=== PATIENT | female | born 1965 | race Caucasian/White ===

== ENCOUNTER 2017-03-28 13:00 | Inpatient (IN) | payer MEDICAID ==
[~2017-03-28] VITALS: Ht 172.7 cm; Wt 63.2 kg
[2017-03-28 13:20] VITALS: BP 146/96
[2017-03-28] MEDS ORDERED: OXYC-302 PO (13:57)
[2017-03-28] MEDS ORDERED: LIDOCAINE/PF 1%, 30ML ONE (14:53)
[2017-03-28] MEDS ORDERED: BUPIVACAINE/PF 0.5% ONE (14:53)
[2017-03-28] MEDS ORDERED: HYDROmorphone 2 MG/ML, 1ML ONE (15:11)
[2017-03-28] MEDS ORDERED: FENTANYL PF 250 MCG/5ML ONE (15:11)
[2017-03-28] MEDS ORDERED: MIDAZOLAM 1 MG/ML, 2ML ONE (15:12)
[2017-03-28] MEDS ORDERED: ONDANSETRON 2MG/ML, 2ML IVPush PRN ×2 (15:30→22:00)
[2017-03-28] MEDS ORDERED: MEPERIDINE/PF 25MG/0.5ML IVPush PRN (15:30)
[2017-03-28] MEDS ORDERED: METOCLOPRAMIDE 5 MG/ML, 2ML IV PRN (15:30)
[2017-03-28] MEDS ORDERED: MIDAZOLAM 1 MG/ML, 2ML IV PRN (15:30)
[2017-03-28] MEDS ORDERED: OXYcodone 5 MG/5 ML ORAL.SOL UDC PO PRN (15:30)
[2017-03-28] MEDS ORDERED: PROMETHAZINE 25 MG/ML, 1ML IV PRN (15:30)
[2017-03-28] MEDS ORDERED: hydrALAzine 20 MG/ML, 1ML IV PRN (15:30)
[2017-03-28] MEDS ORDERED: FENTANYL PF 100 MCG/2ML IV PRN (15:30)
[2017-03-28] MEDS ORDERED: ACETAMINOPHEN 325 MG TABLET PO PRN (15:30)
[2017-03-28] MEDS ORDERED: LABETALOL 5MG/ML, 20ML IV PRN ×2 (15:30→19:30)
[2017-03-28] MEDS ORDERED: HYDROmorphone 1 MG/ML, 1ML IV PRN ×2 (15:30→22:00)
[2017-03-28] MEDS ORDERED: ONDANSETRON 2MG/ML, 2ML ONE (15:31)
[2017-03-28] MEDS ORDERED: CEFAZOLIN 1,000 MG ONE (15:31)
[2017-03-28] MEDS ORDERED: DEXAMETHASONE 4 MG/ML, 1ML ONE (15:31)
[2017-03-28] MEDS ORDERED: PHENYLEPHRINE 10 MG/ML ONE (15:31)
[2017-03-28] MEDS ORDERED: PROPOFOL 10 MG/ML, 20ML ONE (15:31)
[2017-03-28] MEDS ORDERED: ACETAMINOPHEN 650 MG/20.3 ML UDC ONE (19:21)
[2017-03-28] MEDS ORDERED: ACETAMINOPHEN 325 MG TABLET ONE (19:21)
[2017-03-28] MEDS ORDERED: OXYcodone 5 MG/5 ML ORAL.SOL UDC ONE (19:21)
[2017-03-28] MEDS ORDERED: FENTANYL PF 100 MCG/2ML ONE (19:21)
[2017-03-28] MEDS ORDERED: DOCUSATE 100 MG CAPSULE PO PRN (19:30)
[2017-03-28] MEDS ORDERED: BISACODYL 10 MG SUPP PR PRN (19:30)
[2017-03-28] MEDS ORDERED: MORPHINE SULFATE 4 MG/ML, 1ML IVPush PRN (19:30)
[2017-03-28] MEDS ORDERED: TRAZODONE 50MG TABLET PO PRN (19:30)
[2017-03-28] MEDS ORDERED: POLYETHYLENE GLYCOL 17 GM PACKET PO PRN (19:30)
[2017-03-28 20:48] LABS: ASPARTATE AMINO TRANSFERASE 17 U/L (15-37); BLOOD UREA NITROGEN 5 mg/dL (7-18)
[2017-03-28] MEDS ORDERED: MAGNESIUM SULFATE PMX 2GM/50ML 50 ML IV ONE (21:00)
[2017-03-28] MEDS ORDERED: CEFAZOLIN 1,000 MG IM SCH (22:00)
[2017-03-28] MEDS: INSULIN ASPART 100 UNITS/ML, PEN SQ-INSULIN SCH (22:15)
[2017-03-28] MEDS: ENOXAPARIN 40 MG/0.4 ML SQ SCH (22:15)
[2017-03-28] MEDS: SODIUM CHLORIDE 0.9% 1,000 ML IV SCH (22:16)
[2017-03-28] MEDS: OXYcodone IR 5MG TABLET PO PRN (22:17)
[2017-03-28] MEDS: CEFAZOLIN PMX 1GM/50ML 50 ML IV SCH (22:34)
[2017-03-29] VITALS: BP 103/76
[2017-03-29] MEDS: OXYcodone IR 5MG TABLET PO PRN ×6 (02:43→23:43)
[2017-03-29] MEDS: CEFAZOLIN PMX 1GM/50ML 50 ML IV SCH ×2 (06:14→14:53)
[2017-03-29 06:49] VITALS: BP 121/84
[2017-03-29] MEDS: SODIUM CHLORIDE 0.9% 1,000 ML IV SCH ×4 (08:00→23:43)
[2017-03-29] MEDS: metFORMIN 500 MG TABLET PO SCH ×2 (08:14→16:53)
[2017-03-29] MEDS: INSULIN ASPART 100 UNITS/ML, PEN SQ-INSULIN SCH ×4 (08:15→21:26)
[2017-03-29 13:40] VITALS: BP 123/86
[2017-03-29 18:18] VITALS: BP 108/73
[2017-03-29] MEDS: ENOXAPARIN 40 MG/0.4 ML SQ SCH (19:54)
[2017-03-30 03:24] VITALS: BP 123/83
[2017-03-30] MEDS: OXYcodone IR 5MG TABLET PO PRN ×3 (03:42→12:00)
[2017-03-30 07:00] VITALS: BP 133/91
[2017-03-30] MEDS: INSULIN ASPART 100 UNITS/ML, PEN SQ-INSULIN SCH ×2 (07:56→11:59)
[2017-03-30] MEDS: metFORMIN 500 MG TABLET PO SCH (07:57)
[2017-03-30] MEDS ORDERED: METF500T PO (10:15)
[2017-03-30] MEDS: SODIUM CHLORIDE 0.9% 1,000 ML IV SCH (10:40)
[2017-03-30 13:30] VITALS: BP 112/53
== END 2017-03-30 14:25 | disposition home or self-care (01) | DRG 494 ==
LOC: OUT 13:00 → 4NOR 19:20
PROVIDERS: ADMIT Orthopaedic Surgery Foot and Ankle Surgery; ATTEND Orthopaedic Surgery Foot and Ankle Surgery
PROC: 0QS Lower Bones, Reposition (ICD-10-PCS; 2017-03-28)
PROC: 0QSJ04Z Reposition Right Fibula with Internal Fixation Device, Open Approach (ICD-10-PCS; principal; 2017-03-28 15:30)
DX: S82.401A Unspecified fracture of shaft of right fibula, initial encounter for closed fracture (principal); S82.871A Displaced pilon fracture of right tibia, initial encounter for closed fracture; Y99.8 Other external cause status; Y92.89 Other specified places as the place of occurrence of the external cause; Y93.89 Activity, other specified; X58.XXXA Exposure to other specified factors, initial encounter; E11.65 Type 2 diabetes mellitus with hyperglycemia; Z87.891 Personal history of nicotine dependence; Z83.3 Family history of diabetes mellitus; Z82.49 Family history of ischemic heart disease and other diseases of the circulatory system; E83.42 Hypomagnesemia; E88.09 Other disorders of plasma-protein metabolism, not elsewhere classified; E05.90 Thyrotoxicosis, unspecified without thyrotoxic crisis or storm; E04.1 Nontoxic single thyroid nodule; Z79.84 Long term (current) use of oral hypoglycemic drugs; E11.40 Type 2 diabetes mellitus with diabetic neuropathy, unspecified; M81.0 Age-related osteoporosis without current pathological fracture
CPT/HCPCS: 36415; 76001; 76536; 80053; 80061; 82306; 82962; 83036; 83735; 84439; 84443; 84481; 85025; 85610; C1713; J0690; J1100; J1170; J1650; J1815; J2250; J2405; J2704; J3010; J3490; J2370; J3475; J7030

== ENCOUNTER → 2017-05-24 | Outpatient (CLI) | payer MEDICAID ==
[~2017-05-24] MED LIST: ASPI-650 PO; METF500T PO; METF500T4 PO; OXYC-302 PO; OXYC5CAP4 PO
== END | disposition home or self-care (01) ==
LOC: WOUND 09:14
PROVIDERS: ATTEND Physician Assistant
DX: T81.31XA Disruption of external operation (surgical) wound, not elsewhere classified, initial encounter (principal); E11.65 Type 2 diabetes mellitus with hyperglycemia; Z87.891 Personal history of nicotine dependence; Y83.8 Other surgical procedures as the cause of abnormal reaction of the patient, or of later complication, without mention of misadventure at the time of the procedure; Y92.89 Other specified places as the place of occurrence of the external cause
CPT/HCPCS: 97597; 99215

== ENCOUNTER → 2017-06-04 | Outpatient (CLI) | payer MEDICAID | END | disposition home or self-care (01) | LOC: WOUND 10:58 | PROVIDERS: ATTEND Internal Medicine | DX: T81.31XD Disruption of external operation (surgical) wound, not elsewhere classified, subsequent encounter (principal); E11.65 Type 2 diabetes mellitus with hyperglycemia; Z87.891 Personal history of nicotine dependence; Y83.8 Other surgical procedures as the cause of abnormal reaction of the patient, or of later complication, without mention of misadventure at the time of the procedure | CPT/HCPCS: 97597 ==

== ENCOUNTER → 2017-06-11 | Outpatient (CLI) | payer MEDICAID | END | disposition home or self-care (01) | LOC: WOUND 11:00 | PROVIDERS: ATTEND Internal Medicine | DX: T81.31XD Disruption of external operation (surgical) wound, not elsewhere classified, subsequent encounter (principal); E11.65 Type 2 diabetes mellitus with hyperglycemia; Z87.891 Personal history of nicotine dependence; Y83.8 Other surgical procedures as the cause of abnormal reaction of the patient, or of later complication, without mention of misadventure at the time of the procedure | CPT/HCPCS: 97597 ==

== ENCOUNTER → 2017-06-25 | Outpatient (CLI) | payer MEDICAID | END | disposition home or self-care (01) | LOC: WOUND 10:52 | PROVIDERS: ATTEND Internal Medicine | DX: T81.31XD Disruption of external operation (surgical) wound, not elsewhere classified, subsequent encounter (principal); E11.65 Type 2 diabetes mellitus with hyperglycemia; Z87.891 Personal history of nicotine dependence; Y83.8 Other surgical procedures as the cause of abnormal reaction of the patient, or of later complication, without mention of misadventure at the time of the procedure | CPT/HCPCS: 97597 ==

== ENCOUNTER → 2018-09-09 | Outpatient (CLI) | payer MEDICAID ==
[~2018-09-09] MED LIST changes: +METF500T17 PO; -METF500T4 PO; +OXYC5CAP2 PO; -OXYC5CAP4 PO
== END | disposition home or self-care (01) ==
LOC: CFH 10:48
PROVIDERS: ATTEND Family Medicine
DX: Z13.820 Encounter for screening for osteoporosis (principal); M81.0 Age-related osteoporosis without current pathological fracture; S52.002A Unspecified fracture of upper end of left ulna, initial encounter for closed fracture; Z78.0 Asymptomatic menopausal state; X58.XXXA Exposure to other specified factors, initial encounter; Y93.89 Activity, other specified; Y92.89 Other specified places as the place of occurrence of the external cause; Y99.8 Other external cause status
CPT/HCPCS: 77080

== ENCOUNTER → 2018-10-02 | Outpatient (CLI) | payer MEDICAID | END | disposition home or self-care (01) | LOC: CFH 12:23 | PROVIDERS: ATTEND Family Medicine | DX: R92.2 Inconclusive mammogram (principal) | CPT/HCPCS: G0279; 77066 ==

== ENCOUNTER 2019-10-20 11:31 | Inpatient (IN) | payer MEDICAID, OTHER ==
[~2019-10-20] VITALS: Ht 172.7 cm; Wt 56.3 kg
[2019-10-20] MEDS ORDERED: SODIUM CHLORIDE 0.9% 1,000ML IVBOLUS ONE ×2 (12:00)
[2019-10-20] MEDS ORDERED: PLEASE ENTER HEIGHT AND WEIGHT MC SCH (12:00)
[2019-10-20] MEDS ORDERED: PIPERACILLIN/TAZO/PMX 3.375GM 50 ML IV ONE (12:00)
[2019-10-20] MEDS ORDERED: SODIUM CHLORIDE FLUSH 10ML SYR IVF ONE (12:00)
[2019-10-20] MEDS ORDERED: VANCOMYCIN PER PHARMACY MC PRN ×2 (12:00→13:00)
--- NOTE | 2019-10-20 12:00 | NUR ---
THIS IS A 54 YO FEMALE WHO PRESENTS TO THE ER VIA AMUBLANCE C/O INCREASED WEAKNESS AND CONFUSION PER FAMILY WITH A WOUND TO LEFT MIDDLE FINGER AND BURN TO RIGHT THUMB. WOUND TO LEFT MIDDLE FINGER APPEARS TO BE BROWN TISSUE, MACERATED AND POSSIBLE MUSCLE/BONE SHOWING. PT AO X 3, CANNOT SAY DATE OR TIME. SKIN COOL, PALE AND DRY. RESP EVEN, SHALLOW AND UNLABORED. UPON CHANGING PT INTO GOWN, SOAKED BRIEF NOTED WITH MACERATED SKIN ON LABIA AND YEAST NOTED. PT HAS REDDNED SKIN ON COCCYX WITH A SMALL WOUND APPROX 1.5 CM X 1.5 CM. RING CUT OFF BY DIRECTION OF BENTLEY VOGEL. SECOND IV LINE ESTABLISED. BEAR HUGGER IN PLACE. PT PUT ON WARM BLANKETS. DISCUSSED INSERTING BENJAMIN WITH BENTLEY VOGEL FOR STRICT CORE TEMP MONITORING. PT ON CONT BP, CARDIAC AND O2 MONITORS. CALL LIGHT WITHIN REACH.
--- NOTE | 2019-10-20 12:03 | NUR ---
GLUCOMETER READ "HI". BENTLEY VOGEL NOTIFIED. CMP ALREADY IN LAB. AWAITING GLUCOSE RESULTS.
[2019-10-20] MEDS ORDERED: PIPERACILLIN/TAZO/PMX 3.375GM 50 ML ONE (12:11)
[2019-10-20 12:18] LABS: ALANINE AMINOTRANSFERASE 17 U/L (12-78); ALBUMIN 2.2 g/dL (3.4-5.0); ANION GAP 30 mmol/L (5-15); CALCIUM 7.2 mg/dL (8.5-10.1); CHLORIDE 85 mmol/L (98-107); CREATININE 2.83 mg/dL (0.55-1.02)
[2019-10-20 12:25] LABS: ALKALINE PHOSPHATASE 219 U/L (45-117); BILIRUBIN,TOTAL 0.5 mg/dL (0.2-1.0); TOTAL PROTEIN 6.6 g/dL (6.4-8.2)
[2019-10-20 12:26] LABS: C-REACTIVE PROTEIN, QUANT > 19.00 mg/dL (0.02-0.49)
[2019-10-20] MEDS ORDERED: VANCOMYCIN PMX 1GM/200ML 200 ML IV ONE (12:30)
[2019-10-20 12:39] LABS: MEAN CORPUSCULAR HEMOGLOBIN 28.5 pg (27.0-34.8); MEAN CORPUSCULAR HGB CONC 31.3 g/dL (32.4-35.8); MEAN CORPUSCULAR VOLUME 90.8 fL (80-100); MEAN PLATELET VOLUME 7.2 fL (7.4-10.4); PLATELET COUNT 319 x10^3/uL (130-400); RED CELL DISTRIBUTION WIDTH 15.5 % (9.6-15.2)
[2019-10-20 12:43] LABS: MD YES
[2019-10-20 12:47] LABS: ANISOCYTOSIS 1+; BAND#(MANUAL) 10.29 x10^3/uL; BANDS%(MANUAL) 21 % (0-7); ECHINOCYTES 1+; LYMPH#(MANUAL) 2.94 x10^3/uL (1-3.4); LYMPHS% (MANUAL) 6 % (22-44); MONOS#(MANUAL) 0.49 x10^3/uL (0.3-2.7); MONOS% (MANUAL) 1 % (2-9); SEG#(MANUAL) 35.28 x10^3/uL (1.8-6.8); SEGS% (MANUAL) 72 % (42-75)
[2019-10-20] MEDS: D5%-0.45NACL+KCL 20MEQ 1,000 ML IV SCH (12:48)
[2019-10-20 12:49] LABS: ACANTHOCYTES 1+
[2019-10-20 12:50] LABS: <PLATELET ESTIMATE> ADEQUATE; <PLT MORPHOLOGY> NORMAL PLT MORPH; TOXIC GRAN 1+
[2019-10-20 12:53] LABS: FIO2 ROOM AIR %
[2019-10-20] MEDS ORDERED: BISACODYL 10 MG SUPP PR PRN (13:00)
[2019-10-20] MEDS ORDERED: ONDANSETRON 2MG/ML, 2ML IVPush PRN (13:00)
[2019-10-20] MEDS ORDERED: POLYETHYLENE GLYCOL 17 GM PACKET PO PRN (13:00)
[2019-10-20] MEDS ORDERED: NOREPINEPHRINE 4 MG in SODIUM CHLORIDE 0.9% 246 ML IV PRN (13:00)
[2019-10-20] MEDS ORDERED: LORazepam 2 MG/ML, 1ML IVPush PRN (13:00)
[2019-10-20] MEDS: PIPERACILLIN/TAZO/PMX 3.375GM 50 ML IV SCH ×3 (13:00→18:31)
--- NOTE | 2019-10-20 13:10 | NUR ---
CENTRAL LINE PLACED BY BENTLEY VOGEL FOR PT'S CONT HYPOTENSION. PT AO X 3. SKIN PALE, COOL AND DRY. PT ON CONT BP, CARDIAC AND O2 MONITORS. CALL LIGHT WITHIN REACH. WILL CONT TO MONITOR PT.
[2019-10-20 13:22] LABS: HCT (SEDRATE) 36.4 % (34.6-47.8)
[2019-10-20 13:28] LABS: TROPONIN I < 0.015 ng/mL (0.000-0.045)
[2019-10-20 13:29] LABS: ACETONE, SERUM Large (80mg/dL) mg/dL (Negative)
[2019-10-20] MEDS ORDERED: NS + 20MEQ KCL 1,000 ML IV ONE (13:29)
[2019-10-20] MEDS: NS + 20MEQ KCL 1,000 ML IV SCH ×2 (13:33→22:17)
[2019-10-20] MEDS: REGULAR INSULIN 62.5 UNITS in SODIUM CHLORIDE 0.9% 249.375 ML IV PRN ×3 (13:51→23:30)
[2019-10-20 13:54] LABS: FREE T4 (FREE THYROXINE) 0.92 ng/dL (0.76-1.46)
[2019-10-20 14:16] LABS: MICROSCOPIC INDICATED
[2019-10-20 14:17] LABS: CULTURE INDICATED? YES
--- NOTE | 2019-10-20 14:20 | NUR ---
PT CURRENTLY RESTING ON [place]. SKIN PALE, TIGHT, DRY AND COOL TO TOUCH. PT AO X 3, ANSWERING ALL QUESTIONS APPROPRIATELY BUT UNABLE TO RECALL DATE/YEAR. PT ON CONT BP, CARDIAC AND O2 MONITORS.
--- NOTE | 2019-10-20 14:27 | NUR ---
REPORT TO MADHU MUKHERJEE ON CICU.
[2019-10-20] MEDS ORDERED: PHARMACOKINETIC MONITORING MC PRN (15:30)
[2019-10-20] MEDS: ENOXAPARIN 40 MG/0.4 ML SQ SCH (16:06)
[2019-10-20 18:51] LABS: ANION GAP 24 mmol/L (5-15); CALCIUM 6.9 mg/dL (8.5-10.1); CHLORIDE 97 mmol/L (98-107); CREATININE 2.81 mg/dL (0.55-1.02)
[2019-10-20 18:54] LABS: TROPONIN I < 0.015 ng/mL (0.000-0.045)
[2019-10-20 22:43] LABS: ANION GAP 15 mmol/L (5-15); CALCIUM 7.1 mg/dL (8.5-10.1); CHLORIDE 103 mmol/L (98-107); CREATININE 2.85 mg/dL (0.55-1.02)
[2019-10-21] MEDS ORDERED: SODIUM CHLORIDE 0.9% 1,000ML IVBOLUS ONE
[2019-10-21] MEDS: PIPERACILLIN/TAZO/PMX 3.375GM 50 ML IV SCH ×4 (01:28→19:39)
[2019-10-21] MEDS: NS + 20MEQ KCL 1,000 ML IV SCH (02:08)
[2019-10-21] MEDS: REGULAR INSULIN 62.5 UNITS in SODIUM CHLORIDE 0.9% 249.375 ML IV PRN ×3 (02:21→20:37)
[2019-10-21 02:40] LABS: ANION GAP 10 mmol/L (5-15); CALCIUM 6.8 mg/dL (8.5-10.1); CHLORIDE 110 mmol/L (98-107)
[2019-10-21] MEDS: D5%-0.45NACL+KCL 20MEQ 1,000 ML IV SCH ×3 (02:50→20:38)
[2019-10-21 06:08] LABS: ALANINE AMINOTRANSFERASE 16 U/L (12-78); ALBUMIN 1.7 g/dL (3.4-5.0); ANION GAP 11 mmol/L (5-15); CALCIUM 6.8 mg/dL (8.5-10.1); CHLORIDE 111 mmol/L (98-107); CREATININE 2.83 mg/dL (0.55-1.02)
[2019-10-21 06:11] LABS: ALKALINE PHOSPHATASE 172 U/L (45-117); BILIRUBIN,TOTAL 0.3 mg/dL (0.2-1.0); TOTAL PROTEIN 5.3 g/dL (6.4-8.2)
[2019-10-21] MEDS ORDERED: SODIUM PHOSPHATE 40 MMOL in SODIUM CHLORIDE 0.9% 500 ML IV ONE (06:30)
[2019-10-21] MEDS ORDERED: MAGNESIUM SULFATE 4 GM in SODIUM CHLORIDE 0.9% 100 ML IV ONE (06:30)
[2019-10-21 06:59] LABS: MEAN CORPUSCULAR HEMOGLOBIN 28.4 pg (27.0-34.8); MEAN CORPUSCULAR HGB CONC 32.3 g/dL (32.4-35.8); MEAN CORPUSCULAR VOLUME 87.8 fL (80-100); MEAN PLATELET VOLUME 6.8 fL (7.4-10.4); PLATELET COUNT 240 x10^3/uL (130-400); RED BLOOD COUNT 3.83 x10^6/uL (3.82-5.3); RED CELL DISTRIBUTION WIDTH 14.2 % (9.6-15.2)
[2019-10-21 07:12] LABS: MD YES
[2019-10-21 07:14] LABS: BAND#(MANUAL) 8.42 x10^3/uL; BANDS%(MANUAL) 20 % (0-7); LYMPH#(MANUAL) 0.42 x10^3/uL (1-3.4); LYMPHS% (MANUAL) 1 % (22-44); MONOS#(MANUAL) 0.42 x10^3/uL (0.3-2.7); MONOS% (MANUAL) 1 % (2-9); PMNS WITH VACUOLES 1+; SEG#(MANUAL) 32.84 x10^3/uL (1.8-6.8); SEGS% (MANUAL) 78 % (42-75); TOXIC GRAN 1+
[2019-10-21 07:15] LABS: <PLATELET ESTIMATE> ADEQUATE; <PLT MORPHOLOGY> NORMAL PLT MORPH; ANISOCYTOSIS 1+; ECHINOCYTES 1+
[2019-10-21] MEDS: SENNA/DOCUSATE TABLET PO SCH (09:00)
[2019-10-21] MEDS: FAMOTIDINE 20 MG/2 ML IVPush SCH (09:15)
[2019-10-21] MEDS: SILVER SULF. CRM 1% , 25GM TP SCH (09:48)
[2019-10-21 10:06] LABS: ANION GAP 12 mmol/L (5-15); CALCIUM 6.8 mg/dL (8.5-10.1); CHLORIDE 109 mmol/L (98-107); CREATININE 2.64 mg/dL (0.55-1.02)
[2019-10-21 10:15] LABS: VANCOMYCIN,RANDOM 13.5 mcg/mL
[2019-10-21] MEDS: FLUCONAZOLE 200 MG/100 ML 100 ML IV SCH (11:40)
[2019-10-21] MEDS ORDERED: VANCOMYCIN PMX 1GM/200ML 200 ML IVPB ONE (12:00)
[2019-10-21] MEDS: THIAMINE 100 MG in SODIUM CHLORIDE 0.9% 50 ML IV SCH (16:25)
[2019-10-21] MEDS: ENOXAPARIN 40 MG/0.4 ML SQ SCH (16:26)
[2019-10-21 16:42] LABS: ANION GAP 11 mmol/L (5-15); CALCIUM 6.6 mg/dL (8.5-10.1); CHLORIDE 110 mmol/L (98-107); CREATININE 2.73 mg/dL (0.55-1.02)
[2019-10-21 20:57] LABS: ANION GAP 12 mmol/L (5-15); CALCIUM 6.6 mg/dL (8.5-10.1); CHLORIDE 111 mmol/L (98-107); CREATININE 2.65 mg/dL (0.55-1.02)
[2019-10-22 01:00] LABS: ANION GAP 12 mmol/L (5-15); CALCIUM 6.5 mg/dL (8.5-10.1); CHLORIDE 109 mmol/L (98-107); CREATININE 2.64 mg/dL (0.55-1.02)
[2019-10-22] MEDS: PIPERACILLIN/TAZO/PMX 3.375GM 50 ML IV SCH ×4 (01:36→18:26)
[2019-10-22] MEDS: D5%-0.45NACL+KCL 20MEQ 1,000 ML IV SCH ×3 (04:44→21:24)
[2019-10-22 05:09] LABS: ANION GAP 11 mmol/L (5-15); CALCIUM 6.5 mg/dL (8.5-10.1); CHLORIDE 110 mmol/L (98-107); CREATININE 2.84 mg/dL (0.55-1.02)
[2019-10-22 05:15] LABS: VANCOMYCIN,RANDOM 24.8 mcg/mL
[2019-10-22 05:43] LABS: MEAN CORPUSCULAR HEMOGLOBIN 28.3 pg (27.0-34.8); MEAN CORPUSCULAR HGB CONC 32.7 g/dL (32.4-35.8); MEAN CORPUSCULAR VOLUME 86.5 fL (80-100); MEAN PLATELET VOLUME 7.1 fL (7.4-10.4); PLATELET COUNT 100 x10^3/uL (130-400); RED BLOOD COUNT 3.32 x10^6/uL (3.82-5.3); RED CELL DISTRIBUTION WIDTH 15.1 % (9.6-15.2)
[2019-10-22 05:45] LABS: MD YES
[2019-10-22 05:46] LABS: BAND#(MANUAL) 3.58 x10^3/uL; BANDS%(MANUAL) 14 % (0-7); LYMPH#(MANUAL) 1.02 x10^3/uL (1-3.4); LYMPHS% (MANUAL) 4 % (22-44); MONOS#(MANUAL) 0.26 x10^3/uL (0.3-2.7); MONOS% (MANUAL) 1 % (2-9); SEG#(MANUAL) 20.74 x10^3/uL (1.8-6.8); SEGS% (MANUAL) 81 % (42-75)
[2019-10-22 05:47] LABS: ECHINOCYTES 1+
[2019-10-22 05:48] LABS: <PLATELET ESTIMATE> DECREASED; <PLT MORPHOLOGY> NORMAL PLT MORPH; ANISOCYTOSIS 1+; PMNS WITH VACUOLES 1+
[2019-10-22] MEDS: SENNA/DOCUSATE TABLET PO SCH (08:31)
[2019-10-22] MEDS: FAMOTIDINE 20 MG/2 ML IVPush SCH (09:00)
[2019-10-22 09:49] LABS: ANION GAP 12 mmol/L (5-15); CALCIUM 6.4 mg/dL (8.5-10.1); CHLORIDE 110 mmol/L (98-107)
[2019-10-22] MEDS: SILVER SULF. CRM 1% , 25GM TP SCH (11:31)
[2019-10-22] MEDS: FLUCONAZOLE 200 MG/100 ML 100 ML IV SCH (11:31)
[2019-10-22 14:54] LABS: ANION GAP 11 mmol/L (5-15); CHLORIDE 114 mmol/L (98-107); CREATININE 2.54 mg/dL (0.55-1.02)
[2019-10-22] MEDS ORDERED: ENOXAPARIN 30 MG/0.3 ML SQ SCH (16:00)
[2019-10-22] MEDS: THIAMINE 100 MG in SODIUM CHLORIDE 0.9% 50 ML IV SCH (17:28)
[2019-10-22 18:53] LABS: ANION GAP 10 mmol/L (5-15); CHLORIDE 110 mmol/L (98-107); CREATININE 2.93 mg/dL (0.55-1.02)
[2019-10-23] MEDS: PIPERACILLIN/TAZO/PMX 3.375GM 50 ML IV SCH ×2 (00:45→06:44)
[2019-10-23 00:57] LABS: ANION GAP 11 mmol/L (5-15); CALCIUM 6.5 mg/dL (8.5-10.1); CHLORIDE 114 mmol/L (98-107); CREATININE 2.77 mg/dL (0.55-1.02)
[2019-10-23] MEDS: REGULAR INSULIN 62.5 UNITS in SODIUM CHLORIDE 0.9% 249.375 ML IV PRN (03:45)
[2019-10-23 05:02] LABS: MEAN CORPUSCULAR HEMOGLOBIN 27.6 pg (27.0-34.8); MEAN CORPUSCULAR HGB CONC 32.4 g/dL (32.4-35.8); MEAN CORPUSCULAR VOLUME 85.3 fL (80-100); MEAN PLATELET VOLUME 7.4 fL (7.4-10.4); PLATELET COUNT 83 x10^3/uL (130-400); RED BLOOD COUNT 3.21 x10^6/uL (3.82-5.3); RED CELL DISTRIBUTION WIDTH 15.2 % (9.6-15.2)
[2019-10-23] MEDS: D5%-0.45NACL+KCL 20MEQ 1,000 ML IV SCH (05:08)
[2019-10-23 05:10] LABS: ALBUMIN 1.3 g/dL (3.4-5.0); ANION GAP 11 mmol/L (5-15); CALCIUM 6.9 mg/dL (8.5-10.1); CHLORIDE 111 mmol/L (98-107)
[2019-10-23 05:14] LABS: ALANINE AMINOTRANSFERASE 24 U/L (12-78); ALKALINE PHOSPHATASE 253 U/L (45-117); BILIRUBIN,TOTAL 0.5 mg/dL (0.2-1.0); CREATININE 2.91 mg/dL (0.55-1.02); TOTAL PROTEIN 4.7 g/dL (6.4-8.2)
[2019-10-23 05:37] LABS: MD YES
[2019-10-23 05:42] LABS: ANISOCYTOSIS 1+; BAND#(MANUAL) 2.06 x10^3/uL; BANDS%(MANUAL) 8 % (0-7); LYMPH#(MANUAL) 1.81 x10^3/uL (1-3.4); LYMPHS% (MANUAL) 7 % (22-44); METAMYELOCYTES# (MANUAL) 0.26 x10^3/uL (0-0); METAMYELOCYTES% (MANUAL) 1 % (0-1); SEG#(MANUAL) 21.67 x10^3/uL (1.8-6.8); SEGS% (MANUAL) 84 % (42-75)
[2019-10-23 05:43] LABS: <PLATELET ESTIMATE> DECREASED; <PLT MORPHOLOGY> NORMAL PLT MORPH; ECHINOCYTES 1+
[2019-10-23] MEDS: SODIUM BICARBONATE 8.4% 150 MEQ in DEXTROSE 5% 1,000 ML IV SCH ×2 (08:57→20:31)
[2019-10-23] MEDS: SENNA/DOCUSATE TABLET PO SCH (08:57)
[2019-10-23 09:00] LABS: ANION GAP 10 mmol/L (5-15); CALCIUM 7.1 mg/dL (8.5-10.1); CHLORIDE 112 mmol/L (98-107); CREATININE 2.99 mg/dL (0.55-1.02)
[2019-10-23] MEDS: FONDAPARINUX 2.5 MG/0.5 ML SQ SCH (10:51)
[2019-10-23] MEDS: SILVER SULF. CRM 1% , 25GM TP SCH (10:51)
[2019-10-23] MEDS: FLUCONAZOLE 200 MG/100 ML 100 ML IV SCH (10:51)
[2019-10-23] MEDS: CEFTRIAXONE PMX 2GM/50ML 50 ML IV SCH (13:43)
[2019-10-23 15:13] LABS: ANION GAP 11 mmol/L (5-15); CALCIUM 7.1 mg/dL (8.5-10.1); CHLORIDE 110 mmol/L (98-107); CREATININE 3.11 mg/dL (0.55-1.02)
[2019-10-23 16:01] LABS: HIT RESULT NEGATIVE (NEGATIVE)
[2019-10-23] MEDS: THIAMINE 100 MG in SODIUM CHLORIDE 0.9% 50 ML IV SCH (17:03)
[2019-10-24 05:05] LABS: ALBUMIN 1.2 g/dL (3.4-5.0); ANION GAP 10 mmol/L (5-15); CALCIUM 6.9 mg/dL (8.5-10.1); CHLORIDE 109 mmol/L (98-107)
[2019-10-24 05:09] LABS: ALANINE AMINOTRANSFERASE 44 U/L (12-78); ALKALINE PHOSPHATASE 351 U/L (45-117); BILIRUBIN,TOTAL 0.5 mg/dL (0.2-1.0); CREATININE 3.05 mg/dL (0.55-1.02); TOTAL PROTEIN 4.8 g/dL (6.4-8.2)
[2019-10-24 05:18] LABS: MEAN CORPUSCULAR HEMOGLOBIN 27.7 pg (27.0-34.8); MEAN CORPUSCULAR HGB CONC 32.6 g/dL (32.4-35.8); MEAN CORPUSCULAR VOLUME 84.8 fL (80-100); RED BLOOD COUNT 3.38 x10^6/uL (3.82-5.3)
[2019-10-24 05:49] LABS: MD YES
[2019-10-24 05:52] LABS: ANISOCYTOSIS 1+; BANDS%(MANUAL) 2 % (0-7); EOS#(MANUAL) 0.25 x10^3/uL (0.0-0.4); EOS% (MANUAL) 1 % (1-7); LYMPH#(MANUAL) 2.24 x10^3/uL (1-3.4); LYMPHS% (MANUAL) 9 % (22-44); METAMYELOCYTES# (MANUAL) 0.25 x10^3/uL (0-0); METAMYELOCYTES% (MANUAL) 1 % (0-1); MONOS#(MANUAL) 0.25 x10^3/uL (0.3-2.7); MONOS% (MANUAL) 1 % (2-9); SEG#(MANUAL) 21.41 x10^3/uL (1.8-6.8); SEGS% (MANUAL) 86 % (42-75)
[2019-10-24 05:53] LABS: <PLATELET ESTIMATE> DECREASED; <PLT MORPHOLOGY> NORMAL PLT MORPH; ECHINOCYTES 1+; MEAN PLATELET VOLUME 7.6 fL (7.4-10.4); PLATELET COUNT 74 x10^3/uL (130-400)
[2019-10-24 05:54] LABS: PMNS WITH VACUOLES 1+
[2019-10-24] MEDS: SODIUM BICARBONATE 8.4% 150 MEQ in DEXTROSE 5% 1,000 ML IV SCH ×2 (06:28→19:43)
[2019-10-24] MEDS ORDERED: POTASSIUM CHLORIDE 20 MEQ TAB.ER.PRT PO ONE (07:00)
[2019-10-24] MEDS ORDERED: INSULIN LISPRO 100 UNITS/ML, PEN SQ-INSULIN SCH (07:30)
[2019-10-24] MEDS: ALBUMIN HUMAN 25% 100 ML IV SCH ×2 (08:33→19:43)
[2019-10-24] MEDS: FONDAPARINUX 2.5 MG/0.5 ML SQ SCH (08:50)
[2019-10-24] MEDS: INSULIN GLARGINE 100 UNITS/ML, PEN SQ-INSULIN SCH ×2 (08:50→21:39)
[2019-10-24] MEDS: SENNA/DOCUSATE TABLET PO SCH (09:00)
[2019-10-24 09:50] LABS: CLOSTRIDIUM DIFFICILE ANTIGEN POSITIVE; CLOSTRIDIUM DIFFICILE TOXIN NEGATIVE (Negative)
[2019-10-24] MEDS: VANCOMYCIN 50 MG/ML ORAL SUSP PO SCH ×3 (10:48→21:38)
[2019-10-24] MEDS: FLUCONAZOLE 200 MG/100 ML 100 ML IV SCH (11:42)
[2019-10-24] MEDS: INSULIN LISPRO 100 UNITS/ML, PEN SQ-INSULIN SCH ×3 (11:55→21:39)
[2019-10-24] MEDS: CEFTRIAXONE PMX 2GM/50ML 50 ML IV SCH (13:12)
[2019-10-24] MEDS: SILVER SULF. CRM 1% , 25GM TP SCH (13:30)
[2019-10-24] MEDS: THIAMINE 100 MG in SODIUM CHLORIDE 0.9% 50 ML IV SCH (16:54)
[2019-10-25 04:52] LABS: MEAN CORPUSCULAR HEMOGLOBIN 28.2 pg (27.0-34.8); MEAN CORPUSCULAR HGB CONC 32.9 g/dL (32.4-35.8); MEAN CORPUSCULAR VOLUME 85.7 fL (80-100); MEAN PLATELET VOLUME 7.7 fL (7.4-10.4); PLATELET COUNT 64 x10^3/uL (130-400); RED BLOOD COUNT 3.04 x10^6/uL (3.82-5.3); RED CELL DISTRIBUTION WIDTH 14.5 % (9.6-15.2)
[2019-10-25] MEDS: VANCOMYCIN 50 MG/ML ORAL SUSP PO SCH ×4 (04:52→21:58)
[2019-10-25 04:58] LABS: CHLORIDE 107 mmol/L (98-107)
[2019-10-25 05:07] LABS: ALANINE AMINOTRANSFERASE 28 U/L (12-78); ALBUMIN 1.8 g/dL (3.4-5.0); ALKALINE PHOSPHATASE 248 U/L (45-117); ANION GAP 8 mmol/L (5-15); BILIRUBIN,TOTAL 1.1 mg/dL (0.2-1.0); CALCIUM 6.9 mg/dL (8.5-10.1); CREATININE 2.77 mg/dL (0.55-1.02); TOTAL PROTEIN 4.9 g/dL (6.4-8.2)
[2019-10-25 05:36] LABS: MD YES
[2019-10-25 05:39] LABS: <PLATELET ESTIMATE> DECREASED; BAND#(MANUAL) 1.06 x10^3/uL; BANDS%(MANUAL) 6 % (0-7); LYMPH#(MANUAL) 1.24 x10^3/uL (1-3.4); LYMPHS% (MANUAL) 7 % (22-44); MONOS#(MANUAL) 0.35 x10^3/uL (0.3-2.7); MONOS% (MANUAL) 2 % (2-9); OVALOCYTES 1+; SEG#(MANUAL) 15.05 x10^3/uL (1.8-6.8); SEGS% (MANUAL) 85 % (42-75)
[2019-10-25 05:40] LABS: <PLT MORPHOLOGY> NORMAL PLT MORPH
[2019-10-25] MEDS: SILVER SULF. CRM 1% , 25GM TP SCH (06:33)
[2019-10-25] MEDS: ALBUMIN HUMAN 25% 100 ML IV SCH (06:48)
[2019-10-25] MEDS: SODIUM BICARBONATE 8.4% 150 MEQ in DEXTROSE 5% 1,000 ML IV SCH (06:49)
[2019-10-25] MEDS: INSULIN LISPRO 100 UNITS/ML, PEN SQ-INSULIN SCH ×4 (06:49→21:18)
[2019-10-25] MEDS ORDERED: MAGNESIUM SULFATE PMX 2GM/50ML 50 ML IV ONE (07:30)
[2019-10-25] MEDS: SODIUM CHLORIDE 0.9% 1,000 ML IV SCH ×2 (08:13→18:54)
[2019-10-25] MEDS: SENNA/DOCUSATE TABLET PO SCH (08:13)
[2019-10-25] MEDS: INSULIN GLARGINE 100 UNITS/ML, PEN SQ-INSULIN SCH ×2 (09:41→21:18)
[2019-10-25] MEDS: FLUCONAZOLE 200 MG/100 ML 100 ML IV SCH (12:01)
[2019-10-25] MEDS: CEFTRIAXONE PMX 2GM/50ML 50 ML IV SCH (13:56)
[2019-10-25 14:17] VITALS: BP 170/103
[2019-10-25 20:00] VITALS: BP 169/91
[2019-10-26] MEDS: hydrALAzine 20 MG/ML, 1ML IVPush PRN ×2 (01:40→15:03)
[2019-10-26 01:46] VITALS: BP 172/106
[2019-10-26 02:23] VITALS: BP 137/81
[2019-10-26] MEDS: VANCOMYCIN 50 MG/ML ORAL SUSP PO SCH ×4 (04:30→21:00)
[2019-10-26 04:58] LABS: MEAN CORPUSCULAR HEMOGLOBIN 27.9 pg (27.0-34.8); MEAN CORPUSCULAR HGB CONC 32.6 g/dL (32.4-35.8); MEAN CORPUSCULAR VOLUME 85.5 fL (80-100); MEAN PLATELET VOLUME 8.3 fL (7.4-10.4); PLATELET COUNT 69 x10^3/uL (130-400); RED BLOOD COUNT 3.42 x10^6/uL (3.82-5.3); RED CELL DISTRIBUTION WIDTH 14.6 % (9.6-15.2)
[2019-10-26 05:03] LABS: ALANINE AMINOTRANSFERASE 25 U/L (12-78); ALBUMIN 1.8 g/dL (3.4-5.0); ANION GAP 9 mmol/L (5-15); CALCIUM 7.1 mg/dL (8.5-10.1); CHLORIDE 107 mmol/L (98-107)
[2019-10-26 05:05] LABS: ALKALINE PHOSPHATASE 259 U/L (45-117); BILIRUBIN,TOTAL 0.5 mg/dL (0.2-1.0); TOTAL PROTEIN 5.1 g/dL (6.4-8.2)
[2019-10-26 05:51] LABS: BASOPHILS # (AUTO) 0.04 x10^3/uL (0-0.1); BASOPHILS % (AUTO) 0 % (0-1); EOSINOPHILS # (AUTO) 0.33 x10^3/uL (0-0.4); EOSINOPHILS % (AUTO) 2 % (1-7); LYMPHOCYTES # (AUTO) 1.85 x10^3/uL (1-3.4); LYMPHOCYTES % (AUTO) 10 % (22-44); MD SCAN; MONOCYTES # (AUTO) 1.38 x10^3/uL (0.2-0.8); MONOCYTES % (AUTO) 8 % (2-9); NEUTROPHILS # (AUTO) 14.19 x10^3/uL (1.8-6.8); NEUTROPHILS % (AUTO) 80 % (42-75)
[2019-10-26] MEDS: SODIUM CHLORIDE 0.9% 1,000 ML IV SCH (08:58)
[2019-10-26] MEDS: ACETAMINOPHEN 325 MG TABLET PO PRN (08:58)
[2019-10-26] MEDS: INSULIN LISPRO 100 UNITS/ML, PEN SQ-INSULIN SCH ×4 (08:58→21:00)
[2019-10-26] MEDS: POTASSIUM CHLORIDE 20 MEQ TAB.ER.PRT PO SCH ×2 (08:58→16:53)
[2019-10-26] MEDS: SENNA/DOCUSATE TABLET PO SCH (08:59)
[2019-10-26] MEDS: SILVER SULF. CRM 1% , 25GM TP SCH (08:59)
[2019-10-26] MEDS: INSULIN GLARGINE 100 UNITS/ML, PEN SQ-INSULIN SCH ×2 (08:59→20:59)
[2019-10-26 09:05] VITALS: BP 146/89
[2019-10-26] MEDS: FLUCONAZOLE 200 MG/100 ML 100 ML IV SCH (12:00)
[2019-10-26] MEDS: CEFTRIAXONE PMX 2GM/50ML 50 ML IV SCH (12:00)
[2019-10-26 14:55] VITALS: BP 183/107
[2019-10-26 15:31] VITALS: BP 158/91
[2019-10-26 18:55] VITALS: BP 150/95
[2019-10-27] MEDS: SODIUM CHLORIDE 0.9% 1,000 ML IV SCH ×2 (00:06→16:15)
[2019-10-27 00:53] VITALS: BP 134/85
[2019-10-27] MEDS: VANCOMYCIN 50 MG/ML ORAL SUSP PO SCH ×4 (03:59→21:51)
[2019-10-27 07:15] VITALS: BP 151/93
[2019-10-27] MEDS: INSULIN LISPRO 100 UNITS/ML, PEN SQ-INSULIN SCH ×4 (07:55→21:01)
[2019-10-27] MEDS: SENNA/DOCUSATE TABLET PO SCH (09:50)
[2019-10-27] MEDS: INSULIN GLARGINE 100 UNITS/ML, PEN SQ-INSULIN SCH ×2 (09:51→21:02)
[2019-10-27 09:54] LABS: MEAN CORPUSCULAR HEMOGLOBIN 27.5 pg (27.0-34.8); MEAN CORPUSCULAR HGB CONC 32.8 g/dL (32.4-35.8); MEAN CORPUSCULAR VOLUME 84.1 fL (80-100); RED BLOOD COUNT 3.45 x10^6/uL (3.82-5.3); RED CELL DISTRIBUTION WIDTH 15.1 % (9.6-15.2)
[2019-10-27 10:12] LABS: ANION GAP 7 mmol/L (5-15); CALCIUM 7.2 mg/dL (8.5-10.1); CHLORIDE 110 mmol/L (98-107); CREATININE 1.95 mg/dL (0.55-1.02)
[2019-10-27] MEDS ORDERED: LORazepam 2 MG/ML, 1ML IVPush ONE (10:30)
[2019-10-27 10:58] LABS: MEAN PLATELET VOLUME 8.1 fL (7.4-10.4); PLATELET COUNT 101 x10^3/uL (130-400)
[2019-10-27 11:12] LABS: BASOPHILS # (AUTO) 0.04 x10^3/uL (0-0.1); BASOPHILS % (AUTO) 0 % (0-1); EOSINOPHILS # (AUTO) 0.29 x10^3/uL (0-0.4); EOSINOPHILS % (AUTO) 1 % (1-7); LYMPHOCYTES # (AUTO) 1.95 x10^3/uL (1-3.4); LYMPHOCYTES % (AUTO) 10 % (22-44); MD SCAN; MONOCYTES # (AUTO) 1.66 x10^3/uL (0.2-0.8); MONOCYTES % (AUTO) 8 % (2-9); NEUTROPHILS # (AUTO) 16.58 x10^3/uL (1.8-6.8); NEUTROPHILS % (AUTO) 81 % (42-75)
[2019-10-27] MEDS ORDERED: GADOTERATE 7.5 MMOL/15 ML SYR ONE (12:14)
[2019-10-27] MEDS: CEFTRIAXONE PMX 2GM/50ML 50 ML IV SCH (12:41)
[2019-10-27] MEDS: SILVER SULF. CRM 1% , 25GM TP SCH (12:43)
[2019-10-27 14:08] VITALS: BP 129/89
[2019-10-27 19:21] VITALS: BP 141/94
[2019-10-27] MEDS: OXYcodone IR 5MG TABLET PO PRN (21:01)
[2019-10-28 01:58] VITALS: BP 150/98
[2019-10-28] MEDS: VANCOMYCIN 50 MG/ML ORAL SUSP PO SCH ×4 (04:30→23:02)
[2019-10-28] MEDS: SILVER SULF. CRM 1% , 25GM TP SCH (04:50)
[2019-10-28] MEDS: OXYcodone IR 5MG TABLET PO PRN ×4 (04:58→20:23)
[2019-10-28] MEDS: SODIUM CHLORIDE 0.9% 1,000 ML IV SCH (04:59)
[2019-10-28 06:09] LABS: ANION GAP 6 mmol/L (5-15); CALCIUM 7.2 mg/dL (8.5-10.1); CHLORIDE 112 mmol/L (98-107)
[2019-10-28 06:35] VITALS: BP 150/94
[2019-10-28] MEDS ORDERED: GLUCAGON 1 MG IM PRN (07:30)
[2019-10-28] MEDS: INSULIN LISPRO 100 UNITS/ML, PEN SQ-INSULIN SCH ×4 (07:31→20:43)
[2019-10-28 07:47] LABS: MEAN CORPUSCULAR HEMOGLOBIN 27.6 pg (27.0-34.8); MEAN CORPUSCULAR HGB CONC 32.6 g/dL (32.4-35.8); MEAN CORPUSCULAR VOLUME 84.5 fL (80-100); MEAN PLATELET VOLUME 7.5 fL (7.4-10.4); PLATELET COUNT 114 x10^3/uL (130-400); RED BLOOD COUNT 3.14 x10^6/uL (3.82-5.3); RED CELL DISTRIBUTION WIDTH 15.1 % (9.6-15.2)
[2019-10-28 07:59] LABS: ALBUMIN 1.7 g/dL (3.4-5.0); ANION GAP 6 mmol/L (5-15); CALCIUM 7.3 mg/dL (8.5-10.1); CHLORIDE 112 mmol/L (98-107)
[2019-10-28 08:01] LABS: ALANINE AMINOTRANSFERASE 17 U/L (12-78); ALKALINE PHOSPHATASE 224 U/L (45-117); BILIRUBIN,TOTAL 0.2 mg/dL (0.2-1.0); TOTAL PROTEIN 5.5 g/dL (6.4-8.2)
[2019-10-28 08:39] LABS: BASOPHILS # (AUTO) 0.08 x10^3/uL (0-0.1); BASOPHILS % (AUTO) 0 % (0-1); EOSINOPHILS # (AUTO) 0.24 x10^3/uL (0-0.4); EOSINOPHILS % (AUTO) 1 % (1-7); LYMPHOCYTES # (AUTO) 3.13 x10^3/uL (1-3.4); LYMPHOCYTES % (AUTO) 14 % (22-44); MD SCAN; MONOCYTES # (AUTO) 0.96 x10^3/uL (0.2-0.8); MONOCYTES % (AUTO) 4 % (2-9); NEUTROPHILS # (AUTO) 18.15 x10^3/uL (1.8-6.8); NEUTROPHILS % (AUTO) 81 % (42-75)
[2019-10-28] MEDS: SENNA/DOCUSATE TABLET PO SCH (08:59)
[2019-10-28] MEDS: SODIUM CHLORIDE FLUSH 10ML SYR IVF SCH ×2 (09:10→20:23)
[2019-10-28 13:15] VITALS: BP 137/91
[2019-10-28] MEDS ORDERED: VANCOMYCIN PER PHARMACY MC PRN (13:30)
[2019-10-28] MEDS ORDERED: PHARMACY MAY ADJ FOR RENAL FX MC PRN (13:30)
[2019-10-28] MEDS: INSULIN GLARGINE 100 UNITS/ML, PEN SQ-INSULIN SCH ×2 (13:38→20:43)
[2019-10-28] MEDS: AMPICILLIN/SULBACTAM 3 GM in SODIUM CHLORIDE 0.9% 100 ML IV SCH ×2 (14:31→20:23)
[2019-10-28] MEDS ORDERED: VANCOMYCIN PMX 1GM/200ML 200 ML IVPB SCH (15:00)
[2019-10-28] MEDS ORDERED: PHARMACOKINETIC MONITORING MC PRN (15:00)
[2019-10-28 19:11] VITALS: BP 114/85
[2019-10-28 21:45] LABS: CREATININE,URINE RANDOM 26.1 mg/dL
[2019-10-29 00:53] VITALS: BP 145/91
[2019-10-29] MEDS: AMPICILLIN/SULBACTAM 3 GM in SODIUM CHLORIDE 0.9% 100 ML IV SCH ×2 (02:25→08:29)
[2019-10-29] MEDS: OXYcodone IR 5MG TABLET PO PRN ×3 (02:33→13:20)
[2019-10-29] MEDS: VANCOMYCIN 50 MG/ML ORAL SUSP PO SCH ×4 (05:01→21:41)
[2019-10-29] MEDS: INSULIN LISPRO 100 UNITS/ML, PEN SQ-INSULIN SCH ×4 (07:00→21:00)
[2019-10-29 07:36] LABS: MEAN CORPUSCULAR HEMOGLOBIN 27.3 pg (27.0-34.8); MEAN CORPUSCULAR HGB CONC 32.5 g/dL (32.4-35.8); MEAN CORPUSCULAR VOLUME 84.1 fL (80-100); MEAN PLATELET VOLUME 7.6 fL (7.4-10.4); PLATELET COUNT 108 x10^3/uL (130-400); RED BLOOD COUNT 2.93 x10^6/uL (3.82-5.3); RED CELL DISTRIBUTION WIDTH 15.4 % (9.6-15.2)
[2019-10-29 07:39] LABS: ALANINE AMINOTRANSFERASE 15 U/L (12-78); ALBUMIN 1.7 g/dL (3.4-5.0); ANION GAP 5 mmol/L (5-15); CALCIUM 7.4 mg/dL (8.5-10.1); CHLORIDE 112 mmol/L (98-107); CREATININE 1.87 mg/dL (0.55-1.02)
[2019-10-29 07:41] LABS: ALKALINE PHOSPHATASE 213 U/L (45-117); BILIRUBIN,TOTAL 0.2 mg/dL (0.2-1.0); TOTAL PROTEIN 5.5 g/dL (6.4-8.2)
[2019-10-29 07:56] LABS: MD YES
[2019-10-29 08:02] LABS: <PLATELET ESTIMATE> DECREASED; <PLT MORPHOLOGY> NORMAL PLT MORPH; ANISOCYTOSIS 1+; BAND#(MANUAL) 2.89 x10^3/uL; BANDS%(MANUAL) 12 % (0-7); EOS#(MANUAL) 0.24 x10^3/uL (0.0-0.4); EOS% (MANUAL) 1 % (1-7); LYMPH#(MANUAL) 3.37 x10^3/uL (1-3.4); LYMPHS% (MANUAL) 14 % (22-44); METAMYELOCYTES# (MANUAL) 0.72 x10^3/uL (0-0); METAMYELOCYTES% (MANUAL) 3 % (0-1); MONOS#(MANUAL) 1.45 x10^3/uL (0.3-2.7); MONOS% (MANUAL) 6 % (2-9); SEG#(MANUAL) 15.42 x10^3/uL (1.8-6.8); SEGS% (MANUAL) 64 % (42-75)
[2019-10-29] MEDS: INSULIN GLARGINE 100 UNITS/ML, PEN SQ-INSULIN SCH ×2 (08:14→21:44)
[2019-10-29] MEDS: SENNA/DOCUSATE TABLET PO SCH (08:15)
[2019-10-29] MEDS: SILVER SULF. CRM 1% , 25GM TP SCH (08:32)
[2019-10-29] MEDS: SODIUM CHLORIDE FLUSH 10ML SYR IVF SCH ×2 (09:00→21:00)
[2019-10-29 09:22] VITALS: BP 138/78
[2019-10-29] MEDS: CEFTRIAXONE PMX 2GM/50ML 50 ML IV SCH (10:57)
[2019-10-29] MEDS: D5%-LACTATED RINGERS 1,000 ML IV SCH ×2 (10:57→17:46)
[2019-10-29] MEDS ORDERED: VANCOMYCIN PMX 1GM/200ML 200 ML IVPB SCH ×2 (12:00→17:00)
[2019-10-29] MEDS ORDERED: BACITRACIN 50,000 UNIT ONE (14:36)
[2019-10-29] MEDS ORDERED: LABETALOL 5MG/ML, 20ML IV PRN (15:00)
[2019-10-29] MEDS ORDERED: MEPERIDINE/PF 25MG/ML,1ML IVPush PRN (15:00)
[2019-10-29] MEDS ORDERED: LORazepam 2 MG/ML, 1ML IVPush PRN (15:00)
[2019-10-29] MEDS ORDERED: HYDROmorphone 2 MG/ML, 1ML IVPush PRN (15:00)
[2019-10-29] MEDS ORDERED: ONDANSETRON 2MG/ML, 2ML IV PRN (15:00)
[2019-10-29] MEDS ORDERED: hydrALAzine 20 MG/ML, 1ML IV PRN (15:00)
[2019-10-29] MEDS ORDERED: OXYcodone 5 MG/5 ML ORAL.SOL UDC PO PRN (15:00)
[2019-10-29] MEDS ORDERED: FENTANYL PF 100 MCG/2ML IV PRN (15:00)
[2019-10-29] MEDS ORDERED: FENTANYL PF 250 MCG/5ML ONE (15:06)
[2019-10-29] MEDS ORDERED: MIDAZOLAM 1 MG/ML, 2ML ONE (15:06)
[2019-10-29] MEDS ORDERED: HYDROmorphone 1 MG/ML, 1ML VIAL ONE (16:34)
[2019-10-29] MEDS ORDERED: FENTANYL PF 100 MCG/2ML ONE (16:34)
[2019-10-29] MEDS ORDERED: OXYcodone 5 MG/5 ML ORAL.SOL UDC ONE (16:35)
[2019-10-29] MEDS ORDERED: DEXAMETHASONE 4 MG/ML, 1ML ONE (16:37)
[2019-10-29] MEDS ORDERED: PROPOFOL 10 MG/ML, 20ML ONE (16:37)
[2019-10-29] MEDS ORDERED: ONDANSETRON 2MG/ML, 2ML ONE (16:37)
[2019-10-29] MEDS ORDERED: GLYCOPYRROLATE 0.2MG/1ML, 5ML ONE (16:37)
[2019-10-29] MEDS ORDERED: CEFAZOLIN 1,000 MG ONE (16:37)
[2019-10-29] MEDS ORDERED: NEOSTIGMINE 1 MG/ML, 10ML ONE (16:37)
[2019-10-29] MEDS ORDERED: ROCURONIUM 10MG/ML,5ML ONE (16:53)
[2019-10-29] MEDS ORDERED: PHENYLEPHRINE 10 MG/ML ONE (16:53)
[2019-10-29 17:40] VITALS: BP 122/77
[2019-10-29 18:53] VITALS: BP 156/94
[2019-10-29 23:21] LABS: MEAN CORPUSCULAR HEMOGLOBIN 27.9 pg (27.0-34.8); MEAN CORPUSCULAR HGB CONC 32.1 g/dL (32.4-35.8); MEAN CORPUSCULAR VOLUME 86.8 fL (80-100); MEAN PLATELET VOLUME 8.1 fL (7.4-10.4); PLATELET COUNT 111 x10^3/uL (130-400); RED BLOOD COUNT 3.14 x10^6/uL (3.82-5.3); RED CELL DISTRIBUTION WIDTH 15.5 % (9.6-15.2)
[2019-10-29 23:23] LABS: MD YES
[2019-10-29 23:30] LABS: ALANINE AMINOTRANSFERASE 19 U/L (12-78); ALBUMIN 1.7 g/dL (3.4-5.0); ANION GAP 7 mmol/L (5-15); CALCIUM 7.4 mg/dL (8.5-10.1); CHLORIDE 107 mmol/L (98-107); CREATININE 1.76 mg/dL (0.55-1.02)
[2019-10-29 23:32] LABS: ALKALINE PHOSPHATASE 217 U/L (45-117); BILIRUBIN,TOTAL 0.2 mg/dL (0.2-1.0); TOTAL PROTEIN 6.1 g/dL (6.4-8.2)
[2019-10-29 23:37] LABS: ANISOCYTOSIS 1+; BAND#(MANUAL) 2.75 x10^3/uL; BANDS%(MANUAL) 9 % (0-7); LYMPH#(MANUAL) 2.45 x10^3/uL (1-3.4); LYMPHS% (MANUAL) 8 % (22-44); METAMYELOCYTES# (MANUAL) 0.61 x10^3/uL (0-0); METAMYELOCYTES% (MANUAL) 2 % (0-1)
[2019-10-29 23:38] LABS: ECHINOCYTES 1+; OVALOCYTES 1+
[2019-10-29 23:40] LABS: <PLATELET ESTIMATE> DECREASED; <PLT MORPHOLOGY> NORMAL PLT MORPH; TOXIC GRAN 1+
[2019-10-29 23:41] LABS: MONOS#(MANUAL) 0.31 x10^3/uL (0.3-2.7); MONOS% (MANUAL) 1 % (2-9); SEG#(MANUAL) 24.48 x10^3/uL (1.8-6.8); SEGS% (MANUAL) 80 % (42-75)
[2019-10-30] MEDS: D5%-LACTATED RINGERS 1,000 ML IV SCH (02:27)
[2019-10-30 02:40] VITALS: BP 117/72
[2019-10-30] MEDS: VANCOMYCIN 50 MG/ML ORAL SUSP PO SCH ×4 (03:32→22:22)
[2019-10-30] MEDS: OXYcodone IR 5MG TABLET PO PRN ×4 (03:33→17:00)
[2019-10-30] MEDS ORDERED: MAGNESIUM SULFATE PMX 2GM/50ML 50 ML IV ONE (06:30)
[2019-10-30] MEDS ORDERED: CALCIUM CHLORIDE 13.6 MEQ in SODIUM CHLORIDE 0.9% 100 ML IV ONE (06:30)
[2019-10-30] MEDS: INSULIN LISPRO 100 UNITS/ML, PEN SQ-INSULIN SCH ×4 (07:00→20:57)
[2019-10-30] MEDS ORDERED: INSULIN REGULAR 100 UNITS/ML, 3ML VIAL IVPush SCH (07:30)
[2019-10-30] MEDS ORDERED: DEXTROSE 50%, 50ML SYRINGE IVPush ONE (07:30)
[2019-10-30 08:00] VITALS: BP 129/83
[2019-10-30] MEDS: TAMSULOSIN 0.4 MG CAP.ER.24H PO SCH (09:00)
[2019-10-30] MEDS: SILVER SULF. CRM 1% , 25GM TP SCH (09:00)
[2019-10-30] MEDS: INSULIN GLARGINE 100 UNITS/ML, PEN SQ-INSULIN SCH ×2 (09:00→20:56)
[2019-10-30] MEDS: SENNA/DOCUSATE TABLET PO SCH (09:00)
[2019-10-30] MEDS: SODIUM CHLORIDE FLUSH 10ML SYR IVF SCH ×2 (09:00→20:57)
[2019-10-30] MEDS: CEFTRIAXONE PMX 2GM/50ML 50 ML IV SCH (12:30)
[2019-10-30 13:17] VITALS: BP 87/55
[2019-10-30 13:45] VITALS: BP 98/62
[2019-10-30 14:18] LABS: ANION GAP 10 mmol/L (5-15); CALCIUM 8.3 mg/dL (8.5-10.1); CHLORIDE 105 mmol/L (98-107); CREATININE 1.76 mg/dL (0.55-1.02)
[2019-10-30] MEDS ORDERED: SODIUM CHLORIDE 0.45% 1,000 ML IV SCH (15:30)
[2019-10-30] MEDS ORDERED: SODIUM POLYSTYRENE SULFONATE ORAL SUSP PO ONE (15:30)
[2019-10-30 19:26] VITALS: BP 105/71
[2019-10-30 20:20] LABS: ANION GAP 9 mmol/L (5-15); CALCIUM 7.8 mg/dL (8.5-10.1); CHLORIDE 104 mmol/L (98-107)
[2019-10-30 20:21] LABS: CREATININE 1.98 mg/dL (0.55-1.02)
[2019-10-30] MEDS: SODIUM CHLORIDE 0.9% 1,000 ML IV SCH (22:22)
[2019-10-31 01:10] VITALS: BP 86/61
[2019-10-31 01:45] VITALS: BP 93/65
[2019-10-31] MEDS: VANCOMYCIN 50 MG/ML ORAL SUSP PO SCH ×4 (04:16→22:35)
[2019-10-31] MEDS: SODIUM CHLORIDE 0.9% 1,000 ML IV SCH (06:03)
[2019-10-31 06:32] LABS: MEAN CORPUSCULAR HEMOGLOBIN 27.4 pg (27.0-34.8); MEAN CORPUSCULAR HGB CONC 31.7 g/dL (32.4-35.8); MEAN CORPUSCULAR VOLUME 86.4 fL (80-100); MEAN PLATELET VOLUME 7.9 fL (7.4-10.4); PLATELET COUNT 130 x10^3/uL (130-400); RED BLOOD COUNT 2.83 x10^6/uL (3.82-5.3); RED CELL DISTRIBUTION WIDTH 15.7 % (9.6-15.2)
[2019-10-31 06:43] LABS: ANION GAP 8 mmol/L (5-15); CALCIUM 7.5 mg/dL (8.5-10.1); CHLORIDE 104 mmol/L (98-107); CREATININE 1.77 mg/dL (0.55-1.02)
[2019-10-31 07:05] LABS: MD YES
[2019-10-31 07:21] LABS: BAND#(MANUAL) 0.92 x10^3/uL; BANDS%(MANUAL) 3 % (0-7); LYMPH#(MANUAL) 1.84 x10^3/uL (1-3.4); LYMPHS% (MANUAL) 6 % (22-44); METAMYELOCYTES# (MANUAL) 0.92 x10^3/uL (0-0); METAMYELOCYTES% (MANUAL) 3 % (0-1); MONOS#(MANUAL) 0.61 x10^3/uL (0.3-2.7); MONOS% (MANUAL) 2 % (2-9); MYELOCYTES# (MANUAL) 0.31 x10^3/uL (0-0); MYELOCYTES% (MANUAL) 1 % (0-0); SEG#(MANUAL) 26.01 x10^3/uL (1.8-6.8); SEGS% (MANUAL) 85 % (42-75)
[2019-10-31 07:22] LABS: ANISOCYTOSIS 1+; HYPOCHROMIA 1+; OVALOCYTES 1+
[2019-10-31 07:23] LABS: <PLATELET ESTIMATE> ADEQUATE; <PLT MORPHOLOGY> NORMAL PLT MORPH; CRENATED 1+
[2019-10-31 07:51] VITALS: BP 110/65
[2019-10-31] MEDS: INSULIN LISPRO 100 UNITS/ML, PEN SQ-INSULIN SCH ×4 (08:03→20:55)
[2019-10-31] MEDS: SENNA/DOCUSATE TABLET PO SCH (08:04)
[2019-10-31] MEDS: SODIUM CHLORIDE FLUSH 10ML SYR IVF SCH ×2 (08:04→20:55)
[2019-10-31] MEDS: TAMSULOSIN 0.4 MG CAP.ER.24H PO SCH (08:04)
[2019-10-31] MEDS: INSULIN GLARGINE 100 UNITS/ML, PEN SQ-INSULIN SCH (08:04)
[2019-10-31] MEDS: OXYcodone IR 5MG TABLET PO PRN ×2 (08:42→20:56)
[2019-10-31] MEDS: SILVER SULF. CRM 1% , 25GM TP SCH (09:00)
[2019-10-31] MEDS: MICAFUNGIN 100 MG in SODIUM CHLORIDE 0.9% 100 ML IV SCH (09:56)
[2019-10-31] MEDS: SODIUM BICARB 8.4%,50ML SYR. 100 MEQ in SODIUM CHLORIDE 0.45% 1,000 ML IV SCH (09:57)
[2019-10-31] MEDS: ERTAPENEM 1 GM in SODIUM CHLORIDE 0.9% 50 ML IV SCH (11:25)
[2019-10-31 12:45] VITALS: BP 110/64
[2019-10-31 15:50] LABS: ANION GAP 7 mmol/L (5-15); CALCIUM 7.1 mg/dL (8.5-10.1); CHLORIDE 105 mmol/L (98-107); CREATININE 1.75 mg/dL (0.55-1.02)
[2019-10-31 20:40] VITALS: BP 106/62
[2019-11-01] MEDS: SODIUM BICARB 8.4%,50ML SYR. 100 MEQ in SODIUM CHLORIDE 0.45% 1,000 ML IV SCH (01:13)
[2019-11-01 02:15] VITALS: BP 100/60
[2019-11-01] MEDS: VANCOMYCIN 50 MG/ML ORAL SUSP PO SCH ×4 (04:59→23:41)
[2019-11-01] MEDS: OXYcodone IR 5MG TABLET PO PRN ×3 (05:16→16:45)
[2019-11-01 06:30] LABS: MEAN CORPUSCULAR HEMOGLOBIN 27.9 pg (27.0-34.8); MEAN CORPUSCULAR HGB CONC 32.2 g/dL (32.4-35.8); MEAN CORPUSCULAR VOLUME 86.5 fL (80-100); MEAN PLATELET VOLUME 7.6 fL (7.4-10.4); PLATELET COUNT 111 x10^3/uL (130-400); RED BLOOD COUNT 2.57 x10^6/uL (3.82-5.3); RED CELL DISTRIBUTION WIDTH 15.9 % (9.6-15.2)
[2019-11-01 06:32] LABS: ANION GAP 5 mmol/L (5-15); CHLORIDE 107 mmol/L (98-107); CREATININE 1.69 mg/dL (0.55-1.02)
[2019-11-01 06:55] LABS: MD YES
[2019-11-01 07:22] LABS: BANDS%(MANUAL) 2 % (0-7); LYMPH#(MANUAL) 1.79 x10^3/uL (1-3.4); LYMPHS% (MANUAL) 12 % (22-44); METAMYELOCYTES# (MANUAL) 0.15 x10^3/uL (0-0); METAMYELOCYTES% (MANUAL) 1 % (0-1); MONOS#(MANUAL) 0.15 x10^3/uL (0.3-2.7); MONOS% (MANUAL) 1 % (2-9); SEG#(MANUAL) 12.52 x10^3/uL (1.8-6.8); SEGS% (MANUAL) 84 % (42-75)
[2019-11-01 07:24] LABS: ANISOCYTOSIS 1+; OVALOCYTES 1+
[2019-11-01 07:25] LABS: <PLATELET ESTIMATE> DECREASED; <PLT MORPHOLOGY> NORMAL PLT MORPH
[2019-11-01 07:51] VITALS: BP 117/61
[2019-11-01 08:38] LABS: % IRON SATURATION 39 % (20-55); IRON LEVEL 58 mcg/dL (50-170); TOTAL IRON BINDING CAPACITY 147 mcg/dL (250-450)
[2019-11-01] MEDS: SODIUM CHLORIDE FLUSH 10ML SYR IVF SCH ×2 (09:00→20:14)
[2019-11-01] MEDS: SILVER SULF. CRM 1% , 25GM TP SCH (09:00)
[2019-11-01] MEDS: SENNA/DOCUSATE TABLET PO SCH (09:00)
[2019-11-01] MEDS: INSULIN LISPRO 100 UNITS/ML, PEN SQ-INSULIN SCH ×4 (09:06→20:14)
[2019-11-01] MEDS: MICAFUNGIN 100 MG in SODIUM CHLORIDE 0.9% 100 ML IV SCH (09:07)
[2019-11-01] MEDS: INSULIN GLARGINE 100 UNITS/ML, PEN SQ-INSULIN SCH ×2 (09:07→20:14)
[2019-11-01] MEDS: TAMSULOSIN 0.4 MG CAP.ER.24H PO SCH (09:07)
[2019-11-01] MEDS: ERTAPENEM 1 GM in SODIUM CHLORIDE 0.9% 50 ML IV SCH (10:29)
[2019-11-01 13:33] LABS: CREATININE,URINE RANDOM 14.5 mg/dL
[2019-11-01 14:28] VITALS: BP 104/64
[2019-11-01 16:49] LABS: ANION GAP 3 mmol/L (5-15); CALCIUM 7.1 mg/dL (8.5-10.1); CHLORIDE 109 mmol/L (98-107); CREATININE 1.62 mg/dL (0.55-1.02)
[2019-11-01 19:05] VITALS: BP 129/80
[2019-11-02] VITALS (10 sets, daily range): BP systolic 109–157; BP diastolic 8–94
[2019-11-02] MEDS: OXYcodone IR 5MG TABLET PO PRN ×4 (00:05→21:43)
[2019-11-02] MEDS: VANCOMYCIN 50 MG/ML ORAL SUSP PO SCH ×4 (05:20→21:43)
[2019-11-02] MEDS: INSULIN LISPRO 100 UNITS/ML, PEN SQ-INSULIN SCH ×4 (07:00→21:00)
[2019-11-02] MEDS: SILVER SULF. CRM 1% , 25GM TP SCH (07:25)
[2019-11-02] MEDS: SENNA/DOCUSATE TABLET PO SCH (07:25)
[2019-11-02 07:55] LABS: MEAN CORPUSCULAR HEMOGLOBIN 27.4 pg (27.0-34.8); MEAN CORPUSCULAR HGB CONC 32.1 g/dL (32.4-35.8); MEAN CORPUSCULAR VOLUME 85.4 fL (80-100); MEAN PLATELET VOLUME 7.3 fL (7.4-10.4); PLATELET COUNT 100 x10^3/uL (130-400); RED BLOOD COUNT 2.62 x10^6/uL (3.82-5.3); RED CELL DISTRIBUTION WIDTH 15.1 % (9.6-15.2)
[2019-11-02 08:05] LABS: ALANINE AMINOTRANSFERASE 26 U/L (12-78); ALBUMIN 1.7 g/dL (3.4-5.0); ANION GAP 5 mmol/L (5-15); CALCIUM 7.4 mg/dL (8.5-10.1); CHLORIDE 110 mmol/L (98-107)
[2019-11-02 08:15] LABS: ALKALINE PHOSPHATASE 294 U/L (45-117); BILIRUBIN,TOTAL 0.4 mg/dL (0.2-1.0); TOTAL PROTEIN 5.4 g/dL (6.4-8.2)
[2019-11-02 08:21] LABS: HCT (SEDRATE) 22.3 % (34.6-47.8)
[2019-11-02 08:23] LABS: BASOPHILS # (AUTO) 0.07 x10^3/uL (0-0.1); BASOPHILS % (AUTO) 1 % (0-1); EOSINOPHILS # (AUTO) 0.07 x10^3/uL (0-0.4); EOSINOPHILS % (AUTO) 1 % (1-7); LYMPHOCYTES # (AUTO) 2.24 x10^3/uL (1-3.4); LYMPHOCYTES % (AUTO) 17 % (22-44); MD SCAN; MONOCYTES # (AUTO) 0.45 x10^3/uL (0.2-0.8); MONOCYTES % (AUTO) 4 % (2-9); NEUTROPHILS # (AUTO) 10.03 x10^3/uL (1.8-6.8); NEUTROPHILS % (AUTO) 78 % (42-75)
[2019-11-02] MEDS: MICAFUNGIN 100 MG in SODIUM CHLORIDE 0.9% 100 ML IV SCH (08:32)
[2019-11-02] MEDS: TAMSULOSIN 0.4 MG CAP.ER.24H PO SCH (08:32)
[2019-11-02] MEDS: SODIUM CHLORIDE FLUSH 10ML SYR IVF SCH ×2 (08:33→21:46)
[2019-11-02] MEDS: INSULIN GLARGINE 100 UNITS/ML, PEN SQ-INSULIN SCH ×2 (08:33→21:43)
[2019-11-02] MEDS: IRON SUCROSE COMPLEX 100MG/5ML IV SCH (09:56)
[2019-11-02] MEDS: ERTAPENEM 1 GM in SODIUM CHLORIDE 0.9% 50 ML IV SCH (10:05)
[2019-11-02] MEDS: SODIUM BICARB 8.4%,50ML SYR. 75 MEQ in SODIUM CHLORIDE 0.45% 1,000 ML IV SCH ×2 (16:23→21:46)
[2019-11-02 18:08] LABS: INTERNATIONAL NORMALIZED RATIO 1.03 (0.93-1.1); PARTIAL THROMBOPLASTIN TIME 40 Seconds (25-31); PROTHROMBIN TIME 10.8 Seconds (9.6-11.5)
[2019-11-02 18:30] LABS: HIT RESULT NEGATIVE (NEGATIVE)
[2019-11-03 00:27] VITALS: BP 136/73
[2019-11-03] MEDS: SODIUM BICARB 8.4%,50ML SYR. 75 MEQ in SODIUM CHLORIDE 0.45% 1,000 ML IV SCH (03:25)
[2019-11-03] MEDS: VANCOMYCIN 50 MG/ML ORAL SUSP PO SCH ×3 (04:07→21:51)
[2019-11-03] MEDS: OXYcodone IR 5MG TABLET PO PRN ×3 (04:10→16:47)
[2019-11-03 05:14] LABS: MEAN CORPUSCULAR HEMOGLOBIN 27.9 pg (27.0-34.8); MEAN CORPUSCULAR HGB CONC 31.7 g/dL (32.4-35.8); RED BLOOD COUNT 3.02 x10^6/uL (3.82-5.3); RED CELL DISTRIBUTION WIDTH 15.7 % (9.6-15.2)
[2019-11-03 05:18] LABS: CHLORIDE 110 mmol/L (98-107)
[2019-11-03 05:25] LABS: ALANINE AMINOTRANSFERASE 29 U/L (12-78); ALBUMIN 1.6 g/dL (3.4-5.0); ALKALINE PHOSPHATASE 265 U/L (45-117); ANION GAP 6 mmol/L (5-15); BILIRUBIN,TOTAL 0.3 mg/dL (0.2-1.0); CALCIUM 7.6 mg/dL (8.5-10.1); CREATININE 1.37 mg/dL (0.55-1.02); TOTAL PROTEIN 5.1 g/dL (6.4-8.2)
[2019-11-03 06:16] LABS: BASOPHILS # (AUTO) 0.03 x10^3/uL (0-0.1); BASOPHILS % (AUTO) 0 % (0-1); EOSINOPHILS # (AUTO) 0.34 x10^3/uL (0-0.4); EOSINOPHILS % (AUTO) 2 % (1-7); LYMPHOCYTES # (AUTO) 2.07 x10^3/uL (1-3.4); LYMPHOCYTES % (AUTO) 14 % (22-44); MD MORPH REVIEW ONLY; MEAN PLATELET VOLUME 7.6 fL (7.4-10.4); MONOCYTES # (AUTO) 0.55 x10^3/uL (0.2-0.8); MONOCYTES % (AUTO) 4 % (2-9); NEUTROPHILS # (AUTO) 11.31 x10^3/uL (1.8-6.8); NEUTROPHILS % (AUTO) 79 % (42-75); PLATELET COUNT 120 x10^3/uL (130-400)
[2019-11-03 06:17] LABS: <PLATELET ESTIMATE> DECREASED; ANISOCYTOSIS 1+; BASOPHILLIC STIPPLING 1+; CRENATED 1+; HYPOGRAN PLTS 1+
[2019-11-03 06:19] LABS: OVALOCYTES 1+
[2019-11-03 06:25] LABS: MICROSCOPIC INDICATED
[2019-11-03 06:43] VITALS: BP 154/94
[2019-11-03] MEDS: SENNA/DOCUSATE TABLET PO SCH (07:58)
[2019-11-03] MEDS: MICAFUNGIN 100 MG in SODIUM CHLORIDE 0.9% 100 ML IV SCH (08:38)
[2019-11-03] MEDS: TAMSULOSIN 0.4 MG CAP.ER.24H PO SCH (08:38)
[2019-11-03] MEDS: IRON SUCROSE COMPLEX 100MG/5ML IV SCH (08:38)
[2019-11-03] MEDS: INSULIN LISPRO 100 UNITS/ML, PEN SQ-INSULIN SCH ×4 (08:40→21:53)
[2019-11-03] MEDS: INSULIN GLARGINE 100 UNITS/ML, PEN SQ-INSULIN SCH ×2 (08:40→21:52)
[2019-11-03] MEDS: SILVER SULF. CRM 1% , 25GM TP SCH (09:00)
[2019-11-03] MEDS: SODIUM CHLORIDE FLUSH 10ML SYR IVF SCH ×2 (09:00→21:54)
[2019-11-03] MEDS: ERGOCALCIFEROL 50,000 UNIT CAPSULE PO SCH (11:40)
[2019-11-03] MEDS: ERTAPENEM 1 GM in SODIUM CHLORIDE 0.9% 50 ML IV SCH (11:41)
[2019-11-03 12:14] VITALS: BP 115/73
[2019-11-03 12:31] LABS: D-DIMER (DIC) 3.13 ug/mlFEU (0.00-0.52); PROTIME 11.6 Seconds (9.6-11.5)
[2019-11-03] MEDS ORDERED: SODIUM BICARB 8.4%,50ML SYR. 75 MEQ in SODIUM CHLORIDE 0.45% 1,000 ML IV SCH ×2 (13:00→21:38)
[2019-11-03] MEDS ORDERED: FLUCONAZOLE 200 MG TABLET PO SCH (14:30)
[2019-11-03] MEDS: FLUCONAZOLE 200 MG TABLET PO SCH (16:29)
[2019-11-03 19:02] VITALS: BP 139/83
[2019-11-04 00:30] VITALS: BP 133/84
[2019-11-04 06:18] LABS: CHLORIDE,URINE RANDOM 108 mmol/L; POTASSIUM,URINE RANDOM 26 mmol/L; SODIUM,URINE RANDOM 109 mmol/L
[2019-11-04 06:32] VITALS: BP 117/70
[2019-11-04] MEDS: INSULIN LISPRO 100 UNITS/ML, PEN SQ-INSULIN SCH ×4 (07:00→20:57)
[2019-11-04 08:12] LABS: MEAN CORPUSCULAR HGB CONC 32.7 g/dL (32.4-35.8); MEAN CORPUSCULAR VOLUME 85.7 fL (80-100); MEAN PLATELET VOLUME 7.5 fL (7.4-10.4); PLATELET COUNT 89 x10^3/uL (130-400); RED BLOOD COUNT 2.68 x10^6/uL (3.82-5.3); RED CELL DISTRIBUTION WIDTH 15.5 % (9.6-15.2)
[2019-11-04 08:14] LABS: ALANINE AMINOTRANSFERASE 27 U/L (12-78); ALBUMIN 1.6 g/dL (3.4-5.0); ANION GAP 4 mmol/L (5-15); CALCIUM 7.8 mg/dL (8.5-10.1); CHLORIDE 111 mmol/L (98-107); CREATININE 1.07 mg/dL (0.55-1.02)
[2019-11-04 08:17] LABS: ALKALINE PHOSPHATASE 236 U/L (45-117); BILIRUBIN,TOTAL 0.6 mg/dL (0.2-1.0); TOTAL PROTEIN 5.2 g/dL (6.4-8.2)
[2019-11-04 08:31] LABS: BASOPHILS # (AUTO) 0.15 x10^3/uL (0-0.1); BASOPHILS % (AUTO) 1 % (0-1); EOSINOPHILS # (AUTO) 0.16 x10^3/uL (0-0.4); EOSINOPHILS % (AUTO) 1 % (1-7); LYMPHOCYTES # (AUTO) 1.99 x10^3/uL (1-3.4); LYMPHOCYTES % (AUTO) 15 % (22-44); MD SCAN; MONOCYTES % (AUTO) 4 % (2-9); NEUTROPHILS % (AUTO) 80 % (42-75)
[2019-11-04] MEDS ORDERED: SODIUM BICARB 8.4%,50ML SYR. 75 MEQ in DEXTROSE 5% 1,000 ML IV SCH (08:33)
[2019-11-04] MEDS: SODIUM CHLORIDE FLUSH 10ML SYR IVF SCH ×2 (09:00→20:58)
[2019-11-04] MEDS: SENNA/DOCUSATE TABLET PO SCH (09:00)
[2019-11-04] MEDS ORDERED: FENTANYL PF 100 MCG/2ML ONE (09:53)
[2019-11-04] MEDS ORDERED: MIDAZOLAM 1 MG/ML, 5ML ONE (09:53)
[2019-11-04] MEDS ORDERED: FLUMAZENIL 0.1 MG/1 ML, 5ML ONE (09:53)
[2019-11-04] MEDS ORDERED: NALOXONE 1 MG/ML, 2ML ONE (09:53)
[2019-11-04] MEDS ORDERED: LIDOCAINE 1%, 20ML ONE (10:14)
[2019-11-04] MEDS: ERTAPENEM 1 GM in SODIUM CHLORIDE 0.9% 50 ML IV SCH (11:26)
[2019-11-04] MEDS: SODIUM BICARB 8.4%,50ML SYR. 50 MEQ in SODIUM CHLORIDE 0.45% 1,000 ML IV SCH (11:26)
[2019-11-04 12:00] VITALS: BP 110/68
[2019-11-04] MEDS: IRON SUCROSE COMPLEX 100MG/5ML IV SCH (12:46)
[2019-11-04] MEDS: TAMSULOSIN 0.4 MG CAP.ER.24H PO SCH (12:46)
[2019-11-04] MEDS: VANCOMYCIN 50 MG/ML ORAL SUSP PO SCH (12:46)
[2019-11-04] MEDS: INSULIN GLARGINE 100 UNITS/ML, PEN SQ-INSULIN SCH ×2 (13:18→20:58)
[2019-11-04] MEDS: FLUCONAZOLE 200 MG TABLET PO SCH (16:15)
[2019-11-04] MEDS: OXYcodone IR 5MG TABLET PO PRN (16:15)
[2019-11-04 19:14] VITALS: BP 117/72
[2019-11-04 22:47] VITALS: BP 135/87
[2019-11-05] MEDS: VANCOMYCIN 50 MG/ML ORAL SUSP PO SCH ×2 (00:48→12:32)
[2019-11-05 01:13] VITALS: BP 151/97
[2019-11-05 02:05] VITALS: BP 140/86
[2019-11-05] MEDS: OXYcodone IR 5MG TABLET PO PRN ×2 (02:10→11:14)
[2019-11-05] MEDS: SODIUM BICARB 8.4%,50ML SYR. 50 MEQ in SODIUM CHLORIDE 0.45% 1,000 ML IV SCH ×2 (04:51→23:27)
[2019-11-05 05:51] LABS: MEAN CORPUSCULAR HEMOGLOBIN 28.1 pg (27.0-34.8); MEAN CORPUSCULAR HGB CONC 32.3 g/dL (32.4-35.8); MEAN CORPUSCULAR VOLUME 87.2 fL (80-100); MEAN PLATELET VOLUME 8.1 fL (7.4-10.4); PLATELET COUNT 83 x10^3/uL (130-400); RED BLOOD COUNT 2.96 x10^6/uL (3.82-5.3); RED CELL DISTRIBUTION WIDTH 15.5 % (9.6-15.2)
[2019-11-05 06:05] LABS: ALBUMIN 1.6 g/dL (3.4-5.0); ANION GAP 2 mmol/L (5-15); CHLORIDE 113 mmol/L (98-107)
[2019-11-05 06:08] LABS: CREATININE 1.18 mg/dL (0.55-1.02)
[2019-11-05 06:49] LABS: BASOPHILS # (AUTO) 0.03 x10^3/uL (0-0.1); BASOPHILS % (AUTO) 0 % (0-1); EOSINOPHILS # (AUTO) 0.42 x10^3/uL (0-0.4); EOSINOPHILS % (AUTO) 3 % (1-7); LYMPHOCYTES # (AUTO) 1.93 x10^3/uL (1-3.4); LYMPHOCYTES % (AUTO) 13 % (22-44); MD SCAN; MONOCYTES # (AUTO) 0.69 x10^3/uL (0.2-0.8); MONOCYTES % (AUTO) 5 % (2-9); NEUTROPHILS # (AUTO) 11.72 x10^3/uL (1.8-6.8); NEUTROPHILS % (AUTO) 79 % (42-75)
[2019-11-05 06:55] VITALS: BP 144/89
[2019-11-05] MEDS ORDERED: SODIUM CHLORIDE 0.9%, 500ML IVBOLUS ONE (07:30)
[2019-11-05 07:43] LABS: FREE T4 (FREE THYROXINE) 0.93 ng/dL (0.76-1.46)
[2019-11-05] MEDS: IRON SUCROSE COMPLEX 100MG/5ML IV SCH (09:55)
[2019-11-05] MEDS: SENNA/DOCUSATE TABLET PO SCH (09:56)
[2019-11-05] MEDS: TAMSULOSIN 0.4 MG CAP.ER.24H PO SCH (09:57)
[2019-11-05] MEDS: SODIUM CHLORIDE FLUSH 10ML SYR IVF SCH ×2 (09:57→23:27)
[2019-11-05] MEDS: ERTAPENEM 1 GM in SODIUM CHLORIDE 0.9% 50 ML IV SCH (09:57)
[2019-11-05] MEDS: INSULIN GLARGINE 100 UNITS/ML, PEN SQ-INSULIN SCH ×2 (09:58→20:12)
[2019-11-05] MEDS ORDERED: LEVOTHYROXINE 100 MCG INJ IVPush ONE (11:00)
[2019-11-05] MEDS: INSULIN LISPRO 100 UNITS/ML, PEN SQ-INSULIN SCH ×3 (12:32→20:12)
[2019-11-05 13:09] VITALS: BP 123/73
[2019-11-05] MEDS: FLUCONAZOLE 200 MG TABLET PO SCH (15:55)
[2019-11-05 19:18] VITALS: BP 120/69
[2019-11-06 00:06] VITALS: BP 111/73
[2019-11-06] MEDS: VANCOMYCIN 50 MG/ML ORAL SUSP PO SCH ×2 (00:27→12:38)
[2019-11-06] MEDS: LEVOTHYROXINE 50 MCG TABLET PO SCH (05:49)
[2019-11-06] MEDS: OXYcodone IR 5MG TABLET PO PRN ×4 (05:50→20:24)
[2019-11-06 06:13] LABS: CHLORIDE 113 mmol/L (98-107)
[2019-11-06 06:23] LABS: ALANINE AMINOTRANSFERASE 22 U/L (12-78); ALBUMIN 1.5 g/dL (3.4-5.0); ALKALINE PHOSPHATASE 222 U/L (45-117); ANION GAP 4 mmol/L (5-15); BILIRUBIN,TOTAL 0.6 mg/dL (0.2-1.0); CALCIUM 7.7 mg/dL (8.5-10.1); CREATININE 1.17 mg/dL (0.55-1.02); TOTAL PROTEIN 4.7 g/dL (6.4-8.2)
[2019-11-06 07:38] VITALS: BP 143/82
[2019-11-06] MEDS: INSULIN LISPRO 100 UNITS/ML, PEN SQ-INSULIN SCH ×4 (07:50→20:14)
[2019-11-06 09:26] LABS: MEAN CORPUSCULAR HEMOGLOBIN 28.3 pg (27.0-34.8); MEAN CORPUSCULAR HGB CONC 32.9 g/dL (32.4-35.8); MEAN CORPUSCULAR VOLUME 85.9 fL (80-100); MEAN PLATELET VOLUME 7.9 fL (7.4-10.4); PLATELET COUNT 86 x10^3/uL (130-400); RED BLOOD COUNT 2.69 x10^6/uL (3.82-5.3); RED CELL DISTRIBUTION WIDTH 15.8 % (9.6-15.2)
[2019-11-06 09:33] LABS: BASOPHILS # (AUTO) 0.05 x10^3/uL (0-0.1); BASOPHILS % (AUTO) 0 % (0-1); EOSINOPHILS # (AUTO) 0.35 x10^3/uL (0-0.4); EOSINOPHILS % (AUTO) 3 % (1-7); LYMPHOCYTES % (AUTO) 18 % (22-44); MD SCAN; MONOCYTES # (AUTO) 0.88 x10^3/uL (0.2-0.8); MONOCYTES % (AUTO) 7 % (2-9); NEUTROPHILS # (AUTO) 9.09 x10^3/uL (1.8-6.8); NEUTROPHILS % (AUTO) 72 % (42-75)
[2019-11-06] MEDS: TAMSULOSIN 0.4 MG CAP.ER.24H PO SCH (09:48)
[2019-11-06] MEDS: IRON SUCROSE COMPLEX 100MG/5ML IV SCH (09:48)
[2019-11-06] MEDS: SENNA/DOCUSATE TABLET PO SCH (09:49)
[2019-11-06] MEDS: SODIUM CHLORIDE FLUSH 10ML SYR IVF SCH ×2 (09:50→20:15)
[2019-11-06] MEDS: INSULIN GLARGINE 100 UNITS/ML, PEN SQ-INSULIN SCH ×2 (10:07→20:13)
[2019-11-06] MEDS: ERTAPENEM 1 GM in SODIUM CHLORIDE 0.9% 50 ML IV SCH (10:16)
[2019-11-06] MEDS: SODIUM BICARB 8.4%,50ML SYR. 50 MEQ in SODIUM CHLORIDE 0.45% 1,000 ML IV SCH (12:38)
[2019-11-06] MEDS: FLUCONAZOLE 200 MG TABLET PO SCH (14:50)
[2019-11-06 14:52] VITALS: BP 132/84
[2019-11-06 19:53] VITALS: BP 110/65
[2019-11-07] MEDS: VANCOMYCIN 50 MG/ML ORAL SUSP PO SCH ×2 (00:42→13:33)
[2019-11-07 00:45] VITALS: BP 131/81
[2019-11-07] MEDS: SODIUM BICARB 8.4%,50ML SYR. 50 MEQ in SODIUM CHLORIDE 0.45% 1,000 ML IV SCH ×2 (03:41→18:33)
[2019-11-07] MEDS: OXYcodone IR 5MG TABLET PO PRN ×2 (03:42→18:22)
[2019-11-07 04:58] LABS: ALANINE AMINOTRANSFERASE 20 U/L (12-78); ALBUMIN 1.5 g/dL (3.4-5.0); ANION GAP 4 mmol/L (5-15); CALCIUM 7.4 mg/dL (8.5-10.1); CHLORIDE 112 mmol/L (98-107); CREATININE 1.19 mg/dL (0.55-1.02)
[2019-11-07 05:00] LABS: ALKALINE PHOSPHATASE 186 U/L (45-117); BILIRUBIN,TOTAL 0.3 mg/dL (0.2-1.0); MEAN CORPUSCULAR HEMOGLOBIN 28.5 pg (27.0-34.8); MEAN CORPUSCULAR HGB CONC 32.3 g/dL (32.4-35.8); MEAN CORPUSCULAR VOLUME 88.3 fL (80-100); MEAN PLATELET VOLUME 7.8 fL (7.4-10.4); PLATELET COUNT 72 x10^3/uL (130-400); RED BLOOD COUNT 2.75 x10^6/uL (3.82-5.3); RED CELL DISTRIBUTION WIDTH 16.4 % (9.6-15.2); TOTAL PROTEIN 4.7 g/dL (6.4-8.2)
[2019-11-07] MEDS: LEVOTHYROXINE 50 MCG TABLET PO SCH (05:59)
[2019-11-07 06:08] LABS: BASOPHILS # (AUTO) 0.04 x10^3/uL (0-0.1); BASOPHILS % (AUTO) 0 % (0-1); EOSINOPHILS # (AUTO) 0.38 x10^3/uL (0-0.4); EOSINOPHILS % (AUTO) 3 % (1-7); LYMPHOCYTES # (AUTO) 2.07 x10^3/uL (1-3.4); LYMPHOCYTES % (AUTO) 19 % (22-44); MD SCAN; MONOCYTES # (AUTO) 0.68 x10^3/uL (0.2-0.8); MONOCYTES % (AUTO) 6 % (2-9); NEUTROPHILS # (AUTO) 8.02 x10^3/uL (1.8-6.8); NEUTROPHILS % (AUTO) 72 % (42-75)
[2019-11-07] MEDS ORDERED: MAGNESIUM SULFATE PMX 2GM/50ML 50 ML IV ONE (06:30)
[2019-11-07] MEDS: INSULIN LISPRO 100 UNITS/ML, PEN SQ-INSULIN SCH ×4 (08:03→19:57)
[2019-11-07 09:11] VITALS: BP 103/66
[2019-11-07] MEDS: SENNA/DOCUSATE TABLET PO SCH (09:51)
[2019-11-07] MEDS: TAMSULOSIN 0.4 MG CAP.ER.24H PO SCH (10:01)
[2019-11-07] MEDS: IRON SUCROSE COMPLEX 100MG/5ML IV SCH (10:01)
[2019-11-07] MEDS: INSULIN GLARGINE 100 UNITS/ML, PEN SQ-INSULIN SCH ×2 (10:01→19:57)
[2019-11-07] MEDS: SODIUM CHLORIDE FLUSH 10ML SYR IVF SCH ×2 (10:02→19:57)
[2019-11-07] MEDS: ERTAPENEM 1 GM in SODIUM CHLORIDE 0.9% 50 ML IV SCH (10:13)
[2019-11-07] MEDS ORDERED: FUROSEMIDE 20 MG/2 ML ONE (12:41)
[2019-11-07] MEDS ORDERED: DIPHENHYDRAMINE 25 MG CAPSULE ONE (12:42)
[2019-11-07] MEDS: DIPHENHYDRAMINE 25 MG CAPSULE PO PRN (12:48)
[2019-11-07] MEDS ORDERED: FUROSEMIDE 20 MG/2 ML IVPush ONE (13:00)
[2019-11-07 14:35] VITALS: BP 130/76
[2019-11-07] MEDS: FLUCONAZOLE 200 MG TABLET PO SCH (15:49)
[2019-11-07 20:57] VITALS: BP 104/64
[2019-11-08] MEDS: VANCOMYCIN 50 MG/ML ORAL SUSP PO SCH ×2 (00:35→13:51)
[2019-11-08] MEDS: DIPHENHYDRAMINE 25 MG CAPSULE PO PRN ×3 (00:42→08:32)
[2019-11-08] MEDS: OXYcodone IR 5MG TABLET PO PRN ×3 (00:43→13:52)
[2019-11-08 00:46] VITALS: BP 99/61
[2019-11-08] MEDS: LEVOTHYROXINE 50 MCG TABLET PO SCH (05:09)
[2019-11-08 05:23] LABS: MEAN CORPUSCULAR HEMOGLOBIN 28.2 pg (27.0-34.8); MEAN CORPUSCULAR HGB CONC 31.9 g/dL (32.4-35.8); MEAN CORPUSCULAR VOLUME 88.3 fL (80-100); MEAN PLATELET VOLUME 7.8 fL (7.4-10.4); PLATELET COUNT 69 x10^3/uL (130-400); RED BLOOD COUNT 2.67 x10^6/uL (3.82-5.3); RED CELL DISTRIBUTION WIDTH 16.4 % (9.6-15.2)
[2019-11-08 05:34] LABS: CHLORIDE 111 mmol/L (98-107)
[2019-11-08 05:40] LABS: ALANINE AMINOTRANSFERASE 18 U/L (12-78); ALBUMIN 1.4 g/dL (3.4-5.0); ALKALINE PHOSPHATASE 158 U/L (45-117); ANION GAP 3 mmol/L (5-15); BILIRUBIN,TOTAL 0.2 mg/dL (0.2-1.0); CALCIUM 7.4 mg/dL (8.5-10.1); TOTAL PROTEIN 4.4 g/dL (6.4-8.2)
[2019-11-08 05:55] LABS: BASOPHILS # (AUTO) 0.03 x10^3/uL (0-0.1); BASOPHILS % (AUTO) 0 % (0-1); EOSINOPHILS # (AUTO) 0.52 x10^3/uL (0-0.4); EOSINOPHILS % (AUTO) 5 % (1-7); LYMPHOCYTES # (AUTO) 1.95 x10^3/uL (1-3.4); LYMPHOCYTES % (AUTO) 19 % (22-44); MD SCAN; MONOCYTES # (AUTO) 0.67 x10^3/uL (0.2-0.8); MONOCYTES % (AUTO) 7 % (2-9); NEUTROPHILS # (AUTO) 7.02 x10^3/uL (1.8-6.8); NEUTROPHILS % (AUTO) 69 % (42-75)
[2019-11-08] MEDS: DEXTROSE 4 GM TAB.CHEW PO PRN (06:27)
[2019-11-08] MEDS ORDERED: D5%-0.9% NACL 1,000 ML IV SCH (07:00)
[2019-11-08] MEDS ORDERED: MAGNESIUM SULFATE PMX 4GM/100M 100 ML IV ONE (07:00)
[2019-11-08] MEDS: SENNA/DOCUSATE TABLET PO SCH (08:18)
[2019-11-08] MEDS: TAMSULOSIN 0.4 MG CAP.ER.24H PO SCH (08:18)
[2019-11-08] MEDS: IRON SUCROSE COMPLEX 100MG/5ML IV SCH (08:18)
[2019-11-08] MEDS: SODIUM CHLORIDE FLUSH 10ML SYR IVF SCH ×2 (08:19→21:26)
[2019-11-08 08:30] VITALS: BP 106/68
[2019-11-08] MEDS: INSULIN GLARGINE 100 UNITS/ML, PEN SQ-INSULIN SCH ×2 (09:00→14:34)
[2019-11-08] MEDS ORDERED: FUROSEMIDE 40 MG/4 ML IV ONE (12:00)
[2019-11-08] MEDS ORDERED: ALBUMIN HUMAN 25% 100 ML IV ONE (12:00)
[2019-11-08 12:55] VITALS: BP 126/61
[2019-11-08] MEDS: FLUCONAZOLE 200 MG TABLET PO SCH (13:51)
[2019-11-08] MEDS: SODIUM BICARB 8.4%,50ML SYR. 50 MEQ in SODIUM CHLORIDE 0.45% 1,000 ML IV SCH (14:40)
[2019-11-08 14:41] VITALS: BP 101/55
[2019-11-08 19:04] VITALS: BP 103/65
[2019-11-09 00:35] VITALS: BP 96/60
[2019-11-09] MEDS: VANCOMYCIN 50 MG/ML ORAL SUSP PO SCH ×2 (01:32→11:36)
[2019-11-09] MEDS: SODIUM BICARB 8.4%,50ML SYR. 50 MEQ in SODIUM CHLORIDE 0.45% 1,000 ML IV SCH ×2 (05:19→23:25)
[2019-11-09] MEDS: LEVOTHYROXINE 50 MCG TABLET PO SCH (05:20)
[2019-11-09] MEDS: OXYcodone IR 5MG TABLET PO PRN ×5 (05:20→23:25)
[2019-11-09 06:01] LABS: CHLORIDE 107 mmol/L (98-107)
[2019-11-09 06:14] LABS: ALANINE AMINOTRANSFERASE 21 U/L (12-78); ALBUMIN 1.7 g/dL (3.4-5.0); ALKALINE PHOSPHATASE 170 U/L (45-117); ANION GAP 6 mmol/L (5-15); BILIRUBIN,TOTAL 0.3 mg/dL (0.2-1.0); CALCIUM 7.6 mg/dL (8.5-10.1); CREATININE 1.24 mg/dL (0.55-1.02); TOTAL PROTEIN 4.7 g/dL (6.4-8.2)
[2019-11-09 06:25] LABS: MEAN CORPUSCULAR HEMOGLOBIN 28.5 pg (27.0-34.8); MEAN CORPUSCULAR HGB CONC 32.1 g/dL (32.4-35.8); MEAN CORPUSCULAR VOLUME 88.7 fL (80-100); PLATELET COUNT 96 x10^3/uL (130-400); RED BLOOD COUNT 2.62 x10^6/uL (3.82-5.3); RED CELL DISTRIBUTION WIDTH 16.2 % (9.6-15.2)
[2019-11-09 06:26] LABS: HCT (SEDRATE) 23.2 % (34.6-47.8)
[2019-11-09 06:35] VITALS: BP 106/64
[2019-11-09 07:18] LABS: BASOPHILS # (AUTO) 0.03 x10^3/uL (0-0.1); BASOPHILS % (AUTO) 0 % (0-1); EOSINOPHILS # (AUTO) 0.55 x10^3/uL (0-0.4); EOSINOPHILS % (AUTO) 6 % (1-7); LYMPHOCYTES % (AUTO) 20 % (22-44); MD SCAN; MONOCYTES # (AUTO) 0.67 x10^3/uL (0.2-0.8); MONOCYTES % (AUTO) 7 % (2-9); NEUTROPHILS % (AUTO) 67 % (42-75)
[2019-11-09] MEDS: SENNA/DOCUSATE TABLET PO SCH (09:00)
[2019-11-09] MEDS ORDERED: ALBUMIN HUMAN 25% 100 ML IV PRN (09:00)
[2019-11-09] MEDS: IRON SUCROSE COMPLEX 100MG/5ML IV SCH (10:11)
[2019-11-09] MEDS: INSULIN LISPRO 100 UNITS/ML, PEN SQ-INSULIN SCH ×4 (10:11→21:57)
[2019-11-09] MEDS: INSULIN GLARGINE 100 UNITS/ML, PEN SQ-INSULIN SCH (10:12)
[2019-11-09] MEDS: SODIUM CHLORIDE FLUSH 10ML SYR IVF SCH ×2 (10:14→21:57)
[2019-11-09] MEDS: DIPHENHYDRAMINE 25 MG CAPSULE PO PRN ×3 (10:14→23:25)
[2019-11-09] MEDS: TAMSULOSIN 0.4 MG CAP.ER.24H PO SCH (10:14)
[2019-11-09 12:43] VITALS: BP 134/83
[2019-11-09] MEDS: FLUCONAZOLE 200 MG TABLET PO SCH (14:06)
[2019-11-09] MEDS: ERAVACYCLINE IV SCH (14:36)
[2019-11-09] MEDS: SODIUM CHLORIDE 0.9% IV SCH (14:36)
[2019-11-09] MEDS: ALBUMIN HUMAN 25% 100 ML IV SCH (18:01)
[2019-11-09 20:39] VITALS: BP 98/64
[2019-11-09 23:29] VITALS: BP 104/68
[2019-11-10] VITALS (8 sets, daily range): BP systolic 102–147; BP diastolic 56–91
[2019-11-10] MEDS: ALBUMIN HUMAN 25% 100 ML IV SCH ×3 (00:30→12:06)
[2019-11-10] MEDS: VANCOMYCIN 50 MG/ML ORAL SUSP PO SCH ×2 (00:31→12:14)
[2019-11-10] MEDS: ERAVACYCLINE IV SCH ×3 (02:46→16:05)
[2019-11-10] MEDS: SODIUM CHLORIDE 0.9% IV SCH ×3 (02:46→16:05)
[2019-11-10 05:40] LABS: ALBUMIN 2.4 g/dL (3.4-5.0); ANION GAP 2 mmol/L (5-15); CHLORIDE 109 mmol/L (98-107)
[2019-11-10 05:44] LABS: ALANINE AMINOTRANSFERASE 23 U/L (12-78); ALKALINE PHOSPHATASE 192 U/L (45-117); BILIRUBIN,TOTAL 0.4 mg/dL (0.2-1.0); CREATININE 1.21 mg/dL (0.55-1.02)
[2019-11-10 05:49] LABS: MEAN CORPUSCULAR HEMOGLOBIN 28.5 pg (27.0-34.8); MEAN CORPUSCULAR HGB CONC 32.4 g/dL (32.4-35.8); MEAN CORPUSCULAR VOLUME 87.9 fL (80-100); MEAN PLATELET VOLUME 7.6 fL (7.4-10.4); PLATELET COUNT 84 x10^3/uL (130-400); RED BLOOD COUNT 2.42 x10^6/uL (3.82-5.3); RED CELL DISTRIBUTION WIDTH 17.7 % (9.6-15.2)
[2019-11-10] MEDS: LEVOTHYROXINE 50 MCG TABLET PO SCH (06:29)
[2019-11-10 06:51] LABS: BASOPHILS # (AUTO) 0.05 x10^3/uL (0-0.1); BASOPHILS % (AUTO) 1 % (0-1); EOSINOPHILS # (AUTO) 0.55 x10^3/uL (0-0.4); EOSINOPHILS % (AUTO) 6 % (1-7); LYMPHOCYTES # (AUTO) 2.03 x10^3/uL (1-3.4); LYMPHOCYTES % (AUTO) 21 % (22-44); MD SCAN; MONOCYTES # (AUTO) 0.85 x10^3/uL (0.2-0.8); MONOCYTES % (AUTO) 9 % (2-9); NEUTROPHILS # (AUTO) 6.31 x10^3/uL (1.8-6.8); NEUTROPHILS % (AUTO) 65 % (42-75)
[2019-11-10] MEDS: INSULIN LISPRO 100 UNITS/ML, PEN SQ-INSULIN SCH ×4 (08:07→21:45)
[2019-11-10] MEDS: SODIUM CHLORIDE FLUSH 10ML SYR IVF SCH ×2 (09:19→21:46)
[2019-11-10] MEDS: IRON SUCROSE COMPLEX 100MG/5ML IV SCH (09:19)
[2019-11-10] MEDS: TAMSULOSIN 0.4 MG CAP.ER.24H PO SCH (09:19)
[2019-11-10] MEDS: SENNA/DOCUSATE TABLET PO SCH (09:19)
[2019-11-10] MEDS: OXYcodone IR 5MG TABLET PO PRN (09:28)
[2019-11-10] MEDS: ERGOCALCIFEROL 50,000 UNIT CAPSULE PO SCH (11:05)
[2019-11-10] MEDS: SODIUM BICARB 8.4%,50ML SYR. 50 MEQ in SODIUM CHLORIDE 0.45% 1,000 ML IV SCH (11:16)
[2019-11-10] MEDS: FLUCONAZOLE 200 MG TABLET PO SCH (14:17)
[2019-11-10 17:26] LABS: MICROSCOPIC AUTO
[2019-11-10 17:27] LABS: CULTURE INDICATED? YES
[2019-11-11 00:04] VITALS: BP 115/78
[2019-11-11] MEDS: OXYcodone IR 5MG TABLET PO PRN ×4 (00:15→21:39)
[2019-11-11] MEDS: SODIUM CHLORIDE 0.9% IV SCH ×2 (05:12→16:29)
[2019-11-11] MEDS: ACETAMINOPHEN 325 MG TABLET PO PRN (05:12)
[2019-11-11] MEDS: ERAVACYCLINE IV SCH ×2 (05:12→16:29)
[2019-11-11] MEDS: LEVOTHYROXINE 50 MCG TABLET PO SCH (05:14)
[2019-11-11 06:11] LABS: ANION GAP 6 mmol/L (5-15); CALCIUM 8.2 mg/dL (8.5-10.1); CHLORIDE 114 mmol/L (98-107); CREATININE 1.15 mg/dL (0.55-1.02)
[2019-11-11 06:17] LABS: BASOPHILS # (AUTO) 0.04 x10^3/uL (0-0.1); BASOPHILS % (AUTO) 0 % (0-1); EOSINOPHILS # (AUTO) 0.84 x10^3/uL (0-0.4); EOSINOPHILS % (AUTO) 7 % (1-7); LYMPHOCYTES # (AUTO) 2.32 x10^3/uL (1-3.4); LYMPHOCYTES % (AUTO) 19 % (22-44); MD NO; MEAN CORPUSCULAR HEMOGLOBIN 28.6 pg (27.0-34.8); MEAN CORPUSCULAR HGB CONC 32.5 g/dL (32.4-35.8); MEAN CORPUSCULAR VOLUME 88.1 fL (80-100); MEAN PLATELET VOLUME 7.3 fL (7.4-10.4); MONOCYTES # (AUTO) 1.03 x10^3/uL (0.2-0.8); MONOCYTES % (AUTO) 8 % (2-9); NEUTROPHILS # (AUTO) 8.23 x10^3/uL (1.8-6.8); NEUTROPHILS % (AUTO) 66 % (42-75); PLATELET COUNT 106 x10^3/uL (130-400); RED BLOOD COUNT 2.96 x10^6/uL (3.82-5.3)
[2019-11-11] MEDS: INSULIN LISPRO 100 UNITS/ML, PEN SQ-INSULIN SCH ×4 (07:00→21:38)
[2019-11-11] MEDS: SENNA/DOCUSATE TABLET PO SCH (07:42)
[2019-11-11] MEDS: TAMSULOSIN 0.4 MG CAP.ER.24H PO SCH (08:58)
[2019-11-11] MEDS: IRON SUCROSE COMPLEX 100MG/5ML IV SCH (08:58)
[2019-11-11] MEDS: SODIUM CHLORIDE FLUSH 10ML SYR IVF SCH ×2 (08:59→21:00)
[2019-11-11] MEDS: INSULIN GLARGINE 100 UNITS/ML, PEN SQ-INSULIN SCH (09:27)
[2019-11-11 10:23] VITALS: BP 116/75
[2019-11-11 13:14] VITALS: BP 122/72
[2019-11-11] MEDS: FLUCONAZOLE 200 MG TABLET PO SCH (14:39)
[2019-11-11 19:39] VITALS: BP 115/66
[2019-11-12] MEDS: ACETAMINOPHEN 325 MG TABLET PO PRN (00:48)
[2019-11-12 02:00] VITALS: BP 145/89
[2019-11-12] MEDS: OXYcodone IR 5MG TABLET PO PRN (03:34)
[2019-11-12] MEDS: ERAVACYCLINE IV SCH ×2 (04:50→16:38)
[2019-11-12] MEDS: SODIUM CHLORIDE 0.9% IV SCH ×2 (04:50→16:38)
[2019-11-12] MEDS ORDERED: CATHFLO-ALTEPLASE 2 MG/2 ML CATHFLUSH ONE (05:30)
[2019-11-12] MEDS: LEVOTHYROXINE 50 MCG TABLET PO SCH (05:52)
[2019-11-12 07:21] LABS: ANION GAP 5 mmol/L (5-15); CALCIUM 8.4 mg/dL (8.5-10.1); CHLORIDE 119 mmol/L (98-107)
[2019-11-12 07:23] LABS: CREATININE 1.34 mg/dL (0.55-1.02)
[2019-11-12 07:37] LABS: MEAN CORPUSCULAR HGB CONC 31.9 g/dL (32.4-35.8); MEAN CORPUSCULAR VOLUME 90.7 fL (80-100); MEAN PLATELET VOLUME 7.3 fL (7.4-10.4); PLATELET COUNT 98 x10^3/uL (130-400); RED BLOOD COUNT 3.19 x10^6/uL (3.82-5.3)
[2019-11-12] MEDS: INSULIN LISPRO 100 UNITS/ML, PEN SQ-INSULIN SCH ×4 (08:00→20:37)
[2019-11-12 08:37] LABS: BASOPHILS # (AUTO) 0.04 x10^3/uL (0-0.1); BASOPHILS % (AUTO) 0 % (0-1); EOSINOPHILS # (AUTO) 1.35 x10^3/uL (0-0.4); EOSINOPHILS % (AUTO) 11 % (1-7); LYMPHOCYTES # (AUTO) 2.39 x10^3/uL (1-3.4); LYMPHOCYTES % (AUTO) 19 % (22-44); MD SCAN; MONOCYTES # (AUTO) 0.71 x10^3/uL (0.2-0.8); MONOCYTES % (AUTO) 6 % (2-9); NEUTROPHILS # (AUTO) 8.18 x10^3/uL (1.8-6.8); NEUTROPHILS % (AUTO) 65 % (42-75)
[2019-11-12 09:18] VITALS: BP 133/75
[2019-11-12] MEDS: SENNA/DOCUSATE TABLET PO SCH (09:35)
[2019-11-12] MEDS: SODIUM CHLORIDE FLUSH 10ML SYR IVF SCH ×2 (09:35→20:37)
[2019-11-12] MEDS: TAMSULOSIN 0.4 MG CAP.ER.24H PO SCH (12:12)
[2019-11-12] MEDS ORDERED: VANCOMYCIN 50 MG/ML ORAL SUSP PO SCH (13:00)
[2019-11-12] MEDS ORDERED: DIPHENHYDRAMINE 25 MG CAPSULE PO PRN (14:00)
[2019-11-12] MEDS ORDERED: LORazepam 2 MG/ML, 1ML ONE (15:13)
[2019-11-12] MEDS ORDERED: LORazepam 2 MG/ML, 1ML IVPush ONE (15:30)
[2019-11-12 16:00] VITALS: BP 158/63
[2019-11-12] MEDS: FLUCONAZOLE 200 MG TABLET PO SCH (16:30)
[2019-11-12] MEDS: VANCOMYCIN 50 MG/ML ORAL SUSP PO SCH (20:37)
[2019-11-12 20:40] VITALS: BP 135/74
[2019-11-12] MEDS ORDERED: MELATONIN 5 MG TABLET ONE (22:32)
[2019-11-12] MEDS: MELATONIN 5 MG TABLET PO PRN (22:38)
[2019-11-13 01:45] VITALS: BP 144/78
[2019-11-13] MEDS: ERAVACYCLINE IV SCH (05:20)
[2019-11-13] MEDS: LEVOTHYROXINE 50 MCG TABLET PO SCH (05:20)
[2019-11-13] MEDS: SODIUM CHLORIDE 0.9% IV SCH (05:20)
[2019-11-13 05:54] LABS: ANION GAP 6 mmol/L (5-15); CALCIUM 8.1 mg/dL (8.5-10.1); CHLORIDE 121 mmol/L (98-107)
[2019-11-13 05:56] LABS: CREATININE 1.21 mg/dL (0.55-1.02)
[2019-11-13 05:58] LABS: BASOPHILS # (AUTO) 0.03 x10^3/uL (0-0.1); BASOPHILS % (AUTO) 0 % (0-1); EOSINOPHILS # (AUTO) 1.58 x10^3/uL (0-0.4); EOSINOPHILS % (AUTO) 13 % (1-7); LYMPHOCYTES # (AUTO) 2.22 x10^3/uL (1-3.4); LYMPHOCYTES % (AUTO) 18 % (22-44); MD NO; MEAN CORPUSCULAR HEMOGLOBIN 28.7 pg (27.0-34.8); MEAN CORPUSCULAR HGB CONC 31.9 g/dL (32.4-35.8); MONOCYTES # (AUTO) 0.62 x10^3/uL (0.2-0.8); MONOCYTES % (AUTO) 5 % (2-9); NEUTROPHILS # (AUTO) 7.66 x10^3/uL (1.8-6.8); NEUTROPHILS % (AUTO) 63 % (42-75); PLATELET COUNT 130 x10^3/uL (130-400); RED CELL DISTRIBUTION WIDTH 18.8 % (9.6-15.2)
[2019-11-13] MEDS: INSULIN LISPRO 100 UNITS/ML, PEN SQ-INSULIN SCH ×4 (07:27→21:11)
[2019-11-13 07:28] VITALS: BP 144/83
[2019-11-13] MEDS: VANCOMYCIN 50 MG/ML ORAL SUSP PO SCH ×2 (09:55→21:10)
[2019-11-13] MEDS: SODIUM CHLORIDE FLUSH 10ML SYR IVF SCH ×2 (09:56→21:11)
[2019-11-13] MEDS: TAMSULOSIN 0.4 MG CAP.ER.24H PO SCH (09:56)
[2019-11-13] MEDS: SENNA/DOCUSATE TABLET PO SCH (09:56)
[2019-11-13 12:28] LABS: T4 (THYROXINE) 6.3 mcg/dL (4.8-13.9)
[2019-11-13 14:03] VITALS: BP 139/86
[2019-11-13] MEDS: FLUCONAZOLE 200 MG TABLET PO SCH (14:53)
[2019-11-13] MEDS ORDERED: TIGECYCLINE 100 MG in DEXTROSE 5% 100 ML IV ONE (16:00)
[2019-11-13] MEDS ORDERED: TIGECYCLINE 50 MG in DEXTROSE 5% 100 ML IV SCH (16:00)
[2019-11-13 17:10] LABS: CLOSTRIDIUM DIFFICILE ANTIGEN NEGATIVE; CLOSTRIDIUM DIFFICILE TOXIN NEGATIVE (Negative)
[2019-11-13 21:09] VITALS: BP 136/86
[2019-11-13] MEDS: MELATONIN 5 MG TABLET PO PRN (21:10)
[2019-11-14 00:58] VITALS: BP 148/85
[2019-11-14] MEDS: ACETAMINOPHEN 325 MG TABLET PO PRN ×2 (03:46→20:24)
[2019-11-14] MEDS ORDERED: TIGECYCLINE 50 MG in DEXTROSE 5% 100 ML IV SCH (04:00)
[2019-11-14 04:06] LABS: ANION GAP 7 mmol/L (5-15); CHLORIDE 124 mmol/L (98-107); CREATININE 1.33 mg/dL (0.55-1.02)
[2019-11-14 04:33] LABS: MEAN CORPUSCULAR HEMOGLOBIN 28.6 pg (27.0-34.8); MEAN CORPUSCULAR HGB CONC 31.8 g/dL (32.4-35.8); MEAN CORPUSCULAR VOLUME 89.8 fL (80-100); MEAN PLATELET VOLUME 7.6 fL (7.4-10.4); PLATELET COUNT 143 x10^3/uL (130-400); RED BLOOD COUNT 3.07 x10^6/uL (3.82-5.3); RED CELL DISTRIBUTION WIDTH 18.8 % (9.6-15.2)
[2019-11-14 05:12] LABS: BASOPHILS # (AUTO) 0.06 x10^3/uL (0-0.1); BASOPHILS % (AUTO) 1 % (0-1); EOSINOPHILS # (AUTO) 1.38 x10^3/uL (0-0.4); EOSINOPHILS % (AUTO) 13 % (1-7); LYMPHOCYTES # (AUTO) 2.43 x10^3/uL (1-3.4); LYMPHOCYTES % (AUTO) 23 % (22-44); MD SCAN; MONOCYTES # (AUTO) 0.59 x10^3/uL (0.2-0.8); MONOCYTES % (AUTO) 6 % (2-9); NEUTROPHILS # (AUTO) 6.05 x10^3/uL (1.8-6.8); NEUTROPHILS % (AUTO) 58 % (42-75)
[2019-11-14] MEDS: LEVOTHYROXINE 50 MCG TABLET PO SCH (05:56)
[2019-11-14] MEDS: INSULIN LISPRO 100 UNITS/ML, PEN SQ-INSULIN SCH ×4 (07:00→20:25)
[2019-11-14] MEDS: SENNA/DOCUSATE TABLET PO SCH (07:29)
[2019-11-14] MEDS: VANCOMYCIN 50 MG/ML ORAL SUSP PO SCH ×2 (07:42→20:24)
[2019-11-14] MEDS: SODIUM CHLORIDE FLUSH 10ML SYR IVF SCH ×2 (07:42→20:25)
[2019-11-14] MEDS: TAMSULOSIN 0.4 MG CAP.ER.24H PO SCH (07:42)
[2019-11-14 07:47] VITALS: BP 127/60
[2019-11-14 12:27] LABS: AMPHETAMINE SCREEN, URINE Negative (Negative); BARBITURATE SCREEN, URINE Negative (Negative); BENZODIAZEPINE SCREEN, URINE Negative (Negative); CANNABINOID SCREEN, URINE Negative (Negative); COCAINE SCREEN, URINE Negative (Negative); METHADONE SCREEN, URINE Negative (Negative); OPIATE SCREEN, URINE Negative (Negative)
[2019-11-14 13:49] VITALS: BP 134/56
[2019-11-14] MEDS: FLUCONAZOLE 200 MG TABLET PO SCH (14:08)
[2019-11-14] MEDS: ERAVACYCLINE IV SCH (17:06)
[2019-11-14] MEDS: SODIUM CHLORIDE 0.9% IV SCH (17:06)
[2019-11-14 19:23] VITALS: BP 129/81
[2019-11-14] MEDS: MELATONIN 5 MG TABLET PO PRN (20:24)
[2019-11-15 00:25] VITALS: BP 135/84
[2019-11-15] MEDS: SODIUM CHLORIDE 0.9% IV SCH ×2 (04:57→16:57)
[2019-11-15] MEDS: ERAVACYCLINE IV SCH ×2 (04:57→16:57)
[2019-11-15 05:14] LABS: BASOPHILS # (AUTO) 0.04 x10^3/uL (0-0.1); BASOPHILS % (AUTO) 0 % (0-1); EOSINOPHILS # (AUTO) 1.65 x10^3/uL (0-0.4); EOSINOPHILS % (AUTO) 15 % (1-7); LYMPHOCYTES # (AUTO) 3.06 x10^3/uL (1-3.4); LYMPHOCYTES % (AUTO) 27 % (22-44); MD NO; MEAN CORPUSCULAR HEMOGLOBIN 28.8 pg (27.0-34.8); MEAN CORPUSCULAR HGB CONC 32.1 g/dL (32.4-35.8); MEAN CORPUSCULAR VOLUME 89.6 fL (80-100); MEAN PLATELET VOLUME 7.3 fL (7.4-10.4); MONOCYTES # (AUTO) 0.81 x10^3/uL (0.2-0.8); MONOCYTES % (AUTO) 7 % (2-9); NEUTROPHILS % (AUTO) 51 % (42-75); PLATELET COUNT 146 x10^3/uL (130-400); RED BLOOD COUNT 3.23 x10^6/uL (3.82-5.3); RED CELL DISTRIBUTION WIDTH 20.1 % (9.6-15.2)
[2019-11-15 05:18] LABS: ANION GAP 7 mmol/L (5-15); CHLORIDE 126 mmol/L (98-107); CREATININE 1.37 mg/dL (0.55-1.02)
[2019-11-15] MEDS: INSULIN LISPRO 100 UNITS/ML, PEN SQ-INSULIN SCH ×4 (07:00→20:02)
[2019-11-15] MEDS: SENNA/DOCUSATE TABLET PO SCH (07:26)
[2019-11-15 08:11] VITALS: BP 126/82
[2019-11-15] MEDS: SODIUM CHLORIDE FLUSH 10ML SYR IVF SCH ×2 (08:26→20:41)
[2019-11-15] MEDS: LEVOTHYROXINE 100 MCG INJ IVPush SCH (08:28)
[2019-11-15] MEDS: VANCOMYCIN 50 MG/ML ORAL SUSP PO SCH ×2 (08:28→20:41)
[2019-11-15] MEDS: TAMSULOSIN 0.4 MG CAP.ER.24H PO SCH (08:28)
[2019-11-15 12:11] VITALS: BP 135/81
[2019-11-15] MEDS ORDERED: SODIUM CHLORIDE 0.45% 1,000 ML IV SCH (12:30)
[2019-11-15] MEDS: FLUCONAZOLE 200 MG TABLET PO SCH (15:02)
[2019-11-15 19:47] VITALS: BP 126/63
[2019-11-15] MEDS: MELATONIN 5 MG TABLET PO PRN (20:40)
[2019-11-15] MEDS: OXYcodone IR 5MG TABLET PO PRN (20:40)
[2019-11-16 01:39] VITALS: BP 122/78
[2019-11-16] MEDS: OXYcodone IR 5MG TABLET PO PRN ×3 (04:43→20:09)
[2019-11-16] MEDS: SODIUM CHLORIDE 0.9% IV SCH ×2 (04:43→17:24)
[2019-11-16] MEDS: ERAVACYCLINE IV SCH ×2 (04:43→17:24)
[2019-11-16 05:06] LABS: MEAN CORPUSCULAR HEMOGLOBIN 28.8 pg (27.0-34.8); MEAN CORPUSCULAR HGB CONC 32.1 g/dL (32.4-35.8); MEAN CORPUSCULAR VOLUME 89.7 fL (80-100); MEAN PLATELET VOLUME 7.4 fL (7.4-10.4); PLATELET COUNT 122 x10^3/uL (130-400); RED BLOOD COUNT 3.16 x10^6/uL (3.82-5.3); RED CELL DISTRIBUTION WIDTH 20.5 % (9.6-15.2)
[2019-11-16 05:15] LABS: CHLORIDE 130 mmol/L (98-107)
[2019-11-16 05:27] LABS: ALANINE AMINOTRANSFERASE 26 U/L (12-78); ALBUMIN 2.2 g/dL (3.4-5.0); ALKALINE PHOSPHATASE 421 U/L (45-117); ANION GAP 7 mmol/L (5-15); BILIRUBIN,TOTAL 0.7 mg/dL (0.2-1.0); CALCIUM 8.2 mg/dL (8.5-10.1); CREATININE 1.38 mg/dL (0.55-1.02); TOTAL PROTEIN 5.3 g/dL (6.4-8.2)
[2019-11-16 05:30] LABS: HCT (SEDRATE) 28.4 % (34.6-47.8)
[2019-11-16 05:54] LABS: ANISOCYTOSIS 1+; BASOPHILS # (AUTO) 0.04 x10^3/uL (0-0.1); BASOPHILS % (AUTO) 0 % (0-1); ECHINOCYTES 1+; EOSINOPHILS # (AUTO) 1.71 x10^3/uL (0-0.4); EOSINOPHILS % (AUTO) 17 % (1-7); LYMPHOCYTES # (AUTO) 2.67 x10^3/uL (1-3.4); LYMPHOCYTES % (AUTO) 27 % (22-44); MD MORPH REVIEW ONLY; MONOCYTES # (AUTO) 0.62 x10^3/uL (0.2-0.8); MONOCYTES % (AUTO) 6 % (2-9); NEUTROPHILS # (AUTO) 4.79 x10^3/uL (1.8-6.8); NEUTROPHILS % (AUTO) 49 % (42-75)
[2019-11-16 05:55] LABS: <PLT MORPHOLOGY> NORMAL PLT MORPH; OVALOCYTES 1+
[2019-11-16 05:56] LABS: <PLATELET ESTIMATE> DECREASED
[2019-11-16] MEDS: DEXTROSE 50%, 50ML SYRINGE IVPush PRN (07:39)
[2019-11-16] MEDS: LEVOTHYROXINE 100 MCG INJ IVPush SCH (08:17)
[2019-11-16] MEDS: INSULIN LISPRO 100 UNITS/ML, PEN SQ-INSULIN SCH ×4 (08:18→20:01)
[2019-11-16] MEDS: SODIUM CHLORIDE FLUSH 10ML SYR IVF SCH ×2 (08:19→20:09)
[2019-11-16] MEDS: VANCOMYCIN 50 MG/ML ORAL SUSP PO SCH ×2 (08:21→20:09)
[2019-11-16] MEDS: TAMSULOSIN 0.4 MG CAP.ER.24H PO SCH (08:32)
[2019-11-16] MEDS: SENNA/DOCUSATE TABLET PO SCH (08:33)
[2019-11-16 08:34] VITALS: BP 115/75
[2019-11-16 11:14] VITALS: BP 122/75
[2019-11-16] MEDS: DIPHENOXYLATE/ATROPINE TABLET PO PRN (13:24)
[2019-11-16] MEDS: FLUCONAZOLE 200 MG TABLET PO SCH (14:41)
[2019-11-16 17:22] VITALS: BP 144/89
[2019-11-16] MEDS: MELATONIN 5 MG TABLET PO PRN (20:09)
[2019-11-16 20:35] VITALS: BP 123/78
[2019-11-17 01:46] VITALS: BP 117/84
[2019-11-17] MEDS: SODIUM CHLORIDE 0.9% IV SCH ×2 (05:33→17:17)
[2019-11-17] MEDS: ERAVACYCLINE IV SCH ×2 (05:33→17:17)
[2019-11-17] MEDS: LEVOTHYROXINE 50 MCG TABLET PO SCH (05:34)
[2019-11-17] MEDS: OXYcodone IR 5MG TABLET PO PRN ×2 (05:35→17:27)
[2019-11-17 05:59] LABS: ANION GAP 11 mmol/L (5-15); CALCIUM 8.4 mg/dL (8.5-10.1); CHLORIDE 129 mmol/L (98-107); CREATININE 1.32 mg/dL (0.55-1.02)
[2019-11-17 07:25] VITALS: BP 129/81
[2019-11-17] MEDS: INSULIN LISPRO 100 UNITS/ML, PEN SQ-INSULIN SCH ×4 (07:56→20:44)
[2019-11-17] MEDS: SENNA/DOCUSATE TABLET PO SCH (09:59)
[2019-11-17] MEDS: DIPHENOXYLATE/ATROPINE TABLET PO PRN (10:12)
[2019-11-17] MEDS: VANCOMYCIN 50 MG/ML ORAL SUSP PO SCH ×2 (10:12→20:42)
[2019-11-17] MEDS: TAMSULOSIN 0.4 MG CAP.ER.24H PO SCH (10:14)
[2019-11-17] MEDS: SODIUM CHLORIDE FLUSH 10ML SYR IVF SCH ×2 (10:14→20:42)
[2019-11-17] MEDS: ERGOCALCIFEROL 50,000 UNIT CAPSULE PO SCH (10:15)
[2019-11-17 12:20] VITALS: BP 118/79
[2019-11-17] MEDS: FLUCONAZOLE 200 MG TABLET PO SCH (15:10)
[2019-11-17] MEDS: D5%-0.45% NACL 1,000 ML IV SCH ×2 (15:11→23:09)
--- NOTE | 2019-11-17 15:34 | NUR ---
TF Recommendations: Osmolite 1.2 full goal 50 ml/hr Advance TF per protocol: begin at 15 ml/hr and advance Q12 hours as tolerated to goal.
[2019-11-17 16:36] LABS: ACETONE, SERUM Negative (Negative)
[2019-11-17 19:32] LABS: GASTRIC OCCULT BLD NEGATIVE (NEGATIVE); GASTRIC PH 2 (1-7)
[2019-11-17 20:31] VITALS: BP 127/78
[2019-11-17] MEDS: MELATONIN 5 MG TABLET PO PRN (20:42)
[2019-11-18 00:08] VITALS: BP 111/73
[2019-11-18 01:30] VITALS: BP 113/71
[2019-11-18 02:36] LABS: ALANINE AMINOTRANSFERASE 26 U/L (12-78); ALBUMIN 2.4 g/dL (3.4-5.0); ANION GAP 11 mmol/L (5-15); CALCIUM 8.2 mg/dL (8.5-10.1); CHLORIDE 130 mmol/L (98-107); CREATININE 1.35 mg/dL (0.55-1.02)
[2019-11-18 02:42] LABS: ALKALINE PHOSPHATASE 411 U/L (45-117); BILIRUBIN,TOTAL 0.6 mg/dL (0.2-1.0); PREALBUMIN 4.9 mg/dL (20.0-40.0); TOTAL PROTEIN 5.5 g/dL (6.4-8.2)
[2019-11-18 02:51] LABS: BASOPHILS # (AUTO) 0.03 x10^3/uL (0-0.1); BASOPHILS % (AUTO) 1 % (0-1); EOSINOPHILS # (AUTO) 1.19 x10^3/uL (0-0.4); EOSINOPHILS % (AUTO) 20 % (1-7); LYMPHOCYTES # (AUTO) 1.65 x10^3/uL (1-3.4); LYMPHOCYTES % (AUTO) 27 % (22-44); MD SCAN; MEAN CORPUSCULAR HEMOGLOBIN 28.8 pg (27.0-34.8); MEAN CORPUSCULAR HGB CONC 32.1 g/dL (32.4-35.8); MEAN CORPUSCULAR VOLUME 89.8 fL (80-100); MONOCYTES # (AUTO) 0.36 x10^3/uL (0.2-0.8); MONOCYTES % (AUTO) 6 % (2-9); NEUTROPHILS # (AUTO) 2.79 x10^3/uL (1.8-6.8); NEUTROPHILS % (AUTO) 46 % (42-75); RED BLOOD COUNT 2.97 x10^6/uL (3.82-5.3); RED CELL DISTRIBUTION WIDTH 19.9 % (9.6-15.2)
[2019-11-18 02:53] LABS: MEAN PLATELET VOLUME 7.8 fL (7.4-10.4); PLATELET COUNT 43 x10^3/uL (130-400)
[2019-11-18 03:11] VITALS: BP 129/76
[2019-11-18] MEDS: INSULIN LISPRO 100 UNITS/ML, PEN SQ-INSULIN SCH ×3 (05:30→20:52)
[2019-11-18] MEDS: LEVOTHYROXINE 50 MCG TABLET PO SCH (05:41)
[2019-11-18] MEDS: ERAVACYCLINE IV SCH ×2 (06:10→17:57)
[2019-11-18] MEDS: SODIUM CHLORIDE 0.9% IV SCH ×2 (06:10→17:57)
[2019-11-18] MEDS: SODIUM BICARBONATE 8.4% 100 MEQ in DEXTROSE 5% 1,000 ML IV SCH ×2 (07:39→17:57)
[2019-11-18] MEDS: SENNA/DOCUSATE TABLET PO SCH (07:58)
[2019-11-18] MEDS: TAMSULOSIN 0.4 MG CAP.ER.24H PO SCH (08:27)
[2019-11-18] MEDS: THIAMINE 200 MG in SODIUM CHLORIDE 0.9% 50 ML IV SCH (08:27)
[2019-11-18] MEDS: SODIUM CHLORIDE FLUSH 10ML SYR IVF SCH ×2 (08:27→20:51)
[2019-11-18] MEDS: VANCOMYCIN 50 MG/ML ORAL SUSP PO SCH ×2 (08:27→20:52)
[2019-11-18 08:44] LABS: FREE T4 (FREE THYROXINE) 1.37 ng/dL (0.76-1.46)
[2019-11-18] MEDS: HYDROCORTISONE 100 MG INJ. IVPush SCH ×2 (09:56→17:57)
[2019-11-18] MEDS: LIOTHYRONINE 5 MCG TABLET PO SCH ×3 (09:58→20:51)
[2019-11-18] MEDS: MULTIVITAMINS/MINERALS TABLET PO SCH ×2 (11:41→20:50)
[2019-11-18] MEDS: FLUCONAZOLE 200 MG TABLET PO SCH (15:21)
[2019-11-18] MEDS: OXYcodone IR 5MG TABLET PO PRN (19:57)
[2019-11-19] MEDS: HYDROCORTISONE 100 MG INJ. IVPush SCH (01:36)
[2019-11-19] MEDS: OXYcodone IR 5MG TABLET PO PRN (03:24)
[2019-11-19] MEDS: INSULIN LISPRO 100 UNITS/ML, PEN SQ-INSULIN SCH ×4 (03:44→21:42)
[2019-11-19 03:55] LABS: ALANINE AMINOTRANSFERASE 28 U/L (12-78); ALBUMIN 2.3 g/dL (3.4-5.0); ANION GAP 13 mmol/L (5-15); CALCIUM 7.3 mg/dL (8.5-10.1); CHLORIDE 124 mmol/L (98-107); CREATININE 1.52 mg/dL (0.55-1.02)
[2019-11-19 03:57] LABS: ALKALINE PHOSPHATASE 444 U/L (45-117); BILIRUBIN,TOTAL 0.8 mg/dL (0.2-1.0); TOTAL PROTEIN 5.4 g/dL (6.4-8.2)
[2019-11-19 04:15] LABS: BASOPHILS # (AUTO) 0.01 x10^3/uL (0-0.1); BASOPHILS % (AUTO) 0 % (0-1); EOSINOPHILS # (AUTO) 0.08 x10^3/uL (0-0.4); EOSINOPHILS % (AUTO) 2 % (1-7); LYMPHOCYTES # (AUTO) 1.32 x10^3/uL (1-3.4); LYMPHOCYTES % (AUTO) 26 % (22-44); MD MORPH REVIEW ONLY; MEAN CORPUSCULAR HEMOGLOBIN 28.7 pg (27.0-34.8); MEAN CORPUSCULAR HGB CONC 32.8 g/dL (32.4-35.8); MEAN CORPUSCULAR VOLUME 87.7 fL (80-100); MEAN PLATELET VOLUME 8.4 fL (7.4-10.4); MONOCYTES # (AUTO) 0.02 x10^3/uL (0.2-0.8); MONOCYTES % (AUTO) 0 % (2-9); NEUTROPHILS # (AUTO) 3.73 x10^3/uL (1.8-6.8); NEUTROPHILS % (AUTO) 72 % (42-75); PLATELET COUNT 73 x10^3/uL (130-400); RED BLOOD COUNT 3.19 x10^6/uL (3.82-5.3)
[2019-11-19 04:16] LABS: <PLATELET ESTIMATE> DECREASED; HYPOGRAN PLTS 1+; RED CELL DISTRIBUTION WIDTH 20.4 % (9.6-15.2); SMALL PLATELETS 1+
[2019-11-19 04:17] LABS: ANISOCYTOSIS 2+; ECHINOCYTES 1+; OVALOCYTES 1+
[2019-11-19] MEDS: LEVOTHYROXINE 100 MCG TABLET PO SCH (05:12)
[2019-11-19] MEDS: SODIUM BICARBONATE 8.4% 100 MEQ in DEXTROSE 5% 1,000 ML IV SCH ×2 (05:12→18:04)
[2019-11-19] MEDS: SODIUM CHLORIDE 0.9% IV SCH ×2 (06:46→18:39)
[2019-11-19] MEDS: ERAVACYCLINE IV SCH ×2 (06:46→18:39)
[2019-11-19] MEDS ORDERED: POTASSIUM CHLORIDE 10% 40 MEQ/30 ML UDC PO ONE (07:00)
[2019-11-19 08:00] VITALS: BP 101/57
[2019-11-19] MEDS: LIOTHYRONINE 5 MCG TABLET PO SCH ×3 (08:52→21:42)
[2019-11-19] MEDS: SODIUM CHLORIDE FLUSH 10ML SYR IVF SCH ×2 (08:52→21:00)
[2019-11-19] MEDS: MULTIVITAMINS/MINERALS TABLET PO SCH ×2 (08:52→21:42)
[2019-11-19] MEDS: TAMSULOSIN 0.4 MG CAP.ER.24H PO SCH (08:52)
[2019-11-19] MEDS: VANCOMYCIN 50 MG/ML ORAL SUSP PO SCH ×2 (08:52→21:42)
[2019-11-19] MEDS: SENNA/DOCUSATE TABLET PO SCH (08:53)
[2019-11-19] MEDS: THIAMINE 200 MG in SODIUM CHLORIDE 0.9% 50 ML IV SCH (09:35)
[2019-11-19 16:03] VITALS: BP 152/86
[2019-11-19] MEDS: FLUCONAZOLE 200 MG TABLET PO SCH (17:10)
[2019-11-19 20:27] VITALS: BP 148/88
[2019-11-20 00:36] VITALS: BP 158/83
[2019-11-20] MEDS: INSULIN LISPRO 100 UNITS/ML, PEN SQ-INSULIN SCH ×4 (02:57→20:18)
[2019-11-20] MEDS: SODIUM BICARBONATE 8.4% 100 MEQ in DEXTROSE 5% 1,000 ML IV SCH ×2 (03:21→15:12)
[2019-11-20 06:03] LABS: ANION GAP 11 mmol/L (5-15); CALCIUM 7.6 mg/dL (8.5-10.1); CHLORIDE 120 mmol/L (98-107); CREATININE 1.71 mg/dL (0.55-1.02)
[2019-11-20 06:12] LABS: FREE T4 (FREE THYROXINE) 0.96 ng/dL (0.76-1.46)
[2019-11-20] MEDS: LEVOTHYROXINE 100 MCG TABLET PO SCH (06:19)
[2019-11-20] MEDS: SODIUM CHLORIDE 0.9% IV SCH ×2 (06:19→18:46)
[2019-11-20] MEDS: ERAVACYCLINE IV SCH ×2 (06:19→18:46)
[2019-11-20] MEDS ORDERED: POTASSIUM CHLORIDE 40 MEQ in SODIUM CHLORIDE 0.9% 500 ML IV ONE (07:30)
[2019-11-20] MEDS: SENNA/DOCUSATE TABLET PO SCH (07:42)
[2019-11-20] MEDS: TAMSULOSIN 0.4 MG CAP.ER.24H PO SCH (07:53)
[2019-11-20] MEDS: SODIUM CHLORIDE FLUSH 10ML SYR IVF SCH ×2 (07:53→20:17)
[2019-11-20] MEDS: LIOTHYRONINE 5 MCG TABLET PO SCH ×3 (07:53→20:16)
[2019-11-20] MEDS: MULTIVITAMINS/MINERALS TABLET PO SCH ×2 (07:53→21:15)
[2019-11-20] MEDS: POTASSIUM CHLORIDE 20 MEQ TAB.ER.PRT PO SCH ×2 (07:53→09:54)
[2019-11-20 08:26] VITALS: BP 167/85
[2019-11-20] MEDS: VANCOMYCIN 50 MG/ML ORAL SUSP PO SCH ×2 (09:06→20:17)
[2019-11-20] MEDS: THIAMINE 200 MG in SODIUM CHLORIDE 0.9% 50 ML IV SCH (09:06)
[2019-11-20 13:55] VITALS: BP 166/83
[2019-11-20] MEDS: FLUCONAZOLE 200 MG TABLET PO SCH (15:12)
--- NOTE | 2019-11-20 15:31 | NUR ---
REC CHOPPED/THIN LIQUIDS; ORANGE SHEET WITH DIET RECOMMENDATIONS AND SWALLOW STRATEGIES POSTED AT BEDSIDE. Addendum: 11/20/19 at 1532 by Cristel FISH Amended: Links added.
[2019-11-20] MEDS: OXYcodone IR 5MG TABLET PO PRN ×2 (15:37→23:08)
[2019-11-20 16:22] LABS: ANION GAP 10 mmol/L (5-15); CALCIUM 7.5 mg/dL (8.5-10.1); CHLORIDE 119 mmol/L (98-107); CREATININE 1.58 mg/dL (0.55-1.02)
[2019-11-20] MEDS: DIPHENOXYLATE/ATROPINE TABLET PO PRN (18:10)
[2019-11-20 20:57] VITALS: BP 140/80
[2019-11-21 01:15] VITALS: BP 156/86
[2019-11-21] MEDS: SODIUM BICARBONATE 8.4% 100 MEQ in DEXTROSE 5% 1,000 ML IV SCH (02:25)
[2019-11-21] MEDS: INSULIN LISPRO 100 UNITS/ML, PEN SQ-INSULIN SCH ×5 (02:25→21:00)
[2019-11-21 05:43] LABS: CHLORIDE 119 mmol/L (98-107)
[2019-11-21 05:54] LABS: ANION GAP 8 mmol/L (5-15); CALCIUM 7.7 mg/dL (8.5-10.1); CREATININE 1.48 mg/dL (0.55-1.02)
[2019-11-21] MEDS: ERAVACYCLINE IV SCH ×3 (06:22→17:52)
[2019-11-21] MEDS: SODIUM CHLORIDE 0.9% IV SCH ×3 (06:22→17:52)
[2019-11-21] MEDS: LEVOTHYROXINE 100 MCG TABLET PO SCH (06:22)
[2019-11-21 06:30] LABS: MEAN CORPUSCULAR HEMOGLOBIN 28.5 pg (27.0-34.8); MEAN CORPUSCULAR HGB CONC 32.8 g/dL (32.4-35.8); MEAN CORPUSCULAR VOLUME 86.9 fL (80-100); MEAN PLATELET VOLUME 8.4 fL (7.4-10.4); RED CELL DISTRIBUTION WIDTH 20.2 % (9.6-15.2)
[2019-11-21 06:31] LABS: PLATELET COUNT 42 x10^3/uL (130-400)
[2019-11-21 06:34] LABS: BASOPHILS % (AUTO) 0 % (0-1); EOSINOPHILS # (AUTO) 0.36 x10^3/uL (0-0.4); EOSINOPHILS % (AUTO) 7 % (1-7); LYMPHOCYTES % (AUTO) 31 % (22-44); MD SCAN; MONOCYTES # (AUTO) 0.19 x10^3/uL (0.2-0.8); MONOCYTES % (AUTO) 3 % (2-9); NEUTROPHILS # (AUTO) 3.23 x10^3/uL (1.8-6.8); NEUTROPHILS % (AUTO) 59 % (42-75)
[2019-11-21 07:50] VITALS: BP 166/96
[2019-11-21] MEDS: SENNA/DOCUSATE TABLET PO SCH (08:07)
[2019-11-21] MEDS: LIOTHYRONINE 5 MCG TABLET PO SCH ×2 (08:19→16:04)
[2019-11-21] MEDS: POTASSIUM CHLORIDE 20 MEQ TAB.ER.PRT PO SCH ×3 (08:20→16:04)
[2019-11-21] MEDS: MULTIVITAMINS/MINERALS TABLET PO SCH ×2 (08:20→21:06)
[2019-11-21] MEDS: SODIUM CHLORIDE FLUSH 10ML SYR IVF SCH ×2 (08:20→21:00)
[2019-11-21] MEDS: TAMSULOSIN 0.4 MG CAP.ER.24H PO SCH (08:20)
[2019-11-21] MEDS: VANCOMYCIN 50 MG/ML ORAL SUSP PO SCH ×2 (08:20→21:06)
[2019-11-21] MEDS: THIAMINE 200 MG in SODIUM CHLORIDE 0.9% 50 ML IV SCH (09:24)
[2019-11-21] MEDS ORDERED: INSULIN LISPRO 100 UNIT/ML, 3ML VIAL SQ-INSULIN ONE (09:30)
[2019-11-21] MEDS ORDERED: INSULIN LISPRO 100 UNITS/ML, PEN SQ-INSULIN ONE (11:00)
[2019-11-21 13:00] VITALS: BP 155/89
[2019-11-21] MEDS: FLUCONAZOLE 200 MG TABLET PO SCH (16:03)
[2019-11-21] MEDS: DIPHENOXYLATE/ATROPINE TABLET PO PRN (16:04)
[2019-11-21] MEDS: DEXTROSE 50%, 50ML SYRINGE IVPush PRN (18:09)
[2019-11-21] MEDS: D5%-0.45% NACL 1,000 ML IV SCH (18:28)
[2019-11-21 19:32] VITALS: BP 149/86
[2019-11-21] MEDS ORDERED: DIPHENOXYLATE/ATROPINE TABLET PO SCH (21:00)
[2019-11-22] MEDS: OXYcodone IR 5MG TABLET PO PRN ×3 (00:55→18:12)
[2019-11-22 00:58] VITALS: BP 156/87
[2019-11-22 05:26] LABS: ANION GAP 7 mmol/L (5-15); CALCIUM 7.1 mg/dL (8.5-10.1); CHLORIDE 122 mmol/L (98-107)
[2019-11-22 05:40] LABS: ALANINE AMINOTRANSFERASE 40 U/L (12-78); ALKALINE PHOSPHATASE 497 U/L (45-117); BILIRUBIN,TOTAL 0.7 mg/dL (0.2-1.0); CREATININE 1.41 mg/dL (0.55-1.02); TOTAL PROTEIN 4.7 g/dL (6.4-8.2)
[2019-11-22 06:08] LABS: MD YES
[2019-11-22 06:11] LABS: MEAN CORPUSCULAR HEMOGLOBIN 28.5 pg (27.0-34.8); MEAN CORPUSCULAR HGB CONC 32.4 g/dL (32.4-35.8); MEAN PLATELET VOLUME 8.3 fL (7.4-10.4); RED CELL DISTRIBUTION WIDTH 20.5 % (9.6-15.2)
[2019-11-22 06:18] LABS: BAND#(MANUAL) 0.07 x10^3/uL; BANDS%(MANUAL) 1 % (0-7); BASOS#(MANUAL) 0.07 x10^3/uL (0-0.1); BASOS% (MANUAL) 1 % (0-1); EOS#(MANUAL) 0.72 x10^3/uL (0.0-0.4); EOS% (MANUAL) 10 % (1-7); LYMPH#(MANUAL) 2.16 x10^3/uL (1-3.4); LYMPHS% (MANUAL) 30 % (22-44); MONOS#(MANUAL) 0.14 x10^3/uL (0.3-2.7); MONOS% (MANUAL) 2 % (2-9); SEG#(MANUAL) 4.03 x10^3/uL (1.8-6.8); SEGS% (MANUAL) 56 % (42-75)
[2019-11-22 06:19] LABS: <PLATELET ESTIMATE> DECREASED; <PLT MORPHOLOGY> NORMAL PLT MORPH; ACANTHOCYTES 1+; ANISOCYTOSIS 2+; ECHINOCYTES 1+
[2019-11-22] MEDS: LEVOTHYROXINE 100 MCG TABLET PO SCH (06:20)
[2019-11-22] MEDS: ERAVACYCLINE IV SCH (06:21)
[2019-11-22] MEDS: SODIUM CHLORIDE 0.9% IV SCH (06:21)
[2019-11-22 07:05] LABS: PLATELET COUNT 36 x10^3/uL (130-400)
[2019-11-22 07:26] VITALS: BP 138/79
[2019-11-22] MEDS: INSULIN LISPRO 100 UNITS/ML, PEN SQ-INSULIN SCH ×4 (07:26→19:56)
[2019-11-22] MEDS: THIAMINE 200 MG in SODIUM CHLORIDE 0.9% 50 ML IV SCH (08:02)
[2019-11-22] MEDS: D5%-0.45% NACL 1,000 ML IV SCH (08:02)
[2019-11-22] MEDS: CHOLESTYRAMINE LIGHT 4GM PACKET PO SCH (08:02)
[2019-11-22] MEDS: SODIUM CHLORIDE FLUSH 10ML SYR IVF SCH ×2 (08:02→19:49)
[2019-11-22] MEDS: VANCOMYCIN 50 MG/ML ORAL SUSP PO SCH ×2 (08:03→19:48)
[2019-11-22] MEDS: MULTIVITAMINS/MINERALS TABLET PO SCH ×2 (08:03→19:49)
[2019-11-22] MEDS: TAMSULOSIN 0.4 MG CAP.ER.24H PO SCH (08:03)
[2019-11-22] MEDS: CLINDAMYCIN 300 MG CAPSULE PO SCH ×2 (11:56→18:12)
[2019-11-22] MEDS: POTASSIUM CHLORIDE 20 MEQ in DEXTROSE 5% 1,000 ML IV SCH ×2 (11:58→23:54)
[2019-11-22 12:34] VITALS: BP 100/64
[2019-11-22] MEDS ORDERED: LACTOBACILLUS CHEW TABLET PO SCH (16:00)
[2019-11-22] MEDS: FLUCONAZOLE 200 MG TABLET PO SCH (16:21)
[2019-11-22 20:30] VITALS: BP 144/81
[2019-11-23 02:30] VITALS: BP 129/77
[2019-11-23] MEDS: CLINDAMYCIN 300 MG CAPSULE PO SCH (02:34)
[2019-11-23] MEDS: LEVOTHYROXINE 100 MCG TABLET PO SCH (05:33)
[2019-11-23 07:23] VITALS: BP 144/88
[2019-11-23] MEDS: INSULIN LISPRO 100 UNITS/ML, PEN SQ-INSULIN SCH ×4 (08:29→22:22)
[2019-11-23] MEDS: TAMSULOSIN 0.4 MG CAP.ER.24H PO SCH (08:41)
[2019-11-23] MEDS: MULTIVITAMINS/MINERALS TABLET PO SCH ×2 (08:41→22:21)
[2019-11-23] MEDS: SODIUM CHLORIDE FLUSH 10ML SYR IVF SCH ×2 (08:41→22:20)
[2019-11-23] MEDS: VANCOMYCIN 50 MG/ML ORAL SUSP PO SCH ×2 (08:42→22:21)
[2019-11-23] MEDS: CHOLESTYRAMINE LIGHT 4GM PACKET PO SCH (08:42)
[2019-11-23] MEDS: OXYcodone IR 5MG TABLET PO PRN (08:53)
[2019-11-23 11:32] LABS: HCT (SEDRATE) 24.9 % (34.6-47.8)
[2019-11-23 12:33] VITALS: BP 154/90
[2019-11-23] MEDS: POTASSIUM CHLORIDE 20 MEQ in DEXTROSE 5% 1,000 ML IV SCH (13:05)
[2019-11-23] MEDS ORDERED: DEXTROSE 50%, 50ML SYRINGE IVPush ONE (17:00)
[2019-11-23 20:16] VITALS: BP 137/81
[2019-11-24 01:35] VITALS: BP 130/76
[2019-11-24] MEDS: LEVOTHYROXINE 100 MCG TABLET PO SCH (05:14)
[2019-11-24] MEDS: OXYcodone IR 5MG TABLET PO PRN ×2 (05:45→14:23)
[2019-11-24 06:05] LABS: ALANINE AMINOTRANSFERASE 39 U/L (12-78); ALBUMIN 2.1 g/dL (3.4-5.0); ANION GAP 5 mmol/L (5-15); CALCIUM 7.6 mg/dL (8.5-10.1); CHLORIDE 124 mmol/L (98-107); CREATININE 1.44 mg/dL (0.55-1.02)
[2019-11-24 06:16] LABS: ALKALINE PHOSPHATASE 605 U/L (45-117); BILIRUBIN,TOTAL 0.6 mg/dL (0.2-1.0); TOTAL PROTEIN 4.8 g/dL (6.4-8.2)
[2019-11-24 06:22] LABS: MEAN CORPUSCULAR HEMOGLOBIN 28.4 pg (27.0-34.8); MEAN CORPUSCULAR VOLUME 85.9 fL (80-100); RED BLOOD COUNT 2.98 x10^6/uL (3.82-5.3); RED CELL DISTRIBUTION WIDTH 20.6 % (9.6-15.2)
[2019-11-24] MEDS: DEXTROSE 4 GM TAB.CHEW PO PRN (06:46)
[2019-11-24 07:28] LABS: MEAN PLATELET VOLUME 10.1 fL (7.4-10.4)
[2019-11-24 07:31] LABS: PLATELET COUNT 20 x10^3/uL (130-400)
[2019-11-24 07:33] LABS: MD YES
[2019-11-24 07:35] LABS: EOS#(MANUAL) 0.98 x10^3/uL (0.0-0.4); EOS% (MANUAL) 16 % (1-7); LYMPH#(MANUAL) 1.95 x10^3/uL (1-3.4); LYMPHS% (MANUAL) 32 % (22-44); MONOS#(MANUAL) 0.43 x10^3/uL (0.3-2.7); MONOS% (MANUAL) 7 % (2-9)
[2019-11-24 07:36] LABS: METAMYELOCYTES# (MANUAL) 0.06 x10^3/uL (0-0); METAMYELOCYTES% (MANUAL) 1 % (0-1); SEG#(MANUAL) 2.68 x10^3/uL (1.8-6.8); SEGS% (MANUAL) 44 % (42-75)
[2019-11-24 07:37] LABS: <PLATELET ESTIMATE> DECREASED; <PLT MORPHOLOGY> NORMAL PLT MORPH; ACANTHOCYTES 1+; ANISOCYTOSIS 2+; ECHINOCYTES 1+
[2019-11-24] MEDS: INSULIN LISPRO 100 UNITS/ML, PEN SQ-INSULIN SCH ×4 (07:51→21:00)
[2019-11-24] MEDS: VANCOMYCIN 50 MG/ML ORAL SUSP PO SCH ×2 (07:53→20:54)
[2019-11-24] MEDS: TAMSULOSIN 0.4 MG CAP.ER.24H PO SCH (07:54)
[2019-11-24] MEDS: SODIUM CHLORIDE FLUSH 10ML SYR IVF SCH ×2 (07:54→20:54)
[2019-11-24] MEDS: MULTIVITAMINS/MINERALS TABLET PO SCH ×2 (07:54→20:54)
[2019-11-24 08:15] VITALS: BP 148/87
[2019-11-24] MEDS ORDERED: POTASSIUM CHLORIDE 20 MEQ in DEXTROSE 5% 1,000 ML IV SCH (10:00)
[2019-11-24] MEDS: CHOLESTYRAMINE LIGHT 4GM PACKET PO SCH (10:08)
[2019-11-24] MEDS: ERGOCALCIFEROL 50,000 UNIT CAPSULE PO SCH (12:00)
[2019-11-24 12:19] VITALS: BP 160/86
[2019-11-24 21:15] VITALS: BP 105/69
[2019-11-25 02:00] VITALS: BP 104/79
[2019-11-25] MEDS: LEVOTHYROXINE 100 MCG TABLET PO SCH (05:50)
[2019-11-25 06:09] LABS: ANION GAP 6 mmol/L (5-15); CALCIUM 7.7 mg/dL (8.5-10.1); CHLORIDE 126 mmol/L (98-107); CREATININE 1.49 mg/dL (0.55-1.02)
[2019-11-25] MEDS: OXYcodone IR 5MG TABLET PO PRN ×3 (06:21→22:28)
[2019-11-25 06:22] VITALS: BP 121/75
[2019-11-25 06:49] LABS: MEAN CORPUSCULAR HEMOGLOBIN 27.7 pg (27.0-34.8); MEAN CORPUSCULAR HGB CONC 32.4 g/dL (32.4-35.8); MEAN CORPUSCULAR VOLUME 85.6 fL (80-100); MEAN PLATELET VOLUME 9.1 fL (7.4-10.4); PLATELET COUNT 17 x10^3/uL (130-400); RED BLOOD COUNT 3.16 x10^6/uL (3.82-5.3); RED CELL DISTRIBUTION WIDTH 20.1 % (9.6-15.2)
[2019-11-25 06:50] LABS: BASOPHILS # (AUTO) 0.03 x10^3/uL (0-0.1); BASOPHILS % (AUTO) 0 % (0-1); EOSINOPHILS # (AUTO) 1.06 x10^3/uL (0-0.4); EOSINOPHILS % (AUTO) 14 % (1-7); LYMPHOCYTES % (AUTO) 30 % (22-44); MD MORPH REVIEW ONLY; MONOCYTES # (AUTO) 0.42 x10^3/uL (0.2-0.8); MONOCYTES % (AUTO) 6 % (2-9); NEUTROPHILS # (AUTO) 3.71 x10^3/uL (1.8-6.8); NEUTROPHILS % (AUTO) 50 % (42-75)
[2019-11-25 06:59] LABS: ACANTHOCYTES 1+; ANISOCYTOSIS 2+; ECHINOCYTES 1+; OVALOCYTES 1+
[2019-11-25 07:00] LABS: <PLATELET ESTIMATE> DECREASED; <PLT MORPHOLOGY> NORMAL PLT MORPH
[2019-11-25] MEDS: INSULIN LISPRO 100 UNITS/ML, PEN SQ-INSULIN SCH ×4 (07:00→21:00)
[2019-11-25] MEDS ORDERED: SODIUM POLYSTYRENE SULFONATE ORAL SUSP PO ONE (08:15)
[2019-11-25] MEDS ORDERED: CALCIUM GLUCONATE 4.6 MEQ in SODIUM CHLORIDE 0.9% 50 ML IV ONE (08:30)
[2019-11-25] MEDS ORDERED: DEXTROSE 50%, 50ML SYRINGE IVPush ONE (08:30)
[2019-11-25] MEDS ORDERED: INSULIN REGULAR 100 UNITS/ML, 3ML VIAL IVPush ONE (08:30)
[2019-11-25] MEDS: MULTIVITAMINS/MINERALS TABLET PO SCH ×2 (08:35→22:12)
[2019-11-25] MEDS: TAMSULOSIN 0.4 MG CAP.ER.24H PO SCH (08:35)
[2019-11-25] MEDS: CHOLESTYRAMINE LIGHT 4GM PACKET PO SCH ×4 (08:36→22:12)
[2019-11-25] MEDS: SODIUM CHLORIDE FLUSH 10ML SYR IVF SCH ×2 (08:45→22:13)
[2019-11-25] MEDS ORDERED: POTASSIUM CHLORIDE 20 MEQ in DEXTROSE 5% 1,000 ML IV SCH (10:00)
[2019-11-25] MEDS: DEXTROSE 50%, 50ML SYRINGE IVPush PRN (10:29)
[2019-11-25 12:46] LABS: ANION GAP 6 mmol/L (5-15); CALCIUM 7.4 mg/dL (8.5-10.1); CHLORIDE 125 mmol/L (98-107); CREATININE 1.49 mg/dL (0.55-1.02)
[2019-11-25 16:21] VITALS: BP 142/80
[2019-11-25 19:32] VITALS: BP 140/81
[2019-11-25] MEDS: SODIUM BICARBONATE 650 MG TABLET PO SCH (22:13)
[2019-11-26] VITALS (8 sets, daily range): BP systolic 99–163; BP diastolic 64–89
[2019-11-26] MEDS: LEVOTHYROXINE 100 MCG TABLET PO SCH (04:55)
[2019-11-26] MEDS: MULTIVITAMINS/MINERALS TABLET PO SCH ×2 (08:04→22:14)
[2019-11-26] MEDS: SODIUM CHLORIDE FLUSH 10ML SYR IVF SCH ×2 (08:04→22:14)
[2019-11-26] MEDS: TAMSULOSIN 0.4 MG CAP.ER.24H PO SCH (08:04)
[2019-11-26] MEDS: SODIUM BICARBONATE 650 MG TABLET PO SCH ×2 (08:04→22:14)
[2019-11-26 08:59] LABS: ANION GAP 6 mmol/L (5-15); CALCIUM 7.7 mg/dL (8.5-10.1); CHLORIDE 127 mmol/L (98-107)
[2019-11-26 09:09] LABS: CREATININE 1.55 mg/dL (0.55-1.02)
[2019-11-26 10:53] LABS: BASOPHILS # (AUTO) 0.03 x10^3/uL (0-0.1); BASOPHILS % (AUTO) 0 % (0-1); EOSINOPHILS # (AUTO) 1.13 x10^3/uL (0-0.4); EOSINOPHILS % (AUTO) 16 % (1-7); LYMPHOCYTES # (AUTO) 1.59 x10^3/uL (1-3.4); LYMPHOCYTES % (AUTO) 22 % (22-44); MD MORPH REVIEW ONLY; MEAN CORPUSCULAR HGB CONC 32.8 g/dL (32.4-35.8); MEAN CORPUSCULAR VOLUME 85.5 fL (80-100); MEAN PLATELET VOLUME 10.2 fL (7.4-10.4); MONOCYTES # (AUTO) 0.43 x10^3/uL (0.2-0.8); MONOCYTES % (AUTO) 6 % (2-9); NEUTROPHILS # (AUTO) 4.01 x10^3/uL (1.8-6.8); NEUTROPHILS % (AUTO) 56 % (42-75); RED BLOOD COUNT 3.06 x10^6/uL (3.82-5.3); RED CELL DISTRIBUTION WIDTH 20.3 % (9.6-15.2)
[2019-11-26 10:55] LABS: PLATELET COUNT 15 x10^3/uL (130-400)
[2019-11-26 10:56] LABS: ACANTHOCYTES 1+; ANISOCYTOSIS 2+; ECHINOCYTES 1+; OVALOCYTES 1+
[2019-11-26 10:57] LABS: <PLATELET ESTIMATE> DECREASED; <PLT MORPHOLOGY> QNS FOR PLT MORPH
[2019-11-26] MEDS: CHOLESTYRAMINE LIGHT 4GM PACKET PO SCH ×3 (12:17→23:39)
[2019-11-26] MEDS: OXYcodone IR 5MG TABLET PO PRN (22:13)
[2019-11-27 00:03] VITALS: BP 146/78
[2019-11-27] MEDS: LEVOTHYROXINE 100 MCG TABLET PO SCH (05:57)
[2019-11-27 06:40] LABS: ANION GAP 5 mmol/L (5-15); CALCIUM 7.9 mg/dL (8.5-10.1); CHLORIDE 129 mmol/L (98-107); CREATININE 1.11 mg/dL (0.55-1.02)
[2019-11-27 07:01] LABS: MEAN CORPUSCULAR HEMOGLOBIN 27.9 pg (27.0-34.8); MEAN CORPUSCULAR HGB CONC 32.8 g/dL (32.4-35.8); MEAN PLATELET VOLUME 10.1 fL (7.4-10.4); RED BLOOD COUNT 2.93 x10^6/uL (3.82-5.3); RED CELL DISTRIBUTION WIDTH 20.7 % (9.6-15.2)
[2019-11-27 07:04] LABS: PLATELET COUNT 16 x10^3/uL (130-400)
[2019-11-27 07:05] LABS: MD MORPH REVIEW ONLY
[2019-11-27 07:06] LABS: ACANTHOCYTES 1+; ANISOCYTOSIS 2+; BASOPHILS # (AUTO) 0.01 x10^3/uL (0-0.1); BASOPHILS % (AUTO) 0 % (0-1); ECHINOCYTES 1+; EOSINOPHILS # (AUTO) 1.32 x10^3/uL (0-0.4); EOSINOPHILS % (AUTO) 19 % (1-7); LYMPHOCYTES # (AUTO) 1.71 x10^3/uL (1-3.4); LYMPHOCYTES % (AUTO) 24 % (22-44); MONOCYTES # (AUTO) 0.52 x10^3/uL (0.2-0.8); MONOCYTES % (AUTO) 7 % (2-9); NEUTROPHILS # (AUTO) 3.53 x10^3/uL (1.8-6.8); NEUTROPHILS % (AUTO) 50 % (42-75); OVALOCYTES 1+
[2019-11-27 07:07] LABS: <PLATELET ESTIMATE> DECREASED; <PLT MORPHOLOGY> NORMAL PLT MORPH; SPHEROCYTES 1+
[2019-11-27 07:48] VITALS: BP 101/56
[2019-11-27] MEDS ORDERED: DEXTROSE 5% 1,000 ML IV SCH (08:00)
[2019-11-27] MEDS: MULTIVITAMINS/MINERALS TABLET PO SCH ×2 (09:41→22:06)
[2019-11-27] MEDS: CHOLESTYRAMINE LIGHT 4GM PACKET PO SCH ×3 (09:41→23:02)
[2019-11-27] MEDS: OXYcodone IR 5MG TABLET PO PRN ×2 (09:41→16:29)
[2019-11-27] MEDS: INSULIN LISPRO 100 UNITS/ML, PEN SQ-INSULIN SCH ×4 (09:42→22:07)
[2019-11-27] MEDS: SODIUM CHLORIDE FLUSH 10ML SYR IVF SCH ×2 (09:42→22:08)
[2019-11-27] MEDS ORDERED: LIDOCAINE 1%, 10ML INFIL ONE (10:00)
[2019-11-27] MEDS: SODIUM BICARBONATE 650 MG TABLET PO SCH ×2 (12:00→22:06)
[2019-11-27 15:52] VITALS: BP 84/52
[2019-11-27 16:45] VITALS: BP 111/58
[2019-11-27 21:18] VITALS: BP 115/70
[2019-11-28 00:11] VITALS: BP 103/65
[2019-11-28] MEDS: LEVOTHYROXINE 100 MCG TABLET PO SCH (05:46)
[2019-11-28 06:34] LABS: ANION GAP 6 mmol/L (5-15); CALCIUM 7.7 mg/dL (8.5-10.1); CHLORIDE 122 mmol/L (98-107); CREATININE 1.43 mg/dL (0.55-1.02)
[2019-11-28] MEDS: INSULIN LISPRO 100 UNITS/ML, PEN SQ-INSULIN SCH ×4 (07:00→19:56)
[2019-11-28 07:42] LABS: BASOPHILS # (AUTO) 0.03 x10^3/uL (0-0.1); BASOPHILS % (AUTO) 0 % (0-1); EOSINOPHILS # (AUTO) 1.24 x10^3/uL (0-0.4); EOSINOPHILS % (AUTO) 14 % (1-7); LYMPHOCYTES # (AUTO) 2.36 x10^3/uL (1-3.4); LYMPHOCYTES % (AUTO) 27 % (22-44); MD SCAN; MEAN CORPUSCULAR HEMOGLOBIN 28.5 pg (27.0-34.8); MEAN CORPUSCULAR HGB CONC 33.6 g/dL (32.4-35.8); MEAN CORPUSCULAR VOLUME 85.1 fL (80-100); MEAN PLATELET VOLUME 9.7 fL (7.4-10.4); MONOCYTES # (AUTO) 0.91 x10^3/uL (0.2-0.8); MONOCYTES % (AUTO) 11 % (2-9); NEUTROPHILS # (AUTO) 4.08 x10^3/uL (1.8-6.8); NEUTROPHILS % (AUTO) 47 % (42-75); RED BLOOD COUNT 2.77 x10^6/uL (3.82-5.3); RED CELL DISTRIBUTION WIDTH 20.4 % (9.6-15.2)
[2019-11-28 07:44] LABS: PLATELET COUNT 26 x10^3/uL (130-400)
[2019-11-28] MEDS ORDERED: SODIUM POLYSTYRENE SULFONATE ORAL SUSP PO ONE (08:00)
[2019-11-28 08:13] VITALS: BP 78/40
[2019-11-28] MEDS: MULTIVITAMINS/MINERALS TABLET PO SCH ×2 (08:42→19:56)
[2019-11-28] MEDS: SODIUM BICARBONATE 650 MG TABLET PO SCH ×2 (08:43→19:56)
[2019-11-28] MEDS: SODIUM CHLORIDE FLUSH 10ML SYR IVF SCH ×2 (08:44→19:56)
[2019-11-28] MEDS: CHOLESTYRAMINE LIGHT 4GM PACKET PO SCH ×3 (08:44→21:45)
[2019-11-28] MEDS: OXYcodone IR 5MG TABLET PO PRN ×2 (09:15→16:49)
[2019-11-28] MEDS ORDERED: SODIUM CHLORIDE 0.9%, 500ML IVBOLUS ONE (10:00)
[2019-11-28 11:01] VITALS: BP 124/70
[2019-11-28 14:20] VITALS: BP 137/83
[2019-11-28 19:41] VITALS: BP 150/80
[2019-11-29 01:13] VITALS: BP 146/70
[2019-11-29] MEDS: OXYcodone IR 5MG TABLET PO PRN ×3 (01:26→19:53)
[2019-11-29] MEDS: LEVOTHYROXINE 100 MCG TABLET PO SCH (05:32)
[2019-11-29 06:16] LABS: ANION GAP 6 mmol/L (5-15); CHLORIDE 117 mmol/L (98-107); CREATININE 1.81 mg/dL (0.55-1.02)
[2019-11-29 08:17] LABS: BASOPHILS # (AUTO) 0.03 x10^3/uL (0-0.1); BASOPHILS % (AUTO) 0 % (0-1); EOSINOPHILS # (AUTO) 0.02 x10^3/uL (0-0.4); EOSINOPHILS % (AUTO) 0 % (1-7); LYMPHOCYTES # (AUTO) 1.18 x10^3/uL (1-3.4); LYMPHOCYTES % (AUTO) 14 % (22-44); MD SCAN; MEAN CORPUSCULAR HEMOGLOBIN 27.8 pg (27.0-34.8); MEAN CORPUSCULAR HGB CONC 32.6 g/dL (32.4-35.8); MEAN CORPUSCULAR VOLUME 85.4 fL (80-100); MEAN PLATELET VOLUME 9.6 fL (7.4-10.4); MONOCYTES # (AUTO) 0.75 x10^3/uL (0.2-0.8); MONOCYTES % (AUTO) 9 % (2-9); NEUTROPHILS # (AUTO) 6.23 x10^3/uL (1.8-6.8); NEUTROPHILS % (AUTO) 76 % (42-75); PLATELET COUNT 59 x10^3/uL (130-400); RED BLOOD COUNT 2.86 x10^6/uL (3.82-5.3)
[2019-11-29] MEDS: SODIUM CHLORIDE FLUSH 10ML SYR IVF SCH ×2 (09:00→21:00)
[2019-11-29] MEDS: INSULIN GLARGINE 100 UNITS/ML, PEN SQ-INSULIN SCH ×2 (09:00→21:08)
[2019-11-29 09:16] VITALS: BP 90/58
[2019-11-29] MEDS ORDERED: FUROSEMIDE 20 MG/2 ML IV ONE (09:30)
[2019-11-29] MEDS: INSULIN REGULAR 100 UNITS/ML, 3ML VIAL SQ-INSULIN SCH ×2 (11:00→11:05)
[2019-11-29] MEDS: CHOLESTYRAMINE LIGHT 4GM PACKET PO SCH ×3 (11:05→21:00)
[2019-11-29] MEDS: SODIUM BICARBONATE 650 MG TABLET PO SCH ×2 (11:05→21:05)
[2019-11-29] MEDS: MULTIVITAMINS/MINERALS TABLET PO SCH ×2 (11:05→21:05)
[2019-11-29] MEDS ORDERED: INSULIN REGULAR 100 UNITS/ML, 3ML VIAL SQ-INSULIN SCH (11:30)
[2019-11-29] MEDS: INSULIN LISPRO 100 UNITS/ML, PEN SQ-INSULIN SCH ×3 (12:02→21:07)
[2019-11-29 12:38] LABS: ANION GAP 7 mmol/L (5-15); CALCIUM 8.1 mg/dL (8.5-10.1); CHLORIDE 114 mmol/L (98-107); CREATININE 1.69 mg/dL (0.55-1.02)
[2019-11-29 12:56] LABS: ACETONE, SERUM Negative (Negative)
[2019-11-29] MEDS ORDERED: INSULIN REGULAR 100 UNITS/ML, 3ML VIAL IVPush ONE (13:30)
[2019-11-29] MEDS ORDERED: SODIUM POLYSTYRENE SULFONATE ORAL SUSP PO ONE (13:30)
[2019-11-29] MEDS: SODIUM CHLORIDE 0.9% 1,000 ML IV SCH ×2 (14:20→21:06)
[2019-11-29 14:32] VITALS: BP 121/70
[2019-11-29 19:10] VITALS: BP 166/93
[2019-11-30 01:38] VITALS: BP 166/87
[2019-11-30] MEDS: OXYcodone IR 5MG TABLET PO PRN ×3 (02:41→21:11)
[2019-11-30] MEDS: INSULIN LISPRO 100 UNITS/ML, PEN SQ-INSULIN SCH ×4 (02:41→21:12)
[2019-11-30 03:25] LABS: MEAN CORPUSCULAR HEMOGLOBIN 27.8 pg (27.0-34.8); MEAN CORPUSCULAR HGB CONC 32.5 g/dL (32.4-35.8); MEAN CORPUSCULAR VOLUME 85.4 fL (80-100); MEAN PLATELET VOLUME 9.3 fL (7.4-10.4); PLATELET COUNT 99 x10^3/uL (130-400); RED BLOOD COUNT 2.94 x10^6/uL (3.82-5.3); RED CELL DISTRIBUTION WIDTH 19.7 % (9.6-15.2)
[2019-11-30 03:33] LABS: ALANINE AMINOTRANSFERASE 59 U/L (12-78); ALBUMIN 2.3 g/dL (3.4-5.0); ANION GAP 5 mmol/L (5-15); CALCIUM 7.8 mg/dL (8.5-10.1); CHLORIDE 114 mmol/L (98-107); CREATININE 1.38 mg/dL (0.55-1.02)
[2019-11-30 03:36] LABS: ALKALINE PHOSPHATASE 620 U/L (45-117); BILIRUBIN,TOTAL 0.3 mg/dL (0.2-1.0); TOTAL PROTEIN 5.8 g/dL (6.4-8.2)
[2019-11-30 03:46] LABS: BASOPHILS % (AUTO) 0 % (0-1); EOSINOPHILS # (AUTO) 0.02 x10^3/uL (0-0.4); EOSINOPHILS % (AUTO) 0 % (1-7); LYMPHOCYTES # (AUTO) 1.03 x10^3/uL (1-3.4); LYMPHOCYTES % (AUTO) 20 % (22-44); MD SCAN; MONOCYTES # (AUTO) 0.11 x10^3/uL (0.2-0.8); MONOCYTES % (AUTO) 2 % (2-9); NEUTROPHILS # (AUTO) 3.94 x10^3/uL (1.8-6.8); NEUTROPHILS % (AUTO) 77 % (42-75)
[2019-11-30] MEDS: SODIUM CHLORIDE 0.9% 1,000 ML IV SCH ×3 (04:30→16:26)
[2019-11-30] MEDS: LEVOTHYROXINE 100 MCG TABLET PO SCH (06:38)
[2019-11-30 08:00] VITALS: BP 172/97
[2019-11-30] MEDS ORDERED: SODIUM POLYSTYRENE SULFONATE ORAL SUSP PO ONE (08:30)
[2019-11-30 09:33] VITALS: BP 158/78
[2019-11-30] MEDS: SODIUM BICARBONATE 650 MG TABLET PO SCH ×2 (09:33→21:10)
[2019-11-30] MEDS: CHOLESTYRAMINE LIGHT 4GM PACKET PO SCH ×3 (09:33→21:11)
[2019-11-30] MEDS: MULTIVITAMINS/MINERALS TABLET PO SCH ×2 (09:33→21:11)
[2019-11-30] MEDS: SODIUM CHLORIDE FLUSH 10ML SYR IVF SCH ×2 (09:34→21:00)
[2019-11-30] MEDS: INSULIN GLARGINE 100 UNITS/ML, PEN SQ-INSULIN SCH ×2 (09:35→21:12)
[2019-11-30] MEDS ORDERED: INSULIN LISPRO 100 UNITS/ML, PEN SQ-INSULIN SCH (10:00)
[2019-11-30 12:57] VITALS: BP 107/69
[2019-11-30 19:06] VITALS: BP 186/95
[2019-12-01] MEDS: SODIUM CHLORIDE 0.9% 1,000 ML IV SCH
[2019-12-01 00:36] VITALS: BP 196/96
[2019-12-01] MEDS: hydrALAzine 20 MG/ML, 1ML IVPush PRN (00:48)
[2019-12-01 02:20] VITALS: BP 170/85
[2019-12-01] MEDS: OXYcodone IR 5MG TABLET PO PRN ×3 (04:12→16:52)
[2019-12-01 04:40] LABS: BASOPHILS # (AUTO) 0.05 x10^3/uL (0-0.1); BASOPHILS % (AUTO) 1 % (0-1); EOSINOPHILS # (AUTO) 0.04 x10^3/uL (0-0.4); EOSINOPHILS % (AUTO) 1 % (1-7); LYMPHOCYTES # (AUTO) 1.09 x10^3/uL (1-3.4); LYMPHOCYTES % (AUTO) 22 % (22-44); MD NO; MEAN CORPUSCULAR HEMOGLOBIN 27.7 pg (27.0-34.8); MEAN CORPUSCULAR HGB CONC 32.5 g/dL (32.4-35.8); MEAN CORPUSCULAR VOLUME 85.2 fL (80-100); MEAN PLATELET VOLUME 8.7 fL (7.4-10.4); MONOCYTES # (AUTO) 0.45 x10^3/uL (0.2-0.8); MONOCYTES % (AUTO) 9 % (2-9); NEUTROPHILS # (AUTO) 3.45 x10^3/uL (1.8-6.8); NEUTROPHILS % (AUTO) 68 % (42-75); PLATELET COUNT 165 x10^3/uL (130-400); RED BLOOD COUNT 2.78 x10^6/uL (3.82-5.3); RED CELL DISTRIBUTION WIDTH 19.9 % (9.6-15.2)
[2019-12-01 04:47] LABS: ALANINE AMINOTRANSFERASE 106 U/L (12-78); ALBUMIN 2.3 g/dL (3.4-5.0); ANION GAP 4 mmol/L (5-15); CALCIUM 7.9 mg/dL (8.5-10.1); CHLORIDE 125 mmol/L (98-107); CREATININE 1.23 mg/dL (0.55-1.02)
[2019-12-01 04:57] LABS: ALKALINE PHOSPHATASE 580 U/L (45-117); BILIRUBIN,TOTAL 0.3 mg/dL (0.2-1.0); TOTAL PROTEIN 5.5 g/dL (6.4-8.2)
[2019-12-01] MEDS: LEVOTHYROXINE 100 MCG TABLET PO SCH (06:39)
[2019-12-01 07:17] VITALS: BP 167/84
[2019-12-01] MEDS ORDERED: SODIUM BICARBONATE 8.4% 75 MEQ in SODIUM CHLORIDE 0.45% 1,000 ML IV SCH (08:00)
[2019-12-01] MEDS: SODIUM BICARBONATE 650 MG TABLET PO SCH ×2 (09:34→20:12)
[2019-12-01] MEDS: MULTIVITAMINS/MINERALS TABLET PO SCH ×2 (09:34→20:12)
[2019-12-01] MEDS: CHOLESTYRAMINE LIGHT 4GM PACKET PO SCH ×3 (09:34→20:12)
[2019-12-01] MEDS: SODIUM CHLORIDE FLUSH 10ML SYR IVF SCH ×2 (09:35→20:12)
[2019-12-01] MEDS: INSULIN GLARGINE 100 UNITS/ML, PEN SQ-INSULIN SCH ×2 (09:37→20:13)
[2019-12-01] MEDS: INSULIN LISPRO 100 UNITS/ML, PEN SQ-INSULIN SCH ×4 (09:37→20:14)
[2019-12-01] MEDS: ERGOCALCIFEROL 50,000 UNIT CAPSULE PO SCH (10:27)
[2019-12-01 13:49] VITALS: BP 152/78
[2019-12-01 16:55] LABS: ANA SCREEN NEGATIVE (Negative)
[2019-12-01 21:12] VITALS: BP 176/80
[2019-12-01] MEDS: MELATONIN 5 MG TABLET PO PRN (23:13)
[2019-12-01] MEDS: SODIUM CHLORIDE 0.45% 1,000 ML IV SCH (23:13)
[2019-12-02 01:29] VITALS: BP 181/90
[2019-12-02] MEDS: hydrALAzine 20 MG/ML, 1ML IVPush PRN (01:49)
[2019-12-02] MEDS: OXYcodone IR 5MG TABLET PO PRN ×3 (01:58→18:46)
[2019-12-02 03:18] VITALS: BP 175/78
[2019-12-02] MEDS: LEVOTHYROXINE 100 MCG TABLET PO SCH (05:39)
[2019-12-02] MEDS: INSULIN LISPRO 100 UNITS/ML, PEN SQ-INSULIN SCH ×4 (07:00→20:43)
[2019-12-02 07:58] VITALS: BP 180/94
[2019-12-02] MEDS: SODIUM CHLORIDE FLUSH 10ML SYR IVF SCH ×2 (08:56→20:43)
[2019-12-02] MEDS: MULTIVITAMINS/MINERALS TABLET PO SCH ×2 (09:00→20:43)
[2019-12-02] MEDS: SODIUM BICARBONATE 650 MG TABLET PO SCH ×2 (09:04→20:43)
[2019-12-02] MEDS: CHOLESTYRAMINE LIGHT 4GM PACKET PO SCH ×3 (09:04→20:43)
[2019-12-02] MEDS: INSULIN GLARGINE 100 UNITS/ML, PEN SQ-INSULIN SCH ×2 (09:05→20:42)
[2019-12-02] MEDS: SODIUM CHLORIDE 0.45% 1,000 ML IV SCH ×2 (11:50→20:50)
[2019-12-02 12:49] VITALS: BP 120/66
[2019-12-02 14:28] LABS: BASOPHILS # (AUTO) 0.01 x10^3/uL (0-0.1); BASOPHILS % (AUTO) 0 % (0-1); EOSINOPHILS # (AUTO) 0.18 x10^3/uL (0-0.4); EOSINOPHILS % (AUTO) 3 % (1-7); LYMPHOCYTES # (AUTO) 1.27 x10^3/uL (1-3.4); LYMPHOCYTES % (AUTO) 22 % (22-44); MD NO; MEAN CORPUSCULAR HGB CONC 32.4 g/dL (32.4-35.8); MEAN CORPUSCULAR VOLUME 86.3 fL (80-100); MEAN PLATELET VOLUME 8.1 fL (7.4-10.4); MONOCYTES # (AUTO) 0.29 x10^3/uL (0.2-0.8); MONOCYTES % (AUTO) 5 % (2-9); NEUTROPHILS # (AUTO) 3.98 x10^3/uL (1.8-6.8); NEUTROPHILS % (AUTO) 70 % (42-75); PLATELET COUNT 184 x10^3/uL (130-400); RED BLOOD COUNT 2.75 x10^6/uL (3.82-5.3); RED CELL DISTRIBUTION WIDTH 20.6 % (9.6-15.2)
[2019-12-02 14:39] LABS: ALANINE AMINOTRANSFERASE 106 U/L (12-78); ALBUMIN 2.2 g/dL (3.4-5.0); ANION GAP 5 mmol/L (5-15); CALCIUM 7.8 mg/dL (8.5-10.1); CHLORIDE 122 mmol/L (98-107)
[2019-12-02 14:41] LABS: ALKALINE PHOSPHATASE 423 U/L (45-117); BILIRUBIN,TOTAL 0.3 mg/dL (0.2-1.0); CREATININE 1.12 mg/dL (0.55-1.02); TOTAL PROTEIN 5.2 g/dL (6.4-8.2)
[2019-12-02 19:50] VITALS: BP 123/73
[2019-12-03 00:32] VITALS: BP 189/99
[2019-12-03] MEDS: hydrALAzine 20 MG/ML, 1ML IVPush PRN (00:46)
[2019-12-03] MEDS: OXYcodone IR 5MG TABLET PO PRN ×4 (00:57→22:33)
[2019-12-03 05:24] LABS: BASOPHILS # (AUTO) 0.02 x10^3/uL (0-0.1); BASOPHILS % (AUTO) 0 % (0-1); EOSINOPHILS # (AUTO) 0.22 x10^3/uL (0-0.4); EOSINOPHILS % (AUTO) 3 % (1-7); LYMPHOCYTES % (AUTO) 21 % (22-44); MD NO; MEAN CORPUSCULAR HEMOGLOBIN 27.7 pg (27.0-34.8); MEAN CORPUSCULAR HGB CONC 32.6 g/dL (32.4-35.8); MEAN CORPUSCULAR VOLUME 84.8 fL (80-100); MEAN PLATELET VOLUME 7.6 fL (7.4-10.4); MONOCYTES # (AUTO) 0.61 x10^3/uL (0.2-0.8); MONOCYTES % (AUTO) 9 % (2-9); NEUTROPHILS # (AUTO) 4.49 x10^3/uL (1.8-6.8); NEUTROPHILS % (AUTO) 67 % (42-75); PLATELET COUNT 195 x10^3/uL (130-400); RED BLOOD COUNT 2.74 x10^6/uL (3.82-5.3); RED CELL DISTRIBUTION WIDTH 20.4 % (9.6-15.2)
[2019-12-03] MEDS: LEVOTHYROXINE 100 MCG TABLET PO SCH (05:24)
[2019-12-03 05:35] LABS: ANION GAP 3 mmol/L (5-15); CALCIUM 7.8 mg/dL (8.5-10.1); CHLORIDE 125 mmol/L (98-107)
[2019-12-03 05:36] LABS: CREATININE 1.32 mg/dL (0.55-1.02)
[2019-12-03 06:36] VITALS: BP 136/71
[2019-12-03] MEDS ORDERED: FENTANYL PF 250 MCG/5ML ONE (06:39)
[2019-12-03] MEDS ORDERED: MIDAZOLAM 1 MG/ML, 2ML ONE (06:39)
[2019-12-03 07:25] VITALS: BP 152/77
[2019-12-03] MEDS ORDERED: PROPOFOL 10 MG/ML, 20ML ONE (07:29)
[2019-12-03] MEDS ORDERED: ONDANSETRON 2MG/ML, 2ML ONE (07:29)
[2019-12-03] MEDS ORDERED: DEXAMETHASONE 4 MG/ML, 1ML ONE (07:29)
[2019-12-03] MEDS ORDERED: ROCURONIUM 10MG/ML,5ML ONE (07:29)
[2019-12-03] MEDS ORDERED: CEFAZOLIN 1,000 MG ONE (07:29)
[2019-12-03] MEDS ORDERED: SUCCINYLCHOLINE 20 MG/ML, 10ML ONE (07:29)
[2019-12-03] MEDS ORDERED: GLYCOPYRROLATE 0.2MG/1ML, 5ML ONE (07:29)
[2019-12-03] MEDS ORDERED: NEOSTIGMINE 1 MG/ML, 10ML ONE (07:29)
[2019-12-03] MEDS: CHOLESTYRAMINE LIGHT 4GM PACKET PO SCH ×3 (08:42→21:19)
[2019-12-03] MEDS: SODIUM BICARBONATE 650 MG TABLET PO SCH (08:43)
[2019-12-03] MEDS: INSULIN LISPRO 100 UNITS/ML, PEN SQ-INSULIN SCH ×4 (08:45→21:43)
[2019-12-03] MEDS: INSULIN GLARGINE 100 UNITS/ML, PEN SQ-INSULIN SCH ×2 (08:45→20:58)
[2019-12-03] MEDS: MULTIVITAMINS/MINERALS TABLET PO SCH ×2 (08:45→21:38)
[2019-12-03] MEDS: SODIUM CHLORIDE FLUSH 10ML SYR IVF SCH ×2 (08:46→20:57)
[2019-12-03] MEDS: SODIUM CHLORIDE 0.45% 1,000 ML IV SCH (11:28)
[2019-12-03] MEDS: ACETAMINOPHEN 325 MG TABLET PO PRN ×2 (11:41→20:59)
[2019-12-03 13:19] VITALS: BP 91/51
[2019-12-03 19:37] VITALS: BP 122/82
[2019-12-03 19:55] LABS: CALCIUM 7.9 mg/dL (8.5-10.1); CHLORIDE 125 mmol/L (98-107); CREATININE 1.18 mg/dL (0.55-1.02)
[2019-12-03 20:03] LABS: ANION GAP 5 mmol/L (5-15)
[2019-12-03] MEDS ORDERED: INSULIN REGULAR 100 UNITS/ML, 3ML VIAL IVPush ONE (20:30)
[2019-12-03] MEDS ORDERED: DEXTROSE 50%, 50ML SYRINGE IVPush ONE (20:30)
[2019-12-03] MEDS ORDERED: CALCIUM GLUCONATE 4.6 MEQ/10 ML IVPush ONE ×2 (20:30→21:00)
[2019-12-03 20:55] LABS: ANION GAP 5 mmol/L (5-15); CALCIUM 7.8 mg/dL (8.5-10.1); CHLORIDE 126 mmol/L (98-107); CREATININE 1.11 mg/dL (0.55-1.02)
[2019-12-03] MEDS: DEXTROSE 50%, 50ML SYRINGE IVPush PRN (20:57)
[2019-12-03] MEDS: SODIUM POLYSTYRENE SULFONATE ORAL SUSP PO SCH (20:58)
[2019-12-03] MEDS ORDERED: CALCIUM GLUCONATE 4.6 MEQ in SODIUM CHLORIDE 0.9% 50 ML IV ONE (21:00)
[2019-12-03] MEDS ORDERED: MULTIVITAMIN 1 TABLET ONE (21:13)
[2019-12-03] MEDS: SODIUM BICARBONATE 8.4% 100 MEQ in DEXTROSE 5% 1,000 ML IV SCH (21:18)
[2019-12-03] MEDS ORDERED: MULTIVITAMINS/MINERALS TABLET PO ONE (21:31)
[2019-12-03 22:57] LABS: ALBUMIN 2.4 g/dL (3.4-5.0); ANION GAP 4 mmol/L (5-15); CALCIUM 8.3 mg/dL (8.5-10.1); CHLORIDE 125 mmol/L (98-107)
[2019-12-03 23:01] LABS: ALANINE AMINOTRANSFERASE 112 U/L (12-78); ALKALINE PHOSPHATASE 406 U/L (45-117); BILIRUBIN,TOTAL 0.3 mg/dL (0.2-1.0); CREATININE 1.17 mg/dL (0.55-1.02); TOTAL PROTEIN 5.8 g/dL (6.4-8.2)
[2019-12-04] MEDS ORDERED: CALCIUM GLUCONATE 0.46MEQ/1ML IVPush ONE
[2019-12-04] MEDS ORDERED: INSULIN REGULAR 100 UNITS/ML, 3ML VIAL IVPush ONE
[2019-12-04] MEDS ORDERED: CALCIUM GLUCONATE 4.6 MEQ in SODIUM CHLORIDE 0.9% 50 ML IV ONE (00:30)
[2019-12-04] MEDS: DEXTROSE 50%, 50ML SYRINGE IVPush PRN (00:39)
[2019-12-04 01:00] LABS: ANION GAP 4 mmol/L (5-15); CALCIUM 8.4 mg/dL (8.5-10.1); CHLORIDE 126 mmol/L (98-107); CREATININE 1.01 mg/dL (0.55-1.02)
[2019-12-04 02:52] VITALS: BP 182/89
[2019-12-04] MEDS: hydrALAzine 20 MG/ML, 1ML IVPush PRN (02:53)
[2019-12-04 03:11] VITALS: BP 154/80
[2019-12-04] MEDS: LEVOTHYROXINE 100 MCG TABLET PO SCH (05:27)
[2019-12-04] MEDS: SODIUM POLYSTYRENE SULFONATE ORAL SUSP PO SCH ×2 (05:27→10:11)
[2019-12-04 06:54] VITALS: BP 187/73
[2019-12-04 08:11] LABS: CHLORIDE 124 mmol/L (98-107)
[2019-12-04 08:19] LABS: ALANINE AMINOTRANSFERASE 100 U/L (12-78); ALBUMIN 2.4 g/dL (3.4-5.0); ALKALINE PHOSPHATASE 389 U/L (45-117); ANION GAP 6 mmol/L (5-15); BILIRUBIN,TOTAL 0.3 mg/dL (0.2-1.0); C-REACTIVE PROTEIN, QUANT 0.58 mg/dL (0.02-0.49); CREATININE 1.02 mg/dL (0.55-1.02); TOTAL PROTEIN 5.3 g/dL (6.4-8.2)
[2019-12-04 08:24] LABS: MEAN CORPUSCULAR HGB CONC 32.8 g/dL (32.4-35.8); MEAN CORPUSCULAR VOLUME 85.4 fL (80-100); MEAN PLATELET VOLUME 7.7 fL (7.4-10.4); PLATELET COUNT 181 x10^3/uL (130-400); RED BLOOD COUNT 2.84 x10^6/uL (3.82-5.3); RED CELL DISTRIBUTION WIDTH 21.3 % (9.6-15.2)
[2019-12-04] MEDS ORDERED: MULTIVITAMINS/MINERALS TABLET PO ONE (08:31)
[2019-12-04] MEDS: OXYcodone IR 5MG TABLET PO PRN ×2 (08:34→22:14)
[2019-12-04] MEDS: MULTIVITAMINS/MINERALS TABLET PO SCH ×2 (08:34→21:22)
[2019-12-04] MEDS: SODIUM CHLORIDE FLUSH 10ML SYR IVF SCH ×2 (08:35→21:24)
[2019-12-04] MEDS: INSULIN LISPRO 100 UNITS/ML, PEN SQ-INSULIN SCH ×4 (08:36→21:24)
[2019-12-04] MEDS: CHOLESTYRAMINE LIGHT 4GM PACKET PO SCH (08:36)
[2019-12-04] MEDS: INSULIN GLARGINE 100 UNITS/ML, PEN SQ-INSULIN SCH ×2 (08:36→21:24)
[2019-12-04 09:05] LABS: BASOPHILS # (AUTO) 0.02 x10^3/uL (0-0.1); BASOPHILS % (AUTO) 0 % (0-1); EOSINOPHILS # (AUTO) 0.12 x10^3/uL (0-0.4); EOSINOPHILS % (AUTO) 1 % (1-7); LYMPHOCYTES % (AUTO) 13 % (22-44); MD MORPH REVIEW ONLY; MONOCYTES # (AUTO) 0.45 x10^3/uL (0.2-0.8); MONOCYTES % (AUTO) 4 % (2-9); NEUTROPHILS # (AUTO) 10.41 x10^3/uL (1.8-6.8); NEUTROPHILS % (AUTO) 82 % (42-75)
[2019-12-04 09:14] LABS: <PLATELET ESTIMATE> ADEQUATE; <PLT MORPHOLOGY> NORMAL PLT MORPH; ANISOCYTOSIS 1+; ECHINOCYTES 1+; OVALOCYTES 1+; POLYCHROMASIA 1+
[2019-12-04 09:33] LABS: HCT (SEDRATE) 24.3 % (34.6-47.8)
[2019-12-04] MEDS: SODIUM BICARBONATE 8.4% 100 MEQ in DEXTROSE 5% 1,000 ML IV SCH (12:28)
[2019-12-04 13:52] VITALS: BP 144/85
[2019-12-04 16:40] LABS: ANION GAP 6 mmol/L (5-15); CALCIUM 8.4 mg/dL (8.5-10.1); CHLORIDE 128 mmol/L (98-107); CREATININE 0.91 mg/dL (0.55-1.02)
[2019-12-04] MEDS ORDERED: SODIUM BICARBONATE 8.4% 100 MEQ in DEXTROSE 5% 1,000 ML IV SCH (20:30)
[2019-12-04 21:00] VITALS: BP 155/77
[2019-12-05 01:52] VITALS: BP 175/89
[2019-12-05] MEDS: hydrALAzine 20 MG/ML, 1ML IVPush PRN (03:43)
[2019-12-05] MEDS: LEVOTHYROXINE 100 MCG TABLET PO SCH (05:52)
[2019-12-05] MEDS: OXYcodone IR 5MG TABLET PO PRN ×3 (05:52→21:20)
[2019-12-05 06:11] LABS: MEAN CORPUSCULAR HEMOGLOBIN 27.8 pg (27.0-34.8); MEAN CORPUSCULAR VOLUME 84.4 fL (80-100); MEAN PLATELET VOLUME 7.9 fL (7.4-10.4); PLATELET COUNT 159 x10^3/uL (130-400); RED BLOOD COUNT 2.67 x10^6/uL (3.82-5.3)
[2019-12-05 06:12] LABS: ALANINE AMINOTRANSFERASE 123 U/L (12-78); ALBUMIN 2.4 g/dL (3.4-5.0); ANION GAP 5 mmol/L (5-15); CALCIUM 8.2 mg/dL (8.5-10.1); CHLORIDE 128 mmol/L (98-107)
[2019-12-05 06:24] LABS: ALKALINE PHOSPHATASE 366 U/L (45-117); BILIRUBIN,TOTAL 0.3 mg/dL (0.2-1.0); CREATININE 0.92 mg/dL (0.55-1.02); TOTAL PROTEIN 5.4 g/dL (6.4-8.2)
[2019-12-05 06:48] LABS: MD YES
[2019-12-05 06:50] LABS: ANISOCYTOSIS 1+; BAND#(MANUAL) 0.26 x10^3/uL; BANDS%(MANUAL) 2 % (0-7); ECHINOCYTES 1+; LYMPH#(MANUAL) 2.11 x10^3/uL (1-3.4); LYMPHS% (MANUAL) 16 % (22-44); METAMYELOCYTES# (MANUAL) 0.53 x10^3/uL (0-0); METAMYELOCYTES% (MANUAL) 4 % (0-1); MONOS#(MANUAL) 0.66 x10^3/uL (0.3-2.7); MONOS% (MANUAL) 5 % (2-9); MYELOCYTES% (MANUAL) 3 % (0-0); OVALOCYTES 1+; POLYCHROMASIA 1+; SEG#(MANUAL) 9.24 x10^3/uL (1.8-6.8); SEGS% (MANUAL) 70 % (42-75)
[2019-12-05 06:51] LABS: <PLATELET ESTIMATE> ADEQUATE; <PLT MORPHOLOGY> NORMAL PLT MORPH
[2019-12-05 08:00] VITALS: BP 160/89
[2019-12-05] MEDS: INSULIN LISPRO 100 UNITS/ML, PEN SQ-INSULIN SCH ×4 (08:59→20:45)
[2019-12-05] MEDS ORDERED: MULTIVITAMIN 1 TABLET ONE (09:15)
[2019-12-05] MEDS: MULTIVITAMINS/MINERALS TABLET PO SCH (09:18)
[2019-12-05] MEDS: INSULIN GLARGINE 100 UNITS/ML, PEN SQ-INSULIN SCH ×2 (09:18→20:45)
[2019-12-05] MEDS: SODIUM CHLORIDE FLUSH 10ML SYR IVF SCH ×2 (09:19→20:46)
[2019-12-05 12:34] LABS: ANION GAP 7 mmol/L (5-15); CALCIUM 8.1 mg/dL (8.5-10.1); CHLORIDE 128 mmol/L (98-107)
[2019-12-05 12:35] LABS: CREATININE 0.89 mg/dL (0.55-1.02)
[2019-12-05 15:00] VITALS: BP 145/72
[2019-12-05 19:28] VITALS: BP 137/69
[2019-12-05] MEDS ORDERED: SODIUM BICARBONATE 8.4% 100 MEQ in DEXTROSE 5% 1,000 ML IV SCH (20:30)
[2019-12-05] MEDS: SODIUM BICARBONATE 8.4% 100 MEQ in DEXTROSE 5% 1,000 ML IV SCH (21:19)
[2019-12-05] MEDS: SODIUM POLYSTYRENE SULFONATE ORAL SUSP PO SCH (21:19)
[2019-12-05] MEDS: MELATONIN 5 MG TABLET PO PRN (21:20)
[2019-12-06 01:44] VITALS: BP 161/81
[2019-12-06] MEDS: SODIUM POLYSTYRENE SULFONATE ORAL SUSP PO SCH (06:00)
[2019-12-06] MEDS: SODIUM BICARBONATE 8.4% 100 MEQ in DEXTROSE 5% 1,000 ML IV SCH ×3 (06:00→23:30)
[2019-12-06 06:22] LABS: MEAN CORPUSCULAR HEMOGLOBIN 27.6 pg (27.0-34.8); MEAN CORPUSCULAR HGB CONC 32.2 g/dL (32.4-35.8); MEAN CORPUSCULAR VOLUME 85.5 fL (80-100); MEAN PLATELET VOLUME 7.9 fL (7.4-10.4); PLATELET COUNT 177 x10^3/uL (130-400); RED BLOOD COUNT 2.54 x10^6/uL (3.82-5.3); RED CELL DISTRIBUTION WIDTH 21.6 % (9.6-15.2)
[2019-12-06 06:27] LABS: CALCIUM 7.9 mg/dL (8.5-10.1); CHLORIDE 129 mmol/L (98-107)
[2019-12-06 06:33] LABS: ALANINE AMINOTRANSFERASE 118 U/L (12-78); ALBUMIN 2.3 g/dL (3.4-5.0); ALKALINE PHOSPHATASE 337 U/L (45-117); ANION GAP 6 mmol/L (5-15); BILIRUBIN,TOTAL 0.3 mg/dL (0.2-1.0); CREATININE 0.91 mg/dL (0.55-1.02); TOTAL PROTEIN 5.2 g/dL (6.4-8.2)
[2019-12-06 06:49] LABS: MD YES
[2019-12-06 06:55] LABS: BAND#(MANUAL) 0.19 x10^3/uL; BANDS%(MANUAL) 1 % (0-7); LYMPH#(MANUAL) 1.85 x10^3/uL (1-3.4); LYMPHS% (MANUAL) 10 % (22-44); METAMYELOCYTES# (MANUAL) 0.56 x10^3/uL (0-0); METAMYELOCYTES% (MANUAL) 3 % (0-1); MYELOCYTES# (MANUAL) 0.19 x10^3/uL (0-0); MYELOCYTES% (MANUAL) 1 % (0-0); SEG#(MANUAL) 15.54 x10^3/uL (1.8-6.8); SEGS% (MANUAL) 84 % (42-75)
[2019-12-06 06:56] LABS: ANISOCYTOSIS 2+; HYPOCHROMIA 1+
[2019-12-06 06:57] LABS: <PLATELET ESTIMATE> ADEQUATE; <PLT MORPHOLOGY> NORMAL PLT MORPH; OVALOCYTES 1+; POLYCHROMASIA 1+
[2019-12-06 07:19] VITALS: BP 168/72
[2019-12-06 07:55] LABS: % IRON SATURATION 46 % (20-55); IRON LEVEL 69 mcg/dL (50-170); TOTAL IRON BINDING CAPACITY 149 mcg/dL (250-450)
[2019-12-06] MEDS ORDERED: MAGNESIUM SULFATE PMX 2GM/50ML 50 ML IV ONE (08:00)
[2019-12-06] MEDS: INSULIN LISPRO 100 UNITS/ML, PEN SQ-INSULIN SCH ×4 (08:18→20:56)
[2019-12-06] MEDS: SODIUM CHLORIDE FLUSH 10ML SYR IVF SCH ×2 (09:00→21:08)
[2019-12-06] MEDS: FUROSEMIDE 20 MG/2 ML IV SCH ×2 (10:05→18:21)
[2019-12-06] MEDS: LEVOTHYROXINE 100 MCG INJ IVPush SCH (10:06)
[2019-12-06] MEDS: INSULIN GLARGINE 100 UNITS/ML, PEN SQ-INSULIN SCH ×2 (10:17→20:56)
[2019-12-06 13:10] LABS: ANION GAP 4 mmol/L (5-15); CALCIUM 7.6 mg/dL (8.5-10.1); CHLORIDE 130 mmol/L (98-107); CREATININE 0.95 mg/dL (0.55-1.02)
[2019-12-06 15:44] VITALS: BP 164/96
[2019-12-06 20:34] VITALS: BP 157/92
[2019-12-06] MEDS: MELATONIN 5 MG TABLET PO PRN (21:08)
[2019-12-06] MEDS: OXYcodone IR 5MG TABLET PO PRN (21:09)
[2019-12-07 01:00] VITALS: BP 166/101
[2019-12-07] MEDS: hydrALAzine 20 MG/ML, 1ML IVPush PRN (01:00)
[2019-12-07] MEDS: OXYcodone IR 5MG TABLET PO PRN (05:18)
[2019-12-07 05:41] LABS: MEAN CORPUSCULAR HEMOGLOBIN 27.5 pg (27.0-34.8); MEAN CORPUSCULAR HGB CONC 31.8 g/dL (32.4-35.8); MEAN CORPUSCULAR VOLUME 86.3 fL (80-100); MEAN PLATELET VOLUME 7.9 fL (7.4-10.4); PLATELET COUNT 148 x10^3/uL (130-400); RED BLOOD COUNT 2.54 x10^6/uL (3.82-5.3); RED CELL DISTRIBUTION WIDTH 21.8 % (9.6-15.2)
[2019-12-07 05:45] LABS: ALBUMIN 2.4 g/dL (3.4-5.0); ANION GAP 6 mmol/L (5-15); CALCIUM 7.6 mg/dL (8.5-10.1); CHLORIDE 117 mmol/L (98-107)
[2019-12-07 05:49] LABS: ALANINE AMINOTRANSFERASE 104 U/L (12-78); ALKALINE PHOSPHATASE 340 U/L (45-117); BILIRUBIN,TOTAL 0.4 mg/dL (0.2-1.0); CREATININE 0.82 mg/dL (0.55-1.02); TOTAL PROTEIN 5.5 g/dL (6.4-8.2)
[2019-12-07 06:28] LABS: MD YES
[2019-12-07 06:30] LABS: ANISOCYTOSIS 1+; BAND#(MANUAL) 0.88 x10^3/uL; BANDS%(MANUAL) 4 % (0-7); ECHINOCYTES 1+; HYPOCHROMIA 1+; LYMPH#(MANUAL) 2.65 x10^3/uL (1-3.4); LYMPHS% (MANUAL) 12 % (22-44); METAMYELOCYTES# (MANUAL) 0.44 x10^3/uL (0-0); METAMYELOCYTES% (MANUAL) 2 % (0-1); MONOS#(MANUAL) 0.22 x10^3/uL (0.3-2.7); MONOS% (MANUAL) 1 % (2-9); OVALOCYTES 1+; POLYCHROMASIA 1+; SEGS% (MANUAL) 81 % (42-75)
[2019-12-07 06:31] VITALS: BP 163/85
[2019-12-07 06:31] LABS: <PLATELET ESTIMATE> ADEQUATE; <PLT MORPHOLOGY> NORMAL PLT MORPH
[2019-12-07] MEDS: INSULIN LISPRO 100 UNITS/ML, PEN SQ-INSULIN SCH ×4 (07:00→21:26)
[2019-12-07] MEDS: SODIUM CHLORIDE FLUSH 10ML SYR IVF SCH ×2 (08:43→21:00)
[2019-12-07] MEDS: INSULIN GLARGINE 100 UNITS/ML, PEN SQ-INSULIN SCH ×2 (08:44→21:27)
[2019-12-07] MEDS: FUROSEMIDE 20 MG/2 ML IV SCH ×2 (08:57→17:41)
[2019-12-07] MEDS: LEVOTHYROXINE 100 MCG INJ IVPush SCH (08:59)
[2019-12-07] MEDS: SODIUM BICARBONATE 8.4% 100 MEQ in DEXTROSE 5% 1,000 ML IV SCH ×2 (09:09→17:41)
[2019-12-07 15:13] VITALS: BP 104/63
[2019-12-07 19:50] VITALS: BP 118/64
[2019-12-07] MEDS: MELATONIN 5 MG TABLET PO PRN (21:27)
[2019-12-08] MEDS ORDERED: INSULIN LISPRO 100 UNIT/ML, 3ML VIAL SQ-INSULIN ONE ×2 (02:30→05:30)
[2019-12-08] MEDS: SODIUM BICARBONATE 8.4% 100 MEQ in DEXTROSE 5% 1,000 ML IV SCH (02:43)
[2019-12-08 02:47] VITALS: BP 119/66
[2019-12-08] MEDS: INSULIN LISPRO 100 UNITS/ML, PEN SQ-INSULIN SCH ×5 (05:20→21:18)
[2019-12-08 06:17] LABS: MEAN CORPUSCULAR HEMOGLOBIN 27.7 pg (27.0-34.8); MEAN CORPUSCULAR HGB CONC 32.5 g/dL (32.4-35.8); MEAN CORPUSCULAR VOLUME 85.3 fL (80-100); PLATELET COUNT 117 x10^3/uL (130-400); RED CELL DISTRIBUTION WIDTH 20.7 % (9.6-15.2)
[2019-12-08 06:26] LABS: CHLORIDE 104 mmol/L (98-107)
[2019-12-08 06:34] LABS: ALBUMIN 2.3 g/dL (3.4-5.0); ANION GAP 6 mmol/L (5-15); CALCIUM 6.6 mg/dL (8.5-10.1)
[2019-12-08 06:37] LABS: CREATININE 1.28 mg/dL (0.55-1.02)
[2019-12-08 06:39] VITALS: BP 167/80
[2019-12-08 06:41] LABS: MD YES
[2019-12-08 06:43] LABS: ANISOCYTOSIS 1+; BAND#(MANUAL) 0.48 x10^3/uL; BANDS%(MANUAL) 3 % (0-7); HYPOCHROMIA 1+; LYMPH#(MANUAL) 2.08 x10^3/uL (1-3.4); LYMPHS% (MANUAL) 13 % (22-44); METAMYELOCYTES# (MANUAL) 0.16 x10^3/uL (0-0); METAMYELOCYTES% (MANUAL) 1 % (0-1); MONOS#(MANUAL) 0.48 x10^3/uL (0.3-2.7); MONOS% (MANUAL) 3 % (2-9); OVALOCYTES 1+; POLYCHROMASIA 1+; SEGS% (MANUAL) 80 % (42-75)
[2019-12-08 06:44] LABS: <PLATELET ESTIMATE> DECREASED; <PLT MORPHOLOGY> NORMAL PLT MORPH; ECHINOCYTES 1+
[2019-12-08] MEDS: SODIUM BICARBONATE 8.4% 100 MEQ in SODIUM CHLORIDE 0.45% 1,000 ML IV SCH (07:46)
[2019-12-08] MEDS: INSULIN GLARGINE 100 UNITS/ML, PEN SQ-INSULIN SCH ×2 (07:46→21:19)
[2019-12-08] MEDS: LEVOTHYROXINE 100 MCG INJ IVPush SCH (07:47)
[2019-12-08] MEDS: SODIUM CHLORIDE FLUSH 10ML SYR IVF SCH ×2 (07:47→21:18)
[2019-12-08] MEDS: FUROSEMIDE 20 MG/2 ML IV SCH ×2 (07:56→17:30)
[2019-12-08] MEDS: ERGOCALCIFEROL 50,000 UNIT CAPSULE PO SCH (10:58)
[2019-12-08 12:30] VITALS: BP 114/66
[2019-12-08] MEDS ORDERED: POTASSIUM PHOSPHATE 44 MEQ in SODIUM CHLORIDE 0.9% 500 ML IV ONE (14:00)
[2019-12-08] MEDS ORDERED: CALCIUM GLUCONATE 4.6 MEQ in SODIUM CHLORIDE 0.9% 50 ML IV ONE ×2 (14:00→16:00)
[2019-12-08 19:05] VITALS: BP 151/81
[2019-12-09 01:47] VITALS: BP 168/104
[2019-12-09] MEDS: hydrALAzine 20 MG/ML, 1ML IVPush PRN (02:01)
[2019-12-09] MEDS: SODIUM BICARBONATE 8.4% 100 MEQ in SODIUM CHLORIDE 0.45% 1,000 ML IV SCH ×2 (05:29→20:20)
[2019-12-09 05:59] LABS: MEAN CORPUSCULAR HEMOGLOBIN 27.9 pg (27.0-34.8); MEAN CORPUSCULAR HGB CONC 32.4 g/dL (32.4-35.8); MEAN CORPUSCULAR VOLUME 86.1 fL (80-100); RED BLOOD COUNT 2.64 x10^6/uL (3.82-5.3); RED CELL DISTRIBUTION WIDTH 21.6 % (9.6-15.2)
[2019-12-09 06:06] LABS: ALBUMIN 2.3 g/dL (3.4-5.0); CALCIUM 6.5 mg/dL (8.5-10.1); CHLORIDE 113 mmol/L (98-107)
[2019-12-09 06:07] LABS: ANION GAP 6 mmol/L (5-15); CREATININE 1.06 mg/dL (0.55-1.02)
[2019-12-09] MEDS: INSULIN LISPRO 100 UNITS/ML, PEN SQ-INSULIN SCH ×4 (07:00→21:24)
[2019-12-09 07:11] VITALS: BP 137/75
[2019-12-09 07:14] LABS: BASOPHILS # (AUTO) 0.06 x10^3/uL (0-0.1); BASOPHILS % (AUTO) 0 % (0-1); EOSINOPHILS # (AUTO) 0.45 x10^3/uL (0-0.4); EOSINOPHILS % (AUTO) 3 % (1-7); LYMPHOCYTES # (AUTO) 3.03 x10^3/uL (1-3.4); LYMPHOCYTES % (AUTO) 20 % (22-44); MD SCAN; MEAN PLATELET VOLUME 8.6 fL (7.4-10.4); MONOCYTES % (AUTO) 1 % (2-9); NEUTROPHILS # (AUTO) 11.67 x10^3/uL (1.8-6.8); NEUTROPHILS % (AUTO) 76 % (42-75); PLATELET COUNT 95 x10^3/uL (130-400)
[2019-12-09] MEDS: DEXTROSE 50%, 50ML SYRINGE IVPush PRN (07:30)
[2019-12-09 07:49] VITALS: BP 125/69
[2019-12-09] MEDS ORDERED: MAGNESIUM SULFATE PMX 2GM/50ML 50 ML IV ONE (08:00)
[2019-12-09] MEDS: INSULIN GLARGINE 100 UNITS/ML, PEN SQ-INSULIN SCH ×2 (09:00→21:23)
[2019-12-09] MEDS: OXYcodone IR 5MG TABLET PO PRN ×2 (10:15→17:43)
[2019-12-09] MEDS: SODIUM CHLORIDE FLUSH 10ML SYR IVF SCH ×2 (11:05→21:25)
[2019-12-09] MEDS: MULTIVITS,STRESS FORMULA 1 TABLET PO SCH (11:06)
[2019-12-09] MEDS: ASCORBIC ACID 500 MG TABLET PO SCH ×2 (11:06→17:35)
[2019-12-09] MEDS: FUROSEMIDE 20 MG/2 ML IV SCH ×2 (11:06→17:35)
[2019-12-09] MEDS: LEVOTHYROXINE 100 MCG INJ IVPush SCH (11:07)
[2019-12-09 12:13] VITALS: BP 105/65
[2019-12-09 20:46] VITALS: BP 100/86
[2019-12-10] VITALS (9 sets, daily range): BP systolic 88–137; BP diastolic 53–88
[2019-12-10] MEDS: MELATONIN 5 MG TABLET PO PRN ×2 (00:17→22:38)
[2019-12-10] MEDS: OXYcodone IR 5MG TABLET PO PRN ×3 (00:35→22:22)
[2019-12-10] MEDS: SODIUM BICARBONATE 8.4% 100 MEQ in SODIUM CHLORIDE 0.45% 1,000 ML IV SCH ×3 (04:23→22:38)
[2019-12-10 04:53] LABS: MEAN CORPUSCULAR HEMOGLOBIN 28.1 pg (27.0-34.8); MEAN CORPUSCULAR HGB CONC 32.6 g/dL (32.4-35.8); MEAN CORPUSCULAR VOLUME 86.1 fL (80-100); RED BLOOD COUNT 2.33 x10^6/uL (3.82-5.3); RED CELL DISTRIBUTION WIDTH 20.3 % (9.6-15.2)
[2019-12-10 04:57] LABS: ANION GAP 6 mmol/L (5-15); CALCIUM 6.3 mg/dL (8.5-10.1); CHLORIDE 113 mmol/L (98-107); CREATININE 1.16 mg/dL (0.55-1.02)
[2019-12-10 05:49] LABS: BASOPHILS # (AUTO) 0.03 x10^3/uL (0-0.1); BASOPHILS % (AUTO) 0 % (0-1); EOSINOPHILS % (AUTO) 2 % (1-7); LYMPHOCYTES # (AUTO) 2.07 x10^3/uL (1-3.4); LYMPHOCYTES % (AUTO) 18 % (22-44); MD SCAN; MEAN PLATELET VOLUME 8.3 fL (7.4-10.4); MONOCYTES # (AUTO) 0.33 x10^3/uL (0.2-0.8); MONOCYTES % (AUTO) 3 % (2-9); NEUTROPHILS # (AUTO) 9.11 x10^3/uL (1.8-6.8); NEUTROPHILS % (AUTO) 78 % (42-75); PLATELET COUNT 71 x10^3/uL (130-400)
[2019-12-10] MEDS: INSULIN LISPRO 100 UNITS/ML, PEN SQ-INSULIN SCH ×4 (07:00→21:41)
[2019-12-10] MEDS: FUROSEMIDE 20 MG/2 ML IV SCH ×2 (07:37→16:51)
[2019-12-10] MEDS: MULTIVITS,STRESS FORMULA 1 TABLET PO SCH (08:42)
[2019-12-10] MEDS: INSULIN GLARGINE 100 UNITS/ML, PEN SQ-INSULIN SCH ×2 (08:43→21:00)
[2019-12-10] MEDS: LEVOTHYROXINE 100 MCG INJ IVPush SCH (08:43)
[2019-12-10] MEDS: ASCORBIC ACID 500 MG TABLET PO SCH ×2 (08:43→16:51)
[2019-12-10] MEDS: SODIUM CHLORIDE FLUSH 10ML SYR IVF SCH ×2 (08:44→21:41)
[2019-12-10 14:06] LABS: MEAN CORPUSCULAR HEMOGLOBIN 28.7 pg (27.0-34.8); MEAN CORPUSCULAR HGB CONC 32.4 g/dL (32.4-35.8); MEAN CORPUSCULAR VOLUME 88.4 fL (80-100); PLATELET COUNT 74 x10^3/uL (130-400); RED BLOOD COUNT 3.03 x10^6/uL (3.82-5.3); RED CELL DISTRIBUTION WIDTH 20.4 % (9.6-15.2)
[2019-12-10 14:07] LABS: MD YES
[2019-12-10 14:09] LABS: <PLATELET ESTIMATE> DECREASED; <PLT MORPHOLOGY> NORMAL PLT MORPH; ANISOCYTOSIS 1+; EOS#(MANUAL) 0.31 x10^3/uL (0.0-0.4); EOS% (MANUAL) 2 % (1-7); LYMPH#(MANUAL) 2.31 x10^3/uL (1-3.4); LYMPHS% (MANUAL) 15 % (22-44); MONOS#(MANUAL) 0.31 x10^3/uL (0.3-2.7); MONOS% (MANUAL) 2 % (2-9); OVALOCYTES 1+; POLYCHROMASIA 1+; SEG#(MANUAL) 12.47 x10^3/uL (1.8-6.8); SEGS% (MANUAL) 81 % (42-75)
[2019-12-11 00:03] VITALS: BP 182/74
[2019-12-11] MEDS: hydrALAzine 20 MG/ML, 1ML IVPush PRN (00:13)
[2019-12-11] MEDS: SODIUM BICARBONATE 8.4% 100 MEQ in SODIUM CHLORIDE 0.45% 1,000 ML IV SCH ×2 (06:17→21:57)
[2019-12-11] MEDS: LEVOTHYROXINE 100 MCG INJ IVPush SCH (08:18)
[2019-12-11] MEDS: FUROSEMIDE 20 MG/2 ML IV SCH ×2 (08:18→17:55)
[2019-12-11] MEDS: ASCORBIC ACID 500 MG TABLET PO SCH ×2 (08:19→17:55)
[2019-12-11] MEDS: INSULIN LISPRO 100 UNITS/ML, PEN SQ-INSULIN SCH ×4 (08:19→22:39)
[2019-12-11] MEDS: MULTIVITS,STRESS FORMULA 1 TABLET PO SCH (08:19)
[2019-12-11] MEDS: INSULIN GLARGINE 100 UNITS/ML, PEN SQ-INSULIN SCH ×2 (08:20→21:00)
[2019-12-11] MEDS: SODIUM CHLORIDE FLUSH 10ML SYR IVF SCH ×2 (08:20→21:00)
[2019-12-11 08:40] VITALS: BP 155/75
[2019-12-11] MEDS: OXYcodone IR 5MG TABLET PO PRN ×2 (08:40→21:58)
[2019-12-11 08:55] LABS: ALBUMIN 2.1 g/dL (3.4-5.0); ANION GAP 5 mmol/L (5-15); CALCIUM 6.8 mg/dL (8.5-10.1); CHLORIDE 109 mmol/L (98-107); CREATININE 1.07 mg/dL (0.55-1.02)
[2019-12-11 09:43] LABS: BASOPHILS # (AUTO) 0.02 x10^3/uL (0-0.1); BASOPHILS % (AUTO) 0 % (0-1); EOSINOPHILS # (AUTO) 0.28 x10^3/uL (0-0.4); EOSINOPHILS % (AUTO) 3 % (1-7); LYMPHOCYTES # (AUTO) 2.01 x10^3/uL (1-3.4); LYMPHOCYTES % (AUTO) 20 % (22-44); MD SCAN; MEAN CORPUSCULAR HEMOGLOBIN 29.1 pg (27.0-34.8); MEAN CORPUSCULAR HGB CONC 32.7 g/dL (32.4-35.8); MEAN CORPUSCULAR VOLUME 88.9 fL (80-100); MEAN PLATELET VOLUME 8.9 fL (7.4-10.4); MONOCYTES # (AUTO) 0.19 x10^3/uL (0.2-0.8); MONOCYTES % (AUTO) 2 % (2-9); NEUTROPHILS # (AUTO) 7.85 x10^3/uL (1.8-6.8); NEUTROPHILS % (AUTO) 76 % (42-75); PLATELET COUNT 59 x10^3/uL (130-400); RED BLOOD COUNT 2.77 x10^6/uL (3.82-5.3); RED CELL DISTRIBUTION WIDTH 20.3 % (9.6-15.2)
[2019-12-11] MEDS ORDERED: MIDAZOLAM 1 MG/ML, 2ML ONE (12:20)
[2019-12-11] MEDS ORDERED: FENTANYL PF 250 MCG/5ML ONE (12:21)
[2019-12-11] MEDS ORDERED: CALCIUM CHLORIDE 10%, 10ML SYR ONE (12:55)
[2019-12-11] MEDS ORDERED: HYDROCORTISONE 100 MG INJ. ONE (12:55)
[2019-12-11] MEDS ORDERED: ALBUMIN HUMAN 25% 50 ML ONE (12:56)
[2019-12-11] MEDS ORDERED: ONDANSETRON 2MG/ML, 2ML ONE (13:53)
[2019-12-11] MEDS ORDERED: LIDOCAINE 2% 100MG/5ML SYRINGE ONE (13:53)
[2019-12-11] MEDS ORDERED: SUGAMMADEX 200 MG/2 ML IVPush ONE (13:53)
[2019-12-11] MEDS ORDERED: ROCURONIUM 10MG/ML,5ML ONE (13:53)
[2019-12-11] MEDS ORDERED: PROPOFOL 10 MG/ML, 20ML ONE (13:53)
[2019-12-11] MEDS ORDERED: CEFAZOLIN 1,000 MG ONE (13:53)
[2019-12-11] MEDS ORDERED: PHENYLEPHRINE 10 MG/ML ONE (13:53)
[2019-12-11] MEDS ORDERED: HYDROmorphone 2 MG/ML, 1ML IVPush PRN (14:30)
[2019-12-11] MEDS ORDERED: hydrALAzine 20 MG/ML, 1ML IV PRN (14:30)
[2019-12-11] MEDS ORDERED: PROMETHAZINE 25 MG/ML, 1ML IV PRN (14:30)
[2019-12-11] MEDS ORDERED: FENTANYL PF 100 MCG/2ML IV PRN (14:30)
[2019-12-11] MEDS ORDERED: MEPERIDINE/PF 25MG/ML,1ML IVPush PRN (14:30)
[2019-12-11] MEDS ORDERED: OXYcodone 5 MG/5 ML ORAL.SOL UDC PO PRN (14:30)
[2019-12-11] MEDS ORDERED: ALBUTEROL SULFATE 2.5 MG/3 ML NPPB PRN (14:30)
[2019-12-11] MEDS ORDERED: hydrALAzine 20 MG/ML, 1ML ONE (14:43)
[2019-12-11 20:05] VITALS: BP 90/50
[2019-12-11] MEDS: SODIUM CHLORIDE 0.9% IV SCH (21:57)
[2019-12-11] MEDS: ERAVACYCLINE IV SCH (21:57)
[2019-12-11] MEDS: MELATONIN 5 MG TABLET PO PRN (21:58)
[2019-12-11 22:40] VITALS: BP 101/72
[2019-12-11] MEDS: CEFAZOLIN PMX 2GM/50ML 50 ML IVPB SCH (23:36)
[2019-12-12 01:03] VITALS: BP 114/70
[2019-12-12 05:30] LABS: ALANINE AMINOTRANSFERASE 48 U/L (12-78); ALBUMIN 2.3 g/dL (3.4-5.0); ANION GAP 4 mmol/L (5-15); CALCIUM 7.4 mg/dL (8.5-10.1); CHLORIDE 108 mmol/L (98-107)
[2019-12-12 05:33] LABS: ALKALINE PHOSPHATASE 358 U/L (45-117); BILIRUBIN,TOTAL 0.6 mg/dL (0.2-1.0); CREATININE 1.36 mg/dL (0.55-1.02)
[2019-12-12] MEDS: CEFAZOLIN PMX 2GM/50ML 50 ML IVPB SCH (06:08)
[2019-12-12] MEDS: INSULIN LISPRO 100 UNITS/ML, PEN SQ-INSULIN SCH ×4 (08:03→22:27)
[2019-12-12] MEDS: ASCORBIC ACID 500 MG TABLET PO SCH ×2 (08:42→17:03)
[2019-12-12] MEDS: INSULIN GLARGINE 100 UNITS/ML, PEN SQ-INSULIN SCH ×2 (08:42→22:26)
[2019-12-12] MEDS: MULTIVITS,STRESS FORMULA 1 TABLET PO SCH (08:42)
[2019-12-12] MEDS: FUROSEMIDE 20 MG/2 ML IV SCH (08:43)
[2019-12-12] MEDS: LEVOTHYROXINE 100 MCG INJ IVPush SCH (08:43)
[2019-12-12] MEDS: SODIUM CHLORIDE FLUSH 10ML SYR IVF SCH ×2 (08:43→22:00)
[2019-12-12 08:58] VITALS: BP 92/56
[2019-12-12 10:15] VITALS: BP 113/54
[2019-12-12] MEDS: ERAVACYCLINE IV SCH ×2 (10:58→22:00)
[2019-12-12] MEDS: SODIUM CHLORIDE 0.9% IV SCH ×2 (10:58→22:00)
[2019-12-12] MEDS: OXYcodone IR 5MG TABLET PO PRN ×3 (10:58→22:25)
[2019-12-12] MEDS: SODIUM BICARBONATE 8.4% 100 MEQ in SODIUM CHLORIDE 0.45% 1,000 ML IV SCH ×2 (10:58→22:00)
[2019-12-12 11:24] LABS: MEAN CORPUSCULAR HEMOGLOBIN 29.1 pg (27.0-34.8); MEAN CORPUSCULAR HGB CONC 32.8 g/dL (32.4-35.8); MEAN CORPUSCULAR VOLUME 88.8 fL (80-100); MEAN PLATELET VOLUME 9.4 fL (7.4-10.4); PLATELET COUNT 53 x10^3/uL (130-400); RED BLOOD COUNT 2.53 x10^6/uL (3.82-5.3); RED CELL DISTRIBUTION WIDTH 21.3 % (9.6-15.2)
[2019-12-12 11:37] LABS: BASOPHILS # (AUTO) 0.04 x10^3/uL (0-0.1); BASOPHILS % (AUTO) 0 % (0-1); EOSINOPHILS # (AUTO) 0.06 x10^3/uL (0-0.4); EOSINOPHILS % (AUTO) 1 % (1-7); LYMPHOCYTES # (AUTO) 1.78 x10^3/uL (1-3.4); LYMPHOCYTES % (AUTO) 14 % (22-44); MD SCAN; MONOCYTES # (AUTO) 0.92 x10^3/uL (0.2-0.8); MONOCYTES % (AUTO) 7 % (2-9); NEUTROPHILS # (AUTO) 9.72 x10^3/uL (1.8-6.8); NEUTROPHILS % (AUTO) 78 % (42-75)
[2019-12-12 16:59] VITALS: BP 120/73
[2019-12-12 18:45] VITALS: BP 123/79
[2019-12-12] MEDS: MELATONIN 5 MG TABLET PO PRN (22:25)
[2019-12-13 02:00] VITALS: BP 129/82
[2019-12-13 03:25] LABS: MEAN CORPUSCULAR HEMOGLOBIN 29.1 pg (27.0-34.8); MEAN CORPUSCULAR HGB CONC 32.5 g/dL (32.4-35.8); MEAN CORPUSCULAR VOLUME 89.6 fL (80-100); MEAN PLATELET VOLUME 9.2 fL (7.4-10.4); RED BLOOD COUNT 2.43 x10^6/uL (3.82-5.3); RED CELL DISTRIBUTION WIDTH 22.3 % (9.6-15.2)
[2019-12-13 03:27] LABS: PLATELET COUNT 47 x10^3/uL (130-400)
[2019-12-13 03:33] LABS: ALANINE AMINOTRANSFERASE 9 U/L (12-78); ANION GAP 5 mmol/L (5-15); CALCIUM 7.1 mg/dL (8.5-10.1); CHLORIDE 109 mmol/L (98-107); CREATININE 1.27 mg/dL (0.55-1.02)
[2019-12-13 03:35] LABS: ALKALINE PHOSPHATASE 266 U/L (45-117); BILIRUBIN,TOTAL 0.3 mg/dL (0.2-1.0); TOTAL PROTEIN 4.6 g/dL (6.4-8.2)
[2019-12-13 03:41] LABS: BASOPHILS # (AUTO) 0.02 x10^3/uL (0-0.1); BASOPHILS % (AUTO) 0 % (0-1); EOSINOPHILS # (AUTO) 0.08 x10^3/uL (0-0.4); EOSINOPHILS % (AUTO) 1 % (1-7); LYMPHOCYTES # (AUTO) 1.87 x10^3/uL (1-3.4); LYMPHOCYTES % (AUTO) 14 % (22-44); MD SCAN; MONOCYTES # (AUTO) 0.85 x10^3/uL (0.2-0.8); MONOCYTES % (AUTO) 7 % (2-9); NEUTROPHILS # (AUTO) 10.24 x10^3/uL (1.8-6.8); NEUTROPHILS % (AUTO) 78 % (42-75)
[2019-12-13] MEDS: SODIUM BICARBONATE 8.4% 100 MEQ in SODIUM CHLORIDE 0.45% 1,000 ML IV SCH ×2 (06:28→16:53)
[2019-12-13 07:52] VITALS: BP 118/72
[2019-12-13] MEDS: MULTIVITAMIN 1 TABLET PO SCH (09:04)
[2019-12-13] MEDS: MULTIVITS,STRESS FORMULA 1 TABLET PO SCH (09:04)
[2019-12-13] MEDS: INSULIN GLARGINE 100 UNITS/ML, PEN SQ-INSULIN SCH ×2 (09:04→20:53)
[2019-12-13] MEDS: INSULIN LISPRO 100 UNITS/ML, PEN SQ-INSULIN SCH ×4 (09:05→20:53)
[2019-12-13] MEDS: SODIUM CHLORIDE FLUSH 10ML SYR IVF SCH ×2 (09:05→20:54)
[2019-12-13] MEDS: ASCORBIC ACID 500 MG TABLET PO SCH ×2 (09:05→16:54)
[2019-12-13] MEDS: LEVOTHYROXINE 100 MCG INJ IVPush SCH (09:06)
[2019-12-13] MEDS: SODIUM CHLORIDE 0.9% IV SCH (12:05)
[2019-12-13] MEDS: ERAVACYCLINE IV SCH (12:05)
[2019-12-13 13:27] VITALS: BP 96/73
[2019-12-13] MEDS: OXYcodone IR 5MG TABLET PO PRN (16:53)
[2019-12-13 19:50] VITALS: BP 111/69
[2019-12-14] VITALS (7 sets, daily range): BP systolic 86–120; BP diastolic 51–74
[2019-12-14] MEDS: ERAVACYCLINE IV SCH ×2 (00:38→13:09)
[2019-12-14] MEDS: SODIUM CHLORIDE 0.9% IV SCH ×2 (00:38→13:09)
[2019-12-14] MEDS: SODIUM BICARBONATE 8.4% 100 MEQ in SODIUM CHLORIDE 0.45% 1,000 ML IV SCH (00:39)
[2019-12-14] MEDS ORDERED: FENTANYL PF 100 MCG/2ML ONE (05:28)
[2019-12-14] MEDS ORDERED: HYDROCORTISONE 100 MG INJ. ONE (05:33)
[2019-12-14] MEDS ORDERED: FENTANYL PF 100 MCG/2ML IVPush ONE (06:00)
[2019-12-14] MEDS ORDERED: HYDROCORTISONE 100 MG INJ. IVPush ONE (06:00)
[2019-12-14] MEDS: INSULIN LISPRO 100 UNITS/ML, PEN SQ-INSULIN SCH ×4 (07:00→21:10)
[2019-12-14 07:40] LABS: ALBUMIN 1.9 g/dL (3.4-5.0); BILIRUBIN, DIRECT 0.1 mg/dL (0.1-0.2)
[2019-12-14 07:43] LABS: BILIRUBIN,INDIRECT 0.2 mg/dL (0.0-2.0); BILIRUBIN,TOTAL 0.3 mg/dL (0.2-1.0); TOTAL PROTEIN 4.5 g/dL (6.4-8.2)
[2019-12-14 07:47] LABS: ANION GAP 6 mmol/L (5-15); CALCIUM 7.4 mg/dL (8.5-10.1); CHLORIDE 113 mmol/L (98-107)
[2019-12-14 07:48] LABS: CREATININE 0.96 mg/dL (0.55-1.02)
[2019-12-14 08:17] LABS: MEAN CORPUSCULAR HEMOGLOBIN 31.3 pg (27.0-34.8); MEAN CORPUSCULAR VOLUME 89.5 fL (80-100); MEAN PLATELET VOLUME 10.3 fL (7.4-10.4); PLATELET COUNT 57 x10^3/uL (130-400); RED BLOOD COUNT 2.37 x10^6/uL (3.82-5.3); RED CELL DISTRIBUTION WIDTH 22.1 % (9.6-15.2)
[2019-12-14 08:19] LABS: BASOPHILS # (AUTO) 0.02 x10^3/uL (0-0.1); BASOPHILS % (AUTO) 0 % (0-1); EOSINOPHILS # (AUTO) 0.21 x10^3/uL (0-0.4); EOSINOPHILS % (AUTO) 2 % (1-7); LYMPHOCYTES # (AUTO) 1.46 x10^3/uL (1-3.4); LYMPHOCYTES % (AUTO) 15 % (22-44); MD SCAN; MONOCYTES # (AUTO) 0.71 x10^3/uL (0.2-0.8); MONOCYTES % (AUTO) 7 % (2-9); NEUTROPHILS # (AUTO) 7.39 x10^3/uL (1.8-6.8); NEUTROPHILS % (AUTO) 76 % (42-75)
[2019-12-14] MEDS ORDERED: SODIUM CHLORIDE 0.9% 1,000 ML IV SCH (09:30)
[2019-12-14] MEDS ORDERED: PROPOFOL 100 ML IV PRN (09:36)
[2019-12-14] MEDS ORDERED: NOREPINEPHRINE 4 MG in SODIUM CHLORIDE 0.9% 246 ML IV PRN (09:36)
[2019-12-14] MEDS ORDERED: SENNA/DOCUSATE TABLET NG PRN (10:00)
[2019-12-14] MEDS ORDERED: LACTULOSE 20 GM/30 ML UDC NG PRN (10:00)
[2019-12-14] MEDS ORDERED: PHARMACY MAY ADJ FOR RENAL FX MC SCH (10:00)
[2019-12-14] MEDS ORDERED: LIDOCAINE-MPF 1%, 2ML ENDO PRN (10:00)
[2019-12-14] MEDS ORDERED: BISACODYL 10 MG SUPP PR PRN (10:00)
[2019-12-14] MEDS ORDERED: SENNA 176 MG/5 ML ORAL SOL NG PRN (10:00)
[2019-12-14] MEDS ORDERED: FENTANYL PF 100 MCG/2ML IVPush PRN (10:00)
[2019-12-14] MEDS ORDERED: ETOMIDATE 20 MG/10 ML ONE (10:30)
[2019-12-14] MEDS ORDERED: PROPOFOL 10 MG/ML, 100ML IV ONE (10:30)
[2019-12-14] MEDS ORDERED: SUCCINYLCHOLINE 20 MG/ML, 10ML ONE (10:30)
[2019-12-14 10:38] LABS: TROPONIN I < 0.015 ng/mL (0.000-0.045)
[2019-12-14] MEDS: ASCORBIC ACID 500 MG TABLET PO SCH (10:47)
[2019-12-14] MEDS: MULTIVITS,STRESS FORMULA 1 TABLET PO SCH (10:47)
[2019-12-14] MEDS: SODIUM CHLORIDE FLUSH 10ML SYR IVF SCH ×2 (10:47→21:09)
[2019-12-14] MEDS: MULTIVITAMIN 1 TABLET PO SCH (10:47)
[2019-12-14] MEDS: LEVOTHYROXINE 100 MCG INJ IVPush SCH (10:48)
[2019-12-14] MEDS ORDERED: NOREPINEPHRINE 8 MG in SODIUM CHLORIDE 0.9% 242 ML IV PRN (10:49)
[2019-12-14] MEDS: HYDROCORTISONE 100 MG INJ. IVPush SCH ×2 (10:59→17:29)
[2019-12-14] MEDS: INSULIN GLARGINE 100 UNITS/ML, PEN SQ-INSULIN SCH (11:00)
[2019-12-14] MEDS ORDERED: DEXTROSE 50%, 50ML SYRINGE IVPush ONE (11:30)
[2019-12-14] MEDS ORDERED: POTASSIUM CHLORIDE 20 MEQ in DEXTROSE 5% 1,000 ML IV SCH (11:30)
[2019-12-14] MEDS: ALBUTEROL/IPRATROPIUM 2.5MG/0.5MG, 3 ML INLINE SCH ×4 (13:04→22:42)
[2019-12-14] MEDS ORDERED: TPN PER PHARMACY MC PRN (13:30)
[2019-12-14 16:39] LABS: TROPONIN I < 0.015 ng/mL (0.000-0.045)
[2019-12-14] MEDS ORDERED: [UNRECOGNIZED DRUG - OTHER] IV SCH (17:00)
[2019-12-14] MEDS ORDERED: SMOF TPN IV SCH (17:00)
[2019-12-14] MEDS ORDERED: FAT EMUL IV SCH (17:00)
[2019-12-14] MEDS ORDERED: AMINO ACID 10% IV SCH (17:00)
[2019-12-14] MEDS ORDERED: DEXTROSE 10% 500 ML IV PRN (17:00)
[2019-12-14] MEDS ORDERED: DEXTROSE 70% IV SCH (17:00)
[2019-12-14] MEDS: FILTER, DISP 1.2 MICRON FOR TPN/PVN IV PRN (17:21)
[2019-12-14] MEDS: SODIUM CHLORIDE 0.9% 1,000 ML IV SCH (18:30)
[2019-12-15] MEDS: SODIUM CHLORIDE 0.9% IV SCH ×2 (00:32→13:04)
[2019-12-15] MEDS: ERAVACYCLINE IV SCH ×2 (00:32→13:04)
[2019-12-15] MEDS: HYDROCORTISONE 100 MG INJ. IVPush SCH ×3 (02:43→17:42)
[2019-12-15] MEDS: ALBUTEROL/IPRATROPIUM 2.5MG/0.5MG, 3 ML INLINE SCH ×2 (02:53→06:00)
[2019-12-15 04:03] VITALS: BP 122/75
[2019-12-15 04:45] LABS: MEAN CORPUSCULAR HEMOGLOBIN 29.5 pg (27.0-34.8); MEAN CORPUSCULAR HGB CONC 33.3 g/dL (32.4-35.8); MEAN CORPUSCULAR VOLUME 88.8 fL (80-100); MEAN PLATELET VOLUME 10.1 fL (7.4-10.4); PLATELET COUNT 88 x10^3/uL (130-400); RED BLOOD COUNT 2.66 x10^6/uL (3.82-5.3); RED CELL DISTRIBUTION WIDTH 21.2 % (9.6-15.2)
[2019-12-15 04:53] LABS: ALANINE AMINOTRANSFERASE 7 U/L (12-78); ALBUMIN 1.9 g/dL (3.4-5.0); ANION GAP 11 mmol/L (5-15); CALCIUM 7.1 mg/dL (8.5-10.1); CHLORIDE 115 mmol/L (98-107); CREATININE 1.11 mg/dL (0.55-1.02)
[2019-12-15 04:58] LABS: ALKALINE PHOSPHATASE 269 U/L (45-117); BILIRUBIN,TOTAL 0.7 mg/dL (0.2-1.0); TOTAL PROTEIN 4.5 g/dL (6.4-8.2)
[2019-12-15 05:53] LABS: BASOPHILS # (AUTO) 0.01 x10^3/uL (0-0.1); BASOPHILS % (AUTO) 0 % (0-1); EOSINOPHILS # (AUTO) 0.04 x10^3/uL (0-0.4); EOSINOPHILS % (AUTO) 0 % (1-7); LYMPHOCYTES # (AUTO) 0.83 x10^3/uL (1-3.4); LYMPHOCYTES % (AUTO) 7 % (22-44); MD MORPH REVIEW ONLY; MONOCYTES % (AUTO) 4 % (2-9); NEUTROPHILS # (AUTO) 11.46 x10^3/uL (1.8-6.8); NEUTROPHILS % (AUTO) 89 % (42-75)
[2019-12-15 05:54] LABS: ANISOCYTOSIS 1+; BASOPHILLIC STIPPLING 1+
[2019-12-15 05:56] LABS: CRENATED 1+
[2019-12-15 05:57] LABS: <PLATELET ESTIMATE> DECREASED; SMALL PLATELETS 2+
[2019-12-15] MEDS: INSULIN LISPRO 100 UNITS/ML, PEN SQ-INSULIN SCH ×4 (06:41→21:08)
[2019-12-15] MEDS: LEVOTHYROXINE 100 MCG INJ IVPush SCH (08:07)
[2019-12-15] MEDS: SODIUM CHLORIDE FLUSH 10ML SYR IVF SCH ×2 (08:07→21:07)
[2019-12-15] MEDS: SODIUM CHLORIDE 0.9% 1,000 ML IV SCH (11:42)
[2019-12-15] MEDS ORDERED: DEXTROSE 70% IV SCH (17:00)
[2019-12-15] MEDS ORDERED: AMINO ACID 10% IV SCH (17:00)
[2019-12-15] MEDS ORDERED: [UNRECOGNIZED DRUG - OTHER] IV SCH (17:00)
[2019-12-15] MEDS ORDERED: SMOF TPN IV SCH (17:00)
[2019-12-15] MEDS ORDERED: FAT EMUL IV SCH (17:00)
[2019-12-15] MEDS: FILTER, DISP 1.2 MICRON FOR TPN/PVN IV PRN (17:41)
[2019-12-15] MEDS: OXYcodone IR 5MG TABLET PO PRN (18:27)
[2019-12-16] MEDS: ERAVACYCLINE IV SCH ×2 (01:21→13:31)
[2019-12-16] MEDS: SODIUM CHLORIDE 0.9% IV SCH ×2 (01:21→13:31)
[2019-12-16] MEDS: ACETAMINOPHEN 325 MG TABLET PO PRN (02:33)
[2019-12-16] MEDS: HYDROCORTISONE 100 MG INJ. IVPush SCH ×2 (02:33→09:09)
[2019-12-16] MEDS: INSULIN LISPRO 100 UNITS/ML, PEN SQ-INSULIN SCH ×4 (02:34→23:19)
[2019-12-16 04:00] VITALS: BP 158/86
[2019-12-16 04:37] LABS: BASOPHILS # (AUTO) 0.02 x10^3/uL (0-0.1); BASOPHILS % (AUTO) 0 % (0-1); EOSINOPHILS # (AUTO) 0.14 x10^3/uL (0-0.4); EOSINOPHILS % (AUTO) 1 % (1-7); LYMPHOCYTES # (AUTO) 1.22 x10^3/uL (1-3.4); LYMPHOCYTES % (AUTO) 7 % (22-44); MD NO; MEAN CORPUSCULAR VOLUME 90.4 fL (80-100); MEAN PLATELET VOLUME 7.9 fL (7.4-10.4); MONOCYTES # (AUTO) 0.63 x10^3/uL (0.2-0.8); MONOCYTES % (AUTO) 4 % (2-9); NEUTROPHILS % (AUTO) 88 % (42-75); PLATELET COUNT 179 x10^3/uL (130-400); RED BLOOD COUNT 2.69 x10^6/uL (3.82-5.3); RED CELL DISTRIBUTION WIDTH 21.8 % (9.6-15.2)
[2019-12-16 04:45] LABS: ANION GAP 9 mmol/L (5-15); CALCIUM 7.9 mg/dL (8.5-10.1); CHLORIDE 116 mmol/L (98-107)
[2019-12-16] MEDS: SODIUM CHLORIDE FLUSH 10ML SYR IVF SCH ×2 (09:09→23:19)
[2019-12-16] MEDS: LEVOTHYROXINE 100 MCG INJ IVPush SCH (09:09)
[2019-12-16] MEDS: OXYcodone IR 5MG TABLET PO PRN ×2 (09:10→20:13)
[2019-12-16] MEDS: PANCRELIPASE 5000 CAPSULE.DR PO SCH ×2 (12:05→17:00)
[2019-12-16] MEDS: SODIUM CHLORIDE 0.9% 1,000 ML IV SCH (12:05)
[2019-12-16] MEDS ORDERED: AMINO ACID 10% IV SCH (17:00)
[2019-12-16] MEDS ORDERED: FAT EMUL IV SCH (17:00)
[2019-12-16] MEDS ORDERED: [UNRECOGNIZED DRUG - OTHER] IV SCH (17:00)
[2019-12-16] MEDS ORDERED: SMOF TPN IV SCH (17:00)
[2019-12-16] MEDS ORDERED: DEXTROSE 70% IV SCH (17:00)
[2019-12-16 20:20] VITALS: BP 197/99
[2019-12-16 20:55] VITALS: BP 208/110
[2019-12-16 20:58] VITALS: BP 187/94
[2019-12-16] MEDS ORDERED: hydrALAzine 20 MG/ML, 1ML IV PRN (21:30)
[2019-12-16 21:31] VITALS: BP 187/98
[2019-12-16 22:07] VITALS: BP 111/70
[2019-12-17] MEDS: SODIUM CHLORIDE 0.9% IV SCH ×2 (00:20→13:19)
[2019-12-17] MEDS: ERAVACYCLINE IV SCH ×2 (00:20→13:19)
[2019-12-17 01:39] VITALS: BP 104/56
[2019-12-17] MEDS: INSULIN LISPRO 100 UNITS/ML, PEN SQ-INSULIN SCH ×4 (03:38→21:04)
[2019-12-17 08:18] VITALS: BP 145/82
[2019-12-17] MEDS: PANCRELIPASE 5000 CAPSULE.DR PO SCH ×3 (09:00→16:06)
[2019-12-17] MEDS: HYDROCORTISONE 100 MG INJ. IVPush SCH (09:00)
[2019-12-17] MEDS: SODIUM CHLORIDE 0.9% 1,000 ML IV SCH (09:00)
[2019-12-17] MEDS: LEVOTHYROXINE 100 MCG INJ IVPush SCH (09:00)
[2019-12-17] MEDS: SODIUM CHLORIDE FLUSH 10ML SYR IVF SCH ×2 (09:01→21:05)
[2019-12-17] MEDS: OXYcodone IR 5MG TABLET PO PRN ×2 (09:26→16:06)
[2019-12-17 10:41] LABS: ANION GAP 10 mmol/L (5-15); CALCIUM 7.9 mg/dL (8.5-10.1); CHLORIDE 111 mmol/L (98-107)
[2019-12-17 10:42] LABS: CREATININE 1.21 mg/dL (0.55-1.02)
[2019-12-17 13:28] VITALS: BP 103/67
[2019-12-17] MEDS ORDERED: INSULIN LISPRO 100 UNITS/ML, PEN SQ-INSULIN ONE (15:30)
[2019-12-17] MEDS ORDERED: SMOF TPN IV SCH (17:00)
[2019-12-17] MEDS ORDERED: DEXTROSE 70% IV SCH (17:00)
[2019-12-17] MEDS ORDERED: AMINO ACID 10% IV SCH (17:00)
[2019-12-17] MEDS ORDERED: [UNRECOGNIZED DRUG - OTHER] IV SCH (17:00)
[2019-12-17] MEDS ORDERED: FAT EMUL IV SCH (17:00)
[2019-12-17 18:46] VITALS: BP 139/78
[2019-12-18] MEDS: SODIUM CHLORIDE 0.9% IV SCH ×2 (01:28→14:05)
[2019-12-18] MEDS: ERAVACYCLINE IV SCH ×2 (01:28→14:05)
[2019-12-18 02:41] VITALS: BP 171/86
[2019-12-18] MEDS: OXYcodone IR 5MG TABLET PO PRN ×3 (03:31→22:31)
[2019-12-18] MEDS: INSULIN LISPRO 100 UNITS/ML, PEN SQ-INSULIN SCH ×4 (03:32→21:29)
[2019-12-18 04:26] VITALS: BP 142/72
[2019-12-18] MEDS: SODIUM CHLORIDE 0.9% 1,000 ML IV SCH (08:15)
[2019-12-18] MEDS: LEVOTHYROXINE 100 MCG INJ IVPush SCH (08:15)
[2019-12-18] MEDS: PANCRELIPASE 5000 CAPSULE.DR PO SCH ×3 (08:15→17:33)
[2019-12-18] MEDS: HYDROCORTISONE 100 MG INJ. IVPush SCH (08:15)
[2019-12-18] MEDS: SODIUM CHLORIDE FLUSH 10ML SYR IVF SCH ×2 (08:16→21:00)
[2019-12-18 11:30] LABS: ANION GAP 7 mmol/L (5-15); CALCIUM 7.6 mg/dL (8.5-10.1); CHLORIDE 110 mmol/L (98-107); CREATININE 0.94 mg/dL (0.55-1.02)
[2019-12-18 11:44] LABS: BASOPHILS # (AUTO) 0.02 x10^3/uL (0-0.1); BASOPHILS % (AUTO) 0 % (0-1); EOSINOPHILS % (AUTO) 3 % (1-7); LYMPHOCYTES # (AUTO) 0.83 x10^3/uL (1-3.4); LYMPHOCYTES % (AUTO) 8 % (22-44); MD NO; MEAN CORPUSCULAR HEMOGLOBIN 29.1 pg (27.0-34.8); MEAN CORPUSCULAR HGB CONC 32.4 g/dL (32.4-35.8); MEAN CORPUSCULAR VOLUME 89.6 fL (80-100); MEAN PLATELET VOLUME 7.8 fL (7.4-10.4); MONOCYTES # (AUTO) 0.36 x10^3/uL (0.2-0.8); MONOCYTES % (AUTO) 4 % (2-9); NEUTROPHILS # (AUTO) 8.55 x10^3/uL (1.8-6.8); NEUTROPHILS % (AUTO) 85 % (42-75); PLATELET COUNT 238 x10^3/uL (130-400); RED BLOOD COUNT 2.81 x10^6/uL (3.82-5.3); RED CELL DISTRIBUTION WIDTH 21.1 % (9.6-15.2)
[2019-12-18] MEDS ORDERED: INSULIN LISPRO 100 UNITS/ML, PEN SQ-INSULIN SCH (15:00)
[2019-12-18] MEDS ORDERED: INSULIN LISPRO 100 UNITS/ML, PEN SQ-INSULIN ONE (15:00)
[2019-12-18] MEDS ORDERED: AMINO ACID 10% IV SCH (17:00)
[2019-12-18] MEDS ORDERED: SMOF TPN IV SCH (17:00)
[2019-12-18] MEDS ORDERED: DEXTROSE 70% IV SCH (17:00)
[2019-12-18] MEDS ORDERED: [UNRECOGNIZED DRUG - OTHER] IV SCH (17:00)
[2019-12-18] MEDS ORDERED: FAT EMUL IV SCH (17:00)
[2019-12-18 17:10] VITALS: BP 104/68
[2019-12-18 20:07] VITALS: BP 104/59
[2019-12-19] MEDS: SODIUM CHLORIDE 0.9% IV SCH ×2 (02:38→12:54)
[2019-12-19] MEDS: ERAVACYCLINE IV SCH ×2 (02:38→12:54)
[2019-12-19] MEDS: INSULIN LISPRO 100 UNITS/ML, PEN SQ-INSULIN SCH ×4 (02:38→20:14)
[2019-12-19 03:02] VITALS: BP 125/67
[2019-12-19] MEDS: LEVOTHYROXINE 75 MCG TABLET PO SCH (05:53)
[2019-12-19 06:38] LABS: BASOPHILS # (AUTO) 0.03 x10^3/uL (0-0.1); BASOPHILS % (AUTO) 0 % (0-1); EOSINOPHILS # (AUTO) 0.45 x10^3/uL (0-0.4); EOSINOPHILS % (AUTO) 6 % (1-7); LYMPHOCYTES # (AUTO) 1.55 x10^3/uL (1-3.4); LYMPHOCYTES % (AUTO) 19 % (22-44); MD NO; MEAN CORPUSCULAR HEMOGLOBIN 29.3 pg (27.0-34.8); MEAN CORPUSCULAR HGB CONC 32.3 g/dL (32.4-35.8); MEAN CORPUSCULAR VOLUME 90.7 fL (80-100); MEAN PLATELET VOLUME 7.9 fL (7.4-10.4); MONOCYTES # (AUTO) 0.59 x10^3/uL (0.2-0.8); MONOCYTES % (AUTO) 7 % (2-9); NEUTROPHILS # (AUTO) 5.55 x10^3/uL (1.8-6.8); NEUTROPHILS % (AUTO) 68 % (42-75); PLATELET COUNT 225 x10^3/uL (130-400); RED BLOOD COUNT 2.68 x10^6/uL (3.82-5.3); RED CELL DISTRIBUTION WIDTH 20.8 % (9.6-15.2)
[2019-12-19 06:50] LABS: ANION GAP 6 mmol/L (5-15); CALCIUM 7.7 mg/dL (8.5-10.1); CHLORIDE 111 mmol/L (98-107); CREATININE 0.79 mg/dL (0.55-1.02)
[2019-12-19 08:32] VITALS: BP 140/88
[2019-12-19] MEDS: PANCRELIPASE 5000 CAPSULE.DR PO SCH ×3 (09:53→16:23)
[2019-12-19] MEDS: SODIUM CHLORIDE FLUSH 10ML SYR IVF SCH ×2 (09:53→21:00)
[2019-12-19] MEDS: OXYcodone IR 5MG TABLET PO PRN ×2 (10:28→16:23)
[2019-12-19 13:56] VITALS: BP 131/81
[2019-12-19] MEDS ORDERED: INSULIN GLARGINE 100 UNITS/ML, PEN SQ-INSULIN SCH (15:00)
[2019-12-19] MEDS ORDERED: AMINO ACID 10% IV SCH (17:00)
[2019-12-19] MEDS ORDERED: SMOF TPN IV SCH (17:00)
[2019-12-19] MEDS ORDERED: FAT EMUL IV SCH (17:00)
[2019-12-19] MEDS ORDERED: DEXTROSE 70% IV SCH (17:00)
[2019-12-19] MEDS ORDERED: [UNRECOGNIZED DRUG - OTHER] IV SCH (17:00)
[2019-12-19] MEDS: FILTER, DISP 1.2 MICRON FOR TPN/PVN IV PRN ×2 (17:14→17:15)
[2019-12-19 20:26] VITALS: BP 163/90
[2019-12-19] MEDS ORDERED: INSULIN LISPRO 100 UNITS/ML, PEN SQ-INSULIN ONE ×2 (20:30→22:30)
[2019-12-20 01:01] VITALS: BP 137/81
[2019-12-20] MEDS: SODIUM CHLORIDE 0.9% IV SCH ×2 (01:28→13:25)
[2019-12-20] MEDS: ERAVACYCLINE IV SCH ×2 (01:28→13:25)
[2019-12-20 03:59] LABS: MEAN CORPUSCULAR HEMOGLOBIN 28.8 pg (27.0-34.8); MEAN CORPUSCULAR VOLUME 90.2 fL (80-100); MEAN PLATELET VOLUME 7.5 fL (7.4-10.4); PLATELET COUNT 215 x10^3/uL (130-400); RED BLOOD COUNT 2.54 x10^6/uL (3.82-5.3); RED CELL DISTRIBUTION WIDTH 19.5 % (9.6-15.2)
[2019-12-20 04:05] LABS: ALANINE AMINOTRANSFERASE 16 U/L (12-78); ALBUMIN 1.7 g/dL (3.4-5.0); ANION GAP 10 mmol/L (5-15); CALCIUM 7.5 mg/dL (8.5-10.1); CHLORIDE 108 mmol/L (98-107); CREATININE 0.76 mg/dL (0.55-1.02)
[2019-12-20 04:07] LABS: ALKALINE PHOSPHATASE 324 U/L (45-117); BILIRUBIN,TOTAL 0.4 mg/dL (0.2-1.0); TOTAL PROTEIN 4.5 g/dL (6.4-8.2)
[2019-12-20 04:12] LABS: BASOPHILS # (AUTO) 0.04 x10^3/uL (0-0.1); BASOPHILS % (AUTO) 0 % (0-1); EOSINOPHILS # (AUTO) 0.61 x10^3/uL (0-0.4); EOSINOPHILS % (AUTO) 6 % (1-7); LYMPHOCYTES % (AUTO) 17 % (22-44); MD SCAN; MONOCYTES # (AUTO) 0.64 x10^3/uL (0.2-0.8); MONOCYTES % (AUTO) 7 % (2-9); NEUTROPHILS # (AUTO) 6.53 x10^3/uL (1.8-6.8); NEUTROPHILS % (AUTO) 69 % (42-75)
[2019-12-20] MEDS: LEVOTHYROXINE 75 MCG TABLET PO SCH (06:26)
[2019-12-20 06:59] VITALS: BP 128/71
[2019-12-20] MEDS: INSULIN LISPRO 100 UNITS/ML, PEN SQ-INSULIN SCH ×4 (07:00→21:00)
[2019-12-20] MEDS ORDERED: INSULIN GLARGINE 100 UNITS/ML, PEN SQ-INSULIN SCH (09:00)
[2019-12-20] MEDS: OXYcodone IR 5MG TABLET PO PRN ×2 (09:40→17:56)
[2019-12-20] MEDS: PANCRELIPASE 5000 CAPSULE.DR PO SCH ×3 (09:40→17:56)
[2019-12-20] MEDS: SODIUM CHLORIDE FLUSH 10ML SYR IVF SCH ×2 (09:41→21:47)
[2019-12-20] MEDS: PANTOPRAZOLE 40 MG IV IVPush SCH (09:41)
[2019-12-20 13:37] VITALS: BP 94/59
[2019-12-20] MEDS ORDERED: SMOF TPN IV SCH (17:00)
[2019-12-20] MEDS ORDERED: DEXTROSE 70% IV SCH (17:00)
[2019-12-20] MEDS ORDERED: FAT EMUL IV SCH (17:00)
[2019-12-20] MEDS ORDERED: AMINO ACID 10% IV SCH (17:00)
[2019-12-20] MEDS ORDERED: [UNRECOGNIZED DRUG - OTHER] IV SCH (17:00)
[2019-12-20] MEDS: FILTER, DISP 1.2 MICRON FOR TPN/PVN IV PRN (17:56)
[2019-12-20] MEDS ORDERED: INSULIN LISPRO 100 UNITS/ML, PEN SQ-INSULIN SCH (18:30)
[2019-12-20] MEDS ORDERED: INSULIN LISPRO 100 UNIT/ML, 3ML VIAL SQ-INSULIN SCH (18:30)
[2019-12-20 20:00] VITALS: BP 153/78
[2019-12-21] MEDS ORDERED: INSULIN LISPRO 100 UNITS/ML, PEN SQ-INSULIN SCH (01:00)
[2019-12-21] MEDS: SODIUM CHLORIDE 0.9% IV SCH ×2 (01:15→13:22)
[2019-12-21] MEDS: ERAVACYCLINE IV SCH ×2 (01:15→13:22)
[2019-12-21 01:24] VITALS: BP 101/62
[2019-12-21] MEDS: LEVOTHYROXINE 75 MCG TABLET PO SCH (05:35)
[2019-12-21 06:24] LABS: BASOPHILS # (AUTO) 0.04 x10^3/uL (0-0.1); BASOPHILS % (AUTO) 0 % (0-1); EOSINOPHILS # (AUTO) 0.64 x10^3/uL (0-0.4); EOSINOPHILS % (AUTO) 7 % (1-7); LYMPHOCYTES % (AUTO) 16 % (22-44); MD NO; MEAN CORPUSCULAR HEMOGLOBIN 29.6 pg (27.0-34.8); MEAN CORPUSCULAR HGB CONC 32.8 g/dL (32.4-35.8); MEAN CORPUSCULAR VOLUME 90.3 fL (80-100); MEAN PLATELET VOLUME 7.8 fL (7.4-10.4); MONOCYTES # (AUTO) 0.71 x10^3/uL (0.2-0.8); MONOCYTES % (AUTO) 8 % (2-9); NEUTROPHILS # (AUTO) 6.17 x10^3/uL (1.8-6.8); NEUTROPHILS % (AUTO) 69 % (42-75); PLATELET COUNT 201 x10^3/uL (130-400); RED BLOOD COUNT 2.55 x10^6/uL (3.82-5.3); RED CELL DISTRIBUTION WIDTH 20.5 % (9.6-15.2)
[2019-12-21 06:32] LABS: ALANINE AMINOTRANSFERASE 12 U/L (12-78); ALBUMIN 1.7 g/dL (3.4-5.0); ANION GAP 6 mmol/L (5-15); CALCIUM 7.7 mg/dL (8.5-10.1); CHLORIDE 115 mmol/L (98-107); CREATININE 0.88 mg/dL (0.55-1.02)
[2019-12-21 06:39] LABS: ALKALINE PHOSPHATASE 377 U/L (45-117); BILIRUBIN,TOTAL 0.5 mg/dL (0.2-1.0); PREALBUMIN 7.6 mg/dL (20.0-40.0); TOTAL PROTEIN 4.4 g/dL (6.4-8.2); TRIGLYCERIDES 56 mg/dL (50-200)
[2019-12-21] MEDS: INSULIN LISPRO 100 UNITS/ML, PEN SQ-INSULIN SCH ×4 (07:00→22:04)
[2019-12-21 08:14] VITALS: BP 133/82
[2019-12-21] MEDS ORDERED: INSULIN GLARGINE 100 UNITS/ML, PEN SQ-INSULIN SCH (09:00)
[2019-12-21] MEDS: PANCRELIPASE 5000 CAPSULE.DR PO SCH ×3 (10:21→17:38)
[2019-12-21] MEDS: PANTOPRAZOLE 40 MG IV IVPush SCH (10:21)
[2019-12-21] MEDS: SODIUM CHLORIDE FLUSH 10ML SYR IVF SCH ×2 (10:26→21:00)
[2019-12-21] MEDS: OXYcodone IR 5MG TABLET PO PRN (12:42)
[2019-12-21] MEDS ORDERED: INSULIN LISPRO 100 UNITS/ML, PEN SQ-INSULIN STA (12:53)
[2019-12-21 15:08] VITALS: BP 146/83
[2019-12-21] MEDS ORDERED: AMINO ACID 10% IV SCH (17:00)
[2019-12-21] MEDS ORDERED: [UNRECOGNIZED DRUG - OTHER] IV SCH (17:00)
[2019-12-21] MEDS ORDERED: SMOF TPN IV SCH (17:00)
[2019-12-21] MEDS ORDERED: DEXTROSE 70% IV SCH (17:00)
[2019-12-21] MEDS ORDERED: FAT EMUL IV SCH (17:00)
[2019-12-21 17:08] LABS: ANION GAP 8 mmol/L (5-15); CALCIUM 7.7 mg/dL (8.5-10.1); CHLORIDE 109 mmol/L (98-107); CREATININE 0.99 mg/dL (0.55-1.02)
[2019-12-21] MEDS ORDERED: INSULIN LISPRO 100 UNITS/ML, PEN SQ-INSULIN ONE (17:30)
[2019-12-21 19:43] VITALS: BP 123/73
[2019-12-21] MEDS ORDERED: SODIUM CHLORIDE 0.9%, 500ML IVBOLUS ONE (23:30)
[2019-12-21] MEDS ORDERED: INSULIN LISPRO 100 UNIT/ML, 3ML VIAL SQ ONE (23:30)
[2019-12-22] MEDS: OXYcodone IR 5MG TABLET PO PRN ×3 (00:04→16:24)
[2019-12-22 00:11] VITALS: BP 117/74
[2019-12-22] MEDS: ERAVACYCLINE IV SCH ×2 (02:23→15:00)
[2019-12-22] MEDS: SODIUM CHLORIDE 0.9% IV SCH ×2 (02:23→15:00)
[2019-12-22] MEDS ORDERED: INSULIN GLARGINE 100 UNITS/ML, PEN SQ-INSULIN ONE (02:30)
[2019-12-22] MEDS: LEVOTHYROXINE 75 MCG TABLET PO SCH (06:26)
[2019-12-22 07:57] LABS: MEAN CORPUSCULAR HEMOGLOBIN 29.5 pg (27.0-34.8); MEAN CORPUSCULAR HGB CONC 32.5 g/dL (32.4-35.8); MEAN CORPUSCULAR VOLUME 90.8 fL (80-100); MEAN PLATELET VOLUME 7.8 fL (7.4-10.4); PLATELET COUNT 163 x10^3/uL (130-400); RED BLOOD COUNT 2.51 x10^6/uL (3.82-5.3); RED CELL DISTRIBUTION WIDTH 20.4 % (9.6-15.2)
[2019-12-22 07:59] VITALS: BP 138/82
[2019-12-22 08:05] LABS: ANION GAP 9 mmol/L (5-15); CALCIUM 7.6 mg/dL (8.5-10.1); CHLORIDE 108 mmol/L (98-107); CREATININE 0.87 mg/dL (0.55-1.02)
[2019-12-22 08:19] LABS: MD MORPH REVIEW ONLY
[2019-12-22 08:20] LABS: BASOPHILS # (AUTO) 0.04 x10^3/uL (0-0.1); BASOPHILS % (AUTO) 1 % (0-1); EOSINOPHILS # (AUTO) 0.49 x10^3/uL (0-0.4); EOSINOPHILS % (AUTO) 7 % (1-7); LYMPHOCYTES # (AUTO) 1.09 x10^3/uL (1-3.4); LYMPHOCYTES % (AUTO) 16 % (22-44); MONOCYTES # (AUTO) 0.55 x10^3/uL (0.2-0.8); MONOCYTES % (AUTO) 8 % (2-9); NEUTROPHILS # (AUTO) 4.63 x10^3/uL (1.8-6.8); NEUTROPHILS % (AUTO) 68 % (42-75)
[2019-12-22 08:21] LABS: ACANTHOCYTES 1+; ECHINOCYTES 1+
[2019-12-22 08:22] LABS: OVALOCYTES 1+; POLYCHROMASIA 1+
[2019-12-22 08:23] LABS: <PLATELET ESTIMATE> ADEQUATE; <PLT MORPHOLOGY> NORMAL PLT MORPH; HYPOCHROMIA 1+
[2019-12-22] MEDS: PANTOPRAZOLE 40 MG IV IVPush SCH (08:39)
[2019-12-22] MEDS: PANCRELIPASE 5000 CAPSULE.DR PO SCH ×3 (08:39→17:00)
[2019-12-22] MEDS: SODIUM CHLORIDE FLUSH 10ML SYR IVF SCH ×2 (08:45→21:00)
[2019-12-22] MEDS: INSULIN LISPRO 100 UNITS/ML, PEN SQ-INSULIN SCH ×4 (08:46→22:19)
[2019-12-22] MEDS ORDERED: INSULIN GLARGINE 100 UNITS/ML, PEN SQ-INSULIN SCH ×3 (09:00→21:00)
[2019-12-22 09:15] LABS: ANISOCYTOSIS 1+
[2019-12-22 09:16] LABS: CRENATED 2+
[2019-12-22] MEDS: INSULIN GLARGINE 100 UNITS/ML, PEN SQ-INSULIN SCH (11:58)
[2019-12-22 15:03] VITALS: BP 90/56
[2019-12-22 16:32] LABS: FREE T4 (FREE THYROXINE) 1.28 ng/dL (0.76-1.46)
[2019-12-22] MEDS ORDERED: SMOF TPN IV SCH ×3 (17:00)
[2019-12-22] MEDS ORDERED: AMINO ACID 10% IV SCH ×3 (17:00)
[2019-12-22] MEDS: metroNIDAZOLE 500 MG TABLET PO SCH (17:00)
[2019-12-22] MEDS ORDERED: [UNRECOGNIZED DRUG - OTHER] IV SCH ×3 (17:00)
[2019-12-22] MEDS ORDERED: FAT EMUL IV SCH ×3 (17:00)
[2019-12-22] MEDS ORDERED: DEXTROSE 70% IV SCH ×3 (17:00)
[2019-12-22 21:02] VITALS: BP 81/41
[2019-12-22] MEDS ORDERED: SODIUM CHLORIDE 0.9%, 500ML IVBOLUS ONE (22:00)
[2019-12-22 23:49] VITALS: BP 96/62
[2019-12-23] VITALS (8 sets, daily range): BP systolic 84–133; BP diastolic 55–86
[2019-12-23] MEDS: metroNIDAZOLE 500 MG TABLET PO SCH ×3 (01:36→17:28)
[2019-12-23] MEDS: ERAVACYCLINE IV SCH ×2 (03:02→15:43)
[2019-12-23] MEDS: SODIUM CHLORIDE 0.9% IV SCH ×2 (03:02→15:43)
[2019-12-23] MEDS: LEVOTHYROXINE 75 MCG TABLET PO SCH (04:10)
[2019-12-23 04:37] LABS: ALANINE AMINOTRANSFERASE 14 U/L (12-78); ALBUMIN 1.6 g/dL (3.4-5.0); ANION GAP 8 mmol/L (5-15); CALCIUM 7.4 mg/dL (8.5-10.1); CHLORIDE 111 mmol/L (98-107); CREATININE 1.01 mg/dL (0.55-1.02)
[2019-12-23 04:39] LABS: ALKALINE PHOSPHATASE 418 U/L (45-117); BILIRUBIN,TOTAL 0.5 mg/dL (0.2-1.0); TOTAL PROTEIN 4.1 g/dL (6.4-8.2)
[2019-12-23 04:50] LABS: MEAN CORPUSCULAR HEMOGLOBIN 29.5 pg (27.0-34.8); MEAN CORPUSCULAR HGB CONC 32.6 g/dL (32.4-35.8); MEAN CORPUSCULAR VOLUME 90.4 fL (80-100); MEAN PLATELET VOLUME 8.3 fL (7.4-10.4); PLATELET COUNT 135 x10^3/uL (130-400); RED BLOOD COUNT 2.29 x10^6/uL (3.82-5.3); RED CELL DISTRIBUTION WIDTH 20.7 % (9.6-15.2)
[2019-12-23] MEDS: DEXTROSE 50%, 50ML SYRINGE IVPush PRN ×2 (05:49→10:13)
[2019-12-23 05:57] LABS: BASOPHILS # (AUTO) 0.06 x10^3/uL (0-0.1); BASOPHILS % (AUTO) 1 % (0-1); EOSINOPHILS # (AUTO) 0.56 x10^3/uL (0-0.4); EOSINOPHILS % (AUTO) 8 % (1-7); LYMPHOCYTES # (AUTO) 1.56 x10^3/uL (1-3.4); LYMPHOCYTES % (AUTO) 22 % (22-44); MD SCAN; MONOCYTES # (AUTO) 0.77 x10^3/uL (0.2-0.8); MONOCYTES % (AUTO) 11 % (2-9); NEUTROPHILS # (AUTO) 4.08 x10^3/uL (1.8-6.8); NEUTROPHILS % (AUTO) 58 % (42-75)
[2019-12-23] MEDS: INSULIN LISPRO 100 UNITS/ML, PEN SQ-INSULIN SCH (07:00)
[2019-12-23] MEDS: INSULIN GLARGINE 100 UNITS/ML, PEN SQ-INSULIN SCH (07:35)
[2019-12-23] MEDS: PANCRELIPASE 5000 CAPSULE.DR PO SCH ×3 (10:13→17:28)
[2019-12-23] MEDS: SODIUM CHLORIDE FLUSH 10ML SYR IVF SCH ×2 (10:13→20:45)
[2019-12-23] MEDS: PANTOPRAZOLE 40 MG IV IVPush SCH (10:13)
[2019-12-23] MEDS ORDERED: AMINO ACID 10% IV SCH ×2 (17:00)
[2019-12-23] MEDS ORDERED: FAT EMUL IV SCH ×2 (17:00)
[2019-12-23] MEDS ORDERED: [UNRECOGNIZED DRUG - OTHER] IV SCH ×2 (17:00)
[2019-12-23] MEDS ORDERED: DEXTROSE 70% IV SCH ×2 (17:00)
[2019-12-23] MEDS ORDERED: SMOF TPN IV SCH ×2 (17:00)
[2019-12-23] MEDS: FILTER, DISP 1.2 MICRON FOR TPN/PVN IV PRN (17:28)
[2019-12-23 18:37] LABS: ANION GAP 10 mmol/L (5-15); CALCIUM 7.1 mg/dL (8.5-10.1); CHLORIDE 114 mmol/L (98-107); CREATININE 1.19 mg/dL (0.55-1.02)
[2019-12-23] MEDS: OXYcodone IR 5MG TABLET PO PRN (21:27)
[2019-12-23] MEDS ORDERED: SODIUM BICARBONATE 8.4% 100 MEQ in DEXTROSE 5% 1,000 ML IV SCH (22:30)
[2019-12-24] MEDS: metroNIDAZOLE 500 MG TABLET PO SCH ×3 (01:01→17:30)
[2019-12-24 01:39] VITALS: BP 118/75
[2019-12-24] MEDS: ERAVACYCLINE IV SCH ×2 (03:18→16:14)
[2019-12-24] MEDS: SODIUM CHLORIDE 0.9% IV SCH ×2 (03:18→16:14)
[2019-12-24] MEDS: LEVOTHYROXINE 75 MCG TABLET PO SCH (04:36)
[2019-12-24 04:37] LABS: BASOPHILS # (AUTO) 0.04 x10^3/uL (0-0.1); BASOPHILS % (AUTO) 1 % (0-1); EOSINOPHILS # (AUTO) 0.41 x10^3/uL (0-0.4); EOSINOPHILS % (AUTO) 7 % (1-7); LYMPHOCYTES # (AUTO) 1.52 x10^3/uL (1-3.4); LYMPHOCYTES % (AUTO) 24 % (22-44); MD NO; MEAN CORPUSCULAR HEMOGLOBIN 29.2 pg (27.0-34.8); MEAN CORPUSCULAR HGB CONC 32.6 g/dL (32.4-35.8); MEAN CORPUSCULAR VOLUME 89.3 fL (80-100); MEAN PLATELET VOLUME 8.3 fL (7.4-10.4); MONOCYTES # (AUTO) 0.58 x10^3/uL (0.2-0.8); MONOCYTES % (AUTO) 9 % (2-9); NEUTROPHILS # (AUTO) 3.77 x10^3/uL (1.8-6.8); NEUTROPHILS % (AUTO) 60 % (42-75); PLATELET COUNT 119 x10^3/uL (130-400); RED BLOOD COUNT 2.73 x10^6/uL (3.82-5.3); RED CELL DISTRIBUTION WIDTH 20.3 % (9.6-15.2)
[2019-12-24 04:43] LABS: ALANINE AMINOTRANSFERASE 20 U/L (12-78); ALBUMIN 1.6 g/dL (3.4-5.0); ANION GAP 8 mmol/L (5-15); CALCIUM 7.2 mg/dL (8.5-10.1); CHLORIDE 114 mmol/L (98-107); CREATININE 1.12 mg/dL (0.55-1.02)
[2019-12-24 04:45] LABS: ALKALINE PHOSPHATASE 830 U/L (45-117); TOTAL PROTEIN 4.3 g/dL (6.4-8.2)
[2019-12-24 08:00] VITALS: BP 97/59
[2019-12-24] MEDS: PANTOPRAZOLE 40 MG IV IVPush SCH (08:17)
[2019-12-24] MEDS: SODIUM CHLORIDE FLUSH 10ML SYR IVF SCH ×2 (08:17→20:14)
[2019-12-24] MEDS: PANCRELIPASE 5000 CAPSULE.DR PO SCH ×3 (08:17→17:30)
[2019-12-24] MEDS: DIPHENOXYLATE/ATROPINE ORAL SOL PO PRN (10:43)
[2019-12-24] MEDS: ACYCLOVIR 700 MG in SODIUM CHLORIDE 0.9% 100 ML IV SCH ×2 (10:43→19:19)
[2019-12-24] MEDS: INSULIN LISPRO 100 UNITS/ML, PEN SQ-INSULIN SCH ×3 (12:24→20:41)
[2019-12-24] MEDS: OXYcodone IR 5MG TABLET PO PRN ×2 (12:37→21:30)
[2019-12-24 13:01] VITALS: BP 105/83
[2019-12-24 13:44] LABS: CLOSTRIDIUM DIFFICILE ANTIGEN NEGATIVE; CLOSTRIDIUM DIFFICILE TOXIN NEGATIVE (Negative)
[2019-12-24] MEDS ORDERED: FAT EMUL IV SCH (17:00)
[2019-12-24] MEDS ORDERED: [UNRECOGNIZED DRUG - OTHER] IV SCH (17:00)
[2019-12-24] MEDS ORDERED: DEXTROSE 70% IV SCH (17:00)
[2019-12-24] MEDS ORDERED: SMOF TPN IV SCH (17:00)
[2019-12-24] MEDS ORDERED: FILTER, DISP 1.2 MICRON FOR TPN/PVN IV PRN ×2 (17:00)
[2019-12-24] MEDS ORDERED: AMINO ACID 10% IV SCH (17:00)
[2019-12-24] MEDS: INSULIN GLARGINE 100 UNITS/ML, PEN SQ-INSULIN SCH (17:30)
[2019-12-24 20:30] VITALS: BP 103/82
[2019-12-25] MEDS: metroNIDAZOLE 500 MG TABLET PO SCH ×2 (00:55→08:02)
[2019-12-25 02:25] VITALS: BP 128/74
[2019-12-25] MEDS: INSULIN LISPRO 100 UNITS/ML, PEN SQ-INSULIN SCH ×5 (02:39→20:32)
[2019-12-25] MEDS: ACYCLOVIR 700 MG in SODIUM CHLORIDE 0.9% 100 ML IV SCH (02:40)
[2019-12-25] MEDS: SODIUM CHLORIDE 0.9% IV SCH ×2 (03:56→17:04)
[2019-12-25] MEDS: ERAVACYCLINE IV SCH ×2 (03:56→17:04)
[2019-12-25 05:02] LABS: BASOPHILS # (AUTO) 0.05 x10^3/uL (0-0.1); BASOPHILS % (AUTO) 1 % (0-1); EOSINOPHILS # (AUTO) 0.53 x10^3/uL (0-0.4); EOSINOPHILS % (AUTO) 10 % (1-7); LYMPHOCYTES # (AUTO) 1.82 x10^3/uL (1-3.4); LYMPHOCYTES % (AUTO) 33 % (22-44); MD NO; MEAN CORPUSCULAR HEMOGLOBIN 29.2 pg (27.0-34.8); MEAN CORPUSCULAR HGB CONC 32.5 g/dL (32.4-35.8); MEAN CORPUSCULAR VOLUME 89.8 fL (80-100); MEAN PLATELET VOLUME 8.4 fL (7.4-10.4); MONOCYTES # (AUTO) 0.51 x10^3/uL (0.2-0.8); MONOCYTES % (AUTO) 9 % (2-9); NEUTROPHILS # (AUTO) 2.59 x10^3/uL (1.8-6.8); NEUTROPHILS % (AUTO) 47 % (42-75); PLATELET COUNT 107 x10^3/uL (130-400); RED BLOOD COUNT 2.61 x10^6/uL (3.82-5.3)
[2019-12-25] MEDS: LEVOTHYROXINE 75 MCG TABLET PO SCH (05:15)
[2019-12-25 05:16] LABS: CHLORIDE 112 mmol/L (98-107)
[2019-12-25 05:20] LABS: ANION GAP 8 mmol/L (5-15)
[2019-12-25 07:28] VITALS: BP 120/74
[2019-12-25] MEDS: SODIUM CHLORIDE FLUSH 10ML SYR IVF SCH ×2 (08:02→20:31)
[2019-12-25] MEDS: PANTOPRAZOLE 40 MG IV IVPush SCH (08:02)
[2019-12-25] MEDS: PANCRELIPASE 5000 CAPSULE.DR PO SCH ×3 (08:02→17:08)
[2019-12-25] MEDS: OXYcodone IR 5MG TABLET PO PRN ×3 (08:03→20:33)
[2019-12-25] MEDS: DIPHENOXYLATE/ATROPINE ORAL SOL PO PRN (09:35)
[2019-12-25] MEDS ORDERED: TRIAMCINOLONE CRM 0.1%, 454GMS TP SCH (10:00)
[2019-12-25] MEDS ORDERED: CALCIUM GLUCONATE 9.2 MEQ in SODIUM CHLORIDE 0.9% 100 ML IV ONE (11:00)
[2019-12-25 13:41] VITALS: BP 104/62
[2019-12-25] MEDS: TRIAMCINOLONE CRM 0.1%, 15GM TP SCH ×2 (14:12→20:31)
[2019-12-25] MEDS ORDERED: DEXTROSE 70% IV SCH (17:00)
[2019-12-25] MEDS ORDERED: SMOF TPN IV SCH (17:00)
[2019-12-25] MEDS ORDERED: FAT EMUL IV SCH (17:00)
[2019-12-25] MEDS ORDERED: AMINO ACID 10% IV SCH (17:00)
[2019-12-25] MEDS ORDERED: [UNRECOGNIZED DRUG - OTHER] IV SCH (17:00)
[2019-12-25] MEDS: FILTER, DISP 1.2 MICRON FOR TPN/PVN IV PRN (17:04)
[2019-12-25 20:12] VITALS: BP 120/80
[2019-12-25] MEDS: INSULIN GLARGINE 100 UNITS/ML, PEN SQ-INSULIN SCH (20:32)
[2019-12-26 02:00] VITALS: BP 123/78
[2019-12-26] MEDS: SODIUM CHLORIDE 0.9% IV SCH ×2 (03:22→15:58)
[2019-12-26] MEDS: ERAVACYCLINE IV SCH ×2 (03:22→15:58)
[2019-12-26] MEDS: DEXTROSE 50%, 50ML SYRINGE IVPush PRN (04:11)
[2019-12-26] MEDS: LEVOTHYROXINE 75 MCG TABLET PO SCH (04:54)
[2019-12-26 05:20] LABS: ANION GAP 8 mmol/L (5-15); CHLORIDE 117 mmol/L (98-107)
[2019-12-26 05:24] LABS: CALCIUM 7.4 mg/dL (8.5-10.1); CREATININE 1.06 mg/dL (0.55-1.02)
[2019-12-26 05:30] LABS: MEAN CORPUSCULAR HEMOGLOBIN 29.2 pg (27.0-34.8); MEAN CORPUSCULAR HGB CONC 32.5 g/dL (32.4-35.8); MEAN CORPUSCULAR VOLUME 90.1 fL (80-100); RED BLOOD COUNT 2.72 x10^6/uL (3.82-5.3); RED CELL DISTRIBUTION WIDTH 19.6 % (9.6-15.2)
[2019-12-26 06:04] LABS: BASOPHILS # (AUTO) 0.06 x10^3/uL (0-0.1); BASOPHILS % (AUTO) 1 % (0-1); EOSINOPHILS # (AUTO) 0.68 x10^3/uL (0-0.4); EOSINOPHILS % (AUTO) 12 % (1-7); LYMPHOCYTES # (AUTO) 1.88 x10^3/uL (1-3.4); LYMPHOCYTES % (AUTO) 33 % (22-44); MD SCAN; MEAN PLATELET VOLUME 8.1 fL (7.4-10.4); MONOCYTES # (AUTO) 0.61 x10^3/uL (0.2-0.8); MONOCYTES % (AUTO) 11 % (2-9); NEUTROPHILS % (AUTO) 44 % (42-75); PLATELET COUNT 95 x10^3/uL (130-400)
[2019-12-26] MEDS: INSULIN LISPRO 100 UNITS/ML, PEN SQ-INSULIN SCH ×4 (07:00→21:00)
[2019-12-26 08:00] VITALS: BP 122/81
[2019-12-26] MEDS: SODIUM CHLORIDE FLUSH 10ML SYR IVF SCH ×2 (09:04→21:09)
[2019-12-26] MEDS: TRIAMCINOLONE CRM 0.1%, 15GM TP SCH ×2 (09:04→21:09)
[2019-12-26] MEDS: PANTOPRAZOLE 40 MG IV IVPush SCH (09:04)
[2019-12-26] MEDS: PANCRELIPASE 5000 CAPSULE.DR PO SCH ×3 (09:04→17:04)
[2019-12-26] MEDS: OXYcodone IR 5MG TABLET PO PRN ×2 (11:08→21:33)
[2019-12-26 13:48] VITALS: BP 148/93
[2019-12-26] MEDS ORDERED: DEXTROSE 70% IV SCH (17:00)
[2019-12-26] MEDS ORDERED: [UNRECOGNIZED DRUG - OTHER] IV SCH (17:00)
[2019-12-26] MEDS ORDERED: AMINO ACID 10% IV SCH (17:00)
[2019-12-26] MEDS ORDERED: SMOF TPN IV SCH (17:00)
[2019-12-26] MEDS ORDERED: FAT EMUL IV SCH (17:00)
[2019-12-26] MEDS: FILTER, DISP 1.2 MICRON FOR TPN/PVN IV PRN (17:03)
[2019-12-26 21:05] VITALS: BP 169/89
[2019-12-26] MEDS: INSULIN GLARGINE 100 UNITS/ML, PEN SQ-INSULIN SCH (21:33)
[2019-12-27 01:49] VITALS: BP 176/97
[2019-12-27] MEDS: ERAVACYCLINE IV SCH ×2 (03:52→16:20)
[2019-12-27] MEDS: SODIUM CHLORIDE 0.9% IV SCH ×2 (03:52→16:20)
[2019-12-27] MEDS: LEVOTHYROXINE 75 MCG TABLET PO SCH (05:46)
[2019-12-27 06:01] LABS: MEAN CORPUSCULAR HEMOGLOBIN 29.3 pg (27.0-34.8); MEAN CORPUSCULAR VOLUME 88.7 fL (80-100); PLATELET COUNT 91 x10^3/uL (130-400); RED BLOOD COUNT 2.87 x10^6/uL (3.82-5.3); RED CELL DISTRIBUTION WIDTH 19.3 % (9.6-15.2)
[2019-12-27 06:13] LABS: ANION GAP 9 mmol/L (5-15); CALCIUM 7.3 mg/dL (8.5-10.1); CHLORIDE 113 mmol/L (98-107)
[2019-12-27] MEDS: OXYcodone IR 5MG TABLET PO PRN ×2 (06:18→17:27)
[2019-12-27] MEDS: INSULIN LISPRO 100 UNITS/ML, PEN SQ-INSULIN SCH ×4 (06:19→20:40)
[2019-12-27 06:31] LABS: BASOPHILS # (AUTO) 0.05 x10^3/uL (0-0.1); BASOPHILS % (AUTO) 1 % (0-1); EOSINOPHILS # (AUTO) 0.64 x10^3/uL (0-0.4); EOSINOPHILS % (AUTO) 12 % (1-7); LYMPHOCYTES % (AUTO) 33 % (22-44); MD SCAN; MONOCYTES % (AUTO) 12 % (2-9); NEUTROPHILS # (AUTO) 2.21 x10^3/uL (1.8-6.8); NEUTROPHILS % (AUTO) 43 % (42-75)
[2019-12-27 07:06] VITALS: BP 169/90
[2019-12-27] MEDS: PANCRELIPASE 5000 CAPSULE.DR PO SCH ×3 (08:58→17:07)
[2019-12-27] MEDS: PANTOPRAZOLE 40 MG IV IVPush SCH (08:58)
[2019-12-27] MEDS: SODIUM CHLORIDE FLUSH 10ML SYR IVF SCH ×2 (08:59→20:41)
[2019-12-27] MEDS: TRIAMCINOLONE CRM 0.1%, 15GM TP SCH ×2 (09:04→20:41)
[2019-12-27] MEDS: DIPHENOXYLATE/ATROPINE ORAL SOL PO PRN (11:59)
[2019-12-27 13:46] VITALS: BP 167/100
[2019-12-27] MEDS ORDERED: DEXTROSE 70% IV SCH (17:00)
[2019-12-27] MEDS ORDERED: SMOF TPN IV SCH (17:00)
[2019-12-27] MEDS ORDERED: [UNRECOGNIZED DRUG - OTHER] IV SCH (17:00)
[2019-12-27] MEDS ORDERED: AMINO ACID 10% IV SCH (17:00)
[2019-12-27] MEDS ORDERED: FAT EMUL IV SCH (17:00)
[2019-12-27] MEDS: FILTER, DISP 1.2 MICRON FOR TPN/PVN IV PRN (17:10)
[2019-12-27 19:42] VITALS: BP 161/92
[2019-12-27] MEDS: INSULIN GLARGINE 100 UNITS/ML, PEN SQ-INSULIN SCH (20:42)
[2019-12-28 00:12] VITALS: BP 130/80
[2019-12-28] MEDS: OXYcodone IR 5MG TABLET PO PRN ×3 (00:40→16:46)
[2019-12-28] MEDS: SODIUM CHLORIDE 0.9% IV SCH ×2 (04:18→16:46)
[2019-12-28] MEDS: ERAVACYCLINE IV SCH ×2 (04:18→16:46)
[2019-12-28] MEDS: LEVOTHYROXINE 75 MCG TABLET PO SCH (05:16)
[2019-12-28 05:53] LABS: HCT (SEDRATE) 25.5 % (34.6-47.8)
[2019-12-28 05:56] LABS: ALANINE AMINOTRANSFERASE 20 U/L (12-78); ALBUMIN 1.6 g/dL (3.4-5.0); ANION GAP 7 mmol/L (5-15); CALCIUM 7.5 mg/dL (8.5-10.1); CHLORIDE 117 mmol/L (98-107); CREATININE 0.88 mg/dL (0.55-1.02)
[2019-12-28 06:10] LABS: ALKALINE PHOSPHATASE 2054 U/L (45-117); BILIRUBIN,TOTAL 0.7 mg/dL (0.2-1.0); PREALBUMIN 5.9 mg/dL (20.0-40.0); TOTAL PROTEIN 4.6 g/dL (6.4-8.2)
[2019-12-28 06:46] VITALS: BP 134/76
[2019-12-28] MEDS: INSULIN LISPRO 100 UNITS/ML, PEN SQ-INSULIN SCH ×4 (07:00→20:50)
[2019-12-28] MEDS: PANCRELIPASE 5000 CAPSULE.DR PO SCH ×3 (08:56→18:10)
[2019-12-28] MEDS: CIPROFLOXACIN 500 MG TABLET PO SCH ×2 (08:57→20:39)
[2019-12-28] MEDS: SODIUM CHLORIDE FLUSH 10ML SYR IVF SCH ×2 (08:57→20:39)
[2019-12-28] MEDS: PANTOPRAZOLE 40 MG IV IVPush SCH (08:57)
[2019-12-28] MEDS: TRIAMCINOLONE CRM 0.1%, 15GM TP SCH ×2 (08:58→20:40)
[2019-12-28 11:45] VITALS: BP 129/80
[2019-12-28 13:53] VITALS: BP 97/61
[2019-12-28] MEDS ORDERED: [UNRECOGNIZED DRUG - OTHER] IV SCH (17:00)
[2019-12-28] MEDS ORDERED: SMOF TPN IV SCH (17:00)
[2019-12-28] MEDS ORDERED: AMINO ACID 10% IV SCH (17:00)
[2019-12-28] MEDS ORDERED: DEXTROSE 70% IV SCH (17:00)
[2019-12-28] MEDS ORDERED: FAT EMUL IV SCH (17:00)
[2019-12-28 18:30] VITALS: BP 125/79
[2019-12-28] MEDS: INSULIN GLARGINE 100 UNITS/ML, PEN SQ-INSULIN SCH (20:50)
[2019-12-28] MEDS: DIPHENOXYLATE/ATROPINE ORAL SOL PO PRN (22:02)
[2019-12-29] MEDS: OXYcodone IR 5MG TABLET PO PRN ×3 (00:13→21:12)
[2019-12-29 01:56] VITALS: BP 150/87
[2019-12-29] MEDS: ERAVACYCLINE IV SCH ×2 (04:15→22:00)
[2019-12-29] MEDS: SODIUM CHLORIDE 0.9% IV SCH ×2 (04:15→22:00)
[2019-12-29] MEDS: LEVOTHYROXINE 75 MCG TABLET PO SCH (05:43)
[2019-12-29 06:04] LABS: ALBUMIN 1.6 g/dL (3.4-5.0); ANION GAP 5 mmol/L (5-15); CALCIUM 7.2 mg/dL (8.5-10.1); CHLORIDE 110 mmol/L (98-107); MEAN CORPUSCULAR HEMOGLOBIN 29.3 pg (27.0-34.8); MEAN CORPUSCULAR HGB CONC 32.2 g/dL (32.4-35.8); MEAN CORPUSCULAR VOLUME 90.8 fL (80-100); RED BLOOD COUNT 2.81 x10^6/uL (3.82-5.3); RED CELL DISTRIBUTION WIDTH 18.5 % (9.6-15.2)
[2019-12-29 06:22] LABS: ALANINE AMINOTRANSFERASE 30 U/L (12-78); BILIRUBIN,TOTAL 0.6 mg/dL (0.2-1.0); CREATININE 1.08 mg/dL (0.55-1.02); TOTAL PROTEIN 4.5 g/dL (6.4-8.2)
[2019-12-29 06:23] LABS: ANISOCYTOSIS 1+; BASOPHILS # (AUTO) 0.04 x10^3/uL (0-0.1); BASOPHILS % (AUTO) 1 % (0-1); ECHINOCYTES 1+; EOSINOPHILS # (AUTO) 0.56 x10^3/uL (0-0.4); EOSINOPHILS % (AUTO) 10 % (1-7); LYMPHOCYTES # (AUTO) 1.98 x10^3/uL (1-3.4); LYMPHOCYTES % (AUTO) 36 % (22-44); MD MORPH REVIEW ONLY; MEAN PLATELET VOLUME 8.6 fL (7.4-10.4); MONOCYTES # (AUTO) 0.67 x10^3/uL (0.2-0.8); MONOCYTES % (AUTO) 12 % (2-9); NEUTROPHILS # (AUTO) 2.29 x10^3/uL (1.8-6.8); NEUTROPHILS % (AUTO) 41 % (42-75); PLATELET COUNT 74 x10^3/uL (130-400)
[2019-12-29 06:24] LABS: ACANTHOCYTES 1+
[2019-12-29 06:27] LABS: <PLATELET ESTIMATE> DECREASED; <PLT MORPHOLOGY> NORMAL PLT MORPH
[2019-12-29 06:50] LABS: ALKALINE PHOSPHATASE > 2300 U/L (45-117)
[2019-12-29] MEDS: INSULIN LISPRO 100 UNITS/ML, PEN SQ-INSULIN SCH ×4 (07:00→20:59)
[2019-12-29 07:45] VITALS: BP 175/97
[2019-12-29] MEDS: PANCRELIPASE 5000 CAPSULE.DR PO SCH ×3 (08:00→17:54)
[2019-12-29] MEDS ORDERED: LORazepam 2 MG/ML, 1ML IVPush ONE (10:00)
[2019-12-29] MEDS: PANTOPRAZOLE 40 MG IV IVPush SCH (12:41)
[2019-12-29] MEDS: SODIUM CHLORIDE FLUSH 10ML SYR IVF SCH ×2 (12:41→20:58)
[2019-12-29] MEDS: CIPROFLOXACIN 500 MG TABLET PO SCH (12:42)
[2019-12-29] MEDS: TRIAMCINOLONE CRM 0.1%, 15GM TP SCH ×2 (12:43→21:00)
[2019-12-29 14:03] VITALS: BP 102/65
[2019-12-29 14:55] LABS: ANION GAP 8 mmol/L (5-15); CALCIUM 7.3 mg/dL (8.5-10.1); CHLORIDE 112 mmol/L (98-107); CREATININE 1.06 mg/dL (0.55-1.02)
[2019-12-29] MEDS ORDERED: SMOF TPN IV SCH (17:00)
[2019-12-29] MEDS ORDERED: AMINO ACID 10% IV SCH (17:00)
[2019-12-29] MEDS ORDERED: FAT EMUL IV SCH (17:00)
[2019-12-29] MEDS ORDERED: DEXTROSE 70% IV SCH (17:00)
[2019-12-29] MEDS ORDERED: [UNRECOGNIZED DRUG - OTHER] IV SCH (17:00)
[2019-12-29] MEDS: FILTER, DISP 1.2 MICRON FOR TPN/PVN IV PRN (17:54)
[2019-12-29] MEDS: INSULIN GLARGINE 100 UNITS/ML, PEN SQ-INSULIN SCH (20:59)
[2019-12-30] MEDS: CIPROFLOXACIN 500 MG TABLET PO SCH ×3 (00:30→21:37)
[2019-12-30 01:30] VITALS: BP 111/76
[2019-12-30] MEDS: LEVOTHYROXINE 75 MCG TABLET PO SCH (06:10)
[2019-12-30] MEDS: OXYcodone IR 5MG TABLET PO PRN ×2 (06:40→14:08)
[2019-12-30 06:57] LABS: MEAN CORPUSCULAR HEMOGLOBIN 29.4 pg (27.0-34.8); MEAN CORPUSCULAR VOLUME 88.9 fL (80-100); RED BLOOD COUNT 2.64 x10^6/uL (3.82-5.3); RED CELL DISTRIBUTION WIDTH 18.8 % (9.6-15.2)
[2019-12-30] MEDS: INSULIN LISPRO 100 UNITS/ML, PEN SQ-INSULIN SCH ×4 (07:00→21:37)
[2019-12-30 07:02] LABS: ALANINE AMINOTRANSFERASE 29 U/L (12-78); ALBUMIN 1.6 g/dL (3.4-5.0); ANION GAP 8 mmol/L (5-15); CALCIUM 7.4 mg/dL (8.5-10.1); CHLORIDE 111 mmol/L (98-107); CREATININE 0.98 mg/dL (0.55-1.02)
[2019-12-30 07:12] LABS: MEAN PLATELET VOLUME 8.5 fL (7.4-10.4); PLATELET COUNT 93 x10^3/uL (130-400)
[2019-12-30 07:13] LABS: BASOPHILS # (AUTO) 0.07 x10^3/uL (0-0.1); BASOPHILS % (AUTO) 1 % (0-1); EOSINOPHILS # (AUTO) 0.49 x10^3/uL (0-0.4); EOSINOPHILS % (AUTO) 6 % (1-7); LYMPHOCYTES # (AUTO) 1.72 x10^3/uL (1-3.4); LYMPHOCYTES % (AUTO) 22 % (22-44); MD SCAN; MONOCYTES # (AUTO) 0.67 x10^3/uL (0.2-0.8); MONOCYTES % (AUTO) 9 % (2-9); NEUTROPHILS # (AUTO) 4.83 x10^3/uL (1.8-6.8); NEUTROPHILS % (AUTO) 62 % (42-75)
[2019-12-30 07:20] LABS: BILIRUBIN,TOTAL 0.6 mg/dL (0.2-1.0); TOTAL PROTEIN 4.9 g/dL (6.4-8.2)
[2019-12-30 07:33] VITALS: BP 138/84
[2019-12-30 07:51] LABS: ALKALINE PHOSPHATASE > 2300 U/L (45-117)
[2019-12-30] MEDS: TRIAMCINOLONE CRM 0.1%, 15GM TP SCH ×2 (09:00→21:37)
[2019-12-30] MEDS: SODIUM CHLORIDE FLUSH 10ML SYR IVF SCH ×2 (09:00→21:38)
[2019-12-30] MEDS: PANCRELIPASE 5000 CAPSULE.DR PO SCH ×3 (09:03→18:06)
[2019-12-30] MEDS: PANTOPRAZOLE 40 MG IV IVPush SCH (09:04)
[2019-12-30] MEDS: SODIUM CHLORIDE 0.9% IV SCH ×2 (09:25→21:37)
[2019-12-30] MEDS: ERAVACYCLINE IV SCH ×2 (09:25→21:37)
[2019-12-30] MEDS ORDERED: DIPHENOXYLATE/ATROPINE TABLET ONE (11:32)
[2019-12-30] MEDS: DIPHENOXYLATE/ATROPINE ORAL SOL PO PRN ×2 (11:59→21:37)
[2019-12-30 12:56] VITALS: BP 104/65
[2019-12-30] MEDS ORDERED: [UNRECOGNIZED DRUG - OTHER] IV SCH (17:00)
[2019-12-30] MEDS ORDERED: FAT EMUL IV SCH (17:00)
[2019-12-30] MEDS ORDERED: AMINO ACID 10% IV SCH (17:00)
[2019-12-30] MEDS ORDERED: DEXTROSE 70% IV SCH (17:00)
[2019-12-30] MEDS ORDERED: SMOF TPN IV SCH (17:00)
[2019-12-30] MEDS: FILTER, DISP 1.2 MICRON FOR TPN/PVN IV PRN (18:08)
[2019-12-30 19:25] VITALS: BP 106/67
[2019-12-30] MEDS: INSULIN GLARGINE 100 UNITS/ML, PEN SQ-INSULIN SCH (21:36)
[2019-12-31 03:04] VITALS: BP 96/60
[2019-12-31 05:05] LABS: BASOPHILS # (AUTO) 0.06 x10^3/uL (0-0.1); BASOPHILS % (AUTO) 1 % (0-1); EOSINOPHILS # (AUTO) 0.48 x10^3/uL (0-0.4); EOSINOPHILS % (AUTO) 6 % (1-7); LYMPHOCYTES # (AUTO) 2.38 x10^3/uL (1-3.4); LYMPHOCYTES % (AUTO) 29 % (22-44); MD NO; MEAN CORPUSCULAR HEMOGLOBIN 29.7 pg (27.0-34.8); MEAN CORPUSCULAR HGB CONC 33.5 g/dL (32.4-35.8); MEAN CORPUSCULAR VOLUME 88.8 fL (80-100); MEAN PLATELET VOLUME 9.1 fL (7.4-10.4); MONOCYTES # (AUTO) 0.86 x10^3/uL (0.2-0.8); MONOCYTES % (AUTO) 11 % (2-9); NEUTROPHILS # (AUTO) 4.43 x10^3/uL (1.8-6.8); NEUTROPHILS % (AUTO) 54 % (42-75); PLATELET COUNT 108 x10^3/uL (130-400); RED BLOOD COUNT 2.85 x10^6/uL (3.82-5.3); RED CELL DISTRIBUTION WIDTH 18.8 % (9.6-15.2)
[2019-12-31 05:12] LABS: ALBUMIN 1.6 g/dL (3.4-5.0); ANION GAP 6 mmol/L (5-15); CALCIUM 7.6 mg/dL (8.5-10.1); CHLORIDE 110 mmol/L (98-107)
[2019-12-31 05:26] LABS: ALANINE AMINOTRANSFERASE 31 U/L (12-78); BILIRUBIN,TOTAL 0.6 mg/dL (0.2-1.0); CREATININE 0.88 mg/dL (0.55-1.02)
[2019-12-31] MEDS: LEVOTHYROXINE 75 MCG TABLET PO SCH (05:28)
[2019-12-31 05:30] LABS: ALKALINE PHOSPHATASE > 2300 U/L (45-117)
[2019-12-31] MEDS: INSULIN LISPRO 100 UNITS/ML, PEN SQ-INSULIN SCH ×4 (07:00→21:35)
[2019-12-31 08:07] VITALS: BP 107/67
[2019-12-31] MEDS: PANTOPRAZOLE 40 MG IV IVPush SCH (09:54)
[2019-12-31] MEDS: SODIUM CHLORIDE 0.9% IV SCH (09:54)
[2019-12-31] MEDS: CIPROFLOXACIN 500 MG TABLET PO SCH ×2 (09:54→21:33)
[2019-12-31] MEDS: PANCRELIPASE 5000 CAPSULE.DR PO SCH ×3 (09:54→16:33)
[2019-12-31] MEDS: ERAVACYCLINE IV SCH (09:54)
[2019-12-31] MEDS: OXYcodone IR 5MG TABLET PO PRN ×3 (09:55→23:11)
[2019-12-31] MEDS: TRIAMCINOLONE CRM 0.1%, 15GM TP SCH ×2 (09:55→21:44)
[2019-12-31] MEDS: SODIUM CHLORIDE FLUSH 10ML SYR IVF SCH ×2 (09:55→21:38)
[2019-12-31] MEDS: DAPTOMYCIN IVPB SCH (11:07)
[2019-12-31] MEDS: SODIUM CHLORIDE 0.9% IVPB SCH (11:07)
[2019-12-31 13:35] VITALS: BP 129/83
[2019-12-31] MEDS ORDERED: LORazepam 2 MG/ML, 1ML IVPush ONE (16:30)
[2019-12-31] MEDS ORDERED: AMINO ACID 10% IV SCH (17:00)
[2019-12-31] MEDS ORDERED: [UNRECOGNIZED DRUG - OTHER] IV SCH (17:00)
[2019-12-31] MEDS ORDERED: DEXTROSE 70% IV SCH (17:00)
[2019-12-31] MEDS ORDERED: FAT EMUL IV SCH (17:00)
[2019-12-31] MEDS ORDERED: SMOF TPN IV SCH (17:00)
[2019-12-31] MEDS ORDERED: OMNIPAQUE 350 MG/ML, 100ML BOTTLE ONE (17:44)
[2019-12-31] MEDS: FILTER, DISP 1.2 MICRON FOR TPN/PVN IV PRN (17:56)
[2019-12-31 20:04] VITALS: BP 130/82
[2019-12-31] MEDS: INSULIN GLARGINE 100 UNITS/ML, PEN SQ-INSULIN SCH (21:34)
[2020-01-01 02:39] VITALS: BP 150/88
[2020-01-01] MEDS: OXYcodone IR 5MG TABLET PO PRN ×3 (06:02→18:36)
[2020-01-01] MEDS: LEVOTHYROXINE 75 MCG TABLET PO SCH (06:03)
[2020-01-01 06:45] LABS: ALANINE AMINOTRANSFERASE 34 U/L (12-78); ALBUMIN 1.6 g/dL (3.4-5.0); ANION GAP 6 mmol/L (5-15); CALCIUM 7.7 mg/dL (8.5-10.1); CHLORIDE 111 mmol/L (98-107); CREATININE 0.84 mg/dL (0.55-1.02)
[2020-01-01 07:00] LABS: BILIRUBIN,TOTAL 0.4 mg/dL (0.2-1.0); TOTAL PROTEIN 4.9 g/dL (6.4-8.2)
[2020-01-01] MEDS: INSULIN LISPRO 100 UNITS/ML, PEN SQ-INSULIN SCH ×4 (07:00→21:21)
[2020-01-01 07:16] VITALS: BP 128/84
[2020-01-01 07:29] LABS: ALKALINE PHOSPHATASE > 2300 U/L (45-117)
[2020-01-01] MEDS: PANCRELIPASE 5000 CAPSULE.DR PO SCH ×3 (08:34→18:34)
[2020-01-01] MEDS: CIPROFLOXACIN 500 MG TABLET PO SCH ×2 (08:34→21:19)
[2020-01-01] MEDS: SODIUM CHLORIDE FLUSH 10ML SYR IVF SCH ×2 (08:35→21:22)
[2020-01-01] MEDS: PANTOPRAZOLE 40 MG IV IVPush SCH (08:35)
[2020-01-01] MEDS: TRIAMCINOLONE CRM 0.1%, 15GM TP SCH ×2 (08:35→21:00)
[2020-01-01] MEDS: SODIUM CHLORIDE 0.9% IVPB SCH (11:23)
[2020-01-01] MEDS: DAPTOMYCIN IVPB SCH (11:23)
[2020-01-01 15:18] VITALS: BP 114/78
[2020-01-01] MEDS ORDERED: FUROSEMIDE 20 MG/2 ML ONE ×2 (16:06→16:07)
[2020-01-01] MEDS ORDERED: [UNRECOGNIZED DRUG - OTHER] IV SCH (17:00)
[2020-01-01] MEDS ORDERED: FAT EMUL IV SCH (17:00)
[2020-01-01] MEDS ORDERED: AMINO ACID 10% IV SCH (17:00)
[2020-01-01] MEDS ORDERED: SMOF TPN IV SCH (17:00)
[2020-01-01] MEDS ORDERED: DEXTROSE 70% IV SCH (17:00)
[2020-01-01] MEDS: FILTER, DISP 1.2 MICRON FOR TPN/PVN IV PRN (18:17)
[2020-01-01 19:32] VITALS: BP 96/76
[2020-01-01] MEDS: INSULIN GLARGINE 100 UNITS/ML, PEN SQ-INSULIN SCH (21:20)
[2020-01-02 00:28] VITALS: BP 103/68
[2020-01-02] MEDS: OXYcodone IR 5MG TABLET PO PRN ×3 (00:41→16:40)
[2020-01-02 03:40] LABS: ALANINE AMINOTRANSFERASE 26 U/L (12-78); ALBUMIN 1.4 g/dL (3.4-5.0); ANION GAP 5 mmol/L (5-15); CHLORIDE 111 mmol/L (98-107); CREATININE 1.17 mg/dL (0.55-1.02)
[2020-01-02 03:54] LABS: BILIRUBIN,TOTAL 0.4 mg/dL (0.2-1.0); TOTAL PROTEIN 4.7 g/dL (6.4-8.2)
[2020-01-02 04:28] LABS: ALKALINE PHOSPHATASE > 2300 U/L (45-117)
[2020-01-02] MEDS: LEVOTHYROXINE 75 MCG TABLET PO SCH (05:46)
[2020-01-02 07:22] VITALS: BP 130/81
[2020-01-02] MEDS: PANTOPRAZOLE 40 MG IV IVPush SCH (08:13)
[2020-01-02] MEDS: INSULIN LISPRO 100 UNITS/ML, PEN SQ-INSULIN SCH ×4 (08:13→20:35)
[2020-01-02] MEDS: PANCRELIPASE 5000 CAPSULE.DR PO SCH ×3 (08:14→16:40)
[2020-01-02] MEDS: TRIAMCINOLONE CRM 0.1%, 15GM TP SCH ×2 (08:14→20:35)
[2020-01-02] MEDS: CIPROFLOXACIN 500 MG TABLET PO SCH ×2 (08:14→20:34)
[2020-01-02] MEDS: SODIUM CHLORIDE FLUSH 10ML SYR IVF SCH ×2 (08:15→20:34)
[2020-01-02] MEDS: DAPTOMYCIN IVPB SCH (13:19)
[2020-01-02] MEDS: SODIUM CHLORIDE 0.9% IVPB SCH (13:19)
[2020-01-02 13:52] VITALS: BP 118/77
[2020-01-02] MEDS: FILTER, DISP 1.2 MICRON FOR TPN/PVN IV PRN (16:40)
[2020-01-02] MEDS ORDERED: [UNRECOGNIZED DRUG - OTHER] IV SCH (17:00)
[2020-01-02] MEDS ORDERED: DEXTROSE 70% IV SCH (17:00)
[2020-01-02] MEDS ORDERED: SMOF TPN IV SCH (17:00)
[2020-01-02] MEDS ORDERED: FAT EMUL IV SCH (17:00)
[2020-01-02] MEDS ORDERED: AMINO ACID 10% IV SCH (17:00)
[2020-01-02 18:57] VITALS: BP 105/71
[2020-01-02] MEDS: OPIUM/BELLADONNA SUPP.RECT 16.2-60 MG PR PRN (20:19)
[2020-01-02] MEDS: INSULIN GLARGINE 100 UNITS/ML, PEN SQ-INSULIN SCH (20:35)
[2020-01-03] MEDS: OPIUM/BELLADONNA SUPP.RECT 16.2-60 MG PR PRN ×3 (00:26→21:09)
[2020-01-03] MEDS: ACETAMINOPHEN 325 MG TABLET PO PRN (00:26)
[2020-01-03] MEDS: OXYcodone IR 5MG TABLET PO PRN ×3 (00:27→17:48)
[2020-01-03 00:38] VITALS: BP 106/70
[2020-01-03] MEDS: LEVOTHYROXINE 75 MCG TABLET PO SCH (05:25)
[2020-01-03 05:39] LABS: CHLORIDE 105 mmol/L (98-107)
[2020-01-03 05:59] LABS: ALANINE AMINOTRANSFERASE 17 U/L (12-78); ALBUMIN 1.3 g/dL (3.4-5.0); ALKALINE PHOSPHATASE 2049 U/L (45-117); ANION GAP 6 mmol/L (5-15); BILIRUBIN,TOTAL 0.3 mg/dL (0.2-1.0); CALCIUM 6.8 mg/dL (8.5-10.1); CREATININE 1.23 mg/dL (0.55-1.02); TOTAL PROTEIN 4.4 g/dL (6.4-8.2)
[2020-01-03] MEDS: SODIUM CHLORIDE FLUSH 10ML SYR IVF SCH ×2 (09:00→21:08)
[2020-01-03 09:25] VITALS: BP 106/67
[2020-01-03] MEDS: TRIAMCINOLONE CRM 0.1%, 15GM TP SCH ×2 (09:54→21:00)
[2020-01-03] MEDS: INSULIN LISPRO 100 UNITS/ML, PEN SQ-INSULIN SCH ×4 (09:54→21:00)
[2020-01-03] MEDS: PANCRELIPASE 5000 CAPSULE.DR PO SCH ×3 (09:54→17:12)
[2020-01-03] MEDS: CIPROFLOXACIN 500 MG TABLET PO SCH ×2 (09:54→21:09)
[2020-01-03] MEDS: PANTOPRAZOLE 40 MG IV IVPush SCH (09:54)
[2020-01-03] MEDS: SODIUM CHLORIDE 0.9% IVPB SCH (12:00)
[2020-01-03] MEDS: DAPTOMYCIN IVPB SCH (12:00)
[2020-01-03 13:45] VITALS: BP 97/62
[2020-01-03] MEDS ORDERED: DEXTROSE 70% IV SCH (17:00)
[2020-01-03] MEDS ORDERED: SMOF TPN IV SCH (17:00)
[2020-01-03] MEDS ORDERED: FAT EMUL IV SCH (17:00)
[2020-01-03] MEDS ORDERED: AMINO ACID 10% IV SCH (17:00)
[2020-01-03] MEDS ORDERED: [UNRECOGNIZED DRUG - OTHER] IV SCH (17:00)
[2020-01-03] MEDS: FILTER, DISP 1.2 MICRON FOR TPN/PVN IV PRN (17:12)
[2020-01-03 19:27] VITALS: BP 99/68
[2020-01-03] MEDS: INSULIN GLARGINE 100 UNITS/ML, PEN SQ-INSULIN SCH (21:58)
[2020-01-04 00:10] VITALS: BP 113/76
[2020-01-04] MEDS: OXYcodone IR 5MG TABLET PO PRN ×3 (00:29→22:00)
[2020-01-04] MEDS: LEVOTHYROXINE 75 MCG TABLET PO SCH (04:55)
[2020-01-04 05:09] LABS: ALANINE AMINOTRANSFERASE 14 U/L (12-78); ALBUMIN 1.3 g/dL (3.4-5.0); ANION GAP 6 mmol/L (5-15); CHLORIDE 104 mmol/L (98-107); CREATININE 1.11 mg/dL (0.55-1.02)
[2020-01-04 05:13] LABS: HCT (SEDRATE) 22.1 % (34.6-47.8)
[2020-01-04 05:26] LABS: ALKALINE PHOSPHATASE 1669 U/L (45-117); BILIRUBIN,TOTAL 0.3 mg/dL (0.2-1.0); PREALBUMIN 7.1 mg/dL (20.0-40.0); TOTAL PROTEIN 4.6 g/dL (6.4-8.2); TRIGLYCERIDES 60 mg/dL (50-200)
[2020-01-04 07:49] VITALS: BP 132/84
[2020-01-04] MEDS: TRIAMCINOLONE CRM 0.1%, 15GM TP SCH ×2 (09:00→21:00)
[2020-01-04] MEDS: SODIUM CHLORIDE FLUSH 10ML SYR IVF SCH ×2 (09:00→22:05)
[2020-01-04] MEDS: CIPROFLOXACIN 500 MG TABLET PO SCH ×2 (10:00→22:06)
[2020-01-04] MEDS: PANTOPRAZOLE 40 MG IV IVPush SCH (10:00)
[2020-01-04] MEDS: INSULIN LISPRO 100 UNITS/ML, PEN SQ-INSULIN SCH ×4 (10:00→22:02)
[2020-01-04] MEDS: PANCRELIPASE 5000 CAPSULE.DR PO SCH ×3 (10:00→17:00)
[2020-01-04] MEDS: DAPTOMYCIN IVPB SCH (11:15)
[2020-01-04] MEDS: SODIUM CHLORIDE 0.9% IVPB SCH (11:15)
[2020-01-04 13:09] VITALS: BP 93/60
[2020-01-04] MEDS: INSULIN GLARGINE 100 UNITS/ML, PEN SQ-INSULIN SCH (16:59)
[2020-01-04] MEDS ORDERED: [UNRECOGNIZED DRUG - OTHER] IV SCH (17:00)
[2020-01-04] MEDS ORDERED: SMOF TPN IV SCH ×2 (17:00)
[2020-01-04] MEDS ORDERED: [UNRECOGNIZED DRUG - OTHER] IV SCH (17:00)
[2020-01-04] MEDS ORDERED: AMINO ACID 10% IV SCH ×2 (17:00)
[2020-01-04] MEDS ORDERED: FAT EMUL IV SCH ×2 (17:00)
[2020-01-04] MEDS: OPIUM/BELLADONNA SUPP.RECT 16.2-60 MG PR PRN (17:00)
[2020-01-04] MEDS ORDERED: DEXTROSE 70% IV SCH ×2 (17:00)
[2020-01-04] MEDS: FILTER, DISP 1.2 MICRON FOR TPN/PVN IV PRN (17:00)
[2020-01-04 19:22] VITALS: BP 97/64
[2020-01-04] MEDS ORDERED: INSULIN LISPRO 100 UNIT/ML, 3ML VIAL SQ-INSULIN ONE (22:30)
[2020-01-05 01:20] VITALS: BP 97/54
[2020-01-05] MEDS: LEVOTHYROXINE 75 MCG TABLET PO SCH (05:36)
[2020-01-05] MEDS: OXYcodone IR 5MG TABLET PO PRN ×2 (05:36→17:22)
[2020-01-05 06:31] LABS: CHLORIDE 104 mmol/L (98-107)
[2020-01-05 06:55] LABS: ALANINE AMINOTRANSFERASE 12 U/L (12-78); ALBUMIN 1.4 g/dL (3.4-5.0); ALKALINE PHOSPHATASE 1658 U/L (45-117); ANION GAP 6 mmol/L (5-15); BILIRUBIN,TOTAL 0.3 mg/dL (0.2-1.0); CALCIUM 7.6 mg/dL (8.5-10.1); CREATININE 1.04 mg/dL (0.55-1.02)
[2020-01-05] MEDS: INSULIN LISPRO 100 UNITS/ML, PEN SQ-INSULIN SCH ×4 (07:00→21:01)
[2020-01-05] MEDS: CIPROFLOXACIN 500 MG TABLET PO SCH ×2 (08:36→21:02)
[2020-01-05] MEDS: PANCRELIPASE 5000 CAPSULE.DR PO SCH ×3 (08:36→17:22)
[2020-01-05] MEDS: TRIAMCINOLONE CRM 0.1%, 15GM TP SCH ×2 (08:36→21:00)
[2020-01-05] MEDS: PANTOPRAZOLE 40 MG IV IVPush SCH (08:36)
[2020-01-05] MEDS: SODIUM CHLORIDE FLUSH 10ML SYR IVF SCH ×2 (08:36→21:00)
[2020-01-05 08:58] VITALS: BP 95/62
[2020-01-05] MEDS: SODIUM CHLORIDE 0.9% IVPB SCH (13:06)
[2020-01-05] MEDS: DAPTOMYCIN IVPB SCH (13:06)
[2020-01-05] MEDS: OPIUM/BELLADONNA SUPP.RECT 16.2-60 MG PR PRN (13:07)
[2020-01-05 14:00] VITALS: BP 95/62
[2020-01-05 16:51] VITALS: BP 116/73
[2020-01-05] MEDS ORDERED: [UNRECOGNIZED DRUG - OTHER] IV SCH (17:00)
[2020-01-05] MEDS ORDERED: DEXTROSE 70% IV SCH (17:00)
[2020-01-05] MEDS ORDERED: SMOF TPN IV SCH (17:00)
[2020-01-05] MEDS ORDERED: AMINO ACID 10% IV SCH (17:00)
[2020-01-05] MEDS ORDERED: FAT EMUL IV SCH (17:00)
[2020-01-05] MEDS: FILTER, DISP 1.2 MICRON FOR TPN/PVN IV PRN (17:23)
[2020-01-05 20:45] VITALS: BP 111/72
[2020-01-05] MEDS ORDERED: INSULIN GLARGINE 100 UNITS/ML, PEN SQ-INSULIN SCH (21:00)
[2020-01-05 23:16] VITALS: BP 143/81
[2020-01-06 02:00] VITALS: BP 143/81
[2020-01-06] MEDS: LEVOTHYROXINE 75 MCG TABLET PO SCH (06:26)
[2020-01-06] MEDS ORDERED: INSULIN LISPRO 100 UNITS/ML, PEN SQ-INSULIN SCH (06:30)
[2020-01-06 06:47] LABS: ALANINE AMINOTRANSFERASE 14 U/L (12-78); ALBUMIN 1.5 g/dL (3.4-5.0); ANION GAP 4 mmol/L (5-15); CALCIUM 7.8 mg/dL (8.5-10.1); CHLORIDE 104 mmol/L (98-107)
[2020-01-06] MEDS: INSULIN LISPRO 100 UNITS/ML, PEN SQ-INSULIN SCH ×5 (07:00→21:08)
[2020-01-06 07:01] LABS: ALKALINE PHOSPHATASE 1435 U/L (45-117); BILIRUBIN,TOTAL 0.2 mg/dL (0.2-1.0); TOTAL PROTEIN 5.3 g/dL (6.4-8.2)
[2020-01-06 07:29] VITALS: BP 138/80
[2020-01-06] MEDS: PANCRELIPASE 5000 CAPSULE.DR PO SCH ×3 (08:31→17:27)
[2020-01-06] MEDS: PANTOPRAZOLE 40 MG IV IVPush SCH (08:31)
[2020-01-06] MEDS: CIPROFLOXACIN 500 MG TABLET PO SCH ×2 (08:32→20:55)
[2020-01-06] MEDS: SODIUM CHLORIDE FLUSH 10ML SYR IVF SCH ×2 (08:32→20:00)
[2020-01-06] MEDS: OXYcodone IR 5MG TABLET PO PRN ×2 (08:55→15:53)
[2020-01-06] MEDS: TRIAMCINOLONE CRM 0.1%, 15GM TP SCH ×2 (09:00→20:00)
[2020-01-06] MEDS ORDERED: INSULIN LISPRO 100 UNIT/ML, 3ML VIAL SQ-INSULIN ONE (12:00)
[2020-01-06] MEDS: DAPTOMYCIN IVPB SCH (12:10)
[2020-01-06] MEDS: SODIUM CHLORIDE 0.9% IVPB SCH (12:10)
[2020-01-06 13:37] VITALS: BP 121/75
[2020-01-06] MEDS: INSULIN GLARGINE 100 UNITS/ML, PEN SQ-INSULIN SCH (17:26)
[2020-01-06] MEDS ORDERED: DEXTROSE 4 GM TAB.CHEW PO PRN (17:30)
[2020-01-06 19:50] VITALS: BP 116/71
[2020-01-07 01:06] VITALS: BP 109/67
[2020-01-07 02:57] LABS: CHLORIDE 106 mmol/L (98-107)
[2020-01-07 02:58] LABS: ALANINE AMINOTRANSFERASE 17 U/L (12-78); ALBUMIN 1.5 g/dL (3.4-5.0); ANION GAP 2 mmol/L (5-15); CALCIUM 7.6 mg/dL (8.5-10.1)
[2020-01-07 03:11] LABS: ALKALINE PHOSPHATASE 1420 U/L (45-117); BILIRUBIN,TOTAL 0.2 mg/dL (0.2-1.0); TOTAL PROTEIN 5.3 g/dL (6.4-8.2)
[2020-01-07] MEDS: LEVOTHYROXINE 75 MCG TABLET PO SCH (06:00)
[2020-01-07 06:36] VITALS: BP 135/81
[2020-01-07] MEDS: PANCRELIPASE 5000 CAPSULE.DR PO SCH ×3 (07:52→17:09)
[2020-01-07] MEDS: OXYcodone IR 5MG TABLET PO PRN ×3 (08:05→18:13)
[2020-01-07] MEDS: PANTOPRAZOLE 40 MG IV IVPush SCH (08:05)
[2020-01-07] MEDS: CIPROFLOXACIN 500 MG TABLET PO SCH ×2 (08:06→20:42)
[2020-01-07] MEDS: SODIUM CHLORIDE FLUSH 10ML SYR IVF SCH ×2 (08:06→20:27)
[2020-01-07] MEDS: TRIAMCINOLONE CRM 0.1%, 15GM TP SCH ×2 (09:00→20:43)
[2020-01-07] MEDS: INSULIN LISPRO 100 UNITS/ML, PEN SQ-INSULIN SCH ×4 (09:29→20:43)
[2020-01-07] MEDS: DAPTOMYCIN IVPB SCH (11:59)
[2020-01-07] MEDS: SODIUM CHLORIDE 0.9% IVPB SCH (11:59)
[2020-01-07 13:00] VITALS: BP 113/80
[2020-01-07] MEDS: INSULIN GLARGINE 100 UNITS/ML, PEN SQ-INSULIN SCH (16:39)
[2020-01-07 18:19] LABS: MICROSCOPIC INDICATED
[2020-01-07 20:43] VITALS: BP 135/85
[2020-01-08 01:01] VITALS: BP 152/87
[2020-01-08 01:48] VITALS: BP 148/99
[2020-01-08] MEDS: LEVOTHYROXINE 75 MCG TABLET PO SCH (05:57)
[2020-01-08] MEDS: OXYcodone IR 5MG TABLET PO PRN ×3 (05:58→21:27)
[2020-01-08 06:12] LABS: CHLORIDE 109 mmol/L (98-107)
[2020-01-08 06:30] LABS: ALANINE AMINOTRANSFERASE 21 U/L (12-78); ANION GAP 6 mmol/L (5-15); BILIRUBIN,TOTAL 0.2 mg/dL (0.2-1.0); CALCIUM 7.9 mg/dL (8.5-10.1)
[2020-01-08 06:31] LABS: ALBUMIN 1.6 g/dL (3.4-5.0); ALKALINE PHOSPHATASE 1395 U/L (45-117); TOTAL PROTEIN 5.7 g/dL (6.4-8.2)
[2020-01-08] MEDS: INSULIN LISPRO 100 UNITS/ML, PEN SQ-INSULIN SCH ×4 (07:00→21:29)
[2020-01-08 07:15] VITALS: BP 160/89
[2020-01-08] MEDS ORDERED: INSULIN LISPRO 100 UNITS/ML, PEN SQ-INSULIN SCH (07:15)
[2020-01-08] MEDS: TRIAMCINOLONE CRM 0.1%, 15GM TP SCH ×2 (09:00→21:27)
[2020-01-08] MEDS: SODIUM CHLORIDE FLUSH 10ML SYR IVF SCH ×2 (09:02→21:27)
[2020-01-08] MEDS: CIPROFLOXACIN 500 MG TABLET PO SCH ×2 (09:02→21:27)
[2020-01-08] MEDS: PANCRELIPASE 5000 CAPSULE.DR PO SCH ×3 (09:03→17:18)
[2020-01-08] MEDS: PANTOPRAZOLE 40 MG IV IVPush SCH (09:03)
[2020-01-08] MEDS: SODIUM CHLORIDE 0.9% IVPB SCH (13:24)
[2020-01-08] MEDS: DAPTOMYCIN IVPB SCH (13:24)
[2020-01-08 13:34] VITALS: BP 103/70
[2020-01-08] MEDS: OPIUM/BELLADONNA SUPP.RECT 16.2-60 MG PR PRN (16:39)
[2020-01-08] MEDS ORDERED: INSULIN GLARGINE 100 UNITS/ML, PEN SQ-INSULIN SCH (17:00)
[2020-01-08 20:19] VITALS: BP 109/75
[2020-01-09 01:44] VITALS: BP 111/73
[2020-01-09 04:52] LABS: CHLORIDE 108 mmol/L (98-107)
[2020-01-09 05:12] LABS: ALANINE AMINOTRANSFERASE 20 U/L (12-78); ALBUMIN 1.6 g/dL (3.4-5.0); ALKALINE PHOSPHATASE 1255 U/L (45-117); ANION GAP 3 mmol/L (5-15); BILIRUBIN,TOTAL 0.8 mg/dL (0.2-1.0); CALCIUM 7.8 mg/dL (8.5-10.1); CREATININE 1.01 mg/dL (0.55-1.02); TOTAL PROTEIN 5.5 g/dL (6.4-8.2)
[2020-01-09] MEDS: OXYcodone IR 5MG TABLET PO PRN ×3 (06:07→18:18)
[2020-01-09] MEDS: LEVOTHYROXINE 75 MCG TABLET PO SCH (06:07)
[2020-01-09 07:38] VITALS: BP 132/82
[2020-01-09] MEDS: INSULIN LISPRO 100 UNITS/ML, PEN SQ-INSULIN SCH ×4 (09:26→21:00)
[2020-01-09] MEDS: PANCRELIPASE 5000 CAPSULE.DR PO SCH ×3 (09:26→16:54)
[2020-01-09] MEDS: PANTOPRAZOLE 40 MG IV IVPush SCH (09:27)
[2020-01-09] MEDS: TRIAMCINOLONE CRM 0.1%, 15GM TP SCH ×2 (09:27→21:00)
[2020-01-09] MEDS: CIPROFLOXACIN 500 MG TABLET PO SCH ×2 (09:27→21:17)
[2020-01-09] MEDS: SODIUM CHLORIDE FLUSH 10ML SYR IVF SCH ×2 (09:29→21:17)
[2020-01-09] MEDS: SODIUM CHLORIDE 0.9% IVPB SCH (12:30)
[2020-01-09] MEDS: DAPTOMYCIN IVPB SCH (12:30)
[2020-01-09 13:17] VITALS: BP 111/73
[2020-01-09] MEDS: INSULIN GLARGINE 100 UNITS/ML, PEN SQ-INSULIN SCH (16:55)
[2020-01-09] MEDS ORDERED: INSULIN GLARGINE 100 UNITS/ML, PEN SQ-INSULIN SCH (17:00)
[2020-01-09 18:27] VITALS: BP 103/66
[2020-01-10 01:30] VITALS: BP 136/78
[2020-01-10] MEDS: LEVOTHYROXINE 75 MCG TABLET PO SCH (05:29)
[2020-01-10 05:39] LABS: ALANINE AMINOTRANSFERASE 29 U/L (12-78); ALBUMIN 1.7 g/dL (3.4-5.0); ANION GAP 3 mmol/L (5-15); CALCIUM 7.9 mg/dL (8.5-10.1); CHLORIDE 108 mmol/L (98-107)
[2020-01-10 05:53] LABS: ALKALINE PHOSPHATASE 1262 U/L (45-117); BILIRUBIN,TOTAL 0.6 mg/dL (0.2-1.0); CREATININE 1.15 mg/dL (0.55-1.02); TOTAL PROTEIN 5.8 g/dL (6.4-8.2)
[2020-01-10] MEDS ORDERED: INSULIN LISPRO 100 UNIT/ML, 3ML VIAL SQ-INSULIN ONE ×2 (06:30→17:30)
[2020-01-10] MEDS ORDERED: INSULIN GLARGINE 100 UNITS/ML, PEN SQ-INSULIN ONE (06:30)
[2020-01-10 07:23] VITALS: BP 122/80
[2020-01-10] MEDS: TRIAMCINOLONE CRM 0.1%, 15GM TP SCH ×2 (08:18→20:16)
[2020-01-10] MEDS: PANCRELIPASE 5000 CAPSULE.DR PO SCH ×3 (08:18→17:19)
[2020-01-10] MEDS: CIPROFLOXACIN 500 MG TABLET PO SCH ×2 (08:18→20:08)
[2020-01-10] MEDS: PANTOPRAZOLE 40 MG IV IVPush SCH (08:18)
[2020-01-10] MEDS: SODIUM CHLORIDE FLUSH 10ML SYR IVF SCH ×2 (08:18→20:12)
[2020-01-10] MEDS: INSULIN LISPRO 100 UNITS/ML, PEN SQ-INSULIN SCH ×4 (08:35→22:23)
[2020-01-10] MEDS: OXYcodone IR 5MG TABLET PO PRN ×2 (09:26→17:19)
[2020-01-10] MEDS: SODIUM CHLORIDE 0.9% IVPB SCH (11:04)
[2020-01-10] MEDS: DAPTOMYCIN IVPB SCH (11:04)
[2020-01-10] MEDS ORDERED: INSULIN LISPRO 100 UNITS/ML, PEN SQ-INSULIN ONE (12:00)
[2020-01-10 12:57] VITALS: BP 116/76
[2020-01-10] MEDS: INSULIN GLARGINE 100 UNITS/ML, PEN SQ-INSULIN SCH (17:20)
[2020-01-10 20:24] VITALS: BP 115/78
[2020-01-11 00:48] VITALS: BP 166/94
[2020-01-11] MEDS: OXYcodone IR 5MG TABLET PO PRN ×3 (01:11→17:22)
[2020-01-11 01:12] VITALS: BP 156/92
[2020-01-11] MEDS: LEVOTHYROXINE 75 MCG TABLET PO SCH (05:35)
[2020-01-11 06:24] LABS: BASOPHILS # (AUTO) 0.05 x10^3/uL (0-0.1); BASOPHILS % (AUTO) 0 % (0-1); EOSINOPHILS # (AUTO) 0.35 x10^3/uL (0-0.4); EOSINOPHILS % (AUTO) 3 % (1-7); LYMPHOCYTES # (AUTO) 2.23 x10^3/uL (1-3.4); LYMPHOCYTES % (AUTO) 22 % (22-44); MD NO; MEAN CORPUSCULAR HEMOGLOBIN 29.3 pg (27.0-34.8); MEAN CORPUSCULAR HGB CONC 32.6 g/dL (32.4-35.8); MEAN CORPUSCULAR VOLUME 89.8 fL (80-100); MEAN PLATELET VOLUME 6.8 fL (7.4-10.4); MONOCYTES # (AUTO) 1.03 x10^3/uL (0.2-0.8); MONOCYTES % (AUTO) 10 % (2-9); NEUTROPHILS # (AUTO) 6.74 x10^3/uL (1.8-6.8); NEUTROPHILS % (AUTO) 65 % (42-75); PLATELET COUNT 325 x10^3/uL (130-400); RED BLOOD COUNT 2.86 x10^6/uL (3.82-5.3)
[2020-01-11 06:25] LABS: HCT (SEDRATE) 25.6 % (34.6-47.8)
[2020-01-11 06:36] LABS: ALBUMIN 1.9 g/dL (3.4-5.0); ANION GAP 6 mmol/L (5-15); CALCIUM 8.3 mg/dL (8.5-10.1); CHLORIDE 110 mmol/L (98-107)
[2020-01-11 06:52] LABS: ALANINE AMINOTRANSFERASE 33 U/L (12-78); ALKALINE PHOSPHATASE 1162 U/L (45-117); BILIRUBIN,TOTAL 0.2 mg/dL (0.2-1.0); C-REACTIVE PROTEIN, QUANT 0.36 mg/dL (0.02-0.49); CREATININE 0.95 mg/dL (0.55-1.02); TOTAL PROTEIN 5.8 g/dL (6.4-8.2)
[2020-01-11] MEDS: INSULIN LISPRO 100 UNITS/ML, PEN SQ-INSULIN SCH ×4 (07:00→21:00)
[2020-01-11 08:16] VITALS: BP 114/79
[2020-01-11] MEDS: PANCRELIPASE 5000 CAPSULE.DR PO SCH ×3 (08:24→17:21)
[2020-01-11] MEDS: CIPROFLOXACIN 500 MG TABLET PO SCH ×2 (08:25→21:03)
[2020-01-11] MEDS: PANTOPRAZOLE 40 MG IV IVPush SCH (08:25)
[2020-01-11] MEDS: TRIAMCINOLONE CRM 0.1%, 15GM TP SCH ×3 (08:28→21:00)
[2020-01-11] MEDS ORDERED: INSULIN GLARGINE 100 UNITS/ML, PEN SQ-INSULIN ONE (08:30)
[2020-01-11] MEDS: SODIUM CHLORIDE FLUSH 10ML SYR IVF SCH ×2 (09:00→21:04)
[2020-01-11] MEDS: SODIUM CHLORIDE 0.9% IVPB SCH (12:06)
[2020-01-11] MEDS: DAPTOMYCIN IVPB SCH (12:06)
[2020-01-11] MEDS: ACETAMINOPHEN 325 MG TABLET PO PRN (12:34)
[2020-01-11 12:50] VITALS: BP 99/67
[2020-01-11] MEDS: INSULIN GLARGINE 100 UNITS/ML, PEN SQ-INSULIN SCH (17:21)
[2020-01-11 19:01] VITALS: BP 93/60
[2020-01-12 03:47] VITALS: BP 114/79
[2020-01-12] MEDS: LEVOTHYROXINE 75 MCG TABLET PO SCH (05:12)
[2020-01-12] MEDS: OXYcodone IR 5MG TABLET PO PRN ×3 (05:24→20:17)
[2020-01-12 05:30] LABS: BASOPHILS # (AUTO) 0.05 x10^3/uL (0-0.1); BASOPHILS % (AUTO) 0 % (0-1); EOSINOPHILS # (AUTO) 0.35 x10^3/uL (0-0.4); EOSINOPHILS % (AUTO) 3 % (1-7); LYMPHOCYTES # (AUTO) 2.12 x10^3/uL (1-3.4); LYMPHOCYTES % (AUTO) 19 % (22-44); MD NO; MEAN CORPUSCULAR HEMOGLOBIN 29.6 pg (27.0-34.8); MEAN CORPUSCULAR HGB CONC 33.1 g/dL (32.4-35.8); MEAN CORPUSCULAR VOLUME 89.4 fL (80-100); MEAN PLATELET VOLUME 6.7 fL (7.4-10.4); MONOCYTES % (AUTO) 8 % (2-9); NEUTROPHILS # (AUTO) 7.64 x10^3/uL (1.8-6.8); NEUTROPHILS % (AUTO) 69 % (42-75); PLATELET COUNT 334 x10^3/uL (130-400); RED BLOOD COUNT 2.89 x10^6/uL (3.82-5.3); RED CELL DISTRIBUTION WIDTH 17.1 % (9.6-15.2)
[2020-01-12 05:37] LABS: ALANINE AMINOTRANSFERASE 43 U/L (12-78); ALBUMIN 1.9 g/dL (3.4-5.0); ANION GAP 4 mmol/L (5-15); CALCIUM 8.1 mg/dL (8.5-10.1); CHLORIDE 113 mmol/L (98-107); CREATININE 0.96 mg/dL (0.55-1.02)
[2020-01-12 05:52] LABS: ALKALINE PHOSPHATASE 1043 U/L (45-117); BILIRUBIN,TOTAL 0.3 mg/dL (0.2-1.0); CREATINE KINASE, TOTAL 1963 U/L (26-192); TOTAL PROTEIN 5.8 g/dL (6.4-8.2)
[2020-01-12] MEDS: INSULIN LISPRO 100 UNITS/ML, PEN SQ-INSULIN SCH ×4 (08:01→20:18)
[2020-01-12 08:21] VITALS: BP 92/66
[2020-01-12] MEDS: PANCRELIPASE 5000 CAPSULE.DR PO SCH ×3 (08:21→17:14)
[2020-01-12] MEDS: CIPROFLOXACIN 500 MG TABLET PO SCH ×2 (08:21→20:17)
[2020-01-12] MEDS: PANTOPRAZOLE 40 MG IV IVPush SCH (08:22)
[2020-01-12] MEDS: INSULIN GLARGINE 100 UNITS/ML, PEN SQ-INSULIN SCH ×2 (08:22→20:18)
[2020-01-12] MEDS: TRIAMCINOLONE CRM 0.1%, 15GM TP SCH ×2 (08:23→20:21)
[2020-01-12] MEDS: SODIUM CHLORIDE FLUSH 10ML SYR IVF SCH ×2 (08:23→20:25)
[2020-01-12] MEDS: DAPTOMYCIN IVPB SCH (11:53)
[2020-01-12] MEDS: SODIUM CHLORIDE 0.9% IVPB SCH (11:53)
[2020-01-12 14:15] VITALS: BP 109/72
[2020-01-12] MEDS ORDERED: DAPTOMYCIN 350 MG in SODIUM CHLORIDE 0.9% 100 ML IVPB SCH (15:39)
[2020-01-12 19:29] VITALS: BP 107/74
[2020-01-13 01:38] VITALS: BP 162/92
[2020-01-13] MEDS: OXYcodone IR 5MG TABLET PO PRN ×4 (05:37→23:04)
[2020-01-13] MEDS: PANTOPROZOLE 40MG TABLET PO SCH (05:37)
[2020-01-13] MEDS: LEVOTHYROXINE 75 MCG TABLET PO SCH (05:37)
[2020-01-13 06:17] LABS: BASOPHILS # (AUTO) 0.02 x10^3/uL (0-0.1); BASOPHILS % (AUTO) 0 % (0-1); EOSINOPHILS # (AUTO) 0.41 x10^3/uL (0-0.4); EOSINOPHILS % (AUTO) 4 % (1-7); LYMPHOCYTES # (AUTO) 2.14 x10^3/uL (1-3.4); LYMPHOCYTES % (AUTO) 19 % (22-44); MD NO; MEAN CORPUSCULAR HEMOGLOBIN 29.6 pg (27.0-34.8); MEAN CORPUSCULAR HGB CONC 33.1 g/dL (32.4-35.8); MEAN CORPUSCULAR VOLUME 89.2 fL (80-100); MEAN PLATELET VOLUME 6.7 fL (7.4-10.4); MONOCYTES # (AUTO) 1.02 x10^3/uL (0.2-0.8); MONOCYTES % (AUTO) 9 % (2-9); NEUTROPHILS # (AUTO) 7.52 x10^3/uL (1.8-6.8); NEUTROPHILS % (AUTO) 68 % (42-75); PLATELET COUNT 329 x10^3/uL (130-400); RED BLOOD COUNT 2.93 x10^6/uL (3.82-5.3); RED CELL DISTRIBUTION WIDTH 18.1 % (9.6-15.2)
[2020-01-13 06:29] LABS: ANION GAP 4 mmol/L (5-15); CALCIUM 8.5 mg/dL (8.5-10.1); CHLORIDE 114 mmol/L (98-107)
[2020-01-13 06:31] LABS: CREATININE 0.89 mg/dL (0.55-1.02)
[2020-01-13 07:26] VITALS: BP 137/81
[2020-01-13] MEDS: INSULIN LISPRO 100 UNITS/ML, PEN SQ-INSULIN SCH ×4 (08:11→20:58)
[2020-01-13] MEDS: INSULIN GLARGINE 100 UNITS/ML, PEN SQ-INSULIN SCH ×2 (08:11→20:58)
[2020-01-13] MEDS: CIPROFLOXACIN 500 MG TABLET PO SCH ×2 (08:11→20:57)
[2020-01-13] MEDS: PANCRELIPASE 5000 CAPSULE.DR PO SCH ×3 (08:11→17:21)
[2020-01-13] MEDS: TRIAMCINOLONE CRM 0.1%, 15GM TP SCH ×2 (08:12→20:58)
[2020-01-13] MEDS: SODIUM CHLORIDE FLUSH 10ML SYR IVF SCH ×2 (08:12→20:59)
[2020-01-13] MEDS ORDERED: MAGNESIUM SULFATE PMX 2GM/50ML 50 ML IV ONE (10:00)
[2020-01-13] MEDS ORDERED: DAPTOMYCIN 350 MG in SODIUM CHLORIDE 0.9% 100 ML IVPB SCH (11:00)
[2020-01-13 12:33] VITALS: BP 100/66
--- NOTE | 2020-01-13 16:33 | NUR ---
Activity sheet posted with recommendation of assisting pt to chair 2x/day for 30minutes at least. Addendum: 01/13/20 at 1633 by Jony Palomares PT Amended: Links added.
[2020-01-13] MEDS: LINEZOLID 600 MG TABLET PO SCH (20:57)
[2020-01-13 21:39] VITALS: BP 111/68
[2020-01-13 23:31] LABS: CULTURE INDICATED? YES; MICROSCOPIC INDICATED
[2020-01-14 03:50] VITALS: BP 147/76
[2020-01-14] MEDS: OXYcodone IR 5MG TABLET PO PRN ×3 (04:23→19:59)
[2020-01-14] MEDS: LEVOTHYROXINE 75 MCG TABLET PO SCH (04:23)
[2020-01-14] MEDS: PANTOPROZOLE 40MG TABLET PO SCH (04:23)
[2020-01-14 05:08] LABS: ALANINE AMINOTRANSFERASE 76 U/L (12-78); ANION GAP 4 mmol/L (5-15); BILIRUBIN, DIRECT 0.1 mg/dL (0.1-0.2); CALCIUM 8.1 mg/dL (8.5-10.1); CHLORIDE 114 mmol/L (98-107); CREATININE 1.44 mg/dL (0.55-1.02)
[2020-01-14 05:21] LABS: ALKALINE PHOSPHATASE 881 U/L (45-117); BILIRUBIN,INDIRECT 0.2 mg/dL (0.0-2.0); BILIRUBIN,TOTAL 0.3 mg/dL (0.2-1.0); CREATINE KINASE, TOTAL 5105 U/L (26-192)
[2020-01-14 07:36] VITALS: BP 167/94
[2020-01-14] MEDS: CIPROFLOXACIN 500 MG TABLET PO SCH ×2 (08:18→20:47)
[2020-01-14] MEDS: PANCRELIPASE 5000 CAPSULE.DR PO SCH ×3 (08:18→17:23)
[2020-01-14] MEDS: LINEZOLID 600 MG TABLET PO SCH ×2 (08:18→20:47)
[2020-01-14] MEDS: SODIUM CHLORIDE FLUSH 10ML SYR IVF SCH ×2 (08:19→20:48)
[2020-01-14] MEDS: ACETAMINOPHEN 325 MG TABLET PO PRN (08:19)
[2020-01-14] MEDS: INSULIN LISPRO 100 UNITS/ML, PEN SQ-INSULIN SCH ×4 (08:20→20:48)
[2020-01-14] MEDS: INSULIN GLARGINE 100 UNITS/ML, PEN SQ-INSULIN SCH ×2 (08:20→20:47)
[2020-01-14] MEDS: TRIAMCINOLONE CRM 0.1%, 15GM TP SCH ×2 (08:21→20:50)
[2020-01-14] MEDS ORDERED: SODIUM BICARB 8.4%, 50ML SYRINGE IVPush ONE (12:00)
[2020-01-14 13:26] VITALS: BP 124/78
[2020-01-14 19:03] LABS: ANION GAP 6 mmol/L (5-15); CALCIUM 8.2 mg/dL (8.5-10.1); CHLORIDE 112 mmol/L (98-107); CREATININE 1.07 mg/dL (0.55-1.02)
[2020-01-14 19:07] VITALS: BP 123/83
[2020-01-15 00:53] VITALS: BP 126/76
[2020-01-15] MEDS: LEVOTHYROXINE 75 MCG TABLET PO SCH (04:35)
[2020-01-15] MEDS: PANTOPROZOLE 40MG TABLET PO SCH (04:35)
[2020-01-15] MEDS: OXYcodone IR 5MG TABLET PO PRN ×3 (04:36→19:17)
[2020-01-15 05:38] LABS: ANION GAP 3 mmol/L (5-15); CALCIUM 8.5 mg/dL (8.5-10.1); CHLORIDE 114 mmol/L (98-107)
[2020-01-15] MEDS: DEXTROSE 50%, 50ML SYRINGE IVPush PRN (05:54)
[2020-01-15 06:15] LABS: CREATINE KINASE, TOTAL 5630 U/L (26-192); CREATININE 0.85 mg/dL (0.55-1.02)
[2020-01-15] MEDS: INSULIN LISPRO 100 UNITS/ML, PEN SQ-INSULIN SCH ×4 (07:32→20:29)
[2020-01-15] MEDS: PANCRELIPASE 5000 CAPSULE.DR PO SCH ×3 (07:50→16:17)
[2020-01-15] MEDS: LINEZOLID 600 MG TABLET PO SCH ×2 (07:51→20:28)
[2020-01-15] MEDS: SODIUM CHLORIDE FLUSH 10ML SYR IVF SCH ×2 (07:51→20:28)
[2020-01-15] MEDS: CIPROFLOXACIN 500 MG TABLET PO SCH ×2 (07:51→20:27)
[2020-01-15] MEDS: TRIAMCINOLONE CRM 0.1%, 15GM TP SCH ×2 (07:52→20:29)
[2020-01-15] MEDS: INSULIN GLARGINE 100 UNITS/ML, PEN SQ-INSULIN SCH ×2 (07:52→20:29)
[2020-01-15 09:22] VITALS: BP 122/81
[2020-01-15 13:23] VITALS: BP 120/81
[2020-01-15 19:06] VITALS: BP 155/93
[2020-01-16 00:46] VITALS: BP 142/88
[2020-01-16] MEDS: OXYcodone IR 5MG TABLET PO PRN ×3 (01:11→15:35)
[2020-01-16] MEDS: LEVOTHYROXINE 75 MCG TABLET PO SCH (05:17)
[2020-01-16] MEDS: PANTOPROZOLE 40MG TABLET PO SCH (05:17)
[2020-01-16 05:57] LABS: ANION GAP 5 mmol/L (5-15); CHLORIDE 119 mmol/L (98-107); CREATININE 1.06 mg/dL (0.55-1.02)
[2020-01-16] MEDS: INSULIN LISPRO 100 UNITS/ML, PEN SQ-INSULIN SCH ×4 (07:31→20:35)
[2020-01-16 07:32] VITALS: BP 122/83
[2020-01-16] MEDS: LACTOBACILLUS CHEW TABLET PO SCH ×3 (08:04→20:35)
[2020-01-16] MEDS: CIPROFLOXACIN 500 MG TABLET PO SCH ×2 (08:04→20:35)
[2020-01-16] MEDS: PANCRELIPASE 5000 CAPSULE.DR PO SCH ×3 (08:04→17:31)
[2020-01-16] MEDS: SODIUM CHLORIDE FLUSH 10ML SYR IVF SCH ×2 (08:05→20:36)
[2020-01-16] MEDS: LINEZOLID 600 MG TABLET PO SCH ×2 (08:05→20:35)
[2020-01-16] MEDS: CARVEDILOL 3.125 MG TABLET PO SCH ×2 (08:05→17:31)
[2020-01-16] MEDS: INSULIN GLARGINE 100 UNITS/ML, PEN SQ-INSULIN SCH ×2 (08:07→20:34)
[2020-01-16] MEDS: TRIAMCINOLONE CRM 0.1%, 15GM TP SCH ×2 (08:07→20:36)
[2020-01-16] MEDS: ACETAMINOPHEN 325 MG TABLET PO PRN (12:06)
[2020-01-16 13:54] VITALS: BP 111/74
[2020-01-16] MEDS ORDERED: MAGNESIUM SULFATE PMX 4GM/100M 100 ML IV ONE (15:30)
[2020-01-16 18:38] VITALS: BP 115/72
[2020-01-16] MEDS: CALCIUM/VITAMIN D3 250-125 TABLET PO SCH (20:35)
[2020-01-17 00:05] VITALS: BP 121/81
[2020-01-17 05:35] VITALS: BP 113/76
[2020-01-17] MEDS: CARVEDILOL 3.125 MG TABLET PO SCH ×2 (05:38→16:59)
[2020-01-17] MEDS: LEVOTHYROXINE 75 MCG TABLET PO SCH (05:38)
[2020-01-17] MEDS: PANTOPROZOLE 40MG TABLET PO SCH (05:38)
[2020-01-17 06:14] LABS: ANION GAP 6 mmol/L (5-15); CALCIUM 8.3 mg/dL (8.5-10.1); CHLORIDE 114 mmol/L (98-107)
[2020-01-17 06:28] LABS: CREATINE KINASE, TOTAL 2002 U/L (26-192); CREATININE 1.44 mg/dL (0.55-1.02)
[2020-01-17 07:49] VITALS: BP 112/75
[2020-01-17] MEDS: INSULIN LISPRO 100 UNITS/ML, PEN SQ-INSULIN SCH ×4 (08:12→20:18)
[2020-01-17] MEDS ORDERED: OXYcodone IR 5MG TABLET ONE (09:38)
[2020-01-17] MEDS: CIPROFLOXACIN 500 MG TABLET PO SCH ×2 (09:43→20:17)
[2020-01-17] MEDS: OXYcodone IR 5MG TABLET PO PRN ×2 (09:43→16:59)
[2020-01-17] MEDS: PANCRELIPASE 5000 CAPSULE.DR PO SCH ×3 (09:43→16:09)
[2020-01-17] MEDS: CALCIUM/VITAMIN D3 250-125 TABLET PO SCH ×2 (09:43→20:17)
[2020-01-17] MEDS: LINEZOLID 600 MG TABLET PO SCH ×2 (09:43→20:17)
[2020-01-17] MEDS: LACTOBACILLUS CHEW TABLET PO SCH ×3 (09:43→20:17)
[2020-01-17] MEDS: INSULIN GLARGINE 100 UNITS/ML, PEN SQ-INSULIN SCH ×2 (09:44→20:19)
[2020-01-17] MEDS: TRIAMCINOLONE CRM 0.1%, 15GM TP SCH ×2 (09:44→20:19)
[2020-01-17] MEDS: SODIUM CHLORIDE FLUSH 10ML SYR IVF SCH ×2 (09:45→20:18)
[2020-01-17 13:56] VITALS: BP 118/72
[2020-01-17 17:00] VITALS: BP 96/64
[2020-01-17 19:50] VITALS: BP 102/68
[2020-01-18 00:55] VITALS: BP 137/77
[2020-01-18] MEDS: CARVEDILOL 3.125 MG TABLET PO SCH ×2 (06:23→17:09)
[2020-01-18] MEDS: LEVOTHYROXINE 75 MCG TABLET PO SCH (06:23)
[2020-01-18] MEDS: OXYcodone IR 5MG TABLET PO PRN ×3 (06:23→18:56)
[2020-01-18] MEDS: PANTOPROZOLE 40MG TABLET PO SCH (06:23)
[2020-01-18 06:27] LABS: BASOPHILS # (AUTO) 0.02 x10^3/uL (0-0.1); BASOPHILS % (AUTO) 0 % (0-1); EOSINOPHILS # (AUTO) 0.53 x10^3/uL (0-0.4); EOSINOPHILS % (AUTO) 6 % (1-7); LYMPHOCYTES # (AUTO) 1.71 x10^3/uL (1-3.4); LYMPHOCYTES % (AUTO) 19 % (22-44); MD NO; MEAN CORPUSCULAR HEMOGLOBIN 29.4 pg (27.0-34.8); MEAN CORPUSCULAR HGB CONC 32.6 g/dL (32.4-35.8); MEAN CORPUSCULAR VOLUME 90.1 fL (80-100); MEAN PLATELET VOLUME 6.8 fL (7.4-10.4); MONOCYTES # (AUTO) 0.56 x10^3/uL (0.2-0.8); MONOCYTES % (AUTO) 6 % (2-9); NEUTROPHILS # (AUTO) 6.34 x10^3/uL (1.8-6.8); NEUTROPHILS % (AUTO) 69 % (42-75); PLATELET COUNT 320 x10^3/uL (130-400); RED BLOOD COUNT 2.98 x10^6/uL (3.82-5.3); RED CELL DISTRIBUTION WIDTH 17.6 % (9.6-15.2)
[2020-01-18 06:29] LABS: ANION GAP 6 mmol/L (5-15); CALCIUM 8.5 mg/dL (8.5-10.1); CHLORIDE 115 mmol/L (98-107); CREATININE 1.19 mg/dL (0.55-1.02)
[2020-01-18 06:44] LABS: ALKALINE PHOSPHATASE 676 U/L (45-117); CREATINE KINASE, TOTAL 1013 U/L (26-192)
[2020-01-18 07:14] VITALS: BP 124/70
[2020-01-18 07:48] LABS: HCT (SEDRATE) 26.8 % (34.6-47.8)
[2020-01-18] MEDS: LACTOBACILLUS CHEW TABLET PO SCH ×3 (08:30→20:43)
[2020-01-18] MEDS: PANCRELIPASE 5000 CAPSULE.DR PO SCH ×3 (08:30→17:09)
[2020-01-18] MEDS: INSULIN GLARGINE 100 UNITS/ML, PEN SQ-INSULIN SCH ×2 (08:31→20:49)
[2020-01-18] MEDS: LINEZOLID 600 MG TABLET PO SCH ×3 (08:31→20:43)
[2020-01-18] MEDS: CALCIUM/VITAMIN D3 250-125 TABLET PO SCH ×2 (08:31→20:43)
[2020-01-18] MEDS: CIPROFLOXACIN 500 MG TABLET PO SCH ×3 (08:31→20:43)
[2020-01-18] MEDS: SODIUM CHLORIDE FLUSH 10ML SYR IVF SCH ×2 (08:32→20:43)
[2020-01-18] MEDS: INSULIN LISPRO 100 UNITS/ML, PEN SQ-INSULIN SCH ×4 (08:32→20:49)
[2020-01-18] MEDS: TRIAMCINOLONE CRM 0.1%, 15GM TP SCH ×2 (09:00→20:49)
[2020-01-18 15:35] VITALS: BP 165/94
[2020-01-18 19:38] VITALS: BP 156/88
[2020-01-19 00:26] VITALS: BP 126/72
[2020-01-19] MEDS: OXYcodone IR 5MG TABLET PO PRN ×4 (00:29→20:25)
[2020-01-19] MEDS: PANTOPROZOLE 40MG TABLET PO SCH (04:41)
[2020-01-19] MEDS: CARVEDILOL 3.125 MG TABLET PO SCH ×2 (04:41→17:15)
[2020-01-19] MEDS: LEVOTHYROXINE 75 MCG TABLET PO SCH (04:41)
[2020-01-19 06:34] VITALS: BP 118/75
[2020-01-19] MEDS: INSULIN LISPRO 100 UNITS/ML, PEN SQ-INSULIN SCH ×4 (09:02→20:26)
[2020-01-19] MEDS: LINEZOLID 600 MG TABLET PO SCH ×2 (09:03→20:25)
[2020-01-19] MEDS: CIPROFLOXACIN 500 MG TABLET PO SCH ×2 (09:03→20:25)
[2020-01-19] MEDS: CALCIUM/VITAMIN D3 250-125 TABLET PO SCH ×2 (09:03→20:25)
[2020-01-19] MEDS: PANCRELIPASE 5000 CAPSULE.DR PO SCH ×3 (09:03→17:15)
[2020-01-19] MEDS: LACTOBACILLUS CHEW TABLET PO SCH ×3 (09:03→20:25)
[2020-01-19] MEDS: INSULIN GLARGINE 100 UNITS/ML, PEN SQ-INSULIN SCH ×2 (09:04→20:26)
[2020-01-19] MEDS: SODIUM CHLORIDE FLUSH 10ML SYR IVF SCH ×2 (09:05→20:29)
[2020-01-19] MEDS: TRIAMCINOLONE CRM 0.1%, 15GM TP SCH ×2 (09:05→20:29)
--- NOTE | 2020-01-19 09:58 | NUR ---
Observed that the green activity sheet was not completed by nursing since initiation of it. Spoke to nursing who stated that she didn't think that nursing was getting pt up. Educated RN to follow green activity sheet daily and check off sheet. RN stated understanding. Addendum: 01/19/20 at 1000 by Lara Hermosillo PT Amended: Links added.
[2020-01-19 12:14] VITALS: BP 82/56
[2020-01-19 13:37] VITALS: BP 101/64
[2020-01-19 17:10] VITALS: BP 100/67
[2020-01-19 19:47] VITALS: BP 92/52
[2020-01-20 00:46] VITALS: BP 91/57
[2020-01-20] MEDS: LEVOTHYROXINE 75 MCG TABLET PO SCH (04:41)
[2020-01-20] MEDS: OXYcodone IR 5MG TABLET PO PRN ×3 (04:41→18:13)
[2020-01-20] MEDS: PANTOPROZOLE 40MG TABLET PO SCH (04:41)
[2020-01-20 05:34] LABS: ANION GAP 3 mmol/L (5-15); CALCIUM 8.3 mg/dL (8.5-10.1); CHLORIDE 115 mmol/L (98-107)
[2020-01-20 07:43] VITALS: BP 104/70
[2020-01-20] MEDS: INSULIN LISPRO 100 UNITS/ML, PEN SQ-INSULIN SCH ×4 (08:19→20:51)
[2020-01-20] MEDS: INSULIN GLARGINE 100 UNITS/ML, PEN SQ-INSULIN SCH ×2 (08:59→20:51)
[2020-01-20] MEDS: LACTOBACILLUS CHEW TABLET PO SCH ×3 (08:59→20:49)
[2020-01-20] MEDS: PANCRELIPASE 5000 CAPSULE.DR PO SCH ×3 (08:59→16:27)
[2020-01-20] MEDS: CALCIUM/VITAMIN D3 250-125 TABLET PO SCH ×2 (09:00→20:49)
[2020-01-20] MEDS: CIPROFLOXACIN 500 MG TABLET PO SCH ×2 (09:00→20:49)
[2020-01-20] MEDS: TRIAMCINOLONE CRM 0.1%, 15GM TP SCH ×2 (09:00→20:52)
[2020-01-20] MEDS: LINEZOLID 600 MG TABLET PO SCH ×2 (09:00→20:49)
[2020-01-20] MEDS: SODIUM CHLORIDE FLUSH 10ML SYR IVF SCH ×2 (09:01→20:50)
[2020-01-20] MEDS: CARVEDILOL 3.125 MG TABLET PO SCH ×2 (09:02→16:27)
[2020-01-20 15:09] VITALS: BP 161/87
[2020-01-20 19:49] VITALS: BP 128/69
[2020-01-21 02:24] VITALS: BP 132/81
[2020-01-21] MEDS: CARVEDILOL 3.125 MG TABLET PO SCH ×3 (05:37→18:00)
[2020-01-21] MEDS: PANTOPROZOLE 40MG TABLET PO SCH (05:37)
[2020-01-21] MEDS: LEVOTHYROXINE 75 MCG TABLET PO SCH (05:37)
[2020-01-21] MEDS: OXYcodone IR 5MG TABLET PO PRN ×3 (05:39→19:14)
[2020-01-21] MEDS: INSULIN LISPRO 100 UNITS/ML, PEN SQ-INSULIN SCH ×4 (07:00→20:02)
[2020-01-21 07:56] VITALS: BP 150/92
[2020-01-21] MEDS: INSULIN GLARGINE 100 UNITS/ML, PEN SQ-INSULIN SCH ×2 (08:37→20:02)
[2020-01-21] MEDS: CALCIUM/VITAMIN D3 250-125 TABLET PO SCH ×2 (08:45→20:00)
[2020-01-21] MEDS: CIPROFLOXACIN 500 MG TABLET PO SCH ×2 (08:45→20:01)
[2020-01-21] MEDS: PANCRELIPASE 5000 CAPSULE.DR PO SCH ×3 (08:45→16:19)
[2020-01-21] MEDS: LINEZOLID 600 MG TABLET PO SCH ×2 (08:46→20:01)
[2020-01-21] MEDS: SODIUM CHLORIDE FLUSH 10ML SYR IVF SCH ×2 (08:46→20:03)
[2020-01-21] MEDS: LACTOBACILLUS CHEW TABLET PO SCH ×3 (08:46→20:01)
[2020-01-21] MEDS: TRIAMCINOLONE CRM 0.1%, 15GM TP SCH ×2 (08:46→20:03)
[2020-01-21 12:32] VITALS: BP 131/83
[2020-01-21 19:14] VITALS: BP 158/89
[2020-01-22 00:38] VITALS: BP 121/88
[2020-01-22 05:26] VITALS: BP 104/75
[2020-01-22] MEDS: CARVEDILOL 3.125 MG TABLET PO SCH ×2 (05:30→17:17)
[2020-01-22] MEDS: PANTOPROZOLE 40MG TABLET PO SCH (05:30)
[2020-01-22] MEDS: LEVOTHYROXINE 75 MCG TABLET PO SCH (05:30)
[2020-01-22] MEDS: OXYcodone IR 5MG TABLET PO PRN ×3 (05:47→21:42)
[2020-01-22] MEDS: INSULIN LISPRO 100 UNITS/ML, PEN SQ-INSULIN SCH ×4 (07:00→21:43)
[2020-01-22 07:53] VITALS: BP 122/76
[2020-01-22] MEDS: SODIUM CHLORIDE FLUSH 10ML SYR IVF SCH ×2 (08:28→21:44)
[2020-01-22] MEDS: CALCIUM/VITAMIN D3 250-125 TABLET PO SCH ×2 (08:28→21:42)
[2020-01-22] MEDS: LACTOBACILLUS CHEW TABLET PO SCH ×3 (08:28→21:41)
[2020-01-22] MEDS: PANCRELIPASE 5000 CAPSULE.DR PO SCH ×3 (08:28→17:16)
[2020-01-22] MEDS: INSULIN GLARGINE 100 UNITS/ML, PEN SQ-INSULIN SCH ×2 (08:29→21:43)
[2020-01-22] MEDS: TRIAMCINOLONE CRM 0.1%, 15GM TP SCH ×2 (08:31→21:00)
[2020-01-22 09:29] LABS: BASOPHILS # (AUTO) 0.04 x10^3/uL (0-0.1); BASOPHILS % (AUTO) 1 % (0-1); EOSINOPHILS # (AUTO) 0.83 x10^3/uL (0-0.4); EOSINOPHILS % (AUTO) 10 % (1-7); LYMPHOCYTES # (AUTO) 1.93 x10^3/uL (1-3.4); LYMPHOCYTES % (AUTO) 22 % (22-44); MD NO; MEAN CORPUSCULAR HEMOGLOBIN 29.9 pg (27.0-34.8); MEAN CORPUSCULAR HGB CONC 33.2 g/dL (32.4-35.8); MEAN CORPUSCULAR VOLUME 90.1 fL (80-100); MEAN PLATELET VOLUME 6.4 fL (7.4-10.4); MONOCYTES # (AUTO) 0.42 x10^3/uL (0.2-0.8); MONOCYTES % (AUTO) 5 % (2-9); NEUTROPHILS # (AUTO) 5.39 x10^3/uL (1.8-6.8); NEUTROPHILS % (AUTO) 63 % (42-75); PLATELET COUNT 283 x10^3/uL (130-400); RED BLOOD COUNT 3.07 x10^6/uL (3.82-5.3); RED CELL DISTRIBUTION WIDTH 17.8 % (9.6-15.2)
[2020-01-22 09:38] LABS: ALANINE AMINOTRANSFERASE 58 U/L (12-78); ALBUMIN 2.5 g/dL (3.4-5.0); ANION GAP 6 mmol/L (5-15); CALCIUM 8.3 mg/dL (8.5-10.1); CHLORIDE 110 mmol/L (98-107); CREATININE 1.04 mg/dL (0.55-1.02)
[2020-01-22 09:40] LABS: ALKALINE PHOSPHATASE 522 U/L (45-117); BILIRUBIN,TOTAL 0.2 mg/dL (0.2-1.0); TOTAL PROTEIN 6.3 g/dL (6.4-8.2)
[2020-01-22 12:28] VITALS: BP 114/76
[2020-01-22 19:42] VITALS: BP 150/91
[2020-01-23 00:50] VITALS: BP 116/71
[2020-01-23] MEDS: PANTOPROZOLE 40MG TABLET PO SCH (05:55)
[2020-01-23] MEDS: OXYcodone IR 5MG TABLET PO PRN ×3 (05:55→21:00)
[2020-01-23] MEDS: LEVOTHYROXINE 75 MCG TABLET PO SCH (05:55)
[2020-01-23] MEDS: CARVEDILOL 3.125 MG TABLET PO SCH ×2 (05:56→18:00)
[2020-01-23 07:49] VITALS: BP 115/76
[2020-01-23] MEDS: CALCIUM/VITAMIN D3 250-125 TABLET PO SCH ×2 (08:22→21:00)
[2020-01-23] MEDS: INSULIN LISPRO 100 UNITS/ML, PEN SQ-INSULIN SCH ×4 (08:22→21:00)
[2020-01-23] MEDS: PANCRELIPASE 5000 CAPSULE.DR PO SCH ×3 (08:22→16:19)
[2020-01-23] MEDS: LACTOBACILLUS CHEW TABLET PO SCH ×3 (08:22→21:00)
[2020-01-23] MEDS: TRIAMCINOLONE CRM 0.1%, 15GM TP SCH ×2 (08:23→21:02)
[2020-01-23] MEDS: INSULIN GLARGINE 100 UNITS/ML, PEN SQ-INSULIN SCH ×3 (08:23→21:01)
[2020-01-23] MEDS: SODIUM CHLORIDE FLUSH 10ML SYR IVF SCH ×2 (08:23→21:01)
[2020-01-23] MEDS ORDERED: SODIUM POLYSTYRENE SULFONATE ORAL SUSP PO ONE (08:30)
[2020-01-23 09:50] LABS: ANION GAP 7 mmol/L (5-15); CALCIUM 8.3 mg/dL (8.5-10.1); CHLORIDE 111 mmol/L (98-107)
[2020-01-23 13:59] VITALS: BP 120/77
[2020-01-23 19:11] VITALS: BP 133/80
[2020-01-24 01:55] VITALS: BP 116/75
[2020-01-24] MEDS: CARVEDILOL 3.125 MG TABLET PO SCH ×2 (05:03→18:00)
[2020-01-24] MEDS: PANTOPROZOLE 40MG TABLET PO SCH (05:03)
[2020-01-24] MEDS: LEVOTHYROXINE 75 MCG TABLET PO SCH (05:03)
[2020-01-24] MEDS: OXYcodone IR 5MG TABLET PO PRN ×3 (05:04→16:43)
[2020-01-24 06:00] LABS: ANION GAP 5 mmol/L (5-15); CALCIUM 8.5 mg/dL (8.5-10.1); CHLORIDE 112 mmol/L (98-107)
[2020-01-24 06:03] LABS: CREATININE 1.14 mg/dL (0.55-1.02)
[2020-01-24 06:58] VITALS: BP 104/71
[2020-01-24] MEDS: INSULIN LISPRO 100 UNITS/ML, PEN SQ-INSULIN SCH ×4 (07:00→22:17)
[2020-01-24] MEDS: INSULIN GLARGINE 100 UNITS/ML, PEN SQ-INSULIN SCH ×3 (09:00→22:10)
[2020-01-24] MEDS: CALCIUM/VITAMIN D3 250-125 TABLET PO SCH ×2 (09:51→22:09)
[2020-01-24] MEDS: LACTOBACILLUS CHEW TABLET PO SCH ×3 (09:51→22:09)
[2020-01-24] MEDS: PANCRELIPASE 5000 CAPSULE.DR PO SCH ×3 (09:51→16:43)
[2020-01-24] MEDS: SODIUM CHLORIDE FLUSH 10ML SYR IVF SCH ×2 (09:52→22:09)
[2020-01-24] MEDS: TRIAMCINOLONE CRM 0.1%, 15GM TP SCH ×2 (09:52→22:11)
[2020-01-24] MEDS: ACETAMINOPHEN 325 MG TABLET PO PRN (09:56)
[2020-01-24] MEDS ORDERED: FUROSEMIDE 40 MG/4 ML IV ONE (11:30)
[2020-01-24] MEDS ORDERED: SODIUM ZIRCONIUM CYCLOSILICATE 10 GM PO ONE (12:00)
[2020-01-24 13:13] VITALS: BP 90/59
[2020-01-24 19:04] VITALS: BP 102/65
[2020-01-24] MEDS ORDERED: INSULIN GLARGINE 100 UNITS/ML, PEN SQ-INSULIN SCH (21:00)
[2020-01-25 00:31] VITALS: BP 97/62
[2020-01-25] MEDS: PANTOPROZOLE 40MG TABLET PO SCH (06:08)
[2020-01-25] MEDS: OXYcodone IR 5MG TABLET PO PRN ×3 (06:08→20:40)
[2020-01-25] MEDS: CARVEDILOL 3.125 MG TABLET PO SCH ×2 (06:08→17:17)
[2020-01-25] MEDS: LEVOTHYROXINE 75 MCG TABLET PO SCH (06:08)
[2020-01-25 06:09] VITALS: BP 110/75
[2020-01-25 06:30] LABS: ANION GAP 3 mmol/L (5-15); CALCIUM 8.4 mg/dL (8.5-10.1); CHLORIDE 113 mmol/L (98-107)
[2020-01-25 06:31] LABS: CREATININE 0.88 mg/dL (0.55-1.02)
[2020-01-25] MEDS: INSULIN LISPRO 100 UNITS/ML, PEN SQ-INSULIN SCH ×4 (07:00→21:13)
[2020-01-25 07:55] VITALS: BP 100/63
[2020-01-25] MEDS: INSULIN GLARGINE 100 UNITS/ML, PEN SQ-INSULIN SCH ×2 (08:29→21:14)
[2020-01-25] MEDS: LACTOBACILLUS CHEW TABLET PO SCH ×3 (08:29→20:39)
[2020-01-25] MEDS: CALCIUM/VITAMIN D3 250-125 TABLET PO SCH ×2 (08:29→20:39)
[2020-01-25] MEDS: SODIUM CHLORIDE FLUSH 10ML SYR IVF SCH (08:29)
[2020-01-25] MEDS: PANCRELIPASE 5000 CAPSULE.DR PO SCH ×3 (08:29→16:58)
[2020-01-25] MEDS: TRIAMCINOLONE CRM 0.1%, 15GM TP SCH ×2 (08:30→21:00)
[2020-01-25] MEDS: ACETAMINOPHEN 325 MG TABLET PO PRN (11:43)
[2020-01-25 12:07] VITALS: BP 93/61
[2020-01-25] MEDS: DIPHENOXYLATE/ATROPINE ORAL SOL PO PRN (19:02)
[2020-01-25 20:54] VITALS: BP 129/84
[2020-01-26 02:00] VITALS: BP 136/82
[2020-01-26] MEDS: SODIUM CHLORIDE FLUSH 10ML SYR IVF SCH ×3 (04:08→20:37)
[2020-01-26] MEDS: DIPHENOXYLATE/ATROPINE ORAL SOL PO PRN (04:08)
[2020-01-26 06:16] VITALS: BP_SYST 126
[2020-01-26] MEDS: PANTOPROZOLE 40MG TABLET PO SCH (06:18)
[2020-01-26] MEDS: CARVEDILOL 3.125 MG TABLET PO SCH ×2 (06:18→17:22)
[2020-01-26] MEDS: LEVOTHYROXINE 75 MCG TABLET PO SCH (06:18)
[2020-01-26] MEDS: OXYcodone IR 5MG TABLET PO PRN ×3 (06:25→20:36)
[2020-01-26 06:38] LABS: BASOPHILS # (AUTO) 0.05 x10^3/uL (0-0.1); BASOPHILS % (AUTO) 1 % (0-1); EOSINOPHILS # (AUTO) 0.82 x10^3/uL (0-0.4); EOSINOPHILS % (AUTO) 11 % (1-7); LYMPHOCYTES # (AUTO) 1.59 x10^3/uL (1-3.4); LYMPHOCYTES % (AUTO) 22 % (22-44); MD NO; MEAN CORPUSCULAR HEMOGLOBIN 29.4 pg (27.0-34.8); MEAN CORPUSCULAR HGB CONC 32.9 g/dL (32.4-35.8); MEAN CORPUSCULAR VOLUME 89.3 fL (80-100); MEAN PLATELET VOLUME 6.6 fL (7.4-10.4); MONOCYTES # (AUTO) 0.84 x10^3/uL (0.2-0.8); MONOCYTES % (AUTO) 12 % (2-9); NEUTROPHILS # (AUTO) 4.03 x10^3/uL (1.8-6.8); NEUTROPHILS % (AUTO) 55 % (42-75); PLATELET COUNT 180 x10^3/uL (130-400); RED BLOOD COUNT 2.83 x10^6/uL (3.82-5.3); RED CELL DISTRIBUTION WIDTH 17.2 % (9.6-15.2)
[2020-01-26 06:43] LABS: ANION GAP 7 mmol/L (5-15); CALCIUM 8.5 mg/dL (8.5-10.1); CHLORIDE 113 mmol/L (98-107); CREATININE 0.89 mg/dL (0.55-1.02)
[2020-01-26] MEDS: INSULIN LISPRO 100 UNITS/ML, PEN SQ-INSULIN SCH ×4 (07:00→20:37)
[2020-01-26] MEDS: TRIAMCINOLONE CRM 0.1%, 15GM TP SCH ×2 (08:08→20:37)
[2020-01-26] MEDS: INSULIN GLARGINE 100 UNITS/ML, PEN SQ-INSULIN SCH ×2 (08:13→20:37)
[2020-01-26] MEDS: LACTOBACILLUS CHEW TABLET PO SCH ×3 (08:13→20:36)
[2020-01-26] MEDS: PANCRELIPASE 5000 CAPSULE.DR PO SCH ×3 (08:13→17:22)
[2020-01-26] MEDS: CALCIUM/VITAMIN D3 250-125 TABLET PO SCH ×2 (08:13→20:36)
[2020-01-26] MEDS ORDERED: LOPERAMIDE 2 MG CAPSULE PO PRN (08:30)
[2020-01-26] MEDS: SERTRALINE 50MG TABLET PO SCH (10:43)
[2020-01-26] MEDS ORDERED: LEVO75TA PO (14:08)
[2020-01-26] MEDS ORDERED: INSU100I11 SQ-INSULIN (14:08)
[2020-01-26] MEDS ORDERED: CALC1TAB68 PO (14:08)
[2020-01-26] MEDS ORDERED: LOPE2CAP PO (14:08)
[2020-01-26] MEDS ORDERED: ACID1TAB7 PO (14:08)
[2020-01-26] MEDS ORDERED: INSU100I13 SQ-INSULIN (14:08)
[2020-01-26] MEDS ORDERED: SERT50TA28 PO (14:08)
[2020-01-26] MEDS ORDERED: CARV3.1212 PO (14:08)
[2020-01-26] MEDS ORDERED: PANT40TA5 PO (14:08)
[2020-01-26] MEDS ORDERED: PANCRELIPASE PO (14:08)
[2020-01-26] MEDS ORDERED: OXYC5TAB3 PO (14:08)
[2020-01-26 19:29] VITALS: BP 126/80
[2020-01-27 02:45] VITALS: BP 121/70
[2020-01-27 05:42] VITALS: BP 131/78
[2020-01-27] MEDS: OXYcodone IR 5MG TABLET PO PRN ×2 (05:42→11:48)
[2020-01-27] MEDS: CARVEDILOL 3.125 MG TABLET PO SCH (05:43)
[2020-01-27] MEDS: LEVOTHYROXINE 75 MCG TABLET PO SCH (05:43)
[2020-01-27] MEDS: PANTOPROZOLE 40MG TABLET PO SCH (05:43)
[2020-01-27] MEDS: INSULIN LISPRO 100 UNITS/ML, PEN SQ-INSULIN SCH ×2 (07:00→11:00)
[2020-01-27] MEDS: DEXTROSE 50%, 50ML SYRINGE IVPush PRN ×2 (08:04→11:31)
[2020-01-27] MEDS: SODIUM CHLORIDE FLUSH 10ML SYR IVF SCH (08:55)
[2020-01-27 09:03] VITALS: BP 121/64
[2020-01-27] MEDS ORDERED: FENTANYL PF 100 MCG/2ML ONE (10:21)
[2020-01-27] MEDS ORDERED: NALOXONE 1 MG/ML, 2ML ONE (10:21)
[2020-01-27] MEDS ORDERED: MIDAZOLAM 1 MG/ML, 5ML ONE (10:21)
[2020-01-27] MEDS ORDERED: FLUMAZENIL 0.1 MG/1 ML, 5ML ONE (10:21)
[2020-01-27] MEDS ORDERED: LIDOCAINE 1%, 10ML ONE (10:34)
[2020-01-27 11:13] VITALS: BP 104/70
[2020-01-27] MEDS: SERTRALINE 50MG TABLET PO SCH (11:43)
[2020-01-27] MEDS: TRIAMCINOLONE CRM 0.1%, 15GM TP SCH (11:44)
[2020-01-27] MEDS: PANCRELIPASE 5000 CAPSULE.DR PO SCH (11:44)
[2020-01-27] MEDS: LACTOBACILLUS CHEW TABLET PO SCH (11:44)
[2020-01-27] MEDS: CALCIUM/VITAMIN D3 250-125 TABLET PO SCH (11:44)
== END 2020-01-27 15:07 | DRG 853 ==
LOC: ED 12:47 → EDIP 12:48 → ED 13:58 → CCU 14:34 → 4NW 10-26 17:01 → 3N 10-27 13:21 → 4NE 10-29 17:36 → 4WST 10-29 23:52 → CCU 11-18 05:04 → 4WST 11-19 10:00 → CCU 12-14 05:28 → 3N 12-16 18:34 → 4WST 12-22 10:20 → 4EST 01-17 17:58
PROVIDERS: ADMIT Family Medicine; ATTEND Family Medicine
PROC: 0X6R0Z0 Detachment at Left Middle Finger, Complete, Open Approach (ICD-10-PCS; principal; 2019-10-27)
PROC: 0X6L0Z1 Detachment at Right Thumb, High, Open Approach (ICD-10-PCS; 2019-10-27)
PROC: 0KBD0ZZ Excision of Left Hand Muscle, Open Approach (ICD-10-PCS; 2019-10-27)
PROC: 0KBB0ZZ Excision of Left Lower Arm and Wrist Muscle, Open Approach (ICD-10-PCS; 2019-10-27)
PROC: 30233N1 Transfusion of Nonautologous Red Blood Cells into Peripheral Vein, Percutaneous Approach (ICD-10-PCS; 2019-11-02)
PROC: 02HV33Z Insertion of Infusion Device into Superior Vena Cava, Percutaneous Approach (ICD-10-PCS; 2019-11-04)
PROC: B548ZZA Ultrasonography of Superior Vena Cava, Guidance (ICD-10-PCS; 2019-11-04)
PROC: B5181ZA Fluoroscopy of Superior Vena Cava using Low Osmolar Contrast, Guidance (ICD-10-PCS; 2019-11-04)
PROC: 30233R1 Transfusion of Nonautologous Platelets into Peripheral Vein, Percutaneous Approach (ICD-10-PCS; 2019-11-26)
PROC: 0X6L0Z0 Detachment at Right Thumb, Complete, Open Approach (ICD-10-PCS; 2019-12-11)
PROC: 0PBR0ZZ Excision of Right Thumb Phalanx, Open Approach (ICD-10-PCS; 2019-12-11)
PROC: 0KBD0ZZ Excision of Left Hand Muscle, Open Approach (ICD-10-PCS; 2019-12-11)
PROC: 0KBB0ZZ Excision of Left Lower Arm and Wrist Muscle, Open Approach (ICD-10-PCS; 2019-12-11)
PROC: 0KBC0ZZ Excision of Right Hand Muscle, Open Approach (ICD-10-PCS; 2019-12-11)
PROC: 5A1945Z Respiratory Ventilation, 24-96 Consecutive Hours (ICD-10-PCS; 2019-12-14)
PROC: 0BH17EZ Insertion of Endotracheal Airway into Trachea, Via Natural or Artificial Opening (ICD-10-PCS; 2019-12-14)
PROC: 0T9B70Z Drainage of Bladder with Drainage Device, Via Natural or Artificial Opening (ICD-10-PCS; 2020-01-07)
DX: A41.51 Sepsis due to Escherichia coli [E. coli] (principal); E43 Unspecified severe protein-calorie malnutrition; G93.41 Metabolic encephalopathy; J96.00 Acute respiratory failure, unspecified whether with hypoxia or hypercapnia; M72.6 Necrotizing fasciitis; N17.0 Acute kidney failure with tubular necrosis; R65.21 Severe sepsis with septic shock; N15.1 Renal and perinephric abscess; E11.11 Type 2 diabetes mellitus with ketoacidosis with coma; J18.9 Pneumonia, unspecified organism; J96.02 Acute respiratory failure with hypercapnia; T23.311A Burn of third degree of right thumb (nail), initial encounter; A04.72 Enterocolitis due to Clostridium difficile, not specified as recurrent; E72.20 Disorder of urea cycle metabolism, unspecified; E87.1 Hypo-osmolality and hyponatremia; L03.114 Cellulitis of left upper limb; M86.142 Other acute osteomyelitis, left hand; L02.512 Cutaneous abscess of left hand; E87.0 Hyperosmolality and hypernatremia; L02.414 Cutaneous abscess of left upper limb; N10 Acute pyelonephritis; K86.2 Cyst of pancreas; K86.1 Other chronic pancreatitis; J98.11 Atelectasis; E27.40 Unspecified adrenocortical insufficiency; N13.6 Pyonephrosis; J44.0 Chronic obstructive pulmonary disease with (acute) lower respiratory infection; D64.9 Anemia, unspecified; D69.6 Thrombocytopenia, unspecified; E87.5 Hyperkalemia; F17.210 Nicotine dependence, cigarettes, uncomplicated; I25.2 Old myocardial infarction; L03.012 Cellulitis of left finger; L72.3 Sebaceous cyst; M65.9 Synovitis and tenosynovitis, unspecified; N18.9 Chronic kidney disease, unspecified; T36.0X5A Adverse effect of penicillins, initial encounter; M48.02 Spinal stenosis, cervical region; L27.0 Generalized skin eruption due to drugs and medicaments taken internally; D63.8 Anemia in other chronic diseases classified elsewhere; D73.5 Infarction of spleen; E03.9 Hypothyroidism, unspecified; E83.42 Hypomagnesemia; E87.8 Other disorders of electrolyte and fluid balance, not elsewhere classified; J32.9 Chronic sinusitis, unspecified; K76.0 Fatty (change of) liver, not elsewhere classified; K80.20 Calculus of gallbladder without cholecystitis without obstruction; R13.10 Dysphagia, unspecified; E11.22 Type 2 diabetes mellitus with diabetic chronic kidney disease; E11.42 Type 2 diabetes mellitus with diabetic polyneuropathy; E11.69 Type 2 diabetes mellitus with other specified complication; S69.81XA Other specified injuries of right wrist, hand and finger(s), initial encounter; N25.89 Other disorders resulting from impaired renal tubular function; M48.00 Spinal stenosis, site unspecified; J32.0 Chronic maxillary sinusitis; N18.3 Chronic kidney disease, stage 3 (moderate); R31.0 Gross hematuria; Y92.89 Other specified places as the place of occurrence of the external cause; Z82.49 Family history of ischemic heart disease and other diseases of the circulatory system; Z68.22 Body mass index [BMI] 22.0-22.9, adult; Z83.3 Family history of diabetes mellitus; Y93.89 Activity, other specified; Y99.8 Other external cause status
CPT/HCPCS: 36415; 36556; 36600; 73130; 74018; 74248; 77001; 84145; 87106; 87806; 96365; 96367; 96375; 99291; J3370; J3475; J3490; J7121; 36558; 36589; 70450; 70553; 71045; 71250; 71260; 74176; 74177; 74181; 76700; 76705; 76770; 76937; 78708; 80048; 80053; 80069; 80074; 80076; 80202; 80307; 81001; 82010; 82088; 82140; 82271; 82306; 82330; 82436; 82533; 82542; 82550; 82570; 82607; 82728; 82803; 82947; 82962; 82977; 83036; 83540; 83550; 83605; 83615; 83690; 83735; 83970; 84075; 84080; 84100; 84133; 84134; 84156; 84244; 84300; 84436; 84439; 84443; 84478; 84481; 84484; 85014; 85018; 85025; 85049; 85379; 85384; 85610; 85651; 85730; 86022; 86038; 86140; 86850; 86900; 86923; 87040; 87070; 87075; 87077; 87081; 87086; 87102; 87186; 87205; 87206; 87324; 88112; 88305; 88311; 88312; 93005; 93306; 93970; 94002; 94003; 94640; 99156; 99157; G0378; J0133; J0295; J0610; J0690; J0696; J0878; J1100; J1335; J1650; J1756; J1815; J1940; J2248; J2250; J2405; J2543; J2704; J2710; J2997; J3010; J3243; J3411; J3480; J7070; P9047; Q9967; A9562; A9575; C1750; C9113; G0475; J0330; J0360; J1450; J1652; J1720; J1817; J2060; J2310; J2370; J3420; J7030; J7040; J7050; J7512; P9016; P9035; Q0163

== ENCOUNTER 2020-04-05 11:14 | Inpatient (IN) | payer MEDICAID, OTHER ==
[~2020-04-05] VITALS: Ht 172.7 cm; Wt 54.3 kg
[~2020-04-05 11:14] MED LIST changes: +ACID1TAB7 PO; +CALC1TAB68 PO; +CARV3.1212 PO; +INSU100I11 SQ-INSULIN; +INSU100I13 SQ-INSULIN; +LEVO75TA PO; +LOPE2CAP PO; +OXYC5TAB3 PO; +PANCRELIPASE PO; +PANT40TA5 PO; +SERT50TA28 PO
--- NOTE | 2020-04-05 11:36 | NUR ---
AMARILYS. PT HAD PHYSICAL THERAPIST YESTERDAY AT HOME AND HAD SZ LIKE ACTIVITY AT HOME PER PT. DENIES TRAUMA/FALL. PT MIGHT HAVE LOC PER PT. PT CALLED PCP AND PCP TOLD PT TO GO TO ER. PT DENIES ANY SX AT THIS TIME. PT HAS GENERALIZED WEAKNESS PER FAMILY. PT'S AOX4. RESPS EVEN AND UNLABORED. NSR RATE 90'S ON [address] LIGHT LAMP CLEANER. PA AT BEDSIDE TO EVALUATE AT THIS TIME.
[2020-04-05 11:58] LABS: BASOPHILS # (AUTO) 0.09 x10^3/uL (0-0.1); BASOPHILS % (AUTO) 1 % (0-1); EOSINOPHILS # (AUTO) 0.15 x10^3/uL (0-0.4); EOSINOPHILS % (AUTO) 1 % (1-7); LYMPHOCYTES # (AUTO) 2.16 x10^3/uL (1-3.4); LYMPHOCYTES % (AUTO) 18 % (22-44); MD NO; MEAN CORPUSCULAR HEMOGLOBIN 27.4 pg (27.0-34.8); MEAN CORPUSCULAR HGB CONC 32.7 g/dL (32.4-35.8); MEAN CORPUSCULAR VOLUME 83.9 fL (80-100); MEAN PLATELET VOLUME 7.2 fL (7.4-10.4); MONOCYTES # (AUTO) 0.37 x10^3/uL (0.2-0.8); MONOCYTES % (AUTO) 3 % (2-9); NEUTROPHILS # (AUTO) 9.02 x10^3/uL (1.8-6.8); NEUTROPHILS % (AUTO) 77 % (42-75); PLATELET COUNT 225 x10^3/uL (130-400); RED BLOOD COUNT 4.25 x10^6/uL (3.82-5.3); RED CELL DISTRIBUTION WIDTH 15.8 % (9.6-15.2)
[2020-04-05 12:10] LABS: ALANINE AMINOTRANSFERASE 88 U/L (12-78); ALBUMIN 3.1 g/dL (3.4-5.0); ANION GAP 8 mmol/L (5-15); CALCIUM 8.9 mg/dL (8.5-10.1); CHLORIDE 105 mmol/L (98-107); CREATININE 1.54 mg/dL (0.55-1.02)
[2020-04-05 12:13] LABS: ALKALINE PHOSPHATASE 737 U/L (45-117); BILIRUBIN,TOTAL 0.3 mg/dL (0.2-1.0); TOTAL PROTEIN 8.1 g/dL (6.4-8.2)
[2020-04-05] MEDS ORDERED: GABA600T7 PO (12:30)
[2020-04-05] MEDS ORDERED: CEPH-368 PO (12:31)
--- NOTE | 2020-04-05 12:39 | NUR ---
pt resting in [facility]. pt's aox4. resps even and unlabored. all monitors in place. call light within reach.
--- NOTE | 2020-04-05 12:54 | NUR ---
pt reqeusting pain med for right thumb(amputation). edmd notified.
--- NOTE | 2020-04-05 13:30 | NUR ---
noted pt incontinent of stool, skin care and full linen changed completed. pt tolerated well.
--- NOTE | 2020-04-05 13:56 | NUR ---
water provided per request at this time.
--- NOTE | 2020-04-05 14:35 | NUR ---
ICE CHIPS PROVIDED PER REQUEST AT THIS TIME. PT'S AOX4. RESPS EVEN AND UNLABORED.
--- NOTE | 2020-04-05 15:16 | NUR ---
pt resting in [facility]. pt's aox4. resps even and unlabored. all monitors in place. call light within reach.
[2020-04-05] MEDS: SODIUM CHLORIDE 0.9% 1,000 ML IV SCH (15:52)
[2020-04-05] MEDS ORDERED: DEXTROSE 50%, 50ML SYRINGE IVPush ONE (16:00)
[2020-04-05] MEDS ORDERED: ONDANSETRON 2MG/ML, 2ML IVPush PRN (16:00)
[2020-04-05] MEDS: INSULIN LISPRO 100 UNITS/ML, PEN SQ-INSULIN SCH ×2 (16:00→21:28)
[2020-04-05] MEDS ORDERED: SODIUM POLY SULFONATE UDC 15 GM/60 ML PO ONE (16:00)
[2020-04-05] MEDS ORDERED: INSULIN REGULAR 100 UNITS/ML, 3ML VIAL IVPush ONE (16:00)
[2020-04-05] MEDS ORDERED: ONDANSETRON ODT 4 MG PO PRN (16:00)
[2020-04-05] MEDS: LACTOBACILLUS CHEW TABLET PO SCH ×2 (16:00→20:37)
[2020-04-05] MEDS ORDERED: CALCIUM CHLORIDE 10%, 10ML SYR IVPush ONE (16:00)
[2020-04-05] MEDS: GABAPENTIN 100 MG CAPSULE PO SCH ×2 (16:00→20:37)
--- NOTE | 2020-04-05 16:20 | NUR ---
us at bedside at this time.
--- NOTE | 2020-04-05 16:24 | NUR ---
pt's son's number [phone]
[2020-04-05] MEDS ORDERED: SODIUM CHLORIDE FLUSH 10ML SYR IVF ONE (16:30)
[2020-04-05] MEDS ORDERED: CALCIUM CHLORIDE 10%, 10ML SYR ONE (16:37)
[2020-04-05] MEDS ORDERED: INSULIN SINGLE DOSE, ER ONE (16:37)
[2020-04-05] MEDS ORDERED: DEXTROSE 50%, 50ML SYRINGE ONE (16:37)
[2020-04-05] MEDS ORDERED: HEPARIN 5,000 UNITS/ML, 1ML ONE (16:37)
[2020-04-05] MEDS ORDERED: ACETAMINOPHEN 325 MG TABLET ONE (16:37)
[2020-04-05] MEDS ORDERED: SODIUM POLY SULFONATE UDC 15 GM/60 ML ONE (16:37)
--- NOTE | 2020-04-05 16:48 | NUR ---
REPORT GIVEN TO DIANNE LEUNG. ALL QUESTIONS ANSWERED.
[2020-04-05] MEDS: ACETAMINOPHEN 325 MG TABLET PO SCH ×2 (16:52→22:00)
--- NOTE | 2020-04-05 17:04 | NUR ---
PT MEDICATED PER EMAR. PT TOLERATED WELL. PT'S AOX4. RESPS EVEN AND UNLABORED.
[2020-04-05] MEDS: OXYcodone IR 5MG TABLET PO PRN (18:15)
[2020-04-05 19:32] LABS: ANION GAP 9 mmol/L (5-15); CALCIUM 8.7 mg/dL (8.5-10.1); CHLORIDE 101 mmol/L (98-107); CREATININE 1.47 mg/dL (0.55-1.02)
[2020-04-05 20:26] VITALS: BP 125/85
[2020-04-05] MEDS: HEPARIN 5,000 UNITS/ML, 1ML SQ SCH (20:37)
[2020-04-06] MEDS: OXYcodone IR 5MG TABLET PO PRN ×3 (00:58→17:02)
[2020-04-06 01:01] VITALS: BP_SYST 119; BP_SYST 134; BP_DIAS 79; BP_DIAS 90
[2020-04-06] MEDS: ACETAMINOPHEN 325 MG TABLET PO SCH ×4 (04:00→22:25)
[2020-04-06 05:08] LABS: ANION GAP 7 mmol/L (5-15); CALCIUM 8.4 mg/dL (8.5-10.1); CHLORIDE 103 mmol/L (98-107)
[2020-04-06 05:12] LABS: CREATININE 1.44 mg/dL (0.55-1.02)
[2020-04-06 05:20] LABS: BASOPHILS # (AUTO) 0.04 x10^3/uL (0-0.1); BASOPHILS % (AUTO) 0 % (0-1); EOSINOPHILS # (AUTO) 0.24 x10^3/uL (0-0.4); EOSINOPHILS % (AUTO) 2 % (1-7); LYMPHOCYTES % (AUTO) 23 % (22-44); MD NO; MEAN CORPUSCULAR HEMOGLOBIN 27.4 pg (27.0-34.8); MEAN CORPUSCULAR HGB CONC 32.2 g/dL (32.4-35.8); MEAN CORPUSCULAR VOLUME 84.9 fL (80-100); MEAN PLATELET VOLUME 7.3 fL (7.4-10.4); MONOCYTES # (AUTO) 0.68 x10^3/uL (0.2-0.8); MONOCYTES % (AUTO) 7 % (2-9); NEUTROPHILS # (AUTO) 6.77 x10^3/uL (1.8-6.8); NEUTROPHILS % (AUTO) 68 % (42-75); PLATELET COUNT 189 x10^3/uL (130-400); RED BLOOD COUNT 3.78 x10^6/uL (3.82-5.3); RED CELL DISTRIBUTION WIDTH 15.5 % (9.6-15.2)
[2020-04-06] MEDS: LEVOTHYROXINE 75 MCG TABLET PO SCH (06:19)
[2020-04-06 07:32] VITALS: BP 119/84
[2020-04-06] MEDS: HEPARIN 5,000 UNITS/ML, 1ML SQ SCH ×2 (08:24→22:24)
[2020-04-06] MEDS: LACTOBACILLUS CHEW TABLET PO SCH ×3 (08:24→22:24)
[2020-04-06] MEDS: SERTRALINE 50MG TABLET PO SCH (08:24)
[2020-04-06] MEDS: GABAPENTIN 100 MG CAPSULE PO SCH ×3 (08:24→22:24)
[2020-04-06] MEDS: INSULIN LISPRO 100 UNITS/ML, PEN SQ-INSULIN SCH ×4 (08:29→22:25)
[2020-04-06] MEDS: SODIUM CHLORIDE 0.9% 1,000 ML IV SCH (09:17)
[2020-04-06 13:38] VITALS: BP 107/73
[2020-04-06 13:40] VITALS: BP 91/59
[2020-04-06 13:43] VITALS: BP 130/97
[2020-04-06 19:49] VITALS: BP 108/69
[2020-04-06] MEDS ORDERED: INSULIN GLARGINE 100 UNITS/ML, PEN SQ-INSULIN SCH (21:00)
[2020-04-07] VITALS (10 sets, daily range): BP systolic 76–166; BP diastolic 46–94
[2020-04-07] MEDS: OXYcodone IR 5MG TABLET PO PRN ×3 (01:57→15:48)
[2020-04-07] MEDS: ACETAMINOPHEN 325 MG TABLET PO SCH ×4 (05:35→21:01)
[2020-04-07] MEDS: LEVOTHYROXINE 75 MCG TABLET PO SCH (05:35)
[2020-04-07] MEDS: SODIUM CHLORIDE 0.9% 1,000 ML IV SCH ×2 (05:35→23:22)
[2020-04-07 06:46] LABS: BASOPHILS # (AUTO) 0.03 x10^3/uL (0-0.1); BASOPHILS % (AUTO) 0 % (0-1); EOSINOPHILS # (AUTO) 0.23 x10^3/uL (0-0.4); EOSINOPHILS % (AUTO) 3 % (1-7); LYMPHOCYTES # (AUTO) 2.55 x10^3/uL (1-3.4); LYMPHOCYTES % (AUTO) 34 % (22-44); MD NO; MEAN CORPUSCULAR HEMOGLOBIN 27.3 pg (27.0-34.8); MEAN CORPUSCULAR HGB CONC 32.6 g/dL (32.4-35.8); MEAN CORPUSCULAR VOLUME 83.9 fL (80-100); MEAN PLATELET VOLUME 7.2 fL (7.4-10.4); MONOCYTES # (AUTO) 0.48 x10^3/uL (0.2-0.8); MONOCYTES % (AUTO) 6 % (2-9); NEUTROPHILS # (AUTO) 4.33 x10^3/uL (1.8-6.8); NEUTROPHILS % (AUTO) 57 % (42-75); PLATELET COUNT 174 x10^3/uL (130-400); RED BLOOD COUNT 3.52 x10^6/uL (3.82-5.3); RED CELL DISTRIBUTION WIDTH 15.9 % (9.6-15.2)
[2020-04-07 06:52] LABS: ANION GAP 7 mmol/L (5-15); CHLORIDE 111 mmol/L (98-107)
[2020-04-07] MEDS: INSULIN LISPRO 100 UNITS/ML, PEN SQ-INSULIN SCH ×4 (08:10→21:02)
[2020-04-07] MEDS: SERTRALINE 50MG TABLET PO SCH (08:11)
[2020-04-07] MEDS: LACTOBACILLUS CHEW TABLET PO SCH ×3 (08:11→21:00)
[2020-04-07] MEDS: GABAPENTIN 100 MG CAPSULE PO SCH ×3 (08:11→21:01)
[2020-04-07] MEDS: HEPARIN 5,000 UNITS/ML, 1ML SQ SCH ×2 (10:43→21:00)
[2020-04-07] MEDS: INSULIN GLARGINE 100 UNITS/ML, PEN SQ-INSULIN SCH (21:02)
[2020-04-08 01:51] VITALS: BP 169/71
[2020-04-08] MEDS: ACETAMINOPHEN 325 MG TABLET PO SCH ×4 (04:17→21:00)
[2020-04-08] MEDS: OXYcodone IR 5MG TABLET PO PRN ×3 (04:18→21:32)
[2020-04-08] MEDS: LEVOTHYROXINE 75 MCG TABLET PO SCH (05:50)
[2020-04-08 06:28] LABS: BASOPHILS # (AUTO) 0.01 x10^3/uL (0-0.1); BASOPHILS % (AUTO) 0 % (0-1); EOSINOPHILS # (AUTO) 0.26 x10^3/uL (0-0.4); EOSINOPHILS % (AUTO) 4 % (1-7); LYMPHOCYTES # (AUTO) 1.51 x10^3/uL (1-3.4); LYMPHOCYTES % (AUTO) 22 % (22-44); MD NO; MEAN CORPUSCULAR HEMOGLOBIN 27.1 pg (27.0-34.8); MEAN CORPUSCULAR VOLUME 84.6 fL (80-100); MONOCYTES # (AUTO) 0.39 x10^3/uL (0.2-0.8); MONOCYTES % (AUTO) 6 % (2-9); NEUTROPHILS # (AUTO) 4.73 x10^3/uL (1.8-6.8); NEUTROPHILS % (AUTO) 69 % (42-75); PLATELET COUNT 155 x10^3/uL (130-400); RED BLOOD COUNT 3.56 x10^6/uL (3.82-5.3); RED CELL DISTRIBUTION WIDTH 15.8 % (9.6-15.2)
[2020-04-08 07:09] VITALS: BP 143/100
[2020-04-08 07:10] VITALS: BP 107/74
[2020-04-08 07:11] VITALS: BP 112/85
[2020-04-08] MEDS: SERTRALINE 50MG TABLET PO SCH (08:54)
[2020-04-08] MEDS: HEPARIN 5,000 UNITS/ML, 1ML SQ SCH ×2 (08:55→21:00)
[2020-04-08] MEDS: LACTOBACILLUS CHEW TABLET PO SCH ×3 (08:55→21:01)
[2020-04-08] MEDS: GABAPENTIN 100 MG CAPSULE PO SCH ×3 (08:56→21:00)
[2020-04-08] MEDS: INSULIN LISPRO 100 UNITS/ML, PEN SQ-INSULIN SCH ×3 (11:30→21:02)
[2020-04-08 12:30] VITALS: BP 136/84
[2020-04-08 18:55] VITALS: BP 157/89
[2020-04-08] MEDS: INSULIN GLARGINE 100 UNITS/ML, PEN SQ-INSULIN SCH (21:01)
[2020-04-08] MEDS: SODIUM CHLORIDE 0.9% 1,000 ML IV SCH (21:03)
[2020-04-09 00:39] VITALS: BP 160/85
[2020-04-09] MEDS: ACETAMINOPHEN 325 MG TABLET PO SCH ×4 (04:55→21:08)
[2020-04-09] MEDS: OXYcodone IR 5MG TABLET PO PRN ×2 (04:56→17:32)
[2020-04-09] MEDS: LEVOTHYROXINE 75 MCG TABLET PO SCH (04:56)
[2020-04-09 05:20] LABS: % IRON SATURATION 37 % (20-55); IRON LEVEL 94 mcg/dL (50-170); TOTAL IRON BINDING CAPACITY 255 mcg/dL (250-450)
[2020-04-09 07:44] VITALS: BP 180/89
[2020-04-09] MEDS: SERTRALINE 50MG TABLET PO SCH (08:07)
[2020-04-09] MEDS: GABAPENTIN 100 MG CAPSULE PO SCH ×3 (08:07→21:08)
[2020-04-09] MEDS: LACTOBACILLUS CHEW TABLET PO SCH ×3 (08:07→21:08)
[2020-04-09] MEDS: INSULIN LISPRO 100 UNITS/ML, PEN SQ-INSULIN SCH ×4 (08:08→21:10)
[2020-04-09] MEDS: HEPARIN 5,000 UNITS/ML, 1ML SQ SCH ×2 (08:25→21:13)
[2020-04-09 12:49] VITALS: BP 162/95
[2020-04-09] MEDS: SODIUM CHLORIDE 0.9% 1,000 ML IV SCH (17:32)
[2020-04-09 20:02] VITALS: BP 181/102
[2020-04-09] MEDS ORDERED: INSULIN GLARGINE 100 UNITS/ML, PEN SQ-INSULIN SCH (21:00)
[2020-04-09] MEDS: CARVEDILOL 3.125 MG TABLET PO SCH (21:08)
[2020-04-10] VITALS (9 sets, daily range): BP systolic 112–229; BP diastolic 66–126
[2020-04-10] MEDS: ACETAMINOPHEN 325 MG TABLET PO SCH ×3 (05:33→18:49)
[2020-04-10] MEDS: LEVOTHYROXINE 75 MCG TABLET PO SCH (05:33)
[2020-04-10] MEDS: HEPARIN 5,000 UNITS/ML, 1ML SQ SCH ×2 (05:34→16:54)
[2020-04-10] MEDS: OXYcodone IR 5MG TABLET PO PRN ×3 (05:38→18:49)
[2020-04-10 06:15] LABS: ANION GAP 6 mmol/L (5-15); CALCIUM 8.1 mg/dL (8.5-10.1); CHLORIDE 115 mmol/L (98-107)
[2020-04-10] MEDS: LACTOBACILLUS CHEW TABLET PO SCH ×3 (09:11→21:16)
[2020-04-10] MEDS: SERTRALINE 50MG TABLET PO SCH (09:12)
[2020-04-10] MEDS: GABAPENTIN 100 MG CAPSULE PO SCH ×3 (09:12→21:16)
[2020-04-10] MEDS: INSULIN LISPRO 100 UNITS/ML, PEN SQ-INSULIN SCH ×4 (09:17→21:24)
[2020-04-10] MEDS ORDERED: INSU100I11 SQ-INSULIN ×2 (09:23)
[2020-04-10] MEDS ORDERED: ACID1TAB7 PO (09:23)
[2020-04-10] MEDS ORDERED: CARV3.1212 PO (09:23)
[2020-04-10] MEDS ORDERED: INSU100I13 SQ-INSULIN ×2 (09:23)
[2020-04-10] MEDS ORDERED: INSULIN GLARGINE 100 UNITS/ML, PEN SQ-INSULIN SCH (21:00)
[2020-04-10] MEDS: CARVEDILOL 3.125 MG TABLET PO SCH (21:16)
[2020-04-10] MEDS ORDERED: hydrALAzine 20 MG/ML, 1ML IV ONE (21:30)
[2020-04-10] MEDS: SODIUM CHLORIDE 0.9% 1,000 ML IV SCH (22:00)
[2020-04-11] MEDS: ACETAMINOPHEN 325 MG TABLET PO SCH ×2 (01:16→09:15)
[2020-04-11] MEDS: OXYcodone IR 5MG TABLET PO PRN ×3 (01:17→20:46)
[2020-04-11 01:18] VITALS: BP 100/62
[2020-04-11] MEDS: LEVOTHYROXINE 75 MCG TABLET PO SCH (05:33)
[2020-04-11] MEDS: HEPARIN 5,000 UNITS/ML, 1ML SQ SCH ×2 (05:33→17:16)
[2020-04-11 07:03] VITALS: BP 103/65
[2020-04-11] MEDS: LACTOBACILLUS CHEW TABLET PO SCH ×3 (09:00→20:46)
[2020-04-11] MEDS ORDERED: DEXTROSE 50%, 50ML SYRINGE ONE (09:02)
[2020-04-11 09:29] LABS: BASOPHILS # (AUTO) 0.02 x10^3/uL (0-0.1); BASOPHILS % (AUTO) 0 % (0-1); EOSINOPHILS # (AUTO) 0.35 x10^3/uL (0-0.4); EOSINOPHILS % (AUTO) 4 % (1-7); LYMPHOCYTES % (AUTO) 18 % (22-44); MD NO; MEAN CORPUSCULAR HEMOGLOBIN 27.5 pg (27.0-34.8); MEAN CORPUSCULAR HGB CONC 32.5 g/dL (32.4-35.8); MEAN CORPUSCULAR VOLUME 84.4 fL (80-100); MEAN PLATELET VOLUME 7.1 fL (7.4-10.4); MONOCYTES # (AUTO) 0.59 x10^3/uL (0.2-0.8); MONOCYTES % (AUTO) 6 % (2-9); NEUTROPHILS # (AUTO) 7.09 x10^3/uL (1.8-6.8); NEUTROPHILS % (AUTO) 72 % (42-75); PLATELET COUNT 150 x10^3/uL (130-400); RED BLOOD COUNT 3.45 x10^6/uL (3.82-5.3)
[2020-04-11] MEDS: INSULIN LISPRO 100 UNITS/ML, PEN SQ-INSULIN SCH ×4 (09:30→20:45)
[2020-04-11] MEDS ORDERED: DEXTROSE 5% 1,000 ML IV SCH (09:30)
[2020-04-11] MEDS ORDERED: DEXTROSE 50%, 50ML SYRINGE IVPush ONE (09:30)
[2020-04-11 09:34] LABS: ALANINE AMINOTRANSFERASE 48 U/L (12-78); ALBUMIN 2.7 g/dL (3.4-5.0); ANION GAP 7 mmol/L (5-15); CALCIUM 8.3 mg/dL (8.5-10.1); CHLORIDE 113 mmol/L (98-107); CREATININE 1.12 mg/dL (0.55-1.02)
[2020-04-11 09:36] LABS: ALKALINE PHOSPHATASE 380 U/L (45-117); BILIRUBIN,TOTAL 0.2 mg/dL (0.2-1.0); TOTAL PROTEIN 6.7 g/dL (6.4-8.2)
[2020-04-11] MEDS: SODIUM CHLORIDE 0.9% 1,000 ML IV SCH (09:51)
[2020-04-11] MEDS: SERTRALINE 50MG TABLET PO SCH (11:43)
[2020-04-11] MEDS: GABAPENTIN 100 MG CAPSULE PO SCH ×3 (11:43→20:46)
[2020-04-11] MEDS: FLUDROCORTISONE 0.1 MG TABLET PO SCH (11:43)
[2020-04-11 13:04] VITALS: BP 161/80
[2020-04-11] MEDS: DIPHENOXYLATE/ATROPINE TABLET PO PRN (17:19)
[2020-04-11 19:14] VITALS: BP 165/86
[2020-04-11] MEDS: CARVEDILOL 3.125 MG TABLET PO SCH (20:46)
[2020-04-11] MEDS ORDERED: INSULIN GLARGINE 100 UNITS/ML, PEN SQ-INSULIN SCH ×2 (21:00)
[2020-04-12 01:15] VITALS: BP 119/70
[2020-04-12] MEDS: LEVOTHYROXINE 75 MCG TABLET PO SCH (05:22)
[2020-04-12] MEDS: HEPARIN 5,000 UNITS/ML, 1ML SQ SCH ×2 (05:22→17:17)
[2020-04-12 06:36] VITALS: BP 152/82
[2020-04-12] MEDS ORDERED: NALOXONE 0.4 MG/ML, 1ML ONE (08:00)
[2020-04-12] MEDS: LACTOBACILLUS CHEW TABLET PO SCH ×3 (08:13→20:57)
[2020-04-12] MEDS: ACETAMINOPHEN 325 MG TABLET PO PRN ×3 (08:13→21:05)
[2020-04-12] MEDS: FLUDROCORTISONE 0.1 MG TABLET PO SCH (08:13)
[2020-04-12] MEDS: DIPHENOXYLATE/ATROPINE TABLET PO PRN ×2 (08:13→17:17)
[2020-04-12] MEDS: GABAPENTIN 100 MG CAPSULE PO SCH ×3 (08:13→20:57)
[2020-04-12] MEDS: SERTRALINE 50MG TABLET PO SCH (08:13)
[2020-04-12] MEDS: INSULIN LISPRO 100 UNITS/ML, PEN SQ-INSULIN SCH ×4 (08:13→20:58)
[2020-04-12] MEDS: OXYcodone IR 5MG TABLET PO PRN ×3 (08:14→21:05)
[2020-04-12 09:24] LABS: ANION GAP 10 mmol/L (5-15); CALCIUM 8.3 mg/dL (8.5-10.1); CHLORIDE 109 mmol/L (98-107)
[2020-04-12 09:25] LABS: CREATININE 1.29 mg/dL (0.55-1.02)
[2020-04-12] MEDS ORDERED: DEXTROSE 5% 1,000 ML IV SCH (09:30)
[2020-04-12 13:42] VITALS: BP 91/59
[2020-04-12 18:37] VITALS: BP 123/68
[2020-04-12] MEDS: CARVEDILOL 3.125 MG TABLET PO SCH (20:57)
[2020-04-12] MEDS ORDERED: INSULIN GLARGINE 100 UNITS/ML, PEN SQ-INSULIN SCH ×2 (21:00)
[2020-04-12 23:01] VITALS: BP 148/92
[2020-04-13 00:42] VITALS: BP 112/76
[2020-04-13 05:12] LABS: ANION GAP 9 mmol/L (5-15); CALCIUM 8.5 mg/dL (8.5-10.1); CHLORIDE 110 mmol/L (98-107); CREATININE 1.11 mg/dL (0.55-1.02)
[2020-04-13] MEDS ORDERED: DEXTROSE 4 GM TAB.CHEW PO PRN (05:30)
[2020-04-13] MEDS ORDERED: GLUCAGON 1 MG IM PRN (05:30)
[2020-04-13] MEDS: DEXTROSE 50%, 50ML SYRINGE IVPush PRN ×2 (05:35→05:56)
[2020-04-13] MEDS: LEVOTHYROXINE 75 MCG TABLET PO SCH (05:41)
[2020-04-13] MEDS: HEPARIN 5,000 UNITS/ML, 1ML SQ SCH ×2 (05:41→17:04)
[2020-04-13 06:36] VITALS: BP 117/74
[2020-04-13] MEDS: INSULIN LISPRO 100 UNITS/ML, PEN SQ-INSULIN SCH ×4 (07:00→20:06)
[2020-04-13] MEDS: OXYcodone IR 5MG TABLET PO PRN ×2 (08:51→15:10)
[2020-04-13] MEDS: SODIUM CHLORIDE FLUSH 10ML SYR IVF SCH ×2 (08:51→20:05)
[2020-04-13] MEDS: FLUDROCORTISONE 0.1 MG TABLET PO SCH (08:51)
[2020-04-13] MEDS: LACTOBACILLUS CHEW TABLET PO SCH ×3 (08:51→20:05)
[2020-04-13] MEDS: SERTRALINE 50MG TABLET PO SCH (08:51)
[2020-04-13] MEDS: GABAPENTIN 100 MG CAPSULE PO SCH ×3 (08:51→20:05)
[2020-04-13 13:30] VITALS: BP 105/69
[2020-04-13] MEDS: DIPHENOXYLATE/ATROPINE TABLET PO PRN (18:29)
[2020-04-13 18:40] VITALS: BP 144/79
[2020-04-13] MEDS: CARVEDILOL 3.125 MG TABLET PO SCH (20:06)
[2020-04-13] MEDS: INSULIN GLARGINE 100 UNITS/ML, PEN SQ-INSULIN SCH (20:07)
[2020-04-14 00:24] VITALS: BP 136/79
[2020-04-14 05:08] LABS: BASOPHILS # (AUTO) 0.05 x10^3/uL (0-0.1); BASOPHILS % (AUTO) 1 % (0-1); EOSINOPHILS # (AUTO) 0.32 x10^3/uL (0-0.4); EOSINOPHILS % (AUTO) 4 % (1-7); LYMPHOCYTES # (AUTO) 1.59 x10^3/uL (1-3.4); LYMPHOCYTES % (AUTO) 20 % (22-44); MD NO; MEAN CORPUSCULAR HEMOGLOBIN 27.6 pg (27.0-34.8); MEAN CORPUSCULAR HGB CONC 32.7 g/dL (32.4-35.8); MEAN CORPUSCULAR VOLUME 84.6 fL (80-100); MEAN PLATELET VOLUME 7.7 fL (7.4-10.4); MONOCYTES # (AUTO) 0.49 x10^3/uL (0.2-0.8); MONOCYTES % (AUTO) 6 % (2-9); NEUTROPHILS # (AUTO) 5.55 x10^3/uL (1.8-6.8); NEUTROPHILS % (AUTO) 69 % (42-75); PLATELET COUNT 165 x10^3/uL (130-400); RED BLOOD COUNT 3.14 x10^6/uL (3.82-5.3)
[2020-04-14 05:18] LABS: ANION GAP 6 mmol/L (5-15); CALCIUM 8.4 mg/dL (8.5-10.1); CHLORIDE 112 mmol/L (98-107)
[2020-04-14 05:19] LABS: CREATININE 1.16 mg/dL (0.55-1.02)
[2020-04-14] MEDS: OXYcodone IR 5MG TABLET PO PRN ×3 (05:23→20:38)
[2020-04-14] MEDS: HEPARIN 5,000 UNITS/ML, 1ML SQ SCH ×2 (05:24→16:50)
[2020-04-14] MEDS: LEVOTHYROXINE 75 MCG TABLET PO SCH (05:24)
[2020-04-14] MEDS: INSULIN LISPRO 100 UNITS/ML, PEN SQ-INSULIN SCH ×4 (07:00→20:37)
[2020-04-14 07:33] VITALS: BP 131/77
[2020-04-14] MEDS: SODIUM CHLORIDE FLUSH 10ML SYR IVF SCH ×2 (08:27→20:39)
[2020-04-14] MEDS: SERTRALINE 50MG TABLET PO SCH (08:28)
[2020-04-14] MEDS: FLUDROCORTISONE 0.1 MG TABLET PO SCH (08:28)
[2020-04-14] MEDS: GABAPENTIN 100 MG CAPSULE PO SCH ×3 (08:28→20:38)
[2020-04-14] MEDS: LACTOBACILLUS CHEW TABLET PO SCH ×3 (08:28→20:38)
[2020-04-14] MEDS: DIPHENOXYLATE/ATROPINE TABLET PO PRN ×2 (08:41→20:37)
[2020-04-14 12:45] VITALS: BP 112/77
[2020-04-14 18:32] VITALS: BP 125/76
[2020-04-14] MEDS: INSULIN GLARGINE 100 UNITS/ML, PEN SQ-INSULIN SCH (20:37)
[2020-04-14] MEDS: CARVEDILOL 3.125 MG TABLET PO SCH (20:38)
[2020-04-15 01:25] VITALS: BP 127/78
[2020-04-15 05:39] LABS: ANION GAP 7 mmol/L (5-15); CALCIUM 8.3 mg/dL (8.5-10.1); CHLORIDE 113 mmol/L (98-107); CREATININE 1.23 mg/dL (0.55-1.02)
[2020-04-15] MEDS: LEVOTHYROXINE 75 MCG TABLET PO SCH (05:39)
[2020-04-15] MEDS: OXYcodone IR 5MG TABLET PO PRN ×3 (05:39→20:25)
[2020-04-15] MEDS: HEPARIN 5,000 UNITS/ML, 1ML SQ SCH ×2 (05:39→16:46)
[2020-04-15 06:21] VITALS: BP 126/77
[2020-04-15 06:34] LABS: BASOPHILS # (AUTO) 0.02 x10^3/uL (0-0.1); BASOPHILS % (AUTO) 0 % (0-1); EOSINOPHILS % (AUTO) 3 % (1-7); LYMPHOCYTES # (AUTO) 2.17 x10^3/uL (1-3.4); LYMPHOCYTES % (AUTO) 22 % (22-44); MD NO; MEAN CORPUSCULAR HEMOGLOBIN 27.6 pg (27.0-34.8); MEAN CORPUSCULAR HGB CONC 32.7 g/dL (32.4-35.8); MEAN CORPUSCULAR VOLUME 84.3 fL (80-100); MEAN PLATELET VOLUME 7.9 fL (7.4-10.4); MONOCYTES % (AUTO) 6 % (2-9); NEUTROPHILS % (AUTO) 69 % (42-75); PLATELET COUNT 168 x10^3/uL (130-400); RED BLOOD COUNT 3.07 x10^6/uL (3.82-5.3); RED CELL DISTRIBUTION WIDTH 16.4 % (9.6-15.2)
[2020-04-15] MEDS: INSULIN LISPRO 100 UNITS/ML, PEN SQ-INSULIN SCH ×4 (07:00→20:17)
[2020-04-15] MEDS: FLUDROCORTISONE 0.1 MG TABLET PO SCH (07:46)
[2020-04-15] MEDS: SODIUM CHLORIDE FLUSH 10ML SYR IVF SCH ×2 (07:46→20:33)
[2020-04-15] MEDS: GABAPENTIN 100 MG CAPSULE PO SCH ×3 (07:46→20:24)
[2020-04-15] MEDS: LACTOBACILLUS CHEW TABLET PO SCH ×3 (07:46→20:24)
[2020-04-15] MEDS: SERTRALINE 50MG TABLET PO SCH (07:46)
[2020-04-15] MEDS: DIPHENOXYLATE/ATROPINE TABLET PO PRN (11:50)
[2020-04-15 12:58] VITALS: BP 131/80
[2020-04-15] MEDS ORDERED: SODIUM POLYSTYRENE SULFONATE ORAL SUSP PO ONE (14:00)
[2020-04-15] MEDS ORDERED: INSU100I13 SQ-INSULIN ×2 (18:53)
[2020-04-15 18:57] VITALS: BP 126/76
[2020-04-15] MEDS: CARVEDILOL 3.125 MG TABLET PO SCH (20:25)
[2020-04-15] MEDS: INSULIN GLARGINE 100 UNITS/ML, PEN SQ-INSULIN SCH (20:25)
[2020-04-16 00:28] VITALS: BP 156/90
[2020-04-16 04:26] LABS: BASOPHILS # (AUTO) 0.05 x10^3/uL (0-0.1); BASOPHILS % (AUTO) 1 % (0-1); EOSINOPHILS # (AUTO) 0.21 x10^3/uL (0-0.4); EOSINOPHILS % (AUTO) 3 % (1-7); LYMPHOCYTES # (AUTO) 1.96 x10^3/uL (1-3.4); LYMPHOCYTES % (AUTO) 23 % (22-44); MD NO; MEAN CORPUSCULAR HEMOGLOBIN 27.2 pg (27.0-34.8); MEAN CORPUSCULAR HGB CONC 32.2 g/dL (32.4-35.8); MEAN CORPUSCULAR VOLUME 84.4 fL (80-100); MEAN PLATELET VOLUME 7.3 fL (7.4-10.4); MONOCYTES # (AUTO) 0.63 x10^3/uL (0.2-0.8); MONOCYTES % (AUTO) 8 % (2-9); NEUTROPHILS # (AUTO) 5.63 x10^3/uL (1.8-6.8); NEUTROPHILS % (AUTO) 66 % (42-75); PLATELET COUNT 175 x10^3/uL (130-400); RED BLOOD COUNT 3.05 x10^6/uL (3.82-5.3); RED CELL DISTRIBUTION WIDTH 15.8 % (9.6-15.2)
[2020-04-16 04:34] LABS: ANION GAP 6 mmol/L (5-15); CALCIUM 8.2 mg/dL (8.5-10.1); CHLORIDE 110 mmol/L (98-107); CREATININE 1.32 mg/dL (0.55-1.02)
[2020-04-16] MEDS: HEPARIN 5,000 UNITS/ML, 1ML SQ SCH ×2 (04:54→17:00)
[2020-04-16] MEDS: OXYcodone IR 5MG TABLET PO PRN ×2 (04:55→12:34)
[2020-04-16] MEDS: LEVOTHYROXINE 75 MCG TABLET PO SCH (04:55)
[2020-04-16 06:48] VITALS: BP 145/86
[2020-04-16] MEDS: GABAPENTIN 100 MG CAPSULE PO SCH ×2 (08:21→17:15)
[2020-04-16] MEDS: INSULIN LISPRO 100 UNITS/ML, PEN SQ-INSULIN SCH ×3 (08:21→16:00)
[2020-04-16] MEDS: LACTOBACILLUS CHEW TABLET PO SCH ×2 (08:21→16:00)
[2020-04-16] MEDS: SERTRALINE 50MG TABLET PO SCH (08:21)
[2020-04-16] MEDS: FLUDROCORTISONE 0.1 MG TABLET PO SCH (08:21)
[2020-04-16] MEDS: SODIUM CHLORIDE FLUSH 10ML SYR IVF SCH (09:00)
[2020-04-16] MEDS ORDERED: INSU100V13 SQ (09:52)
[2020-04-16] MEDS ORDERED: INSU100C5 SQ-INSULIN (09:53)
[2020-04-16 12:02] VITALS: BP 146/87
== END 2020-04-16 17:46 | disposition home or self-care (01) | DRG 312 ==
LOC: ED 12:34 → EDIP 15:25 → 5SO 16:52 → 4WST 04-12 22:46
PROVIDERS: ADMIT Internal Medicine; ATTEND Hospitalist
DX: I95.1 Orthostatic hypotension (principal); E43 Unspecified severe protein-calorie malnutrition; E46 Unspecified protein-calorie malnutrition; N17.9 Acute kidney failure, unspecified; E87.1 Hypo-osmolality and hyponatremia; N13.30 Unspecified hydronephrosis; Z68.1 Body mass index [BMI] 19.9 or less, adult; R55 Syncope and collapse; E11.9 Type 2 diabetes mellitus without complications; E87.5 Hyperkalemia; R74.0 Nonspecific elevation of levels of transaminase and lactic acid dehydrogenase [LDH]; G47.00 Insomnia, unspecified; M48.02 Spinal stenosis, cervical region; E03.9 Hypothyroidism, unspecified; E11.40 Type 2 diabetes mellitus with diabetic neuropathy, unspecified; D64.9 Anemia, unspecified; N18.3 Chronic kidney disease, stage 3 (moderate); R53.81 Other malaise; E11.65 Type 2 diabetes mellitus with hyperglycemia; Z88.2 Allergy status to sulfonamides; Z88.1 Allergy status to other antibiotic agents; Z88.8 Allergy status to other drugs, medicaments and biological substances; Z79.4 Long term (current) use of insulin
CPT/HCPCS: 36415; 70450; 76700; 80048; 80053; 82330; 82962; 83036; 83540; 83550; 84132; 85025; 87040; 93005; 93306; 96374; 96375; G0378; J1644; J2310; J7070; J0360; J1815; J7030

== ENCOUNTER 2020-04-27 21:27 | Inpatient (IN) | payer OTHER ==
[~2020-04-27] VITALS: Ht 175.3 cm; Wt 61.4 kg
[~2020-04-27 21:27] MED LIST changes: +CEPH-368 PO; +GABA600T7 PO; +INSU100C5 SQ-INSULIN; +INSU100V13 SQ
[2020-04-27] MEDS ORDERED: SODIUM CHLORIDE FLUSH 10ML SYR IVF ONE (21:30)
[2020-04-27] MEDS ORDERED: SODIUM CHLORIDE 0.9% 1,000ML IVBOLUS ONE (21:30)
[2020-04-27] MEDS ORDERED: PLEASE ENTER HEIGHT AND WEIGHT MC SCH (22:00)
--- NOTE | 2020-04-27 22:00 | NUR ---
pt bib [facility] from son's [facility]. . pt recently discharged from [facility]. pt was altered at scene. FSBG was 38. pt recieved 500ml ns and amp of d50. fsbg now 117. pt aaox 2-3. pt is [facility]. at bedside. BP low 2L ns running with pressure bags. Central line to be placed. pt covered in stool and graham leaking. unable to get temp at this time.
[2020-04-27] MEDS ORDERED: LIDOCAINE-MPF 1%, 5ML ONE (22:11)
[2020-04-27 22:20] LABS: INTERNATIONAL NORMALIZED RATIO 1.12 (0.93-1.1); PROTHROMBIN TIME 11.9 Seconds (9.6-11.5)
[2020-04-27 22:32] LABS: ALBUMIN 2.7 g/dL (3.4-5.0); ANION GAP 7 mmol/L (5-15); CHLORIDE 123 mmol/L (98-107)
[2020-04-27 22:35] LABS: ALANINE AMINOTRANSFERASE 42 U/L (12-78); ALKALINE PHOSPHATASE 273 U/L (45-117); BILIRUBIN,TOTAL 0.2 mg/dL (0.2-1.0); TOTAL PROTEIN 6.4 g/dL (6.4-8.2); TROPONIN I < 0.015 ng/mL (0.000-0.045)
[2020-04-27 22:37] LABS: BASOPHILS # (AUTO) 0.03 x10^3/uL (0-0.1); BASOPHILS % (AUTO) 0 % (0-1); EOSINOPHILS # (AUTO) 0.06 x10^3/uL (0-0.4); EOSINOPHILS % (AUTO) 1 % (1-7); LYMPHOCYTES # (AUTO) 1.97 x10^3/uL (1-3.4); LYMPHOCYTES % (AUTO) 27 % (22-44); MD SCAN; MEAN CORPUSCULAR HEMOGLOBIN 27.3 pg (27.0-34.8); MEAN CORPUSCULAR HGB CONC 31.2 g/dL (32.4-35.8); MEAN CORPUSCULAR VOLUME 87.5 fL (80-100); MEAN PLATELET VOLUME 9.2 fL (7.4-10.4); MONOCYTES # (AUTO) 0.64 x10^3/uL (0.2-0.8); MONOCYTES % (AUTO) 9 % (2-9); NEUTROPHILS # (AUTO) 4.65 x10^3/uL (1.8-6.8); NEUTROPHILS % (AUTO) 63 % (42-75); PLATELET COUNT 72 x10^3/uL (130-400); RED CELL DISTRIBUTION WIDTH 17.9 % (9.6-15.2)
[2020-04-27 22:41] LABS: MICROSCOPIC INDICATED
--- NOTE | 2020-04-27 22:42 | NUR ---
ERMD MANDIE AT BEDSIDE FOR CENTRAL LINE PLACEMENT. STERILE FIELD MAINTAINED. PT TOLERATING WELL. HR 37, SPO2 98% RA, R10, 49/24. PT MAINTAINING OWN AIRWAY.
[2020-04-27] MEDS ORDERED: NALOXONE 0.4 MG/ML, 1ML ONE (22:46)
[2020-04-27] MEDS ORDERED: GLUCAGON 1 MG ONE (22:46)
[2020-04-27] MEDS ORDERED: SODIUM CHLORIDE 0.9% 1,000 ML IV ONE (22:51)
[2020-04-27] MEDS ORDERED: NOREPINEPHRINE 8 MG in SODIUM CHLORIDE 0.9% 242 ML IV PRN (22:51)
[2020-04-27] MEDS ORDERED: VANCOMYCIN PER PHARMACY MC PRN (23:00)
[2020-04-27] MEDS ORDERED: GLUCAGON 1 MG IVPush ONE (23:00)
[2020-04-27] MEDS ORDERED: NALOXONE 0.4 MG/ML, 1ML IVPush ONE (23:00)
[2020-04-27] MEDS ORDERED: FLUCONAZOLE 400 MG/200 ML 200 ML IV ONE (23:00)
[2020-04-27] MEDS ORDERED: CEFTRIAXONE PMX 1GM/50ML 50 ML IV ONE (23:00)
[2020-04-27] MEDS ORDERED: CEFTRIAXONE PMX 1GM/50ML 50 ML ONE (23:28)
[2020-04-27] MEDS ORDERED: VANCOMYCIN PMX 1GM/200ML 200 ML IV ONE (23:30)
[2020-04-27 23:32] LABS: AMPHETAMINE SCREEN, URINE Negative (Negative); BARBITURATE SCREEN, URINE Negative (Negative); BENZODIAZEPINE SCREEN, URINE Positive (Negative); CANNABINOID SCREEN, URINE Negative (Negative); COCAINE SCREEN, URINE Negative (Negative); METHADONE SCREEN, URINE Negative (Negative); OPIATE SCREEN, URINE Negative (Negative)
[2020-04-27 23:42] LABS: SALICYLATE LEVEL < 1.7 mg/dL (2.8-20.0)
[2020-04-28 00:19] LABS: T4 (THYROXINE) 6.8 mcg/dL (4.8-13.9)
--- NOTE | 2020-04-28 00:48 | NUR ---
femoral line placed. pt more alert. FSBG 177. abx running into femoral line. warm saline running at 250 ml/hr. BP improved with levo and it has been titrated accordingly. other vss. call light in reach
[2020-04-28] MEDS ORDERED: GLUCAGON 1 MG IM PRN (01:00)
[2020-04-28] MEDS ORDERED: DEXTROSE 4 GM TAB.CHEW PO PRN (01:00)
[2020-04-28] MEDS ORDERED: CALCIUM GLUCONATE 4.6 MEQ in SODIUM CHLORIDE 0.9% 50 ML IV ONE ×2 (01:00→05:30)
[2020-04-28] MEDS ORDERED: NOREPINEPHRINE 8 MG in SODIUM CHLORIDE 0.9% 242 ML IV PRN (01:00)
[2020-04-28] MEDS ORDERED: DEXTROSE 50%, 50ML SYRINGE IVPush PRN (01:00)
[2020-04-28] MEDS ORDERED: ACETAMINOPHEN 325 MG TABLET PO PRN (01:00)
[2020-04-28] MEDS ORDERED: VANCOMYCIN PER PHARMACY MC PRN (01:00)
[2020-04-28] MEDS ORDERED: ONDANSETRON 2MG/ML, 2ML IVPush PRN (01:00)
[2020-04-28] MEDS ORDERED: PHARMACOKINETIC CONSULTATION MC ONE (01:30)
[2020-04-28] MEDS ORDERED: PHARMACOKINETIC MONITORING MC PRN (01:30)
[2020-04-28 01:58] VITALS: BP 88/59
[2020-04-28 02:12] LABS: FREE T4 (FREE THYROXINE) 1.05 ng/dL (0.76-1.46)
[2020-04-28] MEDS ORDERED: SODIUM BICARBONATE 8.4% 150 MEQ in DEXTROSE 5% 1,000 ML IV SCH (02:30)
[2020-04-28 04:48] LABS: ANION GAP 7 mmol/L (5-15); CALCIUM 7.7 mg/dL (8.5-10.1); CHLORIDE 122 mmol/L (98-107); CREATININE 1.89 mg/dL (0.55-1.02)
[2020-04-28 04:51] LABS: MEAN CORPUSCULAR HEMOGLOBIN 27.5 pg (27.0-34.8); MEAN CORPUSCULAR HGB CONC 31.8 g/dL (32.4-35.8); MEAN CORPUSCULAR VOLUME 86.3 fL (80-100); MEAN PLATELET VOLUME 9.2 fL (7.4-10.4); PLATELET COUNT 84 x10^3/uL (130-400); RED BLOOD COUNT 3.79 x10^6/uL (3.82-5.3); RED CELL DISTRIBUTION WIDTH 18.2 % (9.6-15.2)
[2020-04-28 05:13] LABS: BASOPHILS # (AUTO) 0.01 x10^3/uL (0-0.1); BASOPHILS % (AUTO) 0 % (0-1); EOSINOPHILS % (AUTO) 0 % (1-7); LYMPHOCYTES # (AUTO) 0.38 x10^3/uL (1-3.4); LYMPHOCYTES % (AUTO) 4 % (22-44); MD SCAN; MONOCYTES # (AUTO) 0.08 x10^3/uL (0.2-0.8); MONOCYTES % (AUTO) 1 % (2-9); NEUTROPHILS # (AUTO) 8.95 x10^3/uL (1.8-6.8); NEUTROPHILS % (AUTO) 95 % (42-75)
[2020-04-28] MEDS ORDERED: INSULIN REGULAR 100 UNITS/ML, 3ML VIAL IVPush ONE ×2 (05:30→06:30)
[2020-04-28] MEDS ORDERED: DEXTROSE 50%, 50ML SYRINGE IVPush ONE (05:30)
[2020-04-28] MEDS ORDERED: ALBUTEROL 0.5%, 20ML NPPB ONE (05:30)
[2020-04-28] MEDS ORDERED: SODIUM ZIRCONIUM CYCLOSILICATE 10 GM PO ONE ×2 (05:30→06:30)
[2020-04-28] MEDS: LEVOTHYROXINE 50 MCG TABLET PO SCH (06:23)
[2020-04-28] MEDS: HYDROCORTISONE 100 MG INJ. IVPush SCH ×3 (06:44→21:31)
[2020-04-28] MEDS: GABAPENTIN 100 MG CAPSULE PO SCH ×3 (09:40→20:12)
[2020-04-28] MEDS: LACTOBACILLUS CHEW TABLET PO SCH ×3 (09:40→20:12)
[2020-04-28] MEDS: SERTRALINE 50MG TABLET PO SCH (09:40)
[2020-04-28 10:44] LABS: ANION GAP 7 mmol/L (5-15); CALCIUM 7.6 mg/dL (8.5-10.1); CHLORIDE 121 mmol/L (98-107)
[2020-04-28 10:45] LABS: CREATININE 2.04 mg/dL (0.55-1.02)
[2020-04-28] MEDS: SODIUM CHLORIDE 0.9% 1,000 ML IV SCH ×2 (11:30→20:12)
[2020-04-28] MEDS: INSULIN LISPRO 100 UNITS/ML, PEN SQ-INSULIN SCH ×5 (11:31→20:17)
[2020-04-28 13:04] LABS: ACETONE, SERUM Negative (Negative)
[2020-04-28] MEDS: SODIUM BICARBONATE 8.4% 150 MEQ in DEXTROSE 5% 1,000 ML IV SCH ×2 (13:58→21:30)
[2020-04-28] MEDS: CEFTRIAXONE PMX 1GM/50ML 50 ML IV SCH (20:13)
[2020-04-28 20:40] LABS: ANION GAP 8 mmol/L (5-15); CALCIUM 7.3 mg/dL (8.5-10.1); CHLORIDE 120 mmol/L (98-107); CREATININE 2.02 mg/dL (0.55-1.02)
[2020-04-28] MEDS ORDERED: CARVEDILOL 3.125 MG TABLET PO SCH (21:00)
[2020-04-29 04:30] VITALS: BP 175/96
[2020-04-29] MEDS: LEVOTHYROXINE 50 MCG TABLET PO SCH (05:17)
[2020-04-29] MEDS: HYDROCORTISONE 100 MG INJ. IVPush SCH ×3 (05:17→22:02)
[2020-04-29 05:42] LABS: MEAN CORPUSCULAR HEMOGLOBIN 27.4 pg (27.0-34.8); MEAN CORPUSCULAR HGB CONC 32.6 g/dL (32.4-35.8); MEAN CORPUSCULAR VOLUME 84.2 fL (80-100); MEAN PLATELET VOLUME 9.4 fL (7.4-10.4); PLATELET COUNT 70 x10^3/uL (130-400); RED BLOOD COUNT 3.04 x10^6/uL (3.82-5.3); RED CELL DISTRIBUTION WIDTH 18.1 % (9.6-15.2)
[2020-04-29] MEDS: hydrALAzine 20 MG/ML, 1ML IV PRN (05:46)
[2020-04-29 05:59] LABS: ANION GAP 7 mmol/L (5-15); CALCIUM 7.4 mg/dL (8.5-10.1); CHLORIDE 115 mmol/L (98-107)
[2020-04-29 06:02] LABS: CREATININE 1.95 mg/dL (0.55-1.02); VANCOMYCIN,RANDOM 11.8 mcg/mL
[2020-04-29] MEDS: INSULIN LISPRO 100 UNITS/ML, PEN SQ-INSULIN SCH ×4 (06:34→22:03)
[2020-04-29] MEDS: SODIUM BICARBONATE 8.4% 150 MEQ in DEXTROSE 5% 1,000 ML IV SCH (06:45)
[2020-04-29 06:49] LABS: BASOPHILS # (AUTO) 0.13 x10^3/uL (0-0.1); BASOPHILS % (AUTO) 2 % (0-1); EOSINOPHILS # (AUTO) 0.02 x10^3/uL (0-0.4); EOSINOPHILS % (AUTO) 0 % (1-7); LYMPHOCYTES # (AUTO) 1.23 x10^3/uL (1-3.4); LYMPHOCYTES % (AUTO) 18 % (22-44); MD SCAN; MONOCYTES # (AUTO) 0.43 x10^3/uL (0.2-0.8); MONOCYTES % (AUTO) 6 % (2-9); NEUTROPHILS # (AUTO) 5.05 x10^3/uL (1.8-6.8); NEUTROPHILS % (AUTO) 74 % (42-75)
[2020-04-29] MEDS ORDERED: VANCOMYCIN PMX 1GM/200ML 200 ML IV SCH (07:30)
[2020-04-29] MEDS: CARVEDILOL 3.125 MG TABLET PO SCH ×2 (08:44→22:02)
[2020-04-29] MEDS: SERTRALINE 50MG TABLET PO SCH (08:44)
[2020-04-29] MEDS: GABAPENTIN 100 MG CAPSULE PO SCH ×3 (08:44→22:02)
[2020-04-29] MEDS: LACTOBACILLUS CHEW TABLET PO SCH ×3 (08:44→22:02)
[2020-04-29] MEDS: SODIUM CHLORIDE 0.9% 1,000 ML IV SCH ×2 (08:46→22:02)
[2020-04-29] MEDS ORDERED: AMLODIPINE 2.5 MG TABLET PO SCH (09:00)
[2020-04-29] MEDS: HYDROcodone/APAP 5/325 TABLET PO PRN (15:12)
[2020-04-29 19:47] VITALS: BP 112/68
[2020-04-29] MEDS: SODIUM BICARBONATE 650 MG TABLET PO SCH (22:02)
[2020-04-29] MEDS: CEFTRIAXONE PMX 1GM/50ML 50 ML IV SCH (22:21)
[2020-04-30 01:17] VITALS: BP_SYST 202; BP_DIAS 104; BP_DIAS 106
[2020-04-30] MEDS: hydrALAzine 20 MG/ML, 1ML IV PRN ×2 (01:26→08:19)
[2020-04-30] MEDS: LEVOTHYROXINE 50 MCG TABLET PO SCH (05:34)
[2020-04-30] MEDS: HYDROCORTISONE 100 MG INJ. IVPush SCH ×3 (05:34→23:13)
[2020-04-30 06:46] VITALS: BP 185/101
[2020-04-30] MEDS: SODIUM CHLORIDE 0.9% 1,000 ML IV SCH ×2 (08:00→23:17)
[2020-04-30] MEDS ORDERED: PHARMACOKINETIC CONSULTATION MC ONE (09:00)
[2020-04-30] MEDS: SODIUM BICARBONATE 650 MG TABLET PO SCH ×2 (09:00→21:25)
[2020-04-30] MEDS ORDERED: AMLODIPINE 10 MG TAB PO SCH (09:00)
[2020-04-30] MEDS ORDERED: PHARMACOKINETIC MONITORING MC PRN (09:00)
[2020-04-30] MEDS ORDERED: VANCOMYCIN PER PHARMACY MC PRN (09:00)
[2020-04-30] MEDS ORDERED: CEFTRIAXONE PMX 2GM/50ML 50 ML IV SCH (09:00)
[2020-04-30 09:03] LABS: MEAN CORPUSCULAR HGB CONC 31.9 g/dL (32.4-35.8); MEAN CORPUSCULAR VOLUME 84.9 fL (80-100); PLATELET COUNT 73 x10^3/uL (130-400); RED BLOOD COUNT 3.44 x10^6/uL (3.82-5.3); RED CELL DISTRIBUTION WIDTH 18.7 % (9.6-15.2)
[2020-04-30 09:13] LABS: ANION GAP 11 mmol/L (5-15); CALCIUM 8.1 mg/dL (8.5-10.1); CHLORIDE 117 mmol/L (98-107); CREATININE 1.62 mg/dL (0.55-1.02)
[2020-04-30 09:21] LABS: BASOPHILS % (AUTO) 0 % (0-1); EOSINOPHILS # (AUTO) 0.01 x10^3/uL (0-0.4); EOSINOPHILS % (AUTO) 0 % (1-7); LYMPHOCYTES # (AUTO) 0.78 x10^3/uL (1-3.4); LYMPHOCYTES % (AUTO) 10 % (22-44); MD SCAN; MONOCYTES # (AUTO) 0.14 x10^3/uL (0.2-0.8); MONOCYTES % (AUTO) 2 % (2-9); NEUTROPHILS # (AUTO) 6.51 x10^3/uL (1.8-6.8); NEUTROPHILS % (AUTO) 88 % (42-75)
[2020-04-30] MEDS: LACTOBACILLUS CHEW TABLET PO SCH ×3 (10:19→20:55)
[2020-04-30] MEDS: CARVEDILOL 3.125 MG TABLET PO SCH ×2 (10:20→20:55)
[2020-04-30] MEDS: SERTRALINE 50MG TABLET PO SCH (10:21)
[2020-04-30] MEDS: INSULIN LISPRO 100 UNITS/ML, PEN SQ-INSULIN SCH ×4 (10:21→20:59)
[2020-04-30 10:28] VITALS: BP 148/85
[2020-04-30] MEDS: HYDROcodone/APAP 5/325 TABLET PO PRN ×2 (10:35→20:59)
[2020-04-30 12:18] VITALS: BP 131/78
[2020-04-30 18:54] VITALS: BP 140/79
[2020-04-30] MEDS ORDERED: VANCOMYCIN 1,200 MG in SODIUM CHLORIDE 0.9% 250 ML IV SCH (21:00)
[2020-05-01 01:35] VITALS: BP 169/94
[2020-05-01 03:40] VITALS: BP 157/89
[2020-05-01] MEDS: HYDROcodone/APAP 5/325 TABLET PO PRN ×2 (03:41→12:23)
[2020-05-01] MEDS: LEVOTHYROXINE 50 MCG TABLET PO SCH (06:47)
[2020-05-01 06:48] LABS: MEAN CORPUSCULAR HEMOGLOBIN 28.3 pg (27.0-34.8); MEAN CORPUSCULAR HGB CONC 33.1 g/dL (32.4-35.8); MEAN CORPUSCULAR VOLUME 85.6 fL (80-100); PLATELET COUNT 72 x10^3/uL (130-400); RED BLOOD COUNT 3.33 x10^6/uL (3.82-5.3); RED CELL DISTRIBUTION WIDTH 17.8 % (9.6-15.2)
[2020-05-01 06:52] LABS: ANION GAP 9 mmol/L (5-15); CALCIUM 7.8 mg/dL (8.5-10.1); CHLORIDE 116 mmol/L (98-107)
[2020-05-01 07:06] VITALS: BP 163/85
[2020-05-01 07:22] LABS: BASOPHILS # (AUTO) 0.01 x10^3/uL (0-0.1); BASOPHILS % (AUTO) 0 % (0-1); EOSINOPHILS # (AUTO) 0.01 x10^3/uL (0-0.4); EOSINOPHILS % (AUTO) 0 % (1-7); LYMPHOCYTES # (AUTO) 0.83 x10^3/uL (1-3.4); LYMPHOCYTES % (AUTO) 12 % (22-44); MD SCAN; MONOCYTES % (AUTO) 2 % (2-9); NEUTROPHILS # (AUTO) 5.73 x10^3/uL (1.8-6.8); NEUTROPHILS % (AUTO) 86 % (42-75)
[2020-05-01] MEDS: CARVEDILOL 3.125 MG TABLET PO SCH ×2 (08:56→21:15)
[2020-05-01] MEDS: AMLODIPINE 10 MG TAB PO SCH (08:56)
[2020-05-01] MEDS: LINEZOLID 600 MG TABLET PO SCH ×2 (08:56→21:15)
[2020-05-01] MEDS: SODIUM BICARBONATE 650 MG TABLET PO SCH ×2 (08:56→21:00)
[2020-05-01] MEDS: CEFTRIAXONE PMX 2GM/50ML 50 ML IV SCH (08:56)
[2020-05-01] MEDS: LACTOBACILLUS CHEW TABLET PO SCH ×3 (08:56→21:15)
[2020-05-01] MEDS: INSULIN LISPRO 100 UNITS/ML, PEN SQ-INSULIN SCH ×4 (08:57→21:16)
[2020-05-01 12:55] VITALS: BP 160/85
[2020-05-01 21:01] VITALS: BP 185/100
[2020-05-02 02:04] VITALS: BP 151/83
[2020-05-02] MEDS: LEVOTHYROXINE 50 MCG TABLET PO SCH (05:55)
[2020-05-02 06:01] LABS: ANION GAP 7 mmol/L (5-15); CALCIUM 8.2 mg/dL (8.5-10.1); CHLORIDE 116 mmol/L (98-107); CREATININE 1.58 mg/dL (0.55-1.02)
[2020-05-02 06:11] LABS: BASOPHILS # (AUTO) 0.06 x10^3/uL (0-0.1); BASOPHILS % (AUTO) 1 % (0-1); EOSINOPHILS # (AUTO) 0.16 x10^3/uL (0-0.4); EOSINOPHILS % (AUTO) 2 % (1-7); LYMPHOCYTES # (AUTO) 1.94 x10^3/uL (1-3.4); LYMPHOCYTES % (AUTO) 26 % (22-44); MD NO; MEAN CORPUSCULAR HEMOGLOBIN 27.7 pg (27.0-34.8); MEAN CORPUSCULAR HGB CONC 32.8 g/dL (32.4-35.8); MEAN CORPUSCULAR VOLUME 84.5 fL (80-100); MEAN PLATELET VOLUME 8.8 fL (7.4-10.4); MONOCYTES # (AUTO) 0.39 x10^3/uL (0.2-0.8); MONOCYTES % (AUTO) 5 % (2-9); NEUTROPHILS # (AUTO) 4.98 x10^3/uL (1.8-6.8); NEUTROPHILS % (AUTO) 66 % (42-75); PLATELET COUNT 81 x10^3/uL (130-400); RED BLOOD COUNT 3.29 x10^6/uL (3.82-5.3)
[2020-05-02 06:23] VITALS: BP 159/79
[2020-05-02 07:44] VITALS: BP 159/84
[2020-05-02] MEDS: LINEZOLID 600 MG TABLET PO SCH (07:45)
[2020-05-02] MEDS: SODIUM BICARBONATE 650 MG TABLET PO SCH (07:45)
[2020-05-02] MEDS: CEFTRIAXONE PMX 2GM/50ML 50 ML IV SCH (07:45)
[2020-05-02] MEDS: HYDROcodone/APAP 5/325 TABLET PO PRN ×2 (07:45→12:34)
[2020-05-02] MEDS: AMLODIPINE 10 MG TAB PO SCH (07:45)
[2020-05-02] MEDS: CARVEDILOL 3.125 MG TABLET PO SCH (07:45)
[2020-05-02] MEDS: LACTOBACILLUS CHEW TABLET PO SCH (07:45)
[2020-05-02] MEDS: INSULIN LISPRO 100 UNITS/ML, PEN SQ-INSULIN SCH ×2 (07:46→11:19)
[2020-05-02] MEDS ORDERED: LEVO50TA PO (11:34)
[2020-05-02] MEDS ORDERED: AMLO10TA8 PO (11:34)
[2020-05-02] MEDS ORDERED: LINE600T15 PO (11:34)
[2020-05-02] MEDS ORDERED: CEFT2FRO2 IV (11:34)
[2020-05-02 12:08] VITALS: BP 157/77
== END 2020-05-02 13:46 | DRG 871 ==
LOC: ED 23:03 → EDIP 23:38 → CCU 04-28 01:08 → 4WST 04-29 19:28
PROVIDERS: ADMIT Family Medicine; ATTEND Internal Medicine Infectious Disease
DX: A41.9 Sepsis, unspecified organism (principal); R65.21 Severe sepsis with septic shock; N17.0 Acute kidney failure with tubular necrosis; G93.41 Metabolic encephalopathy; E43 Unspecified severe protein-calorie malnutrition; T83.511A Infection and inflammatory reaction due to indwelling urethral catheter, initial encounter; E87.2 Acidosis; M86.8X4 Other osteomyelitis, hand; E03.9 Hypothyroidism, unspecified; R00.1 Bradycardia, unspecified; D63.8 Anemia in other chronic diseases classified elsewhere; E87.6 Hypokalemia; D69.6 Thrombocytopenia, unspecified; E86.0 Dehydration; N18.3 Chronic kidney disease, stage 3 (moderate); E11.22 Type 2 diabetes mellitus with diabetic chronic kidney disease; I12.9 Hypertensive chronic kidney disease with stage 1 through stage 4 chronic kidney disease, or unspecified chronic kidney disease; E11.649 Type 2 diabetes mellitus with hypoglycemia without coma; G47.00 Insomnia, unspecified; Z79.4 Long term (current) use of insulin; Z79.899 Other long term (current) drug therapy; Z88.1 Allergy status to other antibiotic agents; Z88.8 Allergy status to other drugs, medicaments and biological substances; Z82.49 Family history of ischemic heart disease and other diseases of the circulatory system; Z68.20 Body mass index [BMI] 20.0-20.9, adult; Z89.021 Acquired absence of right finger(s)
CPT/HCPCS: 36415; 36556; 71045; 80048; 80053; 80202; 80307; 81001; 82010; 82140; 82436; 82533; 82550; 82570; 82800; 82962; 83036; 83605; 83735; 83880; 83930; 84100; 84133; 84145; 84156; 84300; 84436; 84439; 84443; 84481; 84484; 85025; 85610; 85730; 87040; 87077; 87081; 87086; 87106; 87186; 93005; 96361; 96365; 96375; 99291; G0378; J0610; J0696; J1450; J1815; J2310; J3370; J7070; J0360; J1610; J1720; J7030; J7050

== ENCOUNTER 2020-05-14 20:38 | Inpatient (IN) | payer OTHER ==
[~2020-05-14] VITALS: Ht 167.6 cm; Wt 64.5 kg
[~2020-05-14 20:38] MED LIST changes: +AMLO10TA8 PO; +CEFT2FRO2 IV; +ETOMIDATE 20 MG/10 ML ONE; +LEVO50TA PO; +LINE600T15 PO; +PROPOFOL 10 MG/ML, 100ML IV ONE; +ROCURONIUM 10 MG/ML,10ML ONE
[2020-05-14] MEDS ORDERED: PLEASE ENTER HEIGHT AND WEIGHT MC SCH (21:00)
[2020-05-14] MEDS ORDERED: SODIUM CHLORIDE 0.9% 1,000ML IVBOLUS ONE ×3 (21:00→22:00)
[2020-05-14] MEDS ORDERED: SODIUM CHLORIDE FLUSH 10ML SYR IVF ONE (21:00)
--- NOTE | 2020-05-14 21:11 | NUR ---
PT BIB [facility] FROM [facility]. PT FOUND UNRESPONSIVE. LAST KNOWN WELL 1829. PTS FSBG WAS 54. PT GIVEN D50 AND BG IMPROVED TO 96. PT REMAINS UNRESPONSIVE. RESPONDS SLIGHTLY TO PAINFUL STIMULI. PT HOTN 75/40. OTHER VSS. PIV PLACED AND FLUIDS RUNNING. FSBG STILL IN 90'S. PT IS PALE AND GHAS BENJAMIN IN PLACE. URINE IN BENJAMIN IS CLOUDY. PT TO CT AT THIS TIME
[2020-05-14 21:21] LABS: INTERNATIONAL NORMALIZED RATIO 0.99 (0.93-1.1); PROTHROMBIN TIME 10.5 Seconds (9.6-11.5)
[2020-05-14 21:22] LABS: ALANINE AMINOTRANSFERASE 47 U/L (12-78); ALBUMIN 2.2 g/dL (3.4-5.0); ANION GAP 3 mmol/L (5-15); CALCIUM 7.8 mg/dL (8.5-10.1); CHLORIDE 121 mmol/L (98-107); CREATININE 2.96 mg/dL (0.55-1.02); SALICYLATE LEVEL 1.9 mg/dL (2.8-20.0)
[2020-05-14 21:26] LABS: ALKALINE PHOSPHATASE 246 U/L (45-117); BILIRUBIN,TOTAL 0.3 mg/dL (0.2-1.0); TOTAL PROTEIN 5.5 g/dL (6.4-8.2)
[2020-05-14 21:35] LABS: MEAN CORPUSCULAR HEMOGLOBIN 27.4 pg (27.0-34.8); MEAN CORPUSCULAR HGB CONC 31.4 g/dL (32.4-35.8); MEAN CORPUSCULAR VOLUME 87.4 fL (80-100); MEAN PLATELET VOLUME 9.6 fL (7.4-10.4); RED BLOOD COUNT 2.53 x10^6/uL (3.82-5.3); RED CELL DISTRIBUTION WIDTH 18.2 % (9.6-15.2)
[2020-05-14 21:37] LABS: PLATELET COUNT 12 x10^3/uL (130-400)
[2020-05-14 21:41] LABS: MD YES
[2020-05-14 21:42] LABS: ANISOCYTOSIS 1+; EOS#(MANUAL) 0.06 x10^3/uL (0.0-0.4); EOS% (MANUAL) 1 % (1-7); HYPOCHROMIA 1+; LYMPH#(MANUAL) 0.82 x10^3/uL (1-3.4); LYMPHS% (MANUAL) 13 % (22-44); MONOS#(MANUAL) 0.19 x10^3/uL (0.3-2.7); MONOS% (MANUAL) 3 % (2-9); SEG#(MANUAL) 5.23 x10^3/uL (1.8-6.8); SEGS% (MANUAL) 83 % (42-75)
[2020-05-14 21:43] LABS: <PLATELET ESTIMATE> DECREASED; ECHINOCYTES 1+; SPHEROCYTES 1+
[2020-05-14 21:45] LABS: <PLT MORPHOLOGY> NORMAL PLT MORPH
[2020-05-14] MEDS ORDERED: CALCIUM GLUCONATE 4.6 MEQ/10 ML ONE (21:47)
[2020-05-14] MEDS ORDERED: DEXTROSE 50%, 50ML SYRINGE ONE (21:49)
[2020-05-14] MEDS ORDERED: INSULIN SINGLE DOSE, ER ONE ×2 (21:50→22:02)
[2020-05-14] MEDS ORDERED: INSULIN REGULAR 100 UNITS/ML, 3ML VIAL IVPush ONE (22:00)
[2020-05-14] MEDS ORDERED: NOREPINEPHRINE 8 MG in SODIUM CHLORIDE 0.9% 242 ML IV PRN (22:00)
[2020-05-14] MEDS ORDERED: DEXTROSE 10% 1,000 ML IV SCH (22:00)
[2020-05-14] MEDS ORDERED: DEXTROSE 50%, 50ML SYRINGE IVPush ONE (22:00)
[2020-05-14] MEDS ORDERED: CALCIUM GLUCONATE 0.46MEQ/1ML IVPush ONE (22:00)
--- NOTE | 2020-05-14 22:14 | NUR ---
Amarjit Sandra Hall: [phone] Addendum: 05/14/20 at 2214 by BERTHA *This is pts MOTHERS phone number.
--- NOTE | 2020-05-14 22:15 | NUR ---
LATE NOTE: BENJAMIN CATHETER PLACED BY THIS RN.
[2020-05-14] MEDS ORDERED: SODIUM ZIRCONIUM CYCLOSILICATE 10 GM PO ONE (22:30)
[2020-05-14] MEDS ORDERED: ROCURONIUM 10 MG/ML,10ML IVPush ONE (22:30)
[2020-05-14] MEDS ORDERED: ETOMIDATE 20 MG/10 ML IVPush ONE (22:30)
[2020-05-14 22:48] VITALS: BP 158/74
[2020-05-14] MEDS ORDERED: FENTANYL PF 100 MCG/2ML ONE (22:49)
[2020-05-14 22:56] LABS: AMPHETAMINE SCREEN, URINE Negative (Negative); BARBITURATE SCREEN, URINE Negative (Negative); BENZODIAZEPINE SCREEN, URINE Negative (Negative); CANNABINOID SCREEN, URINE Negative (Negative); COCAINE SCREEN, URINE Negative (Negative); METHADONE SCREEN, URINE Negative (Negative); OPIATE SCREEN, URINE Positive (Negative)
[2020-05-14 22:58] LABS: MICROSCOPIC INDICATED
[2020-05-14 23:03] VITALS: BP 214/157
[2020-05-14] MEDS ORDERED: PROPOFOL 100 ML IV PRN (23:06)
[2020-05-14 23:17] VITALS: BP 90/55
[2020-05-14] MEDS ORDERED: VANCOMYCIN 1,500 MG in SODIUM CHLORIDE 0.9% 250 ML IV ONE (23:30)
[2020-05-14] MEDS ORDERED: CEFTRIAXONE PMX 1GM/50ML 50 ML IV ONE (23:30)
[2020-05-14] MEDS ORDERED: FENTANYL PF 100 MCG/2ML IVPush ONE (23:30)
[2020-05-14] MEDS ORDERED: VANCOMYCIN PER PHARMACY MC PRN (23:30)
[2020-05-14] MEDS ORDERED: SODIUM BICARB 8.4%, 50ML SYRINGE IVPush ONE (23:30)
[2020-05-15] VITALS: BP 112/73
[2020-05-15] MEDS ORDERED: METRONIDAZOLE PMX 500MG/100ML 100 ML IV ONE
[2020-05-15] MEDS ORDERED: PROPOFOL 100 ML IV PRN (00:02)
[2020-05-15] MEDS ORDERED: NOREPINEPHRINE 8 MG in SODIUM CHLORIDE 0.9% 242 ML IV PRN (00:02)
--- NOTE | 2020-05-15 00:29 | NUR ---
late entry:PT INTUBATED AND CENTRAL LINE PLACED. PT RECEIVED 1 UNIT OF BLOOD. BP IMPOVED ON LEVOPHED SO LEVOPHED NOW BEING HELD. PROP STARTED AND PT SEDATED. OG PLACED. ABX RUNNING. SODIUM BICARB ORDERED FROM PHARMACY. COVID SWAB AND UA SENT TO LAB. PT RESTING COMFORTABLY.
[2020-05-15 00:30] LABS: FREE T4 (FREE THYROXINE) 0.8 ng/dL (0.76-1.46)
[2020-05-15] MEDS ORDERED: LIDOCAINE-MPF 1%, 2ML ENDO PRN ×2 (00:30→01:00)
[2020-05-15] MEDS ORDERED: BISACODYL 10 MG SUPP PR PRN ×2 (00:30→01:00)
[2020-05-15] MEDS ORDERED: GLUCAGON 1 MG IM PRN ×2 (00:30→01:00)
[2020-05-15] MEDS ORDERED: DEXTROSE 4 GM TAB.CHEW PO PRN ×2 (00:30→01:00)
[2020-05-15] MEDS ORDERED: LACTULOSE 20 GM/30 ML UDC NG PRN ×2 (00:30→01:00)
[2020-05-15] MEDS ORDERED: PHARMACY MAY ADJ FOR RENAL FX MC SCH ×2 (00:30→01:00)
[2020-05-15] MEDS ORDERED: SODIUM BICARBONATE 8.4% 150 MEQ in STERILE WATER 1,000 ML IV SCH ×2 (00:30→11:00)
[2020-05-15] MEDS ORDERED: SENNA/DOCUSATE TABLET NG PRN ×2 (00:30→01:00)
[2020-05-15] MEDS ORDERED: DEXTROSE 50%, 50ML SYRINGE IVPush PRN (00:30)
[2020-05-15] MEDS ORDERED: SENNA 176 MG/5 ML ORAL SOL NG PRN ×2 (00:30→01:00)
[2020-05-15] MEDS ORDERED: VANCOMYCIN PER PHARMACY MC PRN (00:30)
[2020-05-15] MEDS ORDERED: CEFTRIAXONE PMX 1GM/50ML 50 ML ONE (00:45)
[2020-05-15] MEDS: HEPARIN 5,000 UNITS/ML, 1ML SQ SCH ×2 (01:00→07:59)
[2020-05-15] MEDS: ALBUTEROL/IPRATROPIUM 2.5MG/0.5MG, 3 ML INLINE SCH ×7 (01:00→23:42)
[2020-05-15] MEDS ORDERED: ACETAMINOPHEN 650 MG/20.3 ML UDC PO/NG PRN (01:00)
[2020-05-15] MEDS ORDERED: SODIUM CHLORIDE 0.9% 1,000ML IVBOLUS ONE (01:00)
[2020-05-15] MEDS ORDERED: MORPHINE SULFATE 4 MG/ML, 1ML IVPush PRN (01:00)
[2020-05-15 01:14] LABS: TRIGLYCERIDES 37 mg/dL (50-200)
[2020-05-15 01:20] LABS: TROPONIN I 0.937 ng/mL (0.000-0.045)
--- NOTE | 2020-05-15 01:30 | NUR ---
REPORT TO FAY LEUNG. NOT ABLE TO TRANSPORT PT AT THIS TIME DUE TO CODE BLUE ON UNIT. WAITING TO TRANSPORT
--- NOTE | 2020-05-15 02:06 | NUR ---
PT START TO MOVE SOME AND BP INCREASING. PROP DRIP ADJUSTED FOR COMFORT
[2020-05-15 04:00] VITALS: BP 180/100
[2020-05-15] MEDS ORDERED: PHARMACOKINETIC MONITORING MC PRN (04:00)
[2020-05-15] MEDS ORDERED: PHARMACOKINETIC CONSULTATION MC ONE (04:00)
[2020-05-15 05:41] LABS: MEAN CORPUSCULAR HEMOGLOBIN 28.2 pg (27.0-34.8); MEAN CORPUSCULAR HGB CONC 32.5 g/dL (32.4-35.8); MEAN CORPUSCULAR VOLUME 86.9 fL (80-100); RED BLOOD COUNT 2.75 x10^6/uL (3.82-5.3); RED CELL DISTRIBUTION WIDTH 18.1 % (9.6-15.2)
[2020-05-15] MEDS ORDERED: ONDANSETRON 2MG/ML, 2ML IV PRN (06:00)
[2020-05-15 06:55] LABS: BASOPHILS % (AUTO) 0 % (0-1); EOSINOPHILS # (AUTO) 0.19 x10^3/uL (0-0.4); EOSINOPHILS % (AUTO) 3 % (1-7); LYMPHOCYTES # (AUTO) 0.85 x10^3/uL (1-3.4); LYMPHOCYTES % (AUTO) 11 % (22-44); MD SCAN; MEAN PLATELET VOLUME 9.9 fL (7.4-10.4); MONOCYTES # (AUTO) 0.37 x10^3/uL (0.2-0.8); MONOCYTES % (AUTO) 5 % (2-9); NEUTROPHILS # (AUTO) 6.38 x10^3/uL (1.8-6.8); NEUTROPHILS % (AUTO) 82 % (42-75)
[2020-05-15 06:56] LABS: PLATELET COUNT 18 x10^3/uL (130-400)
[2020-05-15] MEDS: INSULIN LISPRO 100 UNITS/ML, PEN SQ-INSULIN SCH ×4 (07:00→22:17)
[2020-05-15] MEDS ORDERED: SODIUM ZIRCONIUM CYCLOSILICATE 10 GM PO ONE (07:30)
[2020-05-15 07:32] LABS: ANION GAP 13 mmol/L (5-15); CHLORIDE 119 mmol/L (98-107); CREATININE 2.44 mg/dL (0.55-1.02)
[2020-05-15] MEDS: HYDROCORTISONE 100 MG INJ. IVPush SCH ×3 (07:57→23:31)
[2020-05-15] MEDS: DEXTROSE 50%, 50ML SYRINGE IVPush PRN ×2 (07:58→11:02)
[2020-05-15] MEDS: PIPERACILLIN/TAZO/PMX 3.375GM 50 ML IV SCH ×3 (07:59→23:31)
[2020-05-15] MEDS: SODIUM CHLORIDE FLUSH 10ML SYR IVF SCH ×2 (07:59→21:00)
[2020-05-15] MEDS ORDERED: SODIUM CHLORIDE FLUSH 10ML SYR IVF SCH (09:00)
[2020-05-15] MEDS ORDERED: SODIUM BICARB 8.4%, 50ML SYRINGE IVPush ONE (10:30)
[2020-05-15] MEDS ORDERED: DEXTROSE 10% 1,000 ML IV SCH (10:30)
[2020-05-15] MEDS ORDERED: SODIUM BICARB 8.4%, 50ML SYRINGE ONE (10:30)
[2020-05-15] MEDS ORDERED: SODIUM BICARBONATE 1 MEQ/ML, 50ML VIAL IVPush PRN (10:30)
[2020-05-15 11:15] LABS: ANION GAP 10 mmol/L (5-15); CALCIUM 8.4 mg/dL (8.5-10.1); CHLORIDE 117 mmol/L (98-107)
[2020-05-15 11:16] LABS: CREATININE 2.35 mg/dL (0.55-1.02)
[2020-05-15] MEDS: PROPOFOL 100 ML IV PRN ×3 (11:16→22:18)
[2020-05-15 11:28] LABS: RED BLOOD COUNT 2.76 x10^6/uL (3.82-5.3)
[2020-05-15 11:38] LABS: ABSOLUTE RETICS # 0.021 x10^6/uL (0.5-2.5); RETICULOCYTE COUNT % 0.78 % (0.5-1.5)
[2020-05-15] MEDS: SODIUM BICARBONATE 8.4% 150 MEQ in DEXTROSE 5% 1,000 ML IV SCH ×2 (12:24→21:39)
[2020-05-15 13:40] LABS: ANION GAP 10 mmol/L (5-15); CHLORIDE 116 mmol/L (98-107); CREATININE 2.31 mg/dL (0.55-1.02)
[2020-05-15 13:58] LABS: MEAN CORPUSCULAR HEMOGLOBIN 28.1 pg (27.0-34.8); MEAN CORPUSCULAR HGB CONC 32.4 g/dL (32.4-35.8); MEAN CORPUSCULAR VOLUME 86.8 fL (80-100); MEAN PLATELET VOLUME 9.8 fL (7.4-10.4); RED BLOOD COUNT 3.02 x10^6/uL (3.82-5.3); RED CELL DISTRIBUTION WIDTH 17.5 % (9.6-15.2)
[2020-05-15 14:00] LABS: PLATELET COUNT 19 x10^3/uL (130-400)
[2020-05-15 14:02] LABS: MD YES
[2020-05-15 14:06] LABS: LYMPHS% (MANUAL) 9 % (22-44); MONOS#(MANUAL) 0.08 x10^3/uL (0.3-2.7); MONOS% (MANUAL) 1 % (2-9); SEG#(MANUAL) 7.02 x10^3/uL (1.8-6.8); SEGS% (MANUAL) 90 % (42-75)
[2020-05-15 14:07] LABS: ANISOCYTOSIS 1+
[2020-05-15 14:09] LABS: <PLATELET ESTIMATE> DECREASED; <PLT MORPHOLOGY> NORMAL PLT MORPH; ECHINOCYTES 1+
[2020-05-15 15:18] VITALS: BP 132/74
[2020-05-15] MEDS: FLUDROCORTISONE 0.1 MG TABLET PO SCH (15:31)
[2020-05-15 15:41] VITALS: BP 130/74
[2020-05-15 18:49] VITALS: BP 155/82
[2020-05-15 19:17] LABS: ANION GAP 6 mmol/L (5-15); CALCIUM 7.8 mg/dL (8.5-10.1); CHLORIDE 113 mmol/L (98-107)
[2020-05-15 19:54] VITALS: BP 141/78
[2020-05-15] MEDS ORDERED: SODIUM ZIRCONIUM CYCLOSILICATE 10 GM PO/NG ONE (20:00)
[2020-05-15 22:50] LABS: ANION GAP 6 mmol/L (5-15); CHLORIDE 112 mmol/L (98-107); CREATININE 2.37 mg/dL (0.55-1.02)
[2020-05-16] VITALS (11 sets, daily range): BP systolic 126–172; BP diastolic 71–92
[2020-05-16] MEDS ORDERED: INSULIN LISPRO 100 UNITS/ML, PEN SQ-INSULIN SCH (03:00)
[2020-05-16] MEDS: ALBUTEROL/IPRATROPIUM 2.5MG/0.5MG, 3 ML INLINE SCH ×6 (03:04→22:17)
[2020-05-16 03:36] LABS: MEAN CORPUSCULAR HEMOGLOBIN 28.4 pg (27.0-34.8); MEAN PLATELET VOLUME 9.5 fL (7.4-10.4); RED BLOOD COUNT 2.96 x10^6/uL (3.82-5.3); RED CELL DISTRIBUTION WIDTH 18.5 % (9.6-15.2)
[2020-05-16 03:37] LABS: PLATELET COUNT 26 x10^3/uL (130-400)
[2020-05-16 03:46] LABS: ANION GAP 8 mmol/L (5-15); BASOPHILS % (AUTO) 0 % (0-1); CALCIUM 7.8 mg/dL (8.5-10.1); CHLORIDE 112 mmol/L (98-107); CREATININE 2.43 mg/dL (0.55-1.02); EOSINOPHILS # (AUTO) 0.08 x10^3/uL (0-0.4); EOSINOPHILS % (AUTO) 1 % (1-7); LYMPHOCYTES # (AUTO) 0.55 x10^3/uL (1-3.4); LYMPHOCYTES % (AUTO) 8 % (22-44); MD SCAN; MONOCYTES # (AUTO) 0.05 x10^3/uL (0.2-0.8); MONOCYTES % (AUTO) 1 % (2-9); NEUTROPHILS # (AUTO) 6.33 x10^3/uL (1.8-6.8); NEUTROPHILS % (AUTO) 90 % (42-75)
[2020-05-16] MEDS: PROPOFOL 100 ML IV PRN ×3 (03:54→21:17)
[2020-05-16] MEDS: SODIUM BICARBONATE 8.4% 150 MEQ in DEXTROSE 5% 1,000 ML IV SCH ×3 (06:20→23:55)
[2020-05-16 06:55] LABS: ANION GAP 9 mmol/L (5-15); CALCIUM 7.9 mg/dL (8.5-10.1); CHLORIDE 110 mmol/L (98-107); CREATININE 2.36 mg/dL (0.55-1.02)
[2020-05-16] MEDS: INSULIN LISPRO 100 UNITS/ML, PEN SQ-INSULIN SCH ×8 (07:00→21:16)
[2020-05-16] MEDS: SODIUM CHLORIDE FLUSH 10ML SYR IVF SCH ×2 (09:00→21:15)
[2020-05-16] MEDS: HYDROCORTISONE 100 MG INJ. IVPush SCH ×3 (09:17→23:31)
[2020-05-16] MEDS: PIPERACILLIN/TAZO/PMX 3.375GM 50 ML IV SCH ×3 (09:17→23:55)
[2020-05-16] MEDS: FLUDROCORTISONE 0.1 MG TABLET PO SCH (09:18)
[2020-05-16] MEDS ORDERED: VANCOMYCIN PMX 1GM/200ML 200 ML IVPB SCH (11:00)
[2020-05-16 12:56] LABS: MEAN CORPUSCULAR HEMOGLOBIN 28.8 pg (27.0-34.8); MEAN CORPUSCULAR HGB CONC 33.6 g/dL (32.4-35.8); MEAN CORPUSCULAR VOLUME 85.9 fL (80-100); MEAN PLATELET VOLUME 7.7 fL (7.4-10.4); PLATELET COUNT 50 x10^3/uL (130-400); RED CELL DISTRIBUTION WIDTH 18.1 % (9.6-15.2)
[2020-05-16] MEDS ORDERED: LIDOCAINE 1%, 10ML ONE (13:16)
[2020-05-16 14:00] LABS: BASOPHILS # (AUTO) 0.01 x10^3/uL (0-0.1); BASOPHILS % (AUTO) 0 % (0-1); EOSINOPHILS % (AUTO) 0 % (1-7); LYMPHOCYTES # (AUTO) 0.32 x10^3/uL (1-3.4); LYMPHOCYTES % (AUTO) 5 % (22-44); MD SCAN; MONOCYTES # (AUTO) 0.43 x10^3/uL (0.2-0.8); MONOCYTES % (AUTO) 6 % (2-9); NEUTROPHILS # (AUTO) 6.24 x10^3/uL (1.8-6.8); NEUTROPHILS % (AUTO) 89 % (42-75)
[2020-05-17] VITALS (13 sets, daily range): BP systolic 122–192; BP diastolic 67–100
[2020-05-17] MEDS: INSULIN LISPRO 100 UNITS/ML, PEN SQ-INSULIN SCH ×8 (01:46→21:36)
[2020-05-17] MEDS: ALBUTEROL/IPRATROPIUM 2.5MG/0.5MG, 3 ML INLINE SCH ×6 (02:44→22:11)
[2020-05-17 04:45] LABS: ANION GAP 7 mmol/L (5-15); CALCIUM 8.1 mg/dL (8.5-10.1); CHLORIDE 110 mmol/L (98-107); CREATININE 1.85 mg/dL (0.55-1.02)
[2020-05-17 04:51] LABS: MEAN CORPUSCULAR HEMOGLOBIN 28.2 pg (27.0-34.8); MEAN CORPUSCULAR HGB CONC 32.6 g/dL (32.4-35.8); MEAN CORPUSCULAR VOLUME 86.5 fL (80-100); RED BLOOD COUNT 2.12 x10^6/uL (3.82-5.3); RED CELL DISTRIBUTION WIDTH 17.6 % (9.6-15.2)
[2020-05-17 04:52] LABS: PLATELET COUNT 42 x10^3/uL (130-400)
[2020-05-17 05:57] LABS: BASOPHILS % (AUTO) 0 % (0-1); EOSINOPHILS % (AUTO) 0 % (1-7); LYMPHOCYTES # (AUTO) 0.34 x10^3/uL (1-3.4); LYMPHOCYTES % (AUTO) 6 % (22-44); MD SCAN; MONOCYTES # (AUTO) 0.36 x10^3/uL (0.2-0.8); MONOCYTES % (AUTO) 6 % (2-9); NEUTROPHILS # (AUTO) 5.32 x10^3/uL (1.8-6.8); NEUTROPHILS % (AUTO) 88 % (42-75)
[2020-05-17] MEDS: PROPOFOL 100 ML IV PRN ×3 (06:05→20:53)
[2020-05-17] MEDS: PIPERACILLIN/TAZO/PMX 3.375GM 50 ML IV SCH (08:00)
[2020-05-17] MEDS: FLUDROCORTISONE 0.1 MG TABLET PO SCH (08:51)
[2020-05-17] MEDS: HYDROCORTISONE 100 MG INJ. IVPush SCH ×3 (08:51→23:03)
[2020-05-17] MEDS: SODIUM CHLORIDE FLUSH 10ML SYR IVF SCH ×2 (09:00→21:35)
[2020-05-17] MEDS: LEVOFLOXACIN/PMX 750MG/150ML 150 ML IV SCH (09:40)
[2020-05-17 11:38] LABS: D-DIMER (DIC) 5.9 ug/mlFEU (0.00-0.52); PROTIME 10.3 Seconds (9.6-11.5)
[2020-05-17] MEDS: INSULIN GLARGINE 100 UNITS/ML, PEN SQ-INSULIN SCH ×2 (12:15→21:37)
[2020-05-17] MEDS: hydrALAzine 20 MG/ML, 1ML IV PRN ×2 (13:17→21:35)
[2020-05-17 14:51] LABS: MEAN CORPUSCULAR HEMOGLOBIN 30.3 pg (27.0-34.8); MEAN CORPUSCULAR HGB CONC 33.7 g/dL (32.4-35.8); MEAN CORPUSCULAR VOLUME 89.8 fL (80-100); RED BLOOD COUNT 2.66 x10^6/uL (3.82-5.3); RED CELL DISTRIBUTION WIDTH 20.6 % (9.6-15.2)
[2020-05-17 14:58] LABS: BASOPHILS % (AUTO) 0 % (0-1); EOSINOPHILS # (AUTO) 0.01 x10^3/uL (0-0.4); EOSINOPHILS % (AUTO) 0 % (1-7); LYMPHOCYTES # (AUTO) 0.44 x10^3/uL (1-3.4); LYMPHOCYTES % (AUTO) 6 % (22-44); MONOCYTES # (AUTO) 0.87 x10^3/uL (0.2-0.8); MONOCYTES % (AUTO) 12 % (2-9); NEUTROPHILS # (AUTO) 6.19 x10^3/uL (1.8-6.8); NEUTROPHILS % (AUTO) 83 % (42-75)
[2020-05-17 15:05] LABS: MEAN PLATELET VOLUME 7.7 fL (7.4-10.4)
[2020-05-17 15:07] LABS: PLATELET COUNT 43 x10^3/uL (130-400)
[2020-05-17 15:15] LABS: MD SCAN
[2020-05-17] MEDS: PANCRELIPASE 24,000 CAPSULE.DR PO SCH ×2 (16:20→21:35)
[2020-05-17] MEDS: AMLODIPINE 5 MG TABLET PO SCH (16:36)
[2020-05-17 20:03] LABS: MEAN CORPUSCULAR HEMOGLOBIN 29.7 pg (27.0-34.8); RED BLOOD COUNT 2.79 x10^6/uL (3.82-5.3); RED CELL DISTRIBUTION WIDTH 20.1 % (9.6-15.2)
[2020-05-17 20:36] LABS: BASOPHILS # (AUTO) 0.01 x10^3/uL (0-0.1); BASOPHILS % (AUTO) 0 % (0-1); EOSINOPHILS # (AUTO) 0.03 x10^3/uL (0-0.4); EOSINOPHILS % (AUTO) 1 % (1-7); LYMPHOCYTES # (AUTO) 0.78 x10^3/uL (1-3.4); LYMPHOCYTES % (AUTO) 11 % (22-44); MD SCAN; MONOCYTES # (AUTO) 0.53 x10^3/uL (0.2-0.8); MONOCYTES % (AUTO) 7 % (2-9); NEUTROPHILS # (AUTO) 5.97 x10^3/uL (1.8-6.8); NEUTROPHILS % (AUTO) 82 % (42-75); PLATELET COUNT 50 x10^3/uL (130-400)
[2020-05-17 20:45] LABS: MEAN PLATELET VOLUME 7.9 fL (7.4-10.4)
[2020-05-18] VITALS (7 sets, daily range): BP systolic 129–168; BP diastolic 72–94
[2020-05-18] MEDS: PROPOFOL 100 ML IV PRN ×2 (00:45→05:17)
[2020-05-18] MEDS: INSULIN LISPRO 100 UNITS/ML, PEN SQ-INSULIN SCH ×8 (00:58→20:24)
[2020-05-18 01:42] LABS: MEAN CORPUSCULAR HEMOGLOBIN 29.7 pg (27.0-34.8); MEAN CORPUSCULAR HGB CONC 33.3 g/dL (32.4-35.8); MEAN CORPUSCULAR VOLUME 89.3 fL (80-100); MEAN PLATELET VOLUME 8.1 fL (7.4-10.4); PLATELET COUNT 51 x10^3/uL (130-400); RED BLOOD COUNT 2.47 x10^6/uL (3.82-5.3); RED CELL DISTRIBUTION WIDTH 20.2 % (9.6-15.2)
[2020-05-18 01:46] LABS: BASOPHILS # (AUTO) 0.04 x10^3/uL (0-0.1); BASOPHILS % (AUTO) 0 % (0-1); EOSINOPHILS # (AUTO) 0.04 x10^3/uL (0-0.4); EOSINOPHILS % (AUTO) 1 % (1-7); LYMPHOCYTES % (AUTO) 9 % (22-44); MD SCAN; MONOCYTES # (AUTO) 0.92 x10^3/uL (0.2-0.8); MONOCYTES % (AUTO) 11 % (2-9); NEUTROPHILS # (AUTO) 6.47 x10^3/uL (1.8-6.8); NEUTROPHILS % (AUTO) 79 % (42-75)
[2020-05-18] MEDS: ALBUTEROL/IPRATROPIUM 2.5MG/0.5MG, 3 ML INLINE SCH ×3 (02:40→11:00)
[2020-05-18 04:42] LABS: ANION GAP 6 mmol/L (5-15); CALCIUM 7.7 mg/dL (8.5-10.1); CHLORIDE 113 mmol/L (98-107); CREATININE 1.68 mg/dL (0.55-1.02); MEAN CORPUSCULAR HEMOGLOBIN 29.5 pg (27.0-34.8); MEAN CORPUSCULAR HGB CONC 32.8 g/dL (32.4-35.8); MEAN PLATELET VOLUME 7.9 fL (7.4-10.4); PLATELET COUNT 54 x10^3/uL (130-400); RED BLOOD COUNT 2.53 x10^6/uL (3.82-5.3); RED CELL DISTRIBUTION WIDTH 19.8 % (9.6-15.2); TRIGLYCERIDES 48 mg/dL (50-200)
[2020-05-18 05:02] LABS: BASOPHILS # (AUTO) 0.01 x10^3/uL (0-0.1); BASOPHILS % (AUTO) 0 % (0-1); EOSINOPHILS % (AUTO) 0 % (1-7); LYMPHOCYTES # (AUTO) 0.59 x10^3/uL (1-3.4); LYMPHOCYTES % (AUTO) 8 % (22-44); MD SCAN; MONOCYTES # (AUTO) 0.59 x10^3/uL (0.2-0.8); MONOCYTES % (AUTO) 8 % (2-9); NEUTROPHILS # (AUTO) 5.88 x10^3/uL (1.8-6.8); NEUTROPHILS % (AUTO) 83 % (42-75)
[2020-05-18] MEDS: HYDROCORTISONE 100 MG INJ. IVPush SCH (06:34)
[2020-05-18] MEDS ORDERED: POTASSIUM CHLORIDE 10% 40 MEQ/30 ML UDC PO ONE (07:00)
[2020-05-18] MEDS: HYDROCORTISONE 20 MG TABLET PO SCH (07:30)
[2020-05-18] MEDS: SODIUM CHLORIDE FLUSH 10ML SYR IVF SCH ×2 (09:00→20:11)
[2020-05-18] MEDS: AMLODIPINE 5 MG TABLET PO SCH (09:33)
[2020-05-18] MEDS: PANCRELIPASE 24,000 CAPSULE.DR PO SCH ×3 (09:33→20:11)
[2020-05-18] MEDS: FLUDROCORTISONE 0.1 MG TABLET PO SCH (09:33)
[2020-05-18] MEDS: INSULIN GLARGINE 100 UNITS/ML, PEN SQ-INSULIN SCH ×2 (10:29→21:00)
[2020-05-18] MEDS ORDERED: ALBUTEROL/IPRATROPIUM 2.5MG/0.5MG, 3 ML NPPB PRN (11:30)
[2020-05-18] MEDS: hydrALAzine 20 MG/ML, 1ML IV PRN (13:03)
[2020-05-18 16:55] LABS: MD YES; MEAN CORPUSCULAR HEMOGLOBIN 29.7 pg (27.0-34.8); MEAN CORPUSCULAR HGB CONC 33.2 g/dL (32.4-35.8); MEAN CORPUSCULAR VOLUME 89.5 fL (80-100); RED BLOOD COUNT 2.17 x10^6/uL (3.82-5.3); RED CELL DISTRIBUTION WIDTH 19.6 % (9.6-15.2)
[2020-05-18 16:57] LABS: MEAN PLATELET VOLUME 7.5 fL (7.4-10.4); PLATELET COUNT 51 x10^3/uL (130-400)
[2020-05-18] MEDS: DEXTROSE 50%, 50ML SYRINGE IVPush PRN (17:00)
[2020-05-18 17:02] LABS: ANISOCYTOSIS 1+; LYMPH#(MANUAL) 0.47 x10^3/uL (1-3.4); LYMPHS% (MANUAL) 5 % (22-44); MONOS#(MANUAL) 0.94 x10^3/uL (0.3-2.7); MONOS% (MANUAL) 10 % (2-9); SEG#(MANUAL) 7.99 x10^3/uL (1.8-6.8); SEGS% (MANUAL) 85 % (42-75)
[2020-05-18 17:03] LABS: <PLATELET ESTIMATE> DECREASED; <PLT MORPHOLOGY> NORMAL PLT MORPH; HYPOCHROMIA 1+; OVALOCYTES 1+
[2020-05-18] MEDS ORDERED: MIDAZOLAM 1 MG/ML, 5ML IVPush PRN (20:30)
[2020-05-19] MEDS: INSULIN LISPRO 100 UNITS/ML, PEN SQ-INSULIN SCH ×4 (00:21→16:00)
[2020-05-19] MEDS: hydrALAzine 20 MG/ML, 1ML IV PRN ×2 (00:34→05:14)
[2020-05-19 04:41] LABS: MEAN CORPUSCULAR HEMOGLOBIN 29.2 pg (27.0-34.8); MEAN CORPUSCULAR VOLUME 88.4 fL (80-100); RED BLOOD COUNT 2.88 x10^6/uL (3.82-5.3); RED CELL DISTRIBUTION WIDTH 18.3 % (9.6-15.2)
[2020-05-19 04:47] LABS: ANION GAP 5 mmol/L (5-15); CALCIUM 7.9 mg/dL (8.5-10.1); CHLORIDE 118 mmol/L (98-107); CREATININE 1.44 mg/dL (0.55-1.02)
[2020-05-19 05:29] LABS: MEAN PLATELET VOLUME 7.7 fL (7.4-10.4); PLATELET COUNT 51 x10^3/uL (130-400)
[2020-05-19 05:45] LABS: BASOPHILS # (AUTO) 0.03 x10^3/uL (0-0.1); BASOPHILS % (AUTO) 0 % (0-1); EOSINOPHILS # (AUTO) 0.17 x10^3/uL (0-0.4); EOSINOPHILS % (AUTO) 2 % (1-7); LYMPHOCYTES # (AUTO) 1.97 x10^3/uL (1-3.4); LYMPHOCYTES % (AUTO) 25 % (22-44); MD SCAN; MONOCYTES # (AUTO) 0.71 x10^3/uL (0.2-0.8); MONOCYTES % (AUTO) 9 % (2-9); NEUTROPHILS % (AUTO) 63 % (42-75)
[2020-05-19] MEDS: HYDROCORTISONE 20 MG TABLET PO SCH (08:47)
[2020-05-19] MEDS: LEVOFLOXACIN/PMX 750MG/150ML 150 ML IV SCH (08:48)
[2020-05-19] MEDS: INSULIN GLARGINE 100 UNITS/ML, PEN SQ-INSULIN SCH (08:49)
[2020-05-19] MEDS: FLUDROCORTISONE 0.1 MG TABLET PO SCH (08:50)
[2020-05-19] MEDS: AMLODIPINE 5 MG TABLET PO SCH (08:51)
[2020-05-19] MEDS ORDERED: POTASSIUM CHLORIDE 20 MEQ TAB.ER.PRT PO SCH (09:00)
[2020-05-19] MEDS: SODIUM CHLORIDE FLUSH 10ML SYR IVF SCH ×2 (09:50→23:25)
[2020-05-19] MEDS: POTASSIUM CHLORIDE 10% 40 MEQ/30 ML UDC PO SCH ×2 (09:50→23:29)
[2020-05-19] MEDS: PANCRELIPASE 24,000 CAPSULE.DR PO SCH ×3 (09:50→23:25)
[2020-05-19 17:37] VITALS: BP 101/60
[2020-05-19 20:10] VITALS: BP 146/77
[2020-05-19 23:17] VITALS: BP 123/79
[2020-05-19 23:32] VITALS: BP 130/75
[2020-05-20] VITALS (7 sets, daily range): BP systolic 129–176; BP diastolic 79–87
[2020-05-20] MEDS: INSULIN LISPRO 100 UNITS/ML, PEN SQ-INSULIN SCH ×5 (00:16→21:00)
[2020-05-20] MEDS: INSULIN GLARGINE 100 UNITS/ML, PEN SQ-INSULIN SCH ×3 (00:16→21:00)
[2020-05-20 03:05] LABS: MEAN CORPUSCULAR HEMOGLOBIN 29.3 pg (27.0-34.8); MEAN CORPUSCULAR HGB CONC 32.8 g/dL (32.4-35.8); MEAN CORPUSCULAR VOLUME 89.3 fL (80-100); MEAN PLATELET VOLUME 7.8 fL (7.4-10.4); PLATELET COUNT 62 x10^3/uL (130-400); RED BLOOD COUNT 2.49 x10^6/uL (3.82-5.3); RED CELL DISTRIBUTION WIDTH 18.1 % (9.6-15.2)
[2020-05-20 03:24] LABS: BASOPHILS % (AUTO) 0 % (0-1); EOSINOPHILS # (AUTO) 0.19 x10^3/uL (0-0.4); EOSINOPHILS % (AUTO) 3 % (1-7); LYMPHOCYTES # (AUTO) 1.01 x10^3/uL (1-3.4); LYMPHOCYTES % (AUTO) 15 % (22-44); MD SCAN; MONOCYTES # (AUTO) 0.51 x10^3/uL (0.2-0.8); MONOCYTES % (AUTO) 8 % (2-9); NEUTROPHILS # (AUTO) 4.93 x10^3/uL (1.8-6.8); NEUTROPHILS % (AUTO) 74 % (42-75)
[2020-05-20 03:35] LABS: ANION GAP 6 mmol/L (5-15); CALCIUM 7.8 mg/dL (8.5-10.1); CHLORIDE 122 mmol/L (98-107); CREATININE 1.45 mg/dL (0.55-1.02)
[2020-05-20] MEDS: FLUDROCORTISONE 0.1 MG TABLET PO SCH (10:05)
[2020-05-20] MEDS: HYDROCORTISONE 20 MG TABLET PO SCH (10:05)
[2020-05-20] MEDS: PANCRELIPASE 24,000 CAPSULE.DR PO SCH ×3 (10:05→21:00)
[2020-05-20] MEDS: SODIUM CHLORIDE FLUSH 10ML SYR IVF SCH ×2 (10:11→21:00)
[2020-05-20] MEDS: AMLODIPINE 5 MG TABLET PO SCH (10:12)
[2020-05-20] MEDS: hydrALAzine 20 MG/ML, 1ML IV PRN (11:40)
[2020-05-21] VITALS (9 sets, daily range): BP systolic 100–180; BP diastolic 59–96
[2020-05-21 05:51] LABS: MEAN CORPUSCULAR HGB CONC 32.9 g/dL (32.4-35.8); MEAN CORPUSCULAR VOLUME 91.2 fL (80-100); MEAN PLATELET VOLUME 7.8 fL (7.4-10.4); PLATELET COUNT 74 x10^3/uL (130-400); RED BLOOD COUNT 2.07 x10^6/uL (3.82-5.3); RED CELL DISTRIBUTION WIDTH 19.7 % (9.6-15.2)
[2020-05-21 05:57] LABS: ANION GAP 6 mmol/L (5-15); CHLORIDE 124 mmol/L (98-107)
[2020-05-21 05:59] LABS: CREATININE 1.33 mg/dL (0.55-1.02); TRIGLYCERIDES 158 mg/dL (50-200)
[2020-05-21 07:19] LABS: MD YES
[2020-05-21 07:22] LABS: BAND#(MANUAL) 0.07 x10^3/uL; BANDS%(MANUAL) 1 % (0-7); LYMPH#(MANUAL) 1.24 x10^3/uL (1-3.4); LYMPHS% (MANUAL) 18 % (22-44); MONOS% (MANUAL) 1 % (2-9); SEG#(MANUAL) 5.11 x10^3/uL (1.8-6.8); SEGS% (MANUAL) 74 % (42-75)
[2020-05-21 07:23] LABS: ANISOCYTOSIS 1+; EOS#(MANUAL) 0.07 x10^3/uL (0.0-0.4); EOS% (MANUAL) 1 % (1-7); METAMYELOCYTES# (MANUAL) 0.28 x10^3/uL (0-0); METAMYELOCYTES% (MANUAL) 4 % (0-1); MONOS#(MANUAL) 0.07 x10^3/uL (0.3-2.7); MYELOCYTES# (MANUAL) 0.07 x10^3/uL (0-0); MYELOCYTES% (MANUAL) 1 % (0-0)
[2020-05-21 07:24] LABS: <PLATELET ESTIMATE> DECREASED; <PLT MORPHOLOGY> NORMAL PLT MORPH
[2020-05-21 07:25] LABS: BASOPHILS # (AUTO) 0.02 x10^3/uL (0-0.1); BASOPHILS % (AUTO) 0 % (0-1); EOSINOPHILS # (AUTO) 0.14 x10^3/uL (0-0.4); EOSINOPHILS % (AUTO) 2 % (1-7); LYMPHOCYTES # (AUTO) 0.97 x10^3/uL (1-3.4); LYMPHOCYTES % (AUTO) 14 % (22-44); MONOCYTES # (AUTO) 0.29 x10^3/uL (0.2-0.8); MONOCYTES % (AUTO) 4 % (2-9); NEUTROPHILS # (AUTO) 5.49 x10^3/uL (1.8-6.8); NEUTROPHILS % (AUTO) 79 % (42-75)
[2020-05-21] MEDS: INSULIN GLARGINE 100 UNITS/ML, PEN SQ-INSULIN SCH ×2 (08:11→22:38)
[2020-05-21] MEDS: INSULIN LISPRO 100 UNITS/ML, PEN SQ-INSULIN SCH ×4 (08:11→22:39)
[2020-05-21] MEDS: HYDROCORTISONE 20 MG TABLET PO SCH (08:12)
[2020-05-21] MEDS: AMLODIPINE 5 MG TABLET PO SCH (08:12)
[2020-05-21] MEDS: hydrALAzine 20 MG/ML, 1ML IV PRN (08:12)
[2020-05-21] MEDS: FLUDROCORTISONE 0.1 MG TABLET PO SCH (08:12)
[2020-05-21] MEDS: SODIUM CHLORIDE FLUSH 10ML SYR IVF SCH ×2 (08:12→21:00)
[2020-05-21] MEDS: PANCRELIPASE 24,000 CAPSULE.DR PO SCH ×3 (08:12→22:38)
[2020-05-21] MEDS: LEVOFLOXACIN/PMX 750MG/150ML 150 ML IV SCH (10:53)
--- NOTE | 2020-05-21 12:46 | NUR ---
Do not anticipate need for HEEL LINING PASTER intervention at time of discharge. Addendum: 05/21/20 at 1246 by Cristel FISH Amended: Links added.
[2020-05-22 05:57] LABS: ANION GAP 7 mmol/L (5-15); CALCIUM 7.9 mg/dL (8.5-10.1); CHLORIDE 119 mmol/L (98-107)
[2020-05-22 06:04] LABS: MEAN CORPUSCULAR HEMOGLOBIN 29.8 pg (27.0-34.8); MEAN CORPUSCULAR HGB CONC 32.7 g/dL (32.4-35.8); MEAN CORPUSCULAR VOLUME 91.2 fL (80-100); MEAN PLATELET VOLUME 7.8 fL (7.4-10.4); PLATELET COUNT 70 x10^3/uL (130-400); RED BLOOD COUNT 2.19 x10^6/uL (3.82-5.3); RED CELL DISTRIBUTION WIDTH 18.2 % (9.6-15.2)
[2020-05-22 06:19] LABS: MD YES
[2020-05-22 06:22] LABS: ANISOCYTOSIS 1+; EOS#(MANUAL) 0.31 x10^3/uL (0.0-0.4); EOS% (MANUAL) 3 % (1-7); LYMPH#(MANUAL) 1.55 x10^3/uL (1-3.4); LYMPHS% (MANUAL) 15 % (22-44); OVALOCYTES 1+; SEG#(MANUAL) 8.45 x10^3/uL (1.8-6.8); SEGS% (MANUAL) 82 % (42-75)
[2020-05-22 06:23] LABS: BASOPHILLIC STIPPLING 1+
[2020-05-22 06:25] LABS: <PLATELET ESTIMATE> DECREASED; <PLT MORPHOLOGY> NORMAL PLT MORPH
[2020-05-22] MEDS ORDERED: PANTOPRAZOLE 40 MG IV IVPush ONE (06:30)
[2020-05-22] MEDS: HYDROCORTISONE 20 MG TABLET PO SCH (06:44)
[2020-05-22] MEDS: INSULIN LISPRO 100 UNITS/ML, PEN SQ-INSULIN SCH ×4 (07:00→20:58)
[2020-05-22 07:09] VITALS: BP 136/84
[2020-05-22] MEDS: PANCRELIPASE 24,000 CAPSULE.DR PO SCH ×3 (09:06→20:56)
[2020-05-22] MEDS: FLUDROCORTISONE 0.1 MG TABLET PO SCH (09:06)
[2020-05-22] MEDS: AMLODIPINE 5 MG TABLET PO SCH (09:07)
[2020-05-22] MEDS: INSULIN GLARGINE 100 UNITS/ML, PEN SQ-INSULIN SCH ×2 (09:07→20:58)
[2020-05-22] MEDS: SODIUM CHLORIDE FLUSH 10ML SYR IVF SCH ×2 (09:08→20:59)
[2020-05-22 13:24] LABS: OCCULT BLOOD POSITIVE (NEGATIVE)
[2020-05-22 15:59] VITALS: BP 125/77
[2020-05-22 19:18] VITALS: BP 102/66
[2020-05-23 00:08] VITALS: BP 106/58
[2020-05-23 06:02] LABS: MEAN CORPUSCULAR HEMOGLOBIN 30.5 pg (27.0-34.8); MEAN CORPUSCULAR HGB CONC 33.1 g/dL (32.4-35.8); MEAN CORPUSCULAR VOLUME 92.1 fL (80-100); MEAN PLATELET VOLUME 7.8 fL (7.4-10.4); PLATELET COUNT 93 x10^3/uL (130-400); RED BLOOD COUNT 2.28 x10^6/uL (3.82-5.3); RED CELL DISTRIBUTION WIDTH 19.6 % (9.6-15.2)
[2020-05-23 06:07] LABS: CHLORIDE 115 mmol/L (98-107)
[2020-05-23 06:17] LABS: ANION GAP 6 mmol/L (5-15); CALCIUM 7.7 mg/dL (8.5-10.1); CREATININE 1.12 mg/dL (0.55-1.02); PREALBUMIN 15.6 mg/dL (20.0-40.0)
[2020-05-23 06:23] LABS: BASOPHILS % (AUTO) 0 % (0-1); EOSINOPHILS # (AUTO) 0.27 x10^3/uL (0-0.4); EOSINOPHILS % (AUTO) 2 % (1-7); LYMPHOCYTES # (AUTO) 0.98 x10^3/uL (1-3.4); LYMPHOCYTES % (AUTO) 8 % (22-44); MD SCAN; MONOCYTES # (AUTO) 0.52 x10^3/uL (0.2-0.8); MONOCYTES % (AUTO) 4 % (2-9); NEUTROPHILS # (AUTO) 10.52 x10^3/uL (1.8-6.8); NEUTROPHILS % (AUTO) 86 % (42-75)
[2020-05-23 07:26] VITALS: BP 133/80
[2020-05-23] MEDS: SODIUM CHLORIDE FLUSH 10ML SYR IVF SCH ×2 (09:00→22:25)
[2020-05-23] MEDS: INSULIN LISPRO 100 UNITS/ML, PEN SQ-INSULIN SCH ×4 (09:10→22:25)
[2020-05-23] MEDS: INSULIN GLARGINE 100 UNITS/ML, PEN SQ-INSULIN SCH ×2 (09:10→22:24)
[2020-05-23] MEDS: AMLODIPINE 5 MG TABLET PO SCH (09:10)
[2020-05-23] MEDS: PANCRELIPASE 24,000 CAPSULE.DR PO SCH ×3 (09:10→22:23)
[2020-05-23] MEDS: HYDROCORTISONE 20 MG TABLET PO SCH (09:10)
[2020-05-23] MEDS: LEVOFLOXACIN/PMX 750MG/150ML 150 ML IV SCH (09:11)
[2020-05-23] MEDS: FLUDROCORTISONE 0.1 MG TABLET PO SCH (11:54)
[2020-05-23] MEDS: PANTOPRAZOLE 40 MG IV IVPush SCH ×2 (11:54→22:23)
[2020-05-23 13:05] VITALS: BP 151/88
[2020-05-23 18:52] VITALS: BP 129/72
[2020-05-24 00:10] VITALS: BP 155/87
[2020-05-24 04:21] LABS: MEAN CORPUSCULAR HEMOGLOBIN 30.2 pg (27.0-34.8); MEAN CORPUSCULAR HGB CONC 32.6 g/dL (32.4-35.8); MEAN CORPUSCULAR VOLUME 92.7 fL (80-100); MEAN PLATELET VOLUME 7.3 fL (7.4-10.4); PLATELET COUNT 103 x10^3/uL (130-400); RED BLOOD COUNT 2.37 x10^6/uL (3.82-5.3); RED CELL DISTRIBUTION WIDTH 19.3 % (9.6-15.2)
[2020-05-24 04:23] LABS: ANION GAP 5 mmol/L (5-15); CALCIUM 7.3 mg/dL (8.5-10.1); CHLORIDE 115 mmol/L (98-107); CREATININE 1.18 mg/dL (0.55-1.02); TRIGLYCERIDES 105 mg/dL (50-200)
[2020-05-24 05:44] LABS: MD YES
[2020-05-24 05:45] LABS: BAND#(MANUAL) 0.19 x10^3/uL; BANDS%(MANUAL) 2 % (0-7); EOS#(MANUAL) 0.38 x10^3/uL (0.0-0.4); EOS% (MANUAL) 4 % (1-7); LYMPH#(MANUAL) 1.44 x10^3/uL (1-3.4); LYMPHS% (MANUAL) 15 % (22-44); MONOS#(MANUAL) 0.29 x10^3/uL (0.3-2.7); MONOS% (MANUAL) 3 % (2-9); MYELOCYTES# (MANUAL) 0.19 x10^3/uL (0-0); MYELOCYTES% (MANUAL) 2 % (0-0); SEGS% (MANUAL) 74 % (42-75)
[2020-05-24 05:46] LABS: ANISOCYTOSIS 1+; OVALOCYTES 1+
[2020-05-24 05:47] LABS: <PLATELET ESTIMATE> DECREASED
[2020-05-24 05:48] LABS: <PLT MORPHOLOGY> NORMAL PLT MORPH
[2020-05-24] MEDS: INSULIN LISPRO 100 UNITS/ML, PEN SQ-INSULIN SCH ×4 (07:00→20:47)
[2020-05-24 07:17] VITALS: BP 128/77
[2020-05-24] MEDS: HYDROCORTISONE 20 MG TABLET PO SCH (07:55)
[2020-05-24] MEDS: SODIUM CHLORIDE FLUSH 10ML SYR IVF SCH ×2 (09:00→20:48)
[2020-05-24] MEDS: PANCRELIPASE 24,000 CAPSULE.DR PO SCH ×3 (11:45→20:47)
[2020-05-24] MEDS: FLUDROCORTISONE 0.1 MG TABLET PO SCH (11:45)
[2020-05-24] MEDS: AMLODIPINE 5 MG TABLET PO SCH (11:45)
[2020-05-24] MEDS: PANTOPRAZOLE 40 MG IV IVPush SCH ×2 (11:46→23:49)
[2020-05-24] MEDS: INSULIN GLARGINE 100 UNITS/ML, PEN SQ-INSULIN SCH ×2 (12:21→20:48)
[2020-05-24 14:41] VITALS: BP 122/68
[2020-05-24 20:50] VITALS: BP 168/79
[2020-05-24 20:57] VITALS: BP 173/98
[2020-05-24] MEDS: hydrALAzine 20 MG/ML, 1ML IV PRN (21:01)
[2020-05-24 22:11] VITALS: BP 125/66
[2020-05-25 05:07] VITALS: BP 120/54
[2020-05-25 06:03] LABS: BASOPHILS % (AUTO) 0 % (0-1); EOSINOPHILS % (AUTO) 3 % (1-7); LYMPHOCYTES # (AUTO) 1.37 x10^3/uL (1-3.4); LYMPHOCYTES % (AUTO) 19 % (22-44); MD NO; MEAN CORPUSCULAR HEMOGLOBIN 29.8 pg (27.0-34.8); MEAN CORPUSCULAR HGB CONC 32.9 g/dL (32.4-35.8); MEAN CORPUSCULAR VOLUME 90.4 fL (80-100); MEAN PLATELET VOLUME 6.9 fL (7.4-10.4); MONOCYTES # (AUTO) 0.59 x10^3/uL (0.2-0.8); MONOCYTES % (AUTO) 8 % (2-9); NEUTROPHILS # (AUTO) 5.25 x10^3/uL (1.8-6.8); NEUTROPHILS % (AUTO) 71 % (42-75); PLATELET COUNT 138 x10^3/uL (130-400); RED CELL DISTRIBUTION WIDTH 19.8 % (9.6-15.2)
[2020-05-25 06:06] LABS: CHLORIDE 116 mmol/L (98-107)
[2020-05-25 06:17] LABS: ANION GAP 5 mmol/L (5-15); CALCIUM 7.6 mg/dL (8.5-10.1); CREATININE 1.15 mg/dL (0.55-1.02)
[2020-05-25] MEDS: INSULIN LISPRO 100 UNITS/ML, PEN SQ-INSULIN SCH ×4 (07:00→22:48)
[2020-05-25 07:28] VITALS: BP 138/72
[2020-05-25] MEDS: SODIUM CHLORIDE FLUSH 10ML SYR IVF SCH ×2 (09:00→22:49)
[2020-05-25] MEDS: AMLODIPINE 5 MG TABLET PO SCH (10:26)
[2020-05-25] MEDS: PANCRELIPASE 24,000 CAPSULE.DR PO SCH ×3 (10:26→22:47)
[2020-05-25] MEDS: PANTOPRAZOLE 40 MG IV IVPush SCH ×2 (10:26→22:47)
[2020-05-25] MEDS: INSULIN GLARGINE 100 UNITS/ML, PEN SQ-INSULIN SCH ×2 (10:27→22:48)
[2020-05-25] MEDS: HYDROCORTISONE 20 MG TABLET PO SCH (10:27)
[2020-05-25] MEDS: LEVOFLOXACIN/PMX 750MG/150ML 150 ML IV SCH (10:28)
[2020-05-25] MEDS: FLUDROCORTISONE 0.1 MG TABLET PO SCH (10:38)
[2020-05-25 14:50] VITALS: BP 153/85
[2020-05-25 16:43] VITALS: BP 194/98
[2020-05-25] MEDS: hydrALAzine 20 MG/ML, 1ML IV PRN (16:53)
[2020-05-25 18:30] VITALS: BP 123/73
[2020-05-25 19:45] VITALS: BP 155/80
[2020-05-26 01:12] VITALS: BP 173/103
[2020-05-26] MEDS: hydrALAzine 20 MG/ML, 1ML IV PRN ×2 (01:13→21:20)
[2020-05-26 04:33] VITALS: BP 135/79
[2020-05-26 05:48] LABS: BASOPHILS # (AUTO) 0.01 x10^3/uL (0-0.1); BASOPHILS % (AUTO) 0 % (0-1); EOSINOPHILS # (AUTO) 0.21 x10^3/uL (0-0.4); EOSINOPHILS % (AUTO) 3 % (1-7); LYMPHOCYTES % (AUTO) 14 % (22-44); MD NO; MEAN CORPUSCULAR HEMOGLOBIN 29.4 pg (27.0-34.8); MEAN CORPUSCULAR HGB CONC 32.6 g/dL (32.4-35.8); MEAN CORPUSCULAR VOLUME 90.1 fL (80-100); MEAN PLATELET VOLUME 7.1 fL (7.4-10.4); MONOCYTES # (AUTO) 0.61 x10^3/uL (0.2-0.8); MONOCYTES % (AUTO) 7 % (2-9); NEUTROPHILS # (AUTO) 6.37 x10^3/uL (1.8-6.8); NEUTROPHILS % (AUTO) 76 % (42-75); PLATELET COUNT 153 x10^3/uL (130-400); RED BLOOD COUNT 2.85 x10^6/uL (3.82-5.3)
[2020-05-26 05:58] LABS: ANION GAP 9 mmol/L (5-15); CHLORIDE 116 mmol/L (98-107); CREATININE 1.39 mg/dL (0.55-1.02)
[2020-05-26] MEDS: INSULIN LISPRO 100 UNITS/ML, PEN SQ-INSULIN SCH ×4 (07:00→21:46)
[2020-05-26 08:03] VITALS: BP 138/74
[2020-05-26] MEDS: AMLODIPINE 5 MG TABLET PO SCH (09:56)
[2020-05-26] MEDS: HYDROCORTISONE 20 MG TABLET PO SCH (09:56)
[2020-05-26] MEDS: PANTOPRAZOLE 40 MG IV IVPush SCH ×2 (09:56→21:20)
[2020-05-26] MEDS: FLUDROCORTISONE 0.1 MG TABLET PO SCH (09:57)
[2020-05-26] MEDS: SODIUM CHLORIDE FLUSH 10ML SYR IVF SCH ×2 (09:57→21:20)
[2020-05-26] MEDS: INSULIN GLARGINE 100 UNITS/ML, PEN SQ-INSULIN SCH ×2 (10:16→21:47)
[2020-05-26] MEDS: PANCRELIPASE 24,000 CAPSULE.DR PO SCH ×3 (10:53→21:23)
[2020-05-26 13:09] VITALS: BP 163/82
[2020-05-26 19:12] VITALS: BP 162/92
[2020-05-27 02:03] VITALS: BP 143/53
[2020-05-27 05:05] LABS: BASOPHILS # (AUTO) 0.01 x10^3/uL (0-0.1); BASOPHILS % (AUTO) 0 % (0-1); EOSINOPHILS # (AUTO) 0.18 x10^3/uL (0-0.4); EOSINOPHILS % (AUTO) 3 % (1-7); LYMPHOCYTES # (AUTO) 1.08 x10^3/uL (1-3.4); LYMPHOCYTES % (AUTO) 14 % (22-44); MD NO; MEAN CORPUSCULAR HEMOGLOBIN 29.6 pg (27.0-34.8); MEAN CORPUSCULAR HGB CONC 32.7 g/dL (32.4-35.8); MEAN CORPUSCULAR VOLUME 90.7 fL (80-100); MEAN PLATELET VOLUME 7.3 fL (7.4-10.4); MONOCYTES # (AUTO) 0.55 x10^3/uL (0.2-0.8); MONOCYTES % (AUTO) 7 % (2-9); NEUTROPHILS # (AUTO) 5.72 x10^3/uL (1.8-6.8); NEUTROPHILS % (AUTO) 76 % (42-75); PLATELET COUNT 179 x10^3/uL (130-400); RED BLOOD COUNT 2.98 x10^6/uL (3.82-5.3); RED CELL DISTRIBUTION WIDTH 19.7 % (9.6-15.2)
[2020-05-27 05:07] LABS: ANION GAP 7 mmol/L (5-15); CALCIUM 7.6 mg/dL (8.5-10.1); CHLORIDE 117 mmol/L (98-107); CREATININE 1.38 mg/dL (0.55-1.02); TRIGLYCERIDES 105 mg/dL (50-200)
[2020-05-27] MEDS: ASPIRIN 81 MG TABLET EC PO SCH (06:24)
[2020-05-27 07:57] VITALS: BP 147/77
[2020-05-27] MEDS ORDERED: LACTATED RINGERS 1,000 ML IV SCH (08:30)
[2020-05-27] MEDS: PANCRELIPASE 24,000 CAPSULE.DR PO SCH ×3 (08:37→20:33)
[2020-05-27] MEDS: HYDROCORTISONE 20 MG TABLET PO SCH (08:37)
[2020-05-27] MEDS: PANTOPRAZOLE 40MG TABLET PO SCH ×2 (08:38→20:33)
[2020-05-27] MEDS: FLUDROCORTISONE 0.1 MG TABLET PO SCH (08:38)
[2020-05-27] MEDS: AMLODIPINE 5 MG TABLET PO SCH (08:38)
[2020-05-27] MEDS: INSULIN GLARGINE 100 UNITS/ML, PEN SQ-INSULIN SCH ×2 (08:40→22:34)
[2020-05-27] MEDS: SODIUM CHLORIDE FLUSH 10ML SYR IVF SCH ×2 (08:41→20:33)
[2020-05-27] MEDS: INSULIN LISPRO 100 UNITS/ML, PEN SQ-INSULIN SCH ×3 (11:00→22:35)
[2020-05-27 12:40] VITALS: BP 149/76
[2020-05-27 19:06] VITALS: BP 163/94
[2020-05-27] MEDS: hydrALAzine 20 MG/ML, 1ML IV PRN (20:33)
[2020-05-28 02:44] VITALS: BP 144/84
[2020-05-28 05:13] LABS: BASOPHILS # (AUTO) 0.02 x10^3/uL (0-0.1); BASOPHILS % (AUTO) 0 % (0-1); EOSINOPHILS # (AUTO) 0.21 x10^3/uL (0-0.4); EOSINOPHILS % (AUTO) 3 % (1-7); LYMPHOCYTES % (AUTO) 15 % (22-44); MD NO; MEAN CORPUSCULAR HEMOGLOBIN 29.8 pg (27.0-34.8); MEAN CORPUSCULAR HGB CONC 32.7 g/dL (32.4-35.8); MEAN CORPUSCULAR VOLUME 91.2 fL (80-100); MEAN PLATELET VOLUME 7.6 fL (7.4-10.4); MONOCYTES % (AUTO) 7 % (2-9); NEUTROPHILS # (AUTO) 5.43 x10^3/uL (1.8-6.8); NEUTROPHILS % (AUTO) 75 % (42-75); PLATELET COUNT 186 x10^3/uL (130-400); RED BLOOD COUNT 3.18 x10^6/uL (3.82-5.3); RED CELL DISTRIBUTION WIDTH 20.8 % (9.6-15.2)
[2020-05-28 05:26] LABS: ANION GAP 6 mmol/L (5-15); CALCIUM 7.7 mg/dL (8.5-10.1); CHLORIDE 119 mmol/L (98-107); CREATININE 1.37 mg/dL (0.55-1.02)
[2020-05-28] MEDS: PANTOPRAZOLE 40MG TABLET PO SCH ×2 (07:55→20:51)
[2020-05-28] MEDS: PANCRELIPASE 24,000 CAPSULE.DR PO SCH ×3 (07:55→20:51)
[2020-05-28] MEDS: HYDROCORTISONE 20 MG TABLET PO SCH (07:55)
[2020-05-28] MEDS: ASPIRIN 81 MG TABLET EC PO SCH (07:55)
[2020-05-28] MEDS: FLUDROCORTISONE 0.1 MG TABLET PO SCH (07:55)
[2020-05-28] MEDS: INSULIN LISPRO 100 UNITS/ML, PEN SQ-INSULIN SCH ×4 (07:56→20:51)
[2020-05-28] MEDS: AMLODIPINE 5 MG TABLET PO SCH (07:56)
[2020-05-28] MEDS: INSULIN GLARGINE 100 UNITS/ML, PEN SQ-INSULIN SCH ×2 (07:57→20:52)
[2020-05-28 07:59] VITALS: BP 126/81
[2020-05-28] MEDS: SODIUM CHLORIDE FLUSH 10ML SYR IVF SCH ×2 (09:50→23:45)
[2020-05-28 15:02] VITALS: BP 122/68
[2020-05-28 18:27] VITALS: BP 143/83
[2020-05-29 00:21] VITALS: BP 133/74
[2020-05-29 05:44] LABS: BASOPHILS # (AUTO) 0.01 x10^3/uL (0-0.1); BASOPHILS % (AUTO) 0 % (0-1); EOSINOPHILS # (AUTO) 0.16 x10^3/uL (0-0.4); EOSINOPHILS % (AUTO) 2 % (1-7); LYMPHOCYTES # (AUTO) 1.06 x10^3/uL (1-3.4); LYMPHOCYTES % (AUTO) 15 % (22-44); MD NO; MEAN CORPUSCULAR HEMOGLOBIN 29.3 pg (27.0-34.8); MEAN CORPUSCULAR VOLUME 91.5 fL (80-100); MEAN PLATELET VOLUME 7.5 fL (7.4-10.4); MONOCYTES # (AUTO) 0.56 x10^3/uL (0.2-0.8); MONOCYTES % (AUTO) 8 % (2-9); NEUTROPHILS # (AUTO) 5.11 x10^3/uL (1.8-6.8); NEUTROPHILS % (AUTO) 74 % (42-75); PLATELET COUNT 188 x10^3/uL (130-400); RED BLOOD COUNT 3.28 x10^6/uL (3.82-5.3); RED CELL DISTRIBUTION WIDTH 20.8 % (9.6-15.2)
[2020-05-29] MEDS: ASPIRIN 81 MG TABLET EC PO SCH (06:06)
[2020-05-29 06:16] LABS: ANION GAP 6 mmol/L (5-15); CALCIUM 7.9 mg/dL (8.5-10.1); CHLORIDE 121 mmol/L (98-107)
[2020-05-29] MEDS: INSULIN LISPRO 100 UNITS/ML, PEN SQ-INSULIN SCH ×4 (08:08→21:02)
[2020-05-29] MEDS: INSULIN GLARGINE 100 UNITS/ML, PEN SQ-INSULIN SCH ×2 (08:09→21:02)
[2020-05-29] MEDS: FLUDROCORTISONE 0.1 MG TABLET PO SCH (08:49)
[2020-05-29] MEDS: PANTOPRAZOLE 40MG TABLET PO SCH ×2 (08:49→21:01)
[2020-05-29] MEDS: AMLODIPINE 5 MG TABLET PO SCH (08:49)
[2020-05-29] MEDS: HYDROCORTISONE 20 MG TABLET PO SCH (08:49)
[2020-05-29] MEDS: SODIUM CHLORIDE FLUSH 10ML SYR IVF SCH ×2 (08:50→21:00)
[2020-05-29] MEDS: PANCRELIPASE 24,000 CAPSULE.DR PO SCH ×3 (08:50→21:01)
[2020-05-29 15:31] VITALS: BP 128/72
[2020-05-29 18:44] VITALS: BP 169/94
[2020-05-30 00:33] VITALS: BP 128/75
[2020-05-30 03:33] LABS: BASOPHILS # (AUTO) 0.01 x10^3/uL (0-0.1); BASOPHILS % (AUTO) 0 % (0-1); EOSINOPHILS # (AUTO) 0.21 x10^3/uL (0-0.4); EOSINOPHILS % (AUTO) 3 % (1-7); LYMPHOCYTES # (AUTO) 0.91 x10^3/uL (1-3.4); LYMPHOCYTES % (AUTO) 12 % (22-44); MD NO; MEAN CORPUSCULAR HEMOGLOBIN 29.5 pg (27.0-34.8); MEAN CORPUSCULAR HGB CONC 32.4 g/dL (32.4-35.8); MEAN CORPUSCULAR VOLUME 91.1 fL (80-100); MEAN PLATELET VOLUME 7.4 fL (7.4-10.4); MONOCYTES # (AUTO) 0.61 x10^3/uL (0.2-0.8); MONOCYTES % (AUTO) 8 % (2-9); NEUTROPHILS # (AUTO) 5.62 x10^3/uL (1.8-6.8); NEUTROPHILS % (AUTO) 76 % (42-75); PLATELET COUNT 187 x10^3/uL (130-400); RED BLOOD COUNT 3.43 x10^6/uL (3.82-5.3); RED CELL DISTRIBUTION WIDTH 19.8 % (9.6-15.2)
[2020-05-30 03:44] LABS: ANION GAP 7 mmol/L (5-15); CALCIUM 7.7 mg/dL (8.5-10.1); CHLORIDE 120 mmol/L (98-107); CREATININE 1.37 mg/dL (0.55-1.02)
[2020-05-30 03:48] LABS: PREALBUMIN 13.7 mg/dL (20.0-40.0); TRIGLYCERIDES 104 mg/dL (50-200)
[2020-05-30] MEDS: ASPIRIN 81 MG TABLET EC PO SCH (06:18)
[2020-05-30 06:42] VITALS: BP 143/76
[2020-05-30] MEDS: INSULIN LISPRO 100 UNITS/ML, PEN SQ-INSULIN SCH ×4 (07:23→20:08)
[2020-05-30] MEDS: HYDROCORTISONE 20 MG TABLET PO SCH (07:35)
[2020-05-30] MEDS: SODIUM CHLORIDE FLUSH 10ML SYR IVF SCH ×2 (07:36→20:08)
[2020-05-30] MEDS: INSULIN GLARGINE 100 UNITS/ML, PEN SQ-INSULIN SCH ×2 (08:47→20:08)
[2020-05-30] MEDS: AMLODIPINE 5 MG TABLET PO SCH (08:55)
[2020-05-30] MEDS: PANTOPRAZOLE 40MG TABLET PO SCH ×2 (08:55→20:07)
[2020-05-30] MEDS: FLUDROCORTISONE 0.1 MG TABLET PO SCH (08:55)
[2020-05-30] MEDS: PANCRELIPASE 24,000 CAPSULE.DR PO SCH ×3 (08:55→20:07)
[2020-05-30 13:11] VITALS: BP 110/68
[2020-05-30 18:50] LABS: MICROSCOPIC AUTO
[2020-05-30 19:11] VITALS: BP 151/87
[2020-05-31 00:18] VITALS: BP 152/86
[2020-05-31 05:06] LABS: BASOPHILS # (AUTO) 0.01 x10^3/uL (0-0.1); BASOPHILS % (AUTO) 0 % (0-1); EOSINOPHILS # (AUTO) 0.23 x10^3/uL (0-0.4); EOSINOPHILS % (AUTO) 3 % (1-7); LYMPHOCYTES # (AUTO) 0.94 x10^3/uL (1-3.4); LYMPHOCYTES % (AUTO) 13 % (22-44); MD NO; MEAN CORPUSCULAR HEMOGLOBIN 29.1 pg (27.0-34.8); MEAN CORPUSCULAR HGB CONC 31.9 g/dL (32.4-35.8); MEAN CORPUSCULAR VOLUME 91.3 fL (80-100); MEAN PLATELET VOLUME 7.5 fL (7.4-10.4); MONOCYTES # (AUTO) 0.45 x10^3/uL (0.2-0.8); MONOCYTES % (AUTO) 6 % (2-9); NEUTROPHILS # (AUTO) 5.51 x10^3/uL (1.8-6.8); NEUTROPHILS % (AUTO) 77 % (42-75); PLATELET COUNT 182 x10^3/uL (130-400); RED BLOOD COUNT 3.56 x10^6/uL (3.82-5.3); RED CELL DISTRIBUTION WIDTH 20.2 % (9.6-15.2)
[2020-05-31 05:13] LABS: ANION GAP 7 mmol/L (5-15); CALCIUM 7.7 mg/dL (8.5-10.1); CHLORIDE 120 mmol/L (98-107); CREATININE 1.36 mg/dL (0.55-1.02)
[2020-05-31] MEDS: ASPIRIN 81 MG TABLET EC PO SCH (05:52)
[2020-05-31 06:24] VITALS: BP 133/82
[2020-05-31] MEDS: INSULIN LISPRO 100 UNITS/ML, PEN SQ-INSULIN SCH ×3 (08:38→16:08)
[2020-05-31] MEDS: INSULIN GLARGINE 100 UNITS/ML, PEN SQ-INSULIN SCH (08:39)
[2020-05-31] MEDS: PANCRELIPASE 24,000 CAPSULE.DR PO SCH ×3 (08:39→16:07)
[2020-05-31] MEDS: PANTOPRAZOLE 40MG TABLET PO SCH ×2 (08:40→12:00)
[2020-05-31] MEDS: HYDROCORTISONE 20 MG TABLET PO SCH ×2 (08:40→12:04)
[2020-05-31] MEDS: FLUDROCORTISONE 0.1 MG TABLET PO SCH ×2 (08:40→12:00)
[2020-05-31] MEDS: AMLODIPINE 5 MG TABLET PO SCH ×2 (08:40→12:00)
[2020-05-31] MEDS ORDERED: REGADENOSON 0.4 MG/5 ML SYRINGE ONE (08:50)
[2020-05-31] MEDS: SODIUM CHLORIDE FLUSH 10ML SYR IVF SCH (11:23)
[2020-05-31 13:58] VITALS: BP 164/87
[2020-05-31] MEDS ORDERED: PANT40TA3 PO (17:11)
[2020-05-31] MEDS ORDERED: ASPI-496 PO (17:13)
[2020-05-31] MEDS ORDERED: HYDR-3590 PO (17:14)
[2020-05-31] MEDS ORDERED: INSU100V8 SQ (17:14)
[2020-05-31] MEDS ORDERED: SODI650T PO (17:15)
[2020-05-31] MEDS ORDERED: LIPA1CAP61 PO (17:18)
== END 2020-05-31 17:36 | DRG 871 ==
LOC: ED 21:41 → EDIP 23:47 → ICU 05-15 03:26 → CCU 05-17 07:56 → 3N 05-19 16:53 → 5SO 05-21 10:21 → 3N 05-25 16:26
PROVIDERS: ADMIT Internal Medicine; ATTEND Internal Medicine
PROC: 5A1945Z Respiratory Ventilation, 24-96 Consecutive Hours (ICD-10-PCS; principal; 2020-05-14)
PROC: 0BH17EZ Insertion of Endotracheal Airway into Trachea, Via Natural or Artificial Opening (ICD-10-PCS; 2020-05-14)
PROC: 30233R1 Transfusion of Nonautologous Platelets into Peripheral Vein, Percutaneous Approach (ICD-10-PCS; 2020-05-14)
PROC: 30233N1 Transfusion of Nonautologous Red Blood Cells into Peripheral Vein, Percutaneous Approach (ICD-10-PCS; 2020-05-14)
DX: A41.9 Sepsis, unspecified organism (principal); J96.01 Acute respiratory failure with hypoxia; G93.41 Metabolic encephalopathy; N17.0 Acute kidney failure with tubular necrosis; R65.21 Severe sepsis with septic shock; I21.4 Non-ST elevation (NSTEMI) myocardial infarction; E43 Unspecified severe protein-calorie malnutrition; N39.0 Urinary tract infection, site not specified; T83.518A Infection and inflammatory reaction due to other urinary catheter, initial encounter; E87.2 Acidosis; N13.30 Unspecified hydronephrosis; M86.9 Osteomyelitis, unspecified; E27.40 Unspecified adrenocortical insufficiency; I13.0 Hypertensive heart and chronic kidney disease with heart failure and stage 1 through stage 4 chronic kidney disease, or unspecified chronic kidney disease; E87.5 Hyperkalemia; E11.649 Type 2 diabetes mellitus with hypoglycemia without coma; E11.22 Type 2 diabetes mellitus with diabetic chronic kidney disease; I95.1 Orthostatic hypotension; D63.8 Anemia in other chronic diseases classified elsewhere; E03.9 Hypothyroidism, unspecified; D69.6 Thrombocytopenia, unspecified; B96.20 Unspecified Escherichia coli [E. coli] as the cause of diseases classified elsewhere; I50.9 Heart failure, unspecified; Z20.828 Contact with and (suspected) exposure to other viral communicable diseases; B96.1 Klebsiella pneumoniae [K. pneumoniae] as the cause of diseases classified elsewhere; N18.3 Chronic kidney disease, stage 3 (moderate); E11.69 Type 2 diabetes mellitus with other specified complication; K81.9 Cholecystitis, unspecified; Z68.23 Body mass index [BMI] 23.0-23.9, adult; Z88.8 Allergy status to other drugs, medicaments and biological substances; Z79.899 Other long term (current) drug therapy; Z82.49 Family history of ischemic heart disease and other diseases of the circulatory system; Z88.1 Allergy status to other antibiotic agents; Z79.4 Long term (current) use of insulin; Z87.891 Personal history of nicotine dependence
CPT/HCPCS: 31500; 36415; 36556; 36600; 74018; 75989; 87106; 93017; 96361; 96365; 96375; 99291; J3490; 36430; 70450; 71045; 74176; 78452; 80047; 80048; 80053; 80307; 81001; 82140; 82272; 82533; 82550; 82803; 82962; 83605; 83615; 83735; 84100; 84134; 84439; 84443; 84478; 84484; 85014; 85018; 85025; 85045; 85049; 85362; 85379; 85384; 85610; 85730; 86850; 86900; 86923; 87040; 87070; 87075; 87077; 87081; 87086; 87184; 87186; 87205; 93005; 93308; 94002; 94003; 94640; G0378; J0610; J0696; J1644; J1815; J1956; J2250; J2543; J2704; J2785; J3010; J3370; J7070; A9502; C1729; C9113; C9898; J0360; J1720; J2270; J7030; J7050; J7120; P9016; P9035; U0001-CS